=== PATIENT | female | born 1985 | race Caucasian/White ===

== ENCOUNTER 2020-07-04 13:42 | Emergency (ER) | payer BC ==
[2020-07-04 14:07] VITALS: BP 151/97; PULSE 96; RESP 18; TEMP 98.1
[2020-07-04] MEDS ORDERED: BACITRACIN OINT 1 EACH PACKET TOPICAL STA (14:41)
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
== END 2020-07-04 15:13 | disposition home or self-care (01) ==
LOC: EC 13:42
DX: T23.232A Burn of second degree of multiple left fingers (nail), not including thumb, initial encounter (principal); T31.0 Burns involving less than 10% of body surface; W01.0XXA Fall on same level from slipping, tripping and stumbling without subsequent striking against object, initial encounter; X03.0XXA Exposure to flames in controlled fire, not in building or structure, initial encounter; Y92.89 Other specified places as the place of occurrence of the external cause; Z87.891 Personal history of nicotine dependence
CPT/HCPCS: 99283

== ENCOUNTER → 2020-10-02 | Outpatient (CLI) | payer BC ==
[2020-10-02 09:58] LABS: Basophils % (A) 0 %; Eosinophils # (A) 0.2 k/uL (0-0.7); Eosinophils % (A) 3 %; HCT 40.8 % (34.0-46.0); HGB 13.7 gm/dL (11.4-16.0); Lymphocytes # (A) 2.2 k/uL (1.0-4.8); Lymphocytes % (A) 28 %; MCH 28.6 pg (25.0-35.0); MCHC 33.6 g/dL (31.0-37.0); Mean Platelet Volume 8.5; Monocytes # (A) 0.4 k/uL (0-1.0); Monocytes % (A) 6 %; Neutrophils # (A) 4.7 k/uL (1.3-7.7); Neutrophils % (A) 60 %; Platelet Count 290 k/uL (150-450); RDW 11.9 % (11.5-15.5); WBC 7.9 k/uL (3.8-10.6)
[2020-10-02 16:04] LABS: African American GFR (CKD) 110.7 (60.0-200.0); Albumin 4.7 g/dL (3.80-4.90); Albumin/Globulin Ratio 2.14 (1.60-3.17); Anion Gap 8.4 mmol/L (4.00-12.00); BUN/Creat Ratio 17.5 Ratio (12.00-20.00); Calcium 9.6 mg/dL (8.7-10.3); Carbon Dioxide 25.6 mmol/L (21.6-31.8); Chol/HDL Ratio 3.38; Globulin 2.2 g/dL (1.6-3.3); LDL Cholesterol,Calculated 61.6 mg/dL (0.0-131.0); Non-African American GFR(CKD) 95.5 (60.0-200.0); Potassium 4.5 mmol/L (3.5-5.5); Total Bilirubin 0.4 mg/dL (0.2-1.2); Total Protein 6.9 g/dL (6.2-8.2); VLDL Calculation 31.4 mg/dL (5.00-40.00)
[2020-10-02 16:14] LABS: Hemoglobin A1C 5.7 % (4.0-6.0)
== END | disposition home or self-care (01) ==
LOC: LABWHC1 09:18
PROVIDERS: ATTEND Internal Medicine
DX: I10 Essential (primary) hypertension (principal)
CPT/HCPCS: 36415; 80053; 80061; 83036; 84443; 85025

== ENCOUNTER 2021-03-18 09:32 | Outpatient (CLI) | payer BC ==
--- NOTE | 2021-03-18 11:29 | US ---
EXAMINATION TYPE: US OB >= 14 wk fetus DATE OF EXAM: 03/18/2021 COMPARISON: None CLINICAL HISTORY: placenta, EFW, MARICARMEN Advanced Maternal Age; vaginal bleeding last night; HTN TECHNIQUE: Transabdominal (TA) GESTATIONAL AGE / DATING Physician Established: (20 weeks/2 days) EDC: 08/03/2021 Dates by LMP: (20 weeks/2 days) EDC: 08/03/2021 Dates by First Scan: No previous here. Dates by Current Scan: (20 weeks/2 days) EDC: 08/03/2021 Beta HCG (if available): NA SURVEY IUP: Single PLACENTA: Anterior; anechoic oval areas seen superior and inferior placenta and may be venous lakes . Continued sonographic follow-up is recommended. PREVIA: No Previa MARICARMEN: 11.4 cm Normal CERVICAL LENGTH (transabdominal: norm > 3.0cm): 4.9 cm BIOMETRY PRESENTATION: Breech LIE: Longitudinal BPD: 4.8 cm 20 weeks / 3 days HC: 17.7 cm 20 weeks / 1 day AC: 16.0 cm 21 weeks / 1 day FL: 3.4 cm 20 weeks / 4 days ESTIMATED WEIGHT IN GRAMS: 377.0 grams ESTIMATED WEIGHT IN LBS/OZ: 0 lbs. 13.0 oz. WEIGHT PERCENTAGE BASED ON ESTABLISHED DATES: 73.4% HC/AC: 1.10 Normal FL/AC: 20.98 Normal HEART RATE: 160 bpm RHYTHM: Normal MATERNAL WALL MEASUREMENT: 5.0 cm from skin to anterior uterine wall (if exam limited due to body hab itus). Single, live IUP,20 weeks/2 days, EDC: 08/03/2021, [id number]. IMPRESSION: Single intrauterine with an average ultrasound gestational age of 20 weeks and 2 days. Feta l heart rate is 160 bpm. Probable venous lakes within the placenta. Continued sonographic follow-up is recommended.
[2021-03-18 11:40] VITALS: BP 152/83; PULSE 102; RESP 18; TEMP 98
[2021-03-18 11:50] LABS: Appearance,Urine Clear (Clear); Bilirubin,Urine Negative (Negative); Blood,Urine Trace (Negative); Color,Urine Colorless; Glucose,Urine (UA) Negative (Negative); Ketones,Urine Negative (Negative); Leukocyte Esterase,Urine Negative (Negative); Nitrite,Urine Negative (Negative); Protein,Urine Negative (Negative); Specific Gravity,Urine 1.003 (1.001-1.035); Squamous Epithelial Cell,Urine <1 /hpf (0-4); Urobilinogen,Urine <2.0 mg/dL (<2.0); WBC,Urine <1 /hpf (0-5)
--- NOTE | 2021-04-04 11:26 | P.MSEPDOC ---
Presenting Problems - Arrival Data Date of Arrival on Unit: 03/18/21 Time of Arrival on Unit: 09:32 Mode of Transport: Ambulatory - Complaint OB-Reason for Admission/Chief Complaint: Vaginal Bleeding Medical History - Information : 1 Para: 0 Term: 0 : 0 Abortions: Spontaneous or Elective: 0 Number of Living Children: 0 - Gestational Age Gestational Age by CHRISTY (wks/days): 20 Weeks and 2 Days - History Comment: pt has high blood pressure and on bp meds Review of Systems - Review of Systems Constitutional: No problems Breast: No problems ENT: No problems Cardiovascular: No problems Respiratory: No problems Gastrointestinal: No problems Genitourinary: No problems Musculoskeletal: No problems Neurological: No problems Skin: No problems Vital Signs - Temperature Temperature: 98.0 F Temperature Source: Oral - Pulse Right Brachial Pulse Rate: 102 Pulse Assessment Method: Automatic Cuff - Respirations Respiratory Rate: 18 Oxygen Delivery Method: Room Air - Blood Pressure Right Arm Blood Pressure: 152/83 Blood Pressure Mean: 106 Blood Pressure Source: Automatic Cuff Medical Screen Scoring - Assessment - Baby A Baseline FHR: 140 Physician Notification - Physician Notified Physician Notified Date: 03/18/21 Physician Notified Time: 11:22 Physician: Cony Gama S - Notification Comment Comment: ultrasound performed and urine sent, u/s no concerns, bp before discharge 131/80, pt discharged home on pelvic rest, she is to follow up on March [address] Murphy at scheduled appt Disposition - Disposition OB Disposition: Triage, Discharge to home, Written follow up instructions mon Discharge Date: 03/18/21 Discharge Time: 11:30 I agree with the RN Medical Screening Exam: Yes Physician's MSE Comment: I have neither seen nor examined the patient. Case reviewed; plan agreed upon as documented in EMR&OBIX.: Yes Diagnosis: RELATED CONDITIONS, UNSPECIFIED, SECOND TRIMESTER
== END 2021-03-18 11:30 | disposition home or self-care (01) ==
LOC: FBPOP 09:32
PROVIDERS: ATTEND Obstetrics & Gynecology
DX: O20.9 Hemorrhage in early pregnancy, unspecified (principal); O10.912 Unspecified pre-existing hypertension complicating pregnancy, second trimester; Z3A.20 20 weeks gestation of pregnancy; Z79.899 Other long term (current) drug therapy
CPT/HCPCS: 76805; 81001; 99215

== ENCOUNTER 2021-05-20 15:18 | Outpatient (CLI) | payer BC ==
[2021-05-20 16:29] VITALS: BP 133/90; PULSE 93; RESP 16; TEMP 97.4
--- NOTE | 2021-05-29 11:53 | P.MSEPDOC ---
Presenting Problems - Arrival Data Date of Arrival on Unit: 05/20/21 Time of Arrival on Unit: 15:18 Mode of Transport: Ambulatory - Complaint OB-Reason for Admission/Chief Complaint: Pain Comment: vaginal "soreness" and shooting pain Medical History - Information : 1 Para: 0 Term: 0 : 0 Abortions: Spontaneous or Elective: 0 Number of Living Children: 0 - Gestational Age Gestational Age by CHRISTY (wks/days): 29 Weeks and 2 Days Review of Systems - Review of Systems Constitutional: No problems Breast: No problems ENT: No problems Cardiovascular: No problems Respiratory: No problems Gastrointestinal: No problems Genitourinary: No problems Musculoskeletal: No problems Neurological: No problems Skin: No problems Vital Signs - Temperature Temperature: 97.4 F Temperature Source: Temporal Artery Scan - Pulse Right Sitting Pulse Rate: 93 Pulse Assessment Method: Automatic Cuff - Respirations Respiratory Rate: 16 Oxygen Delivery Method: Room Air - Blood Pressure Right Arm Blood Pressure: 133/90 Blood Pressure Mean: 104 Blood Pressure Source: Automatic Cuff Medical Screen Scoring - Assessment - Baby A Baseline FHR: 145 Heart Rate - NICHD Category: Category I (Normal) NST: Reactive Physician Notification - Physician Notified Physician Notified Date: 05/20/21 Physician Notified Time: 16:00 Physician: Gavin Murphy Order Received: Yes (d/c home) Maternal Triage Index - Non-Urgent/Priority 4 Non-Urgent Priority 4: Yes Criteria Met for Priority 4: reactive nst, no contractions on monitor, vitals wnl Disposition - Disposition OB Disposition: Discharge to home Discharge Date: 05/20/21 Discharge Time: 16:11 I agree with the RN Medical Screening Exam: Yes Physician's MSE Comment: I have neither seen nor examined the patient. Case reviewed; plan agreed upon as documented in EMR&OBIX.: Yes Diagnosis: RELATED CONDITIONS, UNSPECIFIED, SECOND TRIMESTER
== END 2021-05-20 16:11 | disposition home or self-care (01) ==
LOC: FBPOP 15:18
PROVIDERS: ATTEND Obstetrics & Gynecology
DX: O26.92 Pregnancy related conditions, unspecified, second trimester (principal); Z3A.29 29 weeks gestation of pregnancy
CPT/HCPCS: 59025; 99213

== ENCOUNTER 2021-07-20 10:00 | Inpatient (IN) | payer BC ==
[2021-07-20] MEDS ORDERED: LIDOCAINE 0.5% (PF) 5 MG/ML (50 ML SDV) SQ PRN (10:20)
[2021-07-20] MEDS ORDERED: TERBUTALINE 1 MG/ML VIAL SQ PRN (10:20)
[2021-07-20] MEDS ORDERED: OXYTOCIN 10 UNIT/ML 1 ML VIAL IM PRN (10:20)
[2021-07-20] MEDS ORDERED: CARBOPROST TROMETHAMINE 250 MCG/ML 1 ML AMP IM PRN (10:20)
[2021-07-20] MEDS ORDERED: METHYLERGONOVINE 0.2 MG/ML 1 ML AMP IM PRN (10:20)
[2021-07-20] MEDS: LACTATED RINGERS 1,000 ML IV SCH ×4 (10:57→21:42)
[2021-07-20] MEDS ORDERED: ceFAZolin 3 GM in SODIUM CHLORIDE 0.9% 100 ML IVPB ONE (11:02)
[2021-07-20] MEDS ORDERED: CITRIC ACID-SODIUM CITRATE 15 ML CUP PO ONE (11:02)
[2021-07-20 11:06] LABS: Glucose,Whole Blood 102 mg/dL (75-99)
[2021-07-20 11:48] LABS: Basophils % (A) 0 %; Eosinophils # (A) 0.1 k/uL (0-0.7); Eosinophils % (A) 1 %; HCT 37.2 % (34.0-46.0); HGB 12.6 gm/dL (11.4-16.0); Lymphocytes # (A) 1.5 k/uL (1.0-4.8); Lymphocytes % (A) 14 %; MCH 28.6 pg (25.0-35.0); MCHC 33.8 g/dL (31.0-37.0); MCV 84.7 fL (80.0-100.0); Monocytes # (A) 0.5 k/uL (0-1.0); Monocytes % (A) 4 %; Neutrophils # (A) 8.7 k/uL (1.3-7.7); Neutrophils % (A) 79 %; Platelet Count 229 k/uL (150-450); RDW 13.4 % (11.5-15.5)
[2021-07-20] MEDS ORDERED: ROCURONIUM 10 MG/ML (5 ML VIAL) IV ONE (12:18)
[2021-07-20] MEDS ORDERED: fentaNYL (PF) 50 MCG/ML 2 ML AMP ONE (12:18)
[2021-07-20] MEDS ORDERED: ONDANSETRON 4 MG/2 ML VIAL ONE (12:18)
[2021-07-20] MEDS ORDERED: HYDROmorphone (PF) 1 MG/ML ONE (12:18)
[2021-07-20] MEDS ORDERED: GLYCOPYRROLATE 0.2 MG/ML 2 ML VIAL ONE (12:18)
[2021-07-20] MEDS ORDERED: SUCCINYLCHOLINE CHLORIDE 100 MG/5 ML SYR IV ONE (12:18)
[2021-07-20] MEDS ORDERED: OXYTOCIN 30 UNITS/500 ML NS BAG IV ONE (12:18)
[2021-07-20] MEDS ORDERED: NEOSTIGMINE 1 MG/ML 10 ML VIAL ONE (12:18)
[2021-07-20] MEDS ORDERED: PROPOFOL 10 MG/ML 20 ML VIAL IV ONE (12:18)
[2021-07-20] MEDS ORDERED: KETOROLAC 15 MG/ML 1 ML VIAL ONE (12:18)
[2021-07-20] MEDS ORDERED: LIDOCAINE 1% INJ 10MG/ML (20 ML MDV) ONE (12:18)
[2021-07-20] MEDS ORDERED: diphenhydrAMINE 25 MG CAP PO PRN (13:15)
[2021-07-20] MEDS ORDERED: diphenhydrAMINE 50 MG/ML 1 ML VIAL IVP PRN ×2 (13:15)
[2021-07-20] MEDS ORDERED: OXYTOCIN 30 UNITS/500 ML NS 30 UNIT in SALINE 1 500ML.BAG IV SCH (13:15)
[2021-07-20] MEDS ORDERED: HYDROmorphone PCA 10 MG/50 ML BAG IV PRN (13:15)
[2021-07-20] MEDS ORDERED: LANOLIN CREAM 5 GM TUBE TOPICAL PRN (13:15)
[2021-07-20] MEDS ORDERED: diphenhydrAMINE 50 MG CAP PO PRN (13:15)
[2021-07-20] MEDS ORDERED: ZOLPIDEM 5 MG TAB PO PRN (13:15)
[2021-07-20] MEDS ORDERED: ONDANSETRON 4 MG/2 ML VIAL IVP PRN (13:15)
[2021-07-20] MEDS ORDERED: METOCLOPRAMIDE 5 MG/ML 2 ML VIAL IVP PRN (13:15)
[2021-07-20] MEDS ORDERED: NALOXONE 0.4 MG/ML 1 ML VIAL IV PRN (13:15)
[2021-07-20] MEDS ORDERED: SIMETHICONE 80 MG CHEWABLE PO PRN (13:15)
[2021-07-20] MEDS ORDERED: HYDROmorphone 2 MG TAB PO PRN ×2 (13:15)
--- NOTE | 2021-07-20 13:24 | P.HPOB ---
History of Present Illness H&P Date: 07/20/21 Chief Complaint: 38-0/7 weeks, primary low-transverse section The patient is a 36-year-old 1 para 0 admitted at 38-0/7 weeks for a elective primary low-transverse section. She is admitted with all signs reassuring and category 1 heart rate tracing. She falls into the category of advanced maternal age and declined trisomy testing. She carries a history of atrial fibrillation status post cardiac ablation since which time she has been stable. She did undergo maternal medicine of consultation who recommended she be delivered at 38 weeks. She additionally was a gestational diabetic and had reassuring weekly testing and her sugars were reasonably well controlled with diet alone. She also had a history of hypertension was stable on labetalol throughout the . She last was Rh- and received RhoGAM at 28 weeks. Ultrasound additionally had showed a velamentous cord insertion of though the placenta was not low-lying. The decision to proceed with primary low-transverse section was made secondary to the maternal medicine recommendation for delivery at 38 weeks with a very unfavorable cervix and a macrosomic fetus growing well over the 90th percentile growth. She additionally has a twin sister who has been unable to have normal vaginal deliveries. Group B strep status is negative. Obstetrical history: 1 para 0 with current statistics listed in history present illness. EDC of 08/03/2021 was established by last menstrual period and confirmed by first trimester ultrasound. Laboratory workup demonstrates a blood type of O- with a negative antibody screen. Rubella status is immune. The remainder of the laboratory workup was within normal limits. Early 1 hour Glucola was within normal limits. Second trimester Glucola was elevated and followed by an abnormal three-hour glucose tolerance test making the diagnosis of gestational diabetes. Group B strep status is negative. Gynecologic history: Unremarkable with no history of any infections to include STDs. Review of Systems Review of systems is confined to history of present illness. Past Medical History Past Medical History: Atrial Fibrillation, Asthma, Diabetes Mellitus, GERD/Reflux, Hypertension, Sleep Apnea/CPAP/BIPAP, Thyroid Disorder Additional Past Medical History / Comment(s): Non Insulin Dependent Gestational Diabetes. CPAP use. History of Any Multi-Drug Resistant Organisms: None Reported Past Surgical History: Cardiac Ablation Past Anesthesia/Blood Transfusion Reactions: No Reported Reaction, Motion Sickness Past Psychological History: ADD/ADHD Smoking Status: Former smoker, Light tobacco smoker Past Alcohol Use History: None Reported Past Drug Use History: None Reported - Past Family History Father Family Medical History: CVA/TIA Mother Family Medical History: Cancer Additional Family Medical History / Comment(s): Breast cancer. Medications and Allergies Home Medications Medication Instructions Recorded Confirmed Type Albuterol Inhaler [Ventolin Hfa 1 puff INHALATION DIRECTED 03/18/21 07/20/21 History Inhaler] Aspirin 81 mg PO DAILY 03/18/21 07/20/21 History Beclomethasone Dipropionate [Qvar 1 puff INHALATION DAILY 03/18/21 07/20/21 History 40 mcg Redihaler] Levothyroxine Sodium [Synthroid] 75 mcg PO DAILY 03/18/21 07/20/21 History Pnv No.95/Ferrous Fum/Folic AC 1 tab PO DAILY 03/18/21 07/20/21 History [ Multivitamin Tablet] Ascorbic Acid [Vitamin C] 500 mg PO DAILY 07/13/21 07/20/21 History Biotin 5 mg PO DAILY 07/13/21 07/20/21 History Calcium/Magnesium/Zinc 1 each PO DAILY 07/13/21 07/20/21 History [Ngpvtxg-Sexazpgxz-Mfin Tablet] Docusate [Colace] 100 mg PO DAILY 07/13/21 07/20/21 History Ferrous Sulfate [Feosol] 325 mg PO DAILY 07/13/21 07/20/21 History Folic Acid (Unknown Dose) 1 tab PO DAILY 07/13/21 07/20/21 History Lisdexamfetamine Dimesylate 50 mg PO DAILY PRN 07/13/21 07/20/21 History [Vyvanse] Loratadine [Claritin] 10 mg PO DAILY 07/13/21 07/20/21 History Metoprolol Tartrate 25 mg PO DAILY 07/13/21 07/20/21 History Vitamin B Complex 1 each PO DAILY 07/13/21 07/20/21 History metFORMIN HCL [Glucophage] 1,000 mg PO BID 07/13/21 07/20/21 History Allergies Allergy/AdvReac Type Severity Reaction Status Date / Time No Known Allergies Allergy Verified 07/20/21 10:16 Exam Vital Signs Temp Pulse Resp BP 07/20/21 10:16 97.2 F L 97 16 129/86 Intake and Output 07/19/21 07/20/21 07/20/21 22:59 06:59 14:59 Other: Weight 138.346 kg In general, this is a well-developed, moderately obese white female in no acute distress. Her heart has a regular rhythm and rate without murmur. Her lungs clear to auscultation bilaterally in all ramirez. Her abdomen is gravid, nondistended, has normal active bowel sounds, soft, nontender, and without any palpable masses aside from uterine fundus. Her extremities are without any cyanosis, clubbing, or significant edema and are nontender to palpation bilaterally. Digital cervical examination is deferred but her cervix has in the past been closed, thick, and high. Results Result Diagrams: 07/20/21 10:45 Abnormal Lab Results - Last 24 Hours (Table) 07/20/21 07/20/21 Range/Units 10:45 11:05 WBC 11.0 H (3.8-10.6) k/uL POC Glucose (mg/dL) 102 H (75-99) mg/dL Assessment and Plan (1) Term Current Visit: Yes Status: Acute Code(s): Z34.90 - ENCNTR FOR SUPRVSN OF NORMAL , UNSP, UNSP TRIMESTER SNOMED Code(s): 85302570 (2) Chronic hypertension affecting Current Visit: Yes Status: Acute Code(s): O10.919 - UNSP PRE-EXISTING HTN COMP , UNSP TRIMESTER SNOMED Code(s): 97120939 (3) Gestational diabetes Current Visit: Yes Status: Acute Code(s): O24.419 - GESTATIONAL DIABETES MELLITUS IN , UNSP CONTROL SNOMED Code(s): 71566992 (4) Unfavorable cervix in term Current Visit: Yes Status: Acute Code(s): O34.40 - MATERNAL CARE FOR OTH ABNLT OF CERVIX, UNSP TRIMESTER SNOMED Code(s): 915759488 (5) Large for gestational age fetus Current Visit: Yes Status: Acute Code(s): HTA7804 - SNOMED Code(s): 495549418 Plan: The patient is admitted for elective primary low-transverse section for the reasons as outlined in history present illness. There is an complications of the procedure been thoroughly discussed and she is understood and agreed to proceed.
--- NOTE | 2021-07-20 13:31 | P.OP ---
Date of Procedure: 07/20/21 Preoperative Diagnosis: #1. 38-0/7 weeks, chronic hypertension, gestational diabetes, unfavorable cervix, suspected macrosomia Postoperative Diagnosis: Same Procedure(s) Performed: #1. Elective primary low-transverse section Anesthesia: SAEID Surgeon: Gavin Murphy Solar Electric/Photovoltaic Installer #1: Cony Gama Estimated Blood Loss (ml): 634 IV fluids (ml): 1,000 Urine output (ml): 100 Pathology: none sent Condition: stable Disposition: floor Operative Findings: Preoperatively, the decision to proceed with primary section was made given all the criteria and findings as noted in both diagnoses and in history present illness. She was taken the operating room where, at the time of evaluation for spinal, the anesthesiologist noted the patient had a significant rash and/or acne covering the entire area of the back where the spinal would be placed. There was concern for potential for infection and the anesthesiologist opted to proceed with general anesthesia instead. She was delivered of a viable 9 lbs. 4 oz. baby boy delivered in left occiput transverse position with Apgars of 9 at 1 minute and 9 at 5 minutes respectively. The placenta was delivered manually, intact, and grossly normal with a grossly normal three-vessel cord. The uterus, tubes, and ovaries were entirely normal to inspection. Description of Procedure: The patient was prepped and draped in usual fashion and then general anesthesia was administered by the anesthesiologist. A Pfannenstiel incision was made and extended into the abdominal cavity without difficulty. The bladder peritoneum was significantly distal to the intended site of incision and was left intact. A 2 cm incision was made in the transverse plane of the lower uterine segment to enter the uterus at which time clear fluid was noted. The incision was extended in both directions using the bandage scissors. The head was delivered up to the incision but was difficult to deliver through secondary to the angles of the maternal abdomen and the lack of labor. A vega-shaped mighty Vac vacuum was attached the occiput and, using fundal pressure along with the vacuum to elevate the head, the head was delivered through the incision where the nose and mouth were thoroughly suctioned. The remainder the was delivered onto the field where the cord was doubly clamped, cut, and the passed resusci tative measures with weight and Apgars as noted above. The was immediately vigorous. A segment of cord was then doubly clamped, cut, and set aside should cord gases become necessary. cord blood was collected for evaluation for RhoGAM. The placenta was delivered manually and intact as noted above. The uterus was exteriorized and the interior cavity of the uterus swept of any remaining placental or membranous fragments. The margins of the uterine incision were grasped with Loaiza clamps and the incision was closed in 2 layers. The first layer was a running locking stitch of 0 chromic catgut followed by a running imbricating stitch of 0 chromic catgut, each from margin to margin. Hemostasis appeared to be excellent. The posterior cul-de-sac was suctioned using a guard and the uterus was replaced within the abdominal cavity. The gutters were swept of any remaining blood, fluid, or clot and the incision reexamined. Any small points of bleeding along the peritoneal edges were made hemostatic with the Bovie. Once hemostasis was noted, the parietal peritoneum was loosely reapproximated and layer of muscles examined and made hemostatic with the Bovie. The fascia was closed with 2 running stitches of 0 Vicryl proceeding from the lateral margins to the midpoint. The subcutaneous tissues were made hemostatic with the Bovie and reapproximated with a running stitch of 30 plain catgut. The skin was reapproximated with a running subcuticular stitch of 4-0 Vicryl followed by half-inch Steri-Strips placed with Mastisol. Estimated blood loss for the case was approximately 634 mL. There were no complications. All sponge, instrument, and needle counts were correct. The patient tolerated the procedure well and proceeded to the recovery room in stable condition. Both mother and are resting comfortably in recovery.
[2021-07-20] MEDS ORDERED: Rhogam IMMUNE GLOBULIN 1,500 UNIT/1 ML IM ONE (15:06)
[2021-07-20] MEDS: ACETAMINOPHEN TAB 500 MG TAB PO SCH (17:54)
[2021-07-20] MEDS: SENNOSIDES-DOCUSATE SODIUM 1 EACH TAB PO SCH (20:52)
[2021-07-20] MEDS: KETOROLAC 15 MG/ML 1 ML VIAL IVP PRN (20:52)
[2021-07-20] MEDS: IBUPROFEN 600 MG TAB PO SCH (21:41)
[2021-07-21] MEDS: ACETAMINOPHEN TAB 500 MG TAB PO SCH ×4 (01:11→18:06)
[2021-07-21] MEDS: IBUPROFEN 600 MG TAB PO SCH ×5 (02:14→23:02)
[2021-07-21] MEDS: KETOROLAC 15 MG/ML 1 ML VIAL IVP PRN ×2 (03:10→08:51)
[2021-07-21] MEDS: LACTATED RINGERS 1,000 ML IV SCH (06:11)
[2021-07-21 06:23] LABS: Basophils % (A) 0 %; Eosinophils # (A) 0.1 k/uL (0-0.7); Eosinophils % (A) 1 %; HGB 11.3 gm/dL (11.4-16.0); Lymphocytes % (A) 13 %; MCH 29.2 pg (25.0-35.0); MCHC 34.1 g/dL (31.0-37.0); MCV 85.6 fL (80.0-100.0); Mean Platelet Volume 10.1; Monocytes # (A) 0.8 k/uL (0-1.0); Monocytes % (A) 5 %; Neutrophils # (A) 11.8 k/uL (1.3-7.7); Neutrophils % (A) 78 %; Platelet Count 202 k/uL (150-450); RBC 3.85 m/uL (3.80-5.40); RDW 13.5 % (11.5-15.5); WBC 15.1 k/uL (3.8-10.6)
--- NOTE | 2021-07-21 08:48 | P.PNOBGPC ---
Subjective - Subjective Principal diagnosis: Postop day 1, primary Interval history: Patient did well overnight. She is ambulating and voiding without difficulty. Her lochia is minimal. She is tolerating a regular diet without nausea or vomiting. She is breast-feeding without difficulty. Patient reports: Reports appetite normal, Reports voiding normally, Reports pain well controlled, Reports ambulating normally : doing well, nursing well Objective - Vital Signs Latest vital signs: Vital Signs Temp Pulse Resp BP Pulse Ox 07/21/21 03:47 97.9 F 93 16 140/87 96 07/21/21 00:00 98.5 F 99 16 124/77 07/20/21 20:00 97.7 F 111 H 16 147/81 95 07/20/21 16:00 98.3 F 92 16 139/92 97 07/20/21 15:15 97.0 F L 86 16 134/79 96 07/20/21 14:45 97.1 F L 91 17 150/81 94 L 07/20/21 14:15 97.2 F L 85 17 151/81 97 07/20/21 14:00 97.2 F L 100 17 143/67 97 07/20/21 13:45 97.3 F L 83 16 152/72 97 07/20/21 13:30 97.2 F L 78 16 153/80 98 07/20/21 13:15 97.2 F L 76 16 173/81 98 07/20/21 10:16 97.2 F L 97 16 129/86 Intake and Output 07/20/21 07/21/21 07/21/21 22:59 06:59 14:59 Output Total 1305 1800 Balance -1305 -1800 Output: Urine 1050 1800 Uretheral (Orozco) 950 Estimated Blood Loss 255 Other: Voiding Method Indwelling Catheter # Voids 1 - Exam Extremities: Present: normal, edema Abdomen: Present: normal appearance Incision: Present: intact Uterus: Present: normal, firm - Labs Labs: Abnormal Lab Results - Last 24 Hours (Table) 07/20/21 07/20/21 07/21/21 Range/Units 10:45 11:05 06:03 WBC 11.0 H 15.1 H (3.8-10.6) k/uL Hgb 11.3 L (11.4-16.0) gm/dL Hct 33.0 L (34.0-46.0) % Neutrophils # 8.7 H 11.8 H (1.3-7.7) k/uL POC Glucose (mg/dL) 102 H (75-99) mg/dL Assessment and Plan (1) Chronic hypertension affecting Current Visit: Yes Status: Acute Code(s): O10.919 - UNSP PRE-EXISTING HTN COMP , UNSP TRIMESTER SNOMED Code(s): 35044585 (2) Gestational diabetes Current Visit: Yes Status: Acute Code(s): O24.419 - GESTATIONAL DIABETES MELLITUS IN , UNSP CONTROL SNOMED Code(s): 72983228 (3) Large for gestational age fetus Current Visit: Yes Status: Acute Code(s): GCY1064 - SNOMED Code(s): 946192242 (4) Term Current Visit: Yes Status: Acute Code(s): Z34.90 - ENCNTR FOR SUPRVSN OF NORMAL , UNSP, UNSP TRIMESTER SNOMED Code(s): 57367839 (5) Unfavorable cervix in term Current Visit: Yes Status: Acute Code(s): O34.40 - MATERNAL CARE FOR OTH ABNLT OF CERVIX, UNSP TRIMESTER SNOMED Code(s): 014883653 Plan: Patient is doing well postoperatively. We'll plan to continue routine postoperative care. We will hold metoprolol interval 24 hours status post general anesthesia. If her pulse remains elevated above 100 will restart today. Discontinue SENIOR WEB ARCHITECT, start oral pain medication. Patient is doing well, anticipate discharge home tomorrow.
[2021-07-21] MEDS: SENNOSIDES-DOCUSATE SODIUM 1 EACH TAB PO SCH ×2 (08:51→20:58)
[2021-07-21] MEDS: METOPROLOL TARTRATE 25 MG TAB PO SCH (20:59)
[2021-07-22] MEDS: ACETAMINOPHEN TAB 500 MG TAB PO SCH ×3 (01:44→12:18)
[2021-07-22] MEDS: IBUPROFEN 600 MG TAB PO SCH (06:41)
[2021-07-22] MEDS: SENNOSIDES-DOCUSATE SODIUM 1 EACH TAB PO SCH (08:43)
[2021-07-22] MEDS: METOPROLOL TARTRATE 25 MG TAB PO SCH (08:43)
[2021-07-22 08:59] VITALS: BP 132/92; PULSE 94; RESP 20; TEMP 97.9
--- NOTE | 2021-07-22 13:13 | P.DS ---
Providers Date of admission: 07/20/21 10:00 Expected date of discharge: 07/22/21 Attending physician: Gavin Murphy Primary care physician: Stated None - Discharge Diagnosis(es) (1) Chronic hypertension affecting Current Visit: Yes Status: Acute (2) Gestational diabetes Current Visit: Yes Status: Acute (3) Large for gestational age fetus Current Visit: Yes Status: Acute (4) Term Current Visit: Yes Status: Acute (5) Unfavorable cervix in term Current Visit: Yes Status: Acute (6) S/P section Current Visit: Yes Status: Acute Hospital Course: This is a 36-year-old admitted at 38-0/7 weeks for elective primary low transverse section. Patient has a history of atrial fibrillation status post cardiac ablation which has been stable since the time of the ab lation. Patient did undergo maternal- medicine consultation which recommended delivery at 38 weeks. She is also a gestational diabetic and has had reassuring testing. Patient has a history of hypertension stable on labetalol throughout the . Patient is known Rh-. In addition this patient had an ultrasound revealing a velamentous cord insertion although not low-lying placenta. Estimated weight of this was well over the 90th percentile in addition. Patient has a history of a twin sister that was unable to deliver vaginally and she elected a elective . Patient underwent primary low transverse section under general anesthesia for questionable infectious rash on her lower back. Patient did well. For full details on the please see the operative report. Patient delivered a liveborn male, weight of 9 lbs. 4 oz. in a vertex presentation. Apgars were 9 and 9 at one and 5 minutes respect daily. Patient's postoperative course has been uneventful. On this postoperative day #2 she is ambulating and voiding without difficulty. She is breast and bottle feeding. She states her lochia is minimal. Her pain is well-controlled. She does wish discharge home. Patient Condition at Discharge: Good Plan - Discharge Summary Discharge Rx Participant: Yes New Discharge Prescriptions: No Action Levothyroxine Sodium [Synthroid] 75 mcg PO DAILY Aspirin 81 mg PO DAILY metFORMIN HCL [Glucophage] 1,000 mg PO BID Ferrous Sulfate [Feosol] 325 mg PO DAILY Loratadine [Claritin] 10 mg PO DAILY Folic Acid (Unknown Dose) 1 tab PO DAILY Calcium/Magnesium/Zinc [Grvbzpd-Hpjtfxpcm-Ewgm Tablet] 1 each PO DAILY Pnv No.95/Ferrous Fum/Folic AC [ Multivitamin Tablet] 1 tab PO DAILY Albuterol Inhaler [Ventolin Hfa Inhaler] 1 puff INHALATION DIRECTED Beclomethasone Dipropionate [Qvar 40 mcg Redihaler] 1 puff INHALATION DAILY Docusate [Colace] 100 mg PO DAILY Ascorbic Acid [Vitamin C] 500 mg PO DAILY Metoprolol Tartrate 25 mg PO DAILY Lisdexamfetamine Dimesylate [Vyvanse] 50 mg PO DAILY PRN PRN Reason: ADHD Vitamin B Complex 1 each PO DAILY Biotin 5 mg PO DAILY Discharge Medication List Albuterol Inhaler [Ventolin Hfa Inhaler] 1 puff INHALATION DIRECTED 03/18/21 [History] Aspirin 81 mg PO DAILY 03/18/21 [History] Beclomethasone Dipropionate [Qvar 40 mcg Redihaler] 1 puff INHALATION DAILY 03/18/21 [History] Levothyroxine Sodium [Synthroid] 75 mcg PO DAILY 03/18/21 [History] Pnv No.95/Ferrous Fum/Folic AC [ Multivitamin Tablet] 1 tab PO DAILY 03/18/21 [History] Ascorbic Acid [Vitamin C] 500 mg PO DAILY 07/13/21 [History] Biotin 5 mg PO DAILY 07/13/21 [History] Calcium/Magnesium/Zinc [Dhmabnq-Apvldcagm-Ycnu Tablet] 1 each PO DAILY 07/13/21 [History] Docusate [Colace] 100 mg PO DAILY 07/13/21 [History] Ferrous Sulfate [Feosol] 325 mg PO DAILY 07/13/21 [History] Folic Acid (Unknown Dose) 1 tab PO DAILY 07/13/21 [History] Lisdexamfetamine Dimesylate [Vyvanse] 50 mg PO DAILY PRN 07/13/21 [History] Loratadine [Claritin] 10 mg PO DAILY 07/13/21 [History] Metoprolol Tartrate 25 mg PO DAILY 07/13/21 [History] Vitamin B Complex 1 each PO DAILY 07/13/21 [History] metFORMIN HCL [Glucophage] 1,000 mg PO BID 07/13/21 [History] Follow up Appointment(s)/Referral(s): Gavin Murphy MD [STAFF PHYSICIAN] - 2 Weeks Patient Instructions/Handouts: (DC), (GEN) Discharge Disposition: HOME SELF-CARE
== END 2021-07-22 14:30 | disposition home or self-care (01) | DRG 786 ==
LOC: 4FBP 10:00
PROVIDERS: ADMIT Obstetrics & Gynecology; ATTEND Obstetrics & Gynecology
PROC: 3E0234Z Introduction of Serum, Toxoid and Vaccine into Muscle, Percutaneous Approach (ICD-10-PCS; 2021-07-20)
PROC: 10D00Z1 Extraction of Products of Conception, Low, Open Approach (ICD-10-PCS; principal; 2021-07-20 12:00)
DX: O10.92 Unspecified pre-existing hypertension complicating childbirth (principal); O99.42 Diseases of the circulatory system complicating childbirth; O36.63X0 Maternal care for excessive fetal growth, third trimester, not applicable or unspecified; O24.425 Gestational diabetes mellitus in childbirth, controlled by oral hypoglycemic drugs; O34.43 Maternal care for other abnormalities of cervix, third trimester; O43.123 Velamentous insertion of umbilical cord, third trimester; O99.52 Diseases of the respiratory system complicating childbirth; O99.62 Diseases of the digestive system complicating childbirth; K21.9 Gastro-esophageal reflux disease without esophagitis; G47.33 Obstructive sleep apnea (adult) (pediatric); O26.893 Other specified pregnancy related conditions, third trimester; Z67.41 Type O blood, Rh negative; O99.344 Other mental disorders complicating childbirth; F90.9 Attention-deficit hyperactivity disorder, unspecified type; I48.91 Unspecified atrial fibrillation; J45.909 Unspecified asthma, uncomplicated; Z37.0 Single live birth; Z3A.38 38 weeks gestation of pregnancy; Z79.82 Long term (current) use of aspirin; Z79.890 Hormone replacement therapy; Z79.899 Other long term (current) drug therapy; Z87.891 Personal history of nicotine dependence
CPT/HCPCS: 85025; 85461; 86850; 86900; 86901

== ENCOUNTER → 2021-09-21 | Outpatient (CLI) | payer BC ==
--- NOTE | 2021-09-22 10:23 | USB ---
History: Family history of breast cancer in mother at age 43 and breast cancer in maternal grandmother. Indicated problem(s): palpable abnormality in the right breast. Physical Findings: Nurse Summary: 7 x 8cm firm, red nodule (nurse dw). US Breast Limited RT Technologist: Alysia Lundberg Right limited breast ultrasound including focal area of concern, retroareolar and axilla demonstrates a 2.9 x 1.8 x 2.1cm irregular, cystic lesion at 1 o'clock and duct ectasia at the nipple. Suspect developing abscess, differential includes galactocele or less likely hematoma. These results were verbally communicated with the patient and result sheet given to the patient on 09/21/21. ASSESSMENT: Probably benign, BI-RAD 3 RECOMMENDATION: Ultrasound of the right breast in 1 month. (2-4 weeks if not improving) Manage patient on a clinical basis.
== END | disposition home or self-care (01) ==
LOC: RADUSWWP 14:23
PROVIDERS: ATTEND Obstetrics & Gynecology
DX: N64.4 Mastodynia (principal); N63.0 Unspecified lump in unspecified breast

== ENCOUNTER 2021-09-29 17:00 | Observation (INO) | payer BC ==
[2021-09-29] MEDS ORDERED: SODIUM CHLORIDE 0.9% 500 ML 500 ML IV STA (18:30)
--- NOTE | 2021-09-29 18:43 | ED ---
General Adult HPI - General Chief complaint: Abdominal Pain Stated complaint: Abd pain Time Seen by Provider: 09/29/21 18:10 Source: patient, RN notes reviewed, old records reviewed Mode of arrival: ambulatory Limitations: no limitations - History of Present Illness Initial comments: This a 36 old female presents emergency department stating after she had a candy bar this afternoon. He started having severe right upper quadrant abdominal pain. Patient states it was very severe. Patient states the pain lasted for about 2 hours and then went down to a 4 out of 10 almost instantaneously. Patient denies any nausea vomiting. Patient states became diaphoretic. Patient states she's had this happen twice before the middle the night but never came in to be evaluated. Patient denies any chest pain difficult breathing shortness of breath per patie nt has any fever chills or cough. Patient denies any leg swelling or calf tenderness. Patient denies any diarrhea. - Related Data Home Medications Medication Instructions Recorded Confirmed Albuterol Inhaler [Ventolin Hfa 2 puff INHALATION RT-QID PRN 03/18/21 09/29/21 Inhaler] Aspirin 81 mg PO DAILY 03/18/21 09/29/21 Beclomethasone Dipropionate [Qvar 2 puff INHALATION RT-BID 03/18/21 09/29/21 40 mcg Redihaler] Levothyroxine Sodium [Synthroid] 75 mcg PO DAILY 03/18/21 09/29/21 Pnv No.95/Ferrous Fum/Folic AC 1 tab PO DAILY 03/18/21 09/29/21 [ Multivitamin Tablet] Calcium/Magnesium/Zinc 1 tab PO DAILY 07/13/21 09/29/21 [Pbhmhel-Omigkrkzk-Juxh Tablet] Lisdexamfetamine Dimesylate 50 mg PO DAILY PRN 07/13/21 09/29/21 [Vyvanse] Loratadine [Claritin] 10 mg PO DAILY 07/13/21 09/29/21 Metoprolol Tartrate 25 mg PO DAILY 07/13/21 09/29/21 metFORMIN HCL [Glucophage] 1,000 mg PO BID 07/13/21 09/29/21 Amoxic-Pot Clav 875-125Mg 1 tab PO BID 09/29/21 09/29/21 [Augmentin 875-125] Cholecalciferol [Vitamin D3 (25 25 mcg PO DAILY 09/29/21 09/29/21 Mcg = 1000 Iu)] Folic Acid 0.8 mg PO DAILY 09/29/21 09/29/21 Allergies Allergy/AdvReac Type Severity Reaction Status Date / Time No Known Allergies Allergy Verified 09/29/21 19:08 Review of Systems ROS Statement: Those systems with pertinent positive or pertinent negative responses have been documented in the HPI. ROS Other: All systems not noted in ROS Statement are negative. Past Medical History Past Medical History: Atrial Fibrillation, Asthma, Diabetes Mellitus, GERD/Reflux, Hypertension, Sleep Apnea/CPAP/BIPAP, Thyroid Disorder Additional Past Medical History / Comment(s): Non Insulin Dependent Gestational Diabetes. CPAP use. History of Any Multi-Drug Resistant Organisms: None Reported Past Surgical History: Cardiac Ablation, Section Past Anesthesia/Blood Transfusion Reactions: No Reported Reaction, Motion Sickness Past Psychological History: ADD/ADHD, Anxiety Smoking Status: Former smoker, Light tobacco smoker Past Alcohol Use History: Rare Past Drug Use History: None Reported - Past Family History Father Family Medical History: CVA/TIA Mother Family Medical History: Cancer Additional Family Medical History / Comment(s): Breast cancer. General Exam - General Exam Comments Initial Comments: GENERAL: Patient is well-developed and well-nourished. Patient is nontoxic and well- hydrated and is in mild distress. ENT: Neck is soft and supple. No significant lymphadenopathy is noted. Oropharynx is clear. Moist mucous membranes. Neck has full range of motion without eliciting any pain. EYES: The sclera were anicteric and conjunctiva were pink and moist. Extraocular movements were intact and pupils were equal round and reactive to light. Eyelids were unremarkable. PULMONARY: Unlabored respirations. Good breath sounds bilaterally. No audible rales rhonchi or wheezing was noted. CARDIOVASCULAR: There is a regular rate and rhythm without any murmurs gallops or rubs. ABDOMEN: Right upper quadrant abdominal pain SKIN: Skin is clear with no lesions or rashes and otherwise unremarkable. NEUROLOGIC: Patient is alert and oriented x3. Cranial nerves II through XII are grossly intact. Motor and sensory are also intact. Normal speech, volume and content. Symmetrical smile. MUSCULOSKELETAL: Normal extremities with adequate strength and full range of motion. LYMPHATICS: No significant lymphadenopathy is noted PSYCHIATRIC: Normal psychiatric evaluation. Limitations: no limitations Course Vital Signs 09/29/21 18:07 Temperature 98.8 F Pulse Rate 74 Respiratory 20 Rate Blood Pressure 109/78 O2 Sat by Pulse 98 Oximetry Medical Decision Making - Medical Decision Making Ultrasound showed a thickened gallbladder wall as well as some pericholecystic fluid and the patient also had gallstones. Patient I believe has cholecystitis. I spoke with Dr. Hagan she agreed to admit the patient admitted the patient I wrote admitting orders. - Lab Data Result diagrams: 09/29/21 18:38 09/29/21 18:38 Lab Results 09/29/21 09/29/21 09/29/21 Range/Units 18:38 18:38 18:38 WBC 13.6 H (3.8-10.6) k/uL RBC 4.85 (3.80-5.40) m/uL Hgb 13.6 (11.4-16.0) gm/dL Hct 41.1 (34.0-46.0) % MCV 84.7 (80.0-100.0) fL MCH 28.0 (25.0-35.0) pg MCHC 33.1 (31.0-37.0) g/dL RDW 12.5 (11.5-15.5) % Plt Count 339 (150-450) k/uL MPV 8.8 Neutrophils % 74 % Lymphocytes % 14 % Monocytes % 5 % Eosinophils % 4 % Basophils % 1 % Neutrophils # 10.1 H (1.3-7.7) k/uL Lymphocytes # 1.9 (1.0-4.8) k/uL Monocytes # 0.7 (0-1.0) k/uL Eosinophils # 0.6 (0-0.7) k/uL Basophils # 0.1 (0-0.2) k/uL Sodium 141 (137-145) mmol/L Potassium 4.4 (3.5-5.1) mmol/L Chloride 104 (98-107) mmol/L Carbon Dioxide 21 L (22-30) mmol/L Anion Gap 16 mmol/L BUN 22 H (7-17) mg/dL Creatinine 0.83 (0.52-1.04) mg/dL Est GFR (CKD-EPI)AfAm >90 (>60 ml/min/1.73 sqM) Est GFR (CKD-EPI)NonAf >90 (>60 ml/min/1.73 sqM) Glucose 111 H (74-99) mg/dL Calcium 10.9 H (8.4-10.2) mg/dL Total Bilirubin 0.2 (0.2-1.3) mg/dL AST 32 (14-36) U/L ALT 43 H (4-34) U/L Alkaline Phosphatase 75 (38-126) U/L Total Protein 8.1 (6.3-8.2) g/dL Albumin 5.1 H (3.5-5.0) g/dL Amylase 68 (30-110) U/L Lipase 266 (23-300) U/L Urine Color Yellow Urine Appearance Cloudy H (Clear) Urine pH 6.5 (5.0-8.0) Ur Specific [place] 1.021 (1.001-1.035) Urine Protein Negative (Negative) Urine Glucose (UA) Negative (Negative) Urine Ketones Negative (Negative) Urine Blood Negative (Negative) Urine Nitrite Negative (Negative) Urine Bilirubin Negative (Negative) Urine Urobilinogen <2.0 (<2.0) mg/dL Ur Leukocyte Esterase Trace H (Negative) Urine RBC 2 (0-5) /hpf Urine WBC 5 (0-5) /hpf Ur Squamous Epith Cells 1 (0-4) /hpf Urine Bacteria Occasional H (None) /hpf Hyaline Casts 5 H (0-2) /lpf Urine Mucus Occasional H (None) /hpf Urine Yeast (Budding) Occasional H (None) /hpf Disposition Clinical Impression: Cholelithiasis and acute cholecystitis without obstruction Disposition: ADMITTED IP TO THIS [facility] Referrals: Nicole Reddy MD [Primary Care Provider] - 1-2 days Time of Disposition: 20:28
[2021-09-29 18:46] LABS: Basophils # (A) 0.1 k/uL (0-0.2); Basophils % (A) 1 %; Eosinophils # (A) 0.6 k/uL (0-0.7); Eosinophils % (A) 4 %; HCT 41.1 % (34.0-46.0); HGB 13.6 gm/dL (11.4-16.0); Lymphocytes # (A) 1.9 k/uL (1.0-4.8); Lymphocytes % (A) 14 %; MCHC 33.1 g/dL (31.0-37.0); MCV 84.7 fL (80.0-100.0); Mean Platelet Volume 8.8; Monocytes # (A) 0.7 k/uL (0-1.0); Monocytes % (A) 5 %; Neutrophils # (A) 10.1 k/uL (1.3-7.7); Neutrophils % (A) 74 %; Platelet Count 339 k/uL (150-450); RBC 4.85 m/uL (3.80-5.40); RDW 12.5 % (11.5-15.5); WBC 13.6 k/uL (3.8-10.6)
[2021-09-29 18:51] LABS: Appearance,Urine Cloudy (Clear); Bacteria,Urine Occasional /hpf; Bilirubin,Urine Negative (Negative); Blood,Urine Negative (Negative); Budding Yeast,Urine Occasional /hpf; Color,Urine Yellow; Glucose,Urine (UA) Negative (Negative); Hyaline Casts,Urine 5 /lpf (0-2); Ketones,Urine Negative (Negative); Leukocyte Esterase,Urine Trace (Negative); Mucus,Urine Occasional /hpf; Nitrite,Urine Negative (Negative); PH, Urine 6.5 (5.0-8.0); Protein,Urine Negative (Negative); RBC,Urine 2 /hpf (0-5); Specific Gravity,Urine 1.021 (1.001-1.035); Squamous Epithelial Cell,Urine 1 /hpf (0-4); Urobilinogen,Urine <2.0 mg/dL (<2.0); WBC,Urine 5 /hpf (0-5)
[2021-09-29 18:58] LABS: ALT 43 U/L (4-34); AST 32 U/L (14-36); African American GFR (CKD) >90 (>60 ml/min/1.73 sqM); Albumin 5.1 g/dL (3.5-5.0); Alkaline Phosphatase 75 U/L (38-126); Amylase 68 U/L (30-110); Anion Gap 16 mmol/L; Blood Urea Nitrogen 22 mg/dL (7-17); Calcium 10.9 mg/dL (8.4-10.2); Carbon Dioxide 21 mmol/L (22-30); Chloride 104 mmol/L (98-107); Glucose 111 mg/dL (74-99); Lipase 266 U/L (23-300); Non-African American GFR(CKD) >90 (>60 ml/min/1.73 sqM); Potassium 4.4 mmol/L (3.5-5.1); Sodium 141 mmol/L (137-145); Total Bilirubin 0.2 mg/dL (0.2-1.3); Total Protein 8.1 g/dL (6.3-8.2)
--- NOTE | 2021-09-29 19:54 | US ---
EXAMINATION TYPE: US gallbladder DATE OF EXAM: 09/29/2021 COMPARISON: NONE CLINICAL HISTORY: Right upper quadrant abdominal pain. RUQ pain. EXAM MEASUREMENTS: Liver Length: 19.9 cm Gallbladder Wall: 0.43 cm CBD: 0.46 cm Right Kidney: 12.1 x 6.8 x 5.2 cm Limited due to gas and patient body habitus. Pancreas: Limited visibility of tail. Liver: Appears enlarged with slightly coarse echotexture. Gallbladder: Multiple hyperechoic foci with posterior shadowing, consistent with gallstones seen. Me asures 10.2 cm in length. Fold seen. Small hypoechoic area seen adjacent to the gallbladder measuring 0.7 x 0.8 x 1.4, probable pericholecystic fluid Evidence for sonographic Jordan's sign: No CBD: Appears wnl Right Kidney: Measures upper limits of normal. IMPRESSION: Cholelithiasis with gallbladder wall thickening and small pericholecystic fluid. Findings are concern ing for acute cholecystitis in the appropriate clinical setting. Hepatic steatosis.
[2021-09-29] MEDS ORDERED: SODIUM CHLORIDE 0.9% 1,000 ML IV ONE (20:40)
[2021-09-29] MEDS ORDERED: PIPERACILLIN-TAZOBACTAM 3.375 GM in SODIUM CHLORIDE 0.9% 100 ML IVPB STA (20:43)
[2021-09-29] MEDS: KETOROLAC 30 MG/ML 1 ML VIAL IVP SCH (23:13)
[2021-09-30] MEDS: PIPERACILLIN-TAZOBACTAM 3.375 GM in SODIUM CHLORIDE 0.9% 100 ML IVPB SCH ×2 (05:37→13:00)
[2021-09-30] MEDS: KETOROLAC 30 MG/ML 1 ML VIAL IVP SCH ×3 (05:38→20:29)
[2021-09-30] MEDS ORDERED: SODIUM CHLORIDE 0.9% 2,000 ML IV ONE (06:04)
[2021-09-30] MEDS ORDERED: NON FORMULARY DRUG (Lisdexamfetamine Dimesylate [Vyvanse] 50 MG Capsule) PO PRN (06:06)
[2021-09-30] MEDS ORDERED: ALBUTEROL NEBULIZED 2.5 MG/3 ML INHALATION PRN (06:06)
[2021-09-30 07:44] LABS: Basophils % (A) 1 %; Eosinophils # (A) 0.6 k/uL (0-0.7); Eosinophils % (A) 7 %; HCT 38.7 % (34.0-46.0); HGB 12.9 gm/dL (11.4-16.0); Lymphocytes # (A) 2.2 k/uL (1.0-4.8); Lymphocytes % (A) 25 %; MCH 28.3 pg (25.0-35.0); MCHC 33.2 g/dL (31.0-37.0); MCV 85.3 fL (80.0-100.0); Mean Platelet Volume 8.7; Monocytes # (A) 0.5 k/uL (0-1.0); Monocytes % (A) 5 %; Neutrophils # (A) 5.1 k/uL (1.3-7.7); Neutrophils % (A) 59 %; Platelet Count 296 k/uL (150-450); RBC 4.54 m/uL (3.80-5.40); RDW 12.5 % (11.5-15.5); WBC 8.6 k/uL (3.8-10.6)
[2021-09-30 07:58] LABS: ALT 40 U/L (4-34); AST 26 U/L (14-36); African American GFR (CKD) 90 (>60 ml/min/1.73 sqM); Albumin 4.3 g/dL (3.5-5.0); Albumin/Globulin Ratio 1.5; Alkaline Phosphatase 63 U/L (38-126); Anion Gap 11 mmol/L; Blood Urea Nitrogen 20 mg/dL (7-17); Calcium 9.6 mg/dL (8.4-10.2); Carbon Dioxide 23 mmol/L (22-30); Chloride 107 mmol/L (98-107); Globulin 2.8 g/dL; Glucose 107 mg/dL (74-99); Non-African American GFR(CKD) 78 (>60 ml/min/1.73 sqM); Potassium 3.9 mmol/L (3.5-5.1); Sodium 141 mmol/L (137-145); Total Bilirubin 0.4 mg/dL (0.2-1.3); Total Protein 7.1 g/dL (6.3-8.2)
[2021-09-30] MEDS ORDERED: LEVOTHYROXINE 75 MCG TAB PO SCH (08:15)
[2021-09-30] MEDS: metFORMIN 500 MG TAB PO SCH ×2 (08:41→08:47)
[2021-09-30] MEDS ORDERED: PRENATAL VIT-IRON-FOLIC ACID 1 EACH CAP PO SCH (09:00)
[2021-09-30] MEDS ORDERED: METOPROLOL TARTRATE 25 MG TAB PO SCH (09:00)
[2021-09-30] MEDS ORDERED: LORATADINE 10 MG TAB PO SCH (09:00)
--- NOTE | 2021-09-30 10:02 | P.GSHP ---
<Cee Ro - Last Filed: 09/30/21 09:55> History of Present Illness H&P Date: 09/30/21 CHIEF COMPLAINT: Right upper quadrant abdominal pain HISTORY OF PRESENT ILLNESS: This is a 36-year-old female who presented to the hospital with complaints of right upper quadrant abdominal pain. She reports that pain started yesterday around 4:00 in the evening. She reports the pain was very severe and rated the pain at a 10 out of 10. Patient reports that she was having sweats. Patient reports that she's had similar symptoms about a month ago. And at that time the pain was radiating to her back. She also reports another episode where after eating with cheese she had pain and an episode of vomiting. She denies any fever chills or sweats. She had evidence of leukocytosis and mildly elevated ALT on admission. Gallbladder ultrasound completed showing gallstones with thickened gallbladder and pericholecystic fl uid concerning for acute cholecystitis. Patient did have a 10 weeks ago. Otherwise no other abdominal surgeries. Patient currently has a right breast abscess is being followed outpatient by Dr. Ramos and has been on antibiotics. PAST MEDICAL HISTORY: See list. PAST SURGICAL HISTORY: See list. MEDICATIONS: See list. ALLERGIES: See list. SOCIAL HISTORY: No illicit drug use. REVIEW OF SYSTEMS: CONSTITUTIONAL: Denies fever or chills. HEENT: Denies blurred vision, vision changes, or eye pain. Denies hemoptysis CARDIOVASCULAR: Denies chest pain or pressure. RESPIRATORY: No shortness of breath. GASTROINTESTINAL: See HPI for pertinent findings HEMATOLOGIC: Denies bleeding disorders. GENITOURINARY: Denies any blood in urine or increased urinary frequency. SKIN: Denies pruitis. Denies rash. PHYSICAL EXAM: VITAL SIGNS: Reviewed GENERAL: Well-developed in no acute distress. HEENT: No sclera icterus. Extraocular movements grossly intact. Moist buccal mucosa. Head is atraumatic, normocephalic. No nasal drainage. ABDOMEN: Soft. Nondistended. Right upper quadrant tenderness with palpation NEUROLOGIC: Alert and oriented. Cranial nerves II through XII grossly intact. LABORATORY DATA: WBC 13.6 down to 8.6 Hgb 12.9 platelets 296 Sodium 141 potassium 3.9 BUN 20 creatinine 0.95 Total bili 0.4 AST 26 ALT 43 down to 40 alk phos 63 COVID-19 negative IMAGING: Gallbladder ultrasound cholelithiasis with gallbladder wall thickening and small pericholecystic fluid. Findings are concerning for acute cholecystitis. Hepatic steatosis. ASSESSMENT: 1. Acute cholecystitis PLAN: -Patient scheduled for laparoscopic cholecystectomy today with Dr. Ramos -Keep patient nothing by mouth -Continue IV antibiotics -Continue IV fluids -Continue pain medication as needed Physician Head Silverman note has been reviewed by physician. Signing provider agrees with the documented findings, assessment, and plan of care. Past Medical History Past Medical History: Atrial Fibrillation, Asthma, Diabetes Mellitus, GERD/Reflux, Hypertension, Sleep Apnea/CPAP/BIPAP, Thyroid Disorder Additional Past Medical History / Comment(s): Non Insulin Dependent Gestational Diabetes. CPAP use. History of Any Multi-Drug Resistant Organisms: None Reported Past Surgical History: Cardiac Ablation, Section Past Anesthesia/Blood Transfusion Reactions: No Reported Reaction, Motion Sickness Past Psychological History: ADD/ADHD, Anxiety Smoking Status: Former smoker, Light tobacco smoker Past Alcohol Use History: Rare Past Drug Use History: None Reported - Past Family History Father Family Medical History: CVA/TIA Mother Family Medical History: Cancer Additional Family Medical History / Comment(s): Breast cancer. Medications and Allergies Home Medications Medication Instructions Recorded Confirmed Type Albuterol Inhaler [Ventolin Hfa 2 puff INHALATION RT-QID PRN 03/18/21 09/29/21 History Inhaler] Aspirin 81 mg PO DAILY 03/18/21 09/29/21 History Beclomethasone Dipropionate [Qvar 2 puff INHALATION RT-BID 03/18/21 09/29/21 History 40 mcg Redihaler] Levothyroxine Sodium [Synthroid] 75 mcg PO DAILY 03/18/21 09/29/21 History Pnv No.95/Ferrous Fum/Folic AC 1 tab PO DAILY 03/18/21 09/29/21 History [ Multivitamin Tablet] Calcium/Magnesium/Zinc 1 tab PO DAILY 07/13/21 09/29/21 History [Fdbigxe-Raaexgqdt-Fnmk Tablet] Lisdexamfetamine Dimesylate 50 mg PO DAILY PRN 07/13/21 09/29/21 History [Vyvanse] Loratadine [Claritin] 10 mg PO DAILY 07/13/21 09/29/21 History Metoprolol Tartrate 25 mg PO DAILY 07/13/21 09/29/21 History metFORMIN HCL [Glucophage] 1,000 mg PO BID 07/13/21 09/29/21 History Amoxic-Pot Clav 875-125Mg 1 tab PO BID 09/29/21 09/29/21 History [Augmentin 875-125] Cholecalciferol [Vitamin D3 (25 25 mcg PO DAILY 09/29/21 09/29/21 History Mcg = 1000 Iu)] Folic Acid 0.8 mg PO DAILY 09/29/21 09/29/21 History Allergies Allergy/AdvReac Type Severity Reaction Status Date / Time No Known Allergies Allergy Verified 09/29/21 19:08 Surgical - Exam Vital Signs Temp Pulse Resp BP Pulse Ox 98.8 F 74 20 109/78 98 09/29/21 18:07 09/29/21 18:07 09/29/21 18:07 09/29/21 18:07 09/29/21 18:07 Results - Labs 09/30/21 07:00 09/30/21 07:30 Abnormal Lab Results - Last 24 Hours (Table) 09/29/21 09/29/21 09/29/21 Range/Units 18:38 18:38 18:38 WBC 13.6 H (3.8-10.6) k/uL Neutrophils # 10.1 H (1.3-7.7) k/uL Carbon Dioxide 21 L (22-30) mmol/L BUN 22 H (7-17) mg/dL Glucose 111 H (74-99) mg/dL Calcium 10.9 H (8.4-10.2) mg/dL ALT 43 H (4-34) U/L Albumin 5.1 H (3.5-5.0) g/dL Urine Appearance Cloudy H (Clear) Ur Leukocyte Esterase Trace H (Negative) Urine Bacteria Occasional H (None) /hpf Hyaline Casts 5 H (0-2) /lpf Urine Mucus Occasional H (None) /hpf Urine Yeast (Budding) Occasional H (None) /hpf 09/30/21 Range/Units 07:30 WBC (3.8-10.6) k/uL Neutrophils # (1.3-7.7) k/uL Carbon Dioxide (22-30) mmol/L BUN 20 H (7-17) mg/dL Glucose 107 H (74-99) mg/dL Calcium (8.4-10.2) mg/dL ALT 40 H (4-34) U/L Albumin (3.5-5.0) g/dL Urine Appearance (Clear) Ur Leukocyte Esterase (Negative) Urine Bacteria (None) /hpf Hyaline Casts (0-2) /lpf Urine Mucus (None) /hpf Urine Yeast (Budding) (None) /hpf Diabetes panel 09/29/21 09/30/21 Range/Units 18:38 07:30 Sodium 141 141 (137-145) mmol/L Potassium 4.4 3.9 (3.5-5.1) mmol/L Chloride 104 107 (98-107) mmol/L Carbon Dioxide 21 L 23 (22-30) mmol/L BUN 22 H 20 H (7-17) mg/dL Creatinine 0.83 0.95 (0.52-1.04) mg/dL Glucose 111 H 107 H (74-99) mg/dL Calcium 10.9 H 9.6 (8.4-10.2) mg/dL AST 32 26 (14-36) U/L ALT 43 H 40 H (4-34) U/L Alkaline Phosphatase 75 63 (38-126) U/L Total Protein 8.1 7.1 (6.3-8.2) g/dL Albumin 5.1 H 4.3 (3.5-5.0) g/dL Calcium panel 09/29/21 09/30/21 Range/Units 18:38 07:30 Calcium 10.9 H 9.6 (8.4-10.2) mg/dL Albumin 5.1 H 4.3 (3.5-5.0) g/dL Pituitary panel 09/29/21 09/30/21 Range/Units 18:38 07:30 Sodium 141 141 (137-145) mmol/L Potassium 4.4 3.9 (3.5-5.1) mmol/L Chloride 104 107 (98-107) mmol/L Carbon Dioxide 21 L 23 (22-30) mmol/L BUN 22 H 20 H (7-17) mg/dL Creatinine 0.83 0.95 (0.52-1.04) mg/dL Glucose 111 H 107 H (74-99) mg/dL Calcium 10.9 H 9.6 (8.4-10.2) mg/dL Adrenal panel 09/29/21 09/30/21 Range/Units 18:38 07:30 Sodium 141 141 (137-145) mmol/L Potassium 4.4 3.9 (3.5-5.1) mmol/L Chloride 104 107 (98-107) mmol/L Carbon Dioxide 21 L 23 (22-30) mmol/L BUN 22 H 20 H (7-17) mg/dL Creatinine 0.83 0.95 (0.52-1.04) mg/dL Glucose 111 H 107 H (74-99) mg/dL Calcium 10.9 H 9.6 (8.4-10.2) mg/dL Total Bilirubin 0.2 0.4 (0.2-1.3) mg/dL AST 32 26 (14-36) U/L ALT 43 H 40 H (4-34) U/L Alkaline Phosphatase 75 63 (38-126) U/L Total Protein 8.1 7.1 (6.3-8.2) g/dL Albumin 5.1 H 4.3 (3.5-5.0) g/dL <Vitaliy Ramos - Last Filed: 09/30/21 13:12> History of Present Illness As above. Patient known to our service from a recent diagnosis and treatment of right breast abscess. Presents with complaints of right upper quadrant pain with radiation to the back. Diagnostic studies suggest acute calculus cholecystitis. Options discussed with the patient. We'll proceed with laparoscopic, possible open cholecystectomy at this time. Risks of bleeding, infection, bile leak, bile duct injury, retained common bile duct stone, trocar injury, conversion to an open procedure, hernia, anesthesia related complications were reviewed. The patient understands and wishes to proceed. Surgical - Exam Vital Signs Temp Pulse Resp BP Pulse Ox 98.8 F 74 20 109/78 98 09/29/21 18:07 09/29/21 18:07 09/29/21 18:07 09/29/21 18:07 09/29/21 18:07 Results - Labs 09/30/21 07:00 09/30/21 07:30 Abnormal Lab Results - Last 24 Hours (Table) 09/29/21 09/29/21 09/29/21 Range/Units 18:38 18:38 18:38 WBC 13.6 H (3.8-10.6) k/uL Neutrophils # 10.1 H (1.3-7.7) k/uL Carbon Dioxide 21 L (22-30) mmol/L BUN 22 H (7-17) mg/dL Glucose 111 H (74-99) mg/dL Calcium 10.9 H (8.4-10.2) mg/dL ALT 43 H (4-34) U/L Albumin 5.1 H (3.5-5.0) g/dL Urine Appearance Cloudy H (Clear) Ur Leukocyte Esterase Trace H (Negative) Urine Bacteria Occasional H (None) /hpf Hyaline Casts 5 H (0-2) /lpf Urine Mucus Occasional H (None) /hpf Urine Yeast (Budding) Occasional H (None) /hpf 09/30/21 Range/Units 07:30 WBC (3.8-10.6) k/uL Neutrophils # (1.3-7.7) k/uL Carbon Dioxide (22-30) mmol/L BUN 20 H (7-17) mg/dL Glucose 107 H (74-99) mg/dL Calcium (8.4-10.2) mg/dL ALT 40 H (4-34) U/L Albumin (3.5-5.0) g/dL Urine Appearance (Clear) Ur Leukocyte Esterase (Negative) Urine Bacteria (None) /hpf Hyaline Casts (0-2) /lpf Urine Mucus (None) /hpf Urine Yeast (Budding) (None) /hpf Diabetes panel 09/29/21 09/30/21 Range/Units 18:38 07:30 Sodium 141 141 (137-145) mmol/L Potassium 4.4 3.9 (3.5-5.1) mmol/L Chloride 104 107 (98-107) mmol/L Carbon Dioxide 21 L 23 (22-30) mmol/L BUN 22 H 20 H (7-17) mg/dL Creatinine 0.83 0.95 (0.52-1.04) mg/dL Glucose 111 H 107 H (74-99) mg/dL Calcium 10.9 H 9.6 (8.4-10.2) mg/dL AST 32 26 (14-36) U/L ALT 43 H 40 H (4-34) U/L Alkaline Phosphatase 75 63 (38-126) U/L Total Protein 8.1 7.1 (6.3-8.2) g/dL Albumin 5.1 H 4.3 (3.5-5.0) g/dL Calcium panel 09/29/21 09/30/21 Range/Units 18:38 07:30 Calcium 10.9 H 9.6 (8.4-10.2) mg/dL Albumin 5.1 H 4.3 (3.5-5.0) g/dL Pituitary panel 09/29/21 09/30/21 Range/Units 18:38 07:30 Sodium 141 141 (137-145) mmol/L Potassium 4.4 3.9 (3.5-5.1) mmol/L Chloride 104 107 (98-107) mmol/L Carbon Dioxide 21 L 23 (22-30) mmol/L BUN 22 H 20 H (7-17) mg/dL Creatinine 0.83 0.95 (0.52-1.04) mg/dL Glucose 111 H 107 H (74-99) mg/dL Calcium 10.9 H 9.6 (8.4-10.2) mg/dL Adrenal panel 09/29/21 09/30/21 Range/Units 18:38 07:30 Sodium 141 141 (137-145) mmol/L Potassium 4.4 3.9 (3.5-5.1) mmol/L Chloride 104 107 (98-107) mmol/L Carbon Dioxide 21 L 23 (22-30) mmol/L BUN 22 H 20 H (7-17) mg/dL Creatinine 0.83 0.95 (0.52-1.04) mg/dL Glucose 111 H 107 H (74-99) mg/dL Calcium 10.9 H 9.6 (8.4-10.2) mg/dL Total Bilirubin 0.2 0.4 (0.2-1.3) mg/dL AST 32 26 (14-36) U/L ALT 43 H 40 H (4-34) U/L Alkaline Phosphatase 75 63 (38-126) U/L Total Protein 8.1 7.1 (6.3-8.2) g/dL Albumin 5.1 H 4.3 (3.5-5.0) g/dL
[2021-09-30] MEDS: SODIUM CHLORIDE 0.9% 1,000 ML IV SCH ×2 (11:23→14:29)
[2021-09-30] MEDS ORDERED: IV FLUID CONTINUATION 1,000 ML IV ONE (15:10)
[2021-09-30] MEDS: IV FLUID CONTINUATION 1,000 ML IV ONE (15:10)
[2021-09-30] MEDS ORDERED: ONDANSETRON 4 MG/2 ML VIAL ONE (16:02)
[2021-09-30] MEDS ORDERED: DEXAMETHASONE SOD PHOSPHATE 4 MG/ML 1 ML VIAL IVP ONE (16:12)
[2021-09-30] MEDS ORDERED: GLYCOPYRROLATE 0.2 MG/ML 2 ML VIAL ONE (16:15)
[2021-09-30] MEDS ORDERED: SUCCINYLCHOLINE CHLORIDE 100 MG/5 ML SYR IV ONE (16:15)
[2021-09-30] MEDS ORDERED: NEOSTIGMINE 1 MG/ML 10 ML VIAL ONE (16:15)
[2021-09-30] MEDS ORDERED: fentaNYL (PF) 50 MCG/ML 2 ML AMP ONE (16:15)
[2021-09-30] MEDS ORDERED: ROCURONIUM 10 MG/ML (5 ML VIAL) IV ONE (16:15)
[2021-09-30] MEDS ORDERED: MIDAZOLAM 2 MG/2 ML VIAL ONE (16:15)
[2021-09-30] MEDS ORDERED: LIDOCAINE 1% INJ 10MG/ML (20 ML MDV) ONE (16:15)
[2021-09-30] MEDS ORDERED: PROPOFOL 10 MG/ML 20 ML VIAL IV ONE (16:15)
[2021-09-30] MEDS ORDERED: BUPIVACAIN-EPI 0.25%-1:200,000 30 ML VIAL SQ ONE (16:18)
[2021-09-30] MEDS ORDERED: LACTATED RINGERS 1,000 ML IV ONE (17:17)
[2021-09-30 17:34] VITALS: TEMP 97.7
[2021-09-30] MEDS ORDERED: HYDROcodone/APAP 5-325MG 1 EACH TAB PO PRN (17:35)
[2021-09-30] MEDS ORDERED: HYDROmorphone 1 MG/ML 1 ML SYRINGE IVP PRN (17:35)
--- NOTE | 2021-09-30 17:38 | P.OP ---
Date of Procedure: 09/30/21 Procedure(s) Performed: PREOPERATIVE DIAGNOSIS: Acute calculus cholecystitis POSTOPERATIVE DIAGNOSIS: Same PROCEDURE: Laparoscopic cholecystectomy SURGEON: Rachel EBL: Minimal see anesthesia record ANESTHESIA: Gen. COMPLICATIONS: None OPERATIVE PROCEDURE: The patient was brought and placed on the operating room table in the supine position. The patient was placed under general anesthesia at that time. The abdomen was prepped and draped in the usual sterile fashion. A small vertical infraumbilical incision was made. The fascia was grasped with the Lizbeth forceps. The fascia was retracted anteriorly. The Veress needle was advanced into the peritoneal cavity. The saline drop test was normal. Ins ufflation took place up to 15 mmHg. A 5 mm optical trocar was advanced and the peritoneal cavity. 2 additional 5 mm trochars were placed in the right upper quadrant under direct visualization. A 12 mm trocar was advanced into the epigastric incision site. The gallbladder was acutely inflamed with edema of the wall of the gallbladder. No evidence of gangrenous changes noted. The gallbladder was retracted superiorly and laterally. The peritoneum overlying the infundibulum was bluntly dissected. The patient's cystic duct was visualized. The junction between the cystic duct common and hepatic duct was identified. The critical view of safety was achieved after blunt dissection. The cystic duct was then divided after placement of 3 12 mm clips on the patient's side and one on the specimen side. The cystic artery was identified and clipped as well. A small vessel was seen along the gallbladder fossa and clipped as well. The gallbladder was then removed from the liver bed using e lectrocautery. The gallbladder was then removed from the epigastric trocar site with an Endo Catch bag. The gallbladder fossa was irrigated with saline. There was no evidence of any bleeding or biliary drainage seen. The fascia at the 12 millimeter site was closed using a Cristian-Kathi 0 Vicryl stitch. The trochars were then removed. The skin at all 4 sites was closed using a 4-0 Monocryl stitch. Skin glue was utilized on the incision sites. At the end of this procedure the sponge and needle counts were correct. DISPOSITION: Stable to the recovery room
[2021-09-30] MEDS ORDERED: HYDROmorphone 1 MG/ML 1 ML SYRINGE IVP ONE ×6 (17:50→18:17)
[2021-09-30 17:53] VITALS: RESP 14
[2021-09-30 18:26] VITALS: BP 125/65; PULSE 59
--- NOTE | 2021-10-01 07:42 | P.DS ---
Providers Date of admission: 09/29/21 20:32 Expected date of discharge: 09/30/21 Attending physician: Vitaliy Ramos Primary care physician: Nicole Reddy MD Hospital Course: Patient was admitted to the hospital with right upper quadrant pain. Ultrasound showed a inflamed gallbladder with gallstones and fluid. She was taken the operating room yesterday evening for laparoscopic cholecystectomy. Postoperatively the patient did well and was discharged home yesterday evening. Discharged home on a low-fat diet. Follow-up one week. Plan - Discharge Summary New Discharge Prescriptions: New HYDROcodone/APAP 5-325MG [[facility] 5-325] 1 tab PO Q6HR PRN 3 Days #6 tab PRN Reason: Analgesia No Action Levothyroxine Sodium [Synthroid] 75 mcg PO DAILY Aspirin 81 mg PO DAILY metFORMIN HCL [Glucophage] 1,000 mg PO BID Loratadine [Claritin] 10 mg PO DAILY Calcium/Magnesium/Zinc [Ktukuan-Cocaeqduc-Vinm Tablet] 1 tab PO DAILY Amoxic-Pot Clav 875-125Mg [Augmentin 875-125] 1 tab PO BID Cholecalciferol [Vitamin D3 (25 Mcg = 1000 Iu)] 25 mcg PO DAILY Folic Acid 0.8 mg PO DAILY Pnv No.95/Ferrous Fum/Folic AC [ Multivitamin Tablet] 1 tab PO DAILY Albuterol Inhaler [Ventolin Hfa Inhaler] 2 puff INHALATION RT-QID PRN PRN Reason: Shortness Of Breath Beclomethasone Dipropionate [Qvar 40 mcg Redihaler] 2 puff INHALATION RT-BID Metoprolol Tartrate 25 mg PO DAILY Lisdexamfetamine Dimesylate [Vyvanse] 50 mg PO DAILY PRN PRN Reason: ADHD Discharge Medication List Albuterol Inhaler [Ventolin Hfa Inhaler] 2 puff INHALATION RT-QID PRN 03/18/21 [History] Aspirin 81 mg PO DAILY 03/18/21 [History] Beclomethasone Dipropionate [Qvar 40 mcg Redihaler] 2 puff INHALATION RT-BID 03/18/21 [History] Levothyroxine Sodium [Synthroid] 75 mcg PO DAILY 03/18/21 [History] Pnv No.95/Ferrous Fum/Folic AC [ Multivitamin Tablet] 1 tab PO DAILY 03/18/21 [History] Calcium/Magnesium/Zinc [Nekmemx-Zbcwutdoa-Eflk Tablet] 1 tab PO DAILY 07/13/21 [History] Lisdexamfetamine Dimesylate [Vyvanse] 50 mg PO DAILY PRN 07/13/21 [History] Loratadine [Claritin] 10 mg PO DAILY 07/13/21 [History] Metoprolol Tartrate 25 mg PO DAILY 07/13/21 [History] metFORMIN HCL [Glucophage] 1,000 mg PO BID 07/13/21 [History] Amoxic-Pot Clav 875-125Mg [Augmentin 875-125] 1 tab PO BID 09/29/21 [History] Cholecalciferol [Vitamin D3 (25 Mcg = 1000 Iu)] 25 mcg PO DAILY 09/29/21 [History] Folic Acid 0.8 mg PO DAILY 09/29/21 [History] HYDROcodone/APAP 5-325MG [[facility] 5-325] 1 tab PO Q6HR PRN 3 Days #6 tab 09/30/21 [Rx] Follow up Appointment(s)/Referral(s): Vitaliy Ramos MD [Medical Doctor] - 1 Week (Please call to make appointment) Nicole Reddy MD [Primary Care Provider] - 1-2 days (Please call to make appointment) Patient Instructions/Handouts: *Surgery [facility] - Laparoscopic Cholecystectomy Discharge Instructions, Low Fat Diet (DC), Laparoscopic Cholecystectomy (DC) Activity/Diet/Wound Care/Special Instructions: Pump and discard breast milk if taking narcotic analgesic
== END 2021-09-30 20:36 ==
LOC: EC 17:00 → 6NMEDSUR 20:32
PROVIDERS: ADMIT Surgery; ATTEND Surgery
DX: K80.13 Calculus of gallbladder with acute and chronic cholecystitis with obstruction (principal); N61.1 Abscess of the breast and nipple; E11.9 Type 2 diabetes mellitus without complications; I10 Essential (primary) hypertension; G47.33 Obstructive sleep apnea (adult) (pediatric); J45.909 Unspecified asthma, uncomplicated; I48.91 Unspecified atrial fibrillation; E07.9 Disorder of thyroid, unspecified; K21.9 Gastro-esophageal reflux disease without esophagitis; F41.9 Anxiety disorder, unspecified; F90.9 Attention-deficit hyperactivity disorder, unspecified type; K76.0 Fatty (change of) liver, not elsewhere classified; Z20.822 Contact with and (suspected) exposure to COVID-19; Z79.82 Long term (current) use of aspirin; Z79.84 Long term (current) use of oral hypoglycemic drugs; Z79.890 Hormone replacement therapy; Z79.51 Long term (current) use of inhaled steroids; Z79.899 Other long term (current) drug therapy; Z87.891 Personal history of nicotine dependence; Z86.32 Personal history of gestational diabetes; Z98.891 History of uterine scar from previous surgery; Z98.890 Other specified postprocedural states; Z82.3 Family history of stroke; Z80.3 Family history of malignant neoplasm of breast
CPT/HCPCS: 96376; 96374; 99285; 36415; 81025 ×2; 88304; 80053 ×2; 82150; 83690; 85025 ×2; 81001; 87040; 87635; 76705; 47562; G0378 ×2; J2543 ×2; J2250; J1100; J2710; J2405; J2001; J3010; J1885 ×2; J1170; S0197; J0330; J2704

== ENCOUNTER 2022-05-03 15:08 | Emergency (ER) | payer BC ==
[2022-05-03 15:32] VITALS: RESP 18
[2022-05-03 17:32] LABS: Basophils % (A) 0 %; Eosinophils # (A) 0.1 k/uL (0-0.7); Eosinophils % (A) 1 %; HGB 12.4 gm/dL (11.4-16.0); Lymphocytes # (A) 1.4 k/uL (1.0-4.8); Lymphocytes % (A) 11 %; MCH 30.2 pg (25.0-35.0); MCHC 35.5 g/dL (31.0-37.0); MCV 85.3 fL (80.0-100.0); Mean Platelet Volume 9.4; Monocytes # (A) 0.5 k/uL (0-1.0); Monocytes % (A) 4 %; Neutrophils # (A) 10.4 k/uL (1.3-7.7); Neutrophils % (A) 81 %; Platelet Count 236 k/uL (150-450); RBC 4.11 m/uL (3.80-5.40); RDW 13.4 % (11.5-15.5); WBC 12.8 k/uL (3.8-10.6)
[2022-05-03 17:40] LABS: INR 0.9 (<1.2); Partial Thromboplastin Time 24.7 sec (22.0-30.0); Prothrombin Time 9.9 sec (9.0-12.0)
[2022-05-03 17:41] LABS: ALT 13 U/L (4-34); AST 16 U/L (14-36); African American GFR (CKD) >90 (>60 ml/min/1.73 sqM); Albumin 3.8 g/dL (3.5-5.0); Alkaline Phosphatase 66 U/L (38-126); Anion Gap 7 mmol/L; Blood Urea Nitrogen 9 mg/dL (7-17); Calcium 9.4 mg/dL (8.4-10.2); Carbon Dioxide 23 mmol/L (22-30); Chloride 104 mmol/L (98-107); Glucose 123 mg/dL (74-99); Lipase 79 U/L (23-300); Magnesium 1.3 mg/dL (1.6-2.3); Non-African American GFR(CKD) >90 (>60 ml/min/1.73 sqM); Potassium 3.8 mmol/L (3.5-5.1); Sodium 134 mmol/L (137-145); Total Bilirubin 0.3 mg/dL (0.2-1.3); Total Protein 6.5 g/dL (6.3-8.2)
--- NOTE | 2022-05-03 17:41 | XR ---
EXAMINATION TYPE: XR chest 2V DATE OF EXAM: 05/03/2022 COMPARISON: NONE HISTORY: Chest pain TECHNIQUE: 2 views FINDINGS: There is no heart failure nor confluent pneumonic infiltrate. Costophrenic angles are clear . There are no hilar masses. Heart size is normal. Bony thorax is intact. IMPRESSION: No active cardiopulmonary disease. Normal chest
[2022-05-03 18:21] VITALS: TEMP 98
[2022-05-03] MEDS ORDERED: MAGNESIUM SULFATE-D5W PMX 1 GM in DEXTROSE/WATER 1 100ML.BAG IVPB ONE (18:23)
--- NOTE | 2022-05-03 18:25 | ED ---
General Adult HPI - General Chief complaint: Chest Pain Stated complaint: Chest Pain, 18wks Time Seen by Provider: 05/03/22 15:30 Source: patient, family Mode of arrival: wheelchair Limitations: no limitations - History of Present Illness Initial comments: 37-year-old female presents emergency Department with chest pain. She describes a pressure sensation starting in her anterior chest that radiates up to her neck. Symptoms started today and are worse with movement. She is 18 weeks . She took Tylenol around 9 AM with some improvement. She denies fevers, chills or cough. She does have a history of A. fib with ablation. Follows with Dr. Chandler. Denies shortness of breath, fevers or cough. No back pain. No numbness or tingling in her extremities. Denies any abnormal vaginal bleeding, cramping or abdominal pain. Follows with Dr. Murphy. No other alleviating, precipitating or modifying factors - Related Data Home Medications Medication Instructions Recorded Confirmed Aspirin 81 mg PO DAILY 03/18/21 05/08/22 Beclomethasone Dipropionate [Qvar 2 puff INHALATION RT-BID 03/18/21 05/08/22 40 mcg Redihaler] Pnv No.95/Ferrous Fum/Folic AC 1 tab PO DAILY 03/18/21 05/08/22 [ Multivitamin Tablet] Loratadine [Claritin] 10 mg PO DAILY 07/13/21 05/08/22 metFORMIN HCL [Glucophage] 1,000 mg PO BID 07/13/21 05/08/22 Folic Acid 0.8 mg PO DAILY 09/29/21 05/08/22 Albuterol Sulfate [Proair 2 puff INHALATION RT-Q4H PRN 05/03/22 05/08/22 Respiclick] Levothyroxine Sodium [Synthroid] 50 mcg PO AC-BRKFST 05/03/22 05/08/22 Lisdexamfetamine Dimesylate 20 mg PO DAILY PRN 05/03/22 05/08/22 [Vyvanse] Metoprolol Succinate [Toprol XL] 50 mg PO DAILY 05/03/22 05/08/22 Calcium Carb/Mag Ox/Zinc Sulf 1 tab PO HS 05/08/22 05/08/22 [Krc-Pei-Ygvw 334-134-5 mg Tab] Vitamin B Complex 1 cap PO DAILY 05/08/22 05/08/22 Previous Rx's Medication Instructions Recorded Magnesium Oxide [Magox 400] 400 mg PO DAILY #14 tablet 05/03/22 Allergies Allergy/AdvReac Type Severity Reaction Status Date / Time No Known Allergies Allergy Verified 05/08/22 22:05 Review of Systems ROS Statement: Those systems with pertinent positive or pertinent negative responses have been documented in the HPI. ROS Other: All systems not noted in ROS Statement are negative. Past Medical History Past Medical History: Atrial Fibrillation, Asthma, Diabetes Mellitus, GERD/Reflux, Hypertension, Sleep Apnea/CPAP/BIPAP, Thyroid Disorder Additional Past Medical History / Comment(s): Non Insulin Dependent Gestational Diabetes. CPAP use. History of Any Multi-Drug Resistant Organisms: None Reported Past Surgical History: Cardiac Ablation, Section Past Anesthesia/Blood Transfusion Reactions: No Reported Reaction, Motion Sickness Past Psychological History: ADD/ADHD, Anxiety Smoking Status: Former smoker, Light tobacco smoker Past Alcohol Use History: Rare Past Drug Use History: None Reported - Past Family History Father Family Medical History: CVA/TIA Mother Family Medical History: Cancer Additional Family Medical History / Comment(s): Breast cancer. General Exam Limitations: no limitations General appearance: alert, in no apparent distress Head exam: Present: atraumatic, normocephalic, normal inspection Eye exam: Present: normal appearance, PERRL, EOMI. Absent: scleral icterus, conjunctival injection, periorbital swelling ENT exam: Present: normal exam, mucous membranes moist Neck exam: Present: normal inspection. Absent: tenderness, meningismus, lymphadenopathy Respiratory exam: Present: normal lung sounds bilaterally. Absent: respiratory distress, wheezes, rales, rhonchi, stridor Cardiovascular Exam: Present: regular rate, normal rhythm, normal heart sounds. Absent: systolic murmur, diastolic murmur, rubs, gallop, clicks GI/Abdominal exam: Present: soft, normal bowel sounds. Absent: distended, tenderness, guarding, rebound, rigid Extremities exam: Present: normal inspection, full ROM, normal capillary refill. Absent: tenderness, pedal edema, joint swelling, calf tenderness Back exam: Present: normal inspection Neurological exam: Present: alert, oriented X3, CN II-XII intact Psychiatric exam: Present: normal affect, normal mood Skin exam: Present: warm, dry, intact, normal color. Absent: rash Course Vital Signs 05/03/22 05/03/22 05/03/22 15:28 18:19 20:12 Temperature 98.4 F 98 F Pulse Rate 89 84 71 Respiratory 18 18 Rate Blood Pressure 127/83 128/78 116/81 O2 Sat by Pulse 97 98 99 Oximetry EKG Findings - EKG Comments: EKG Findings:: EKG demonstrates sinus rhythm with a rate of 89. CT interval 155. QRS 86. QTC 397. Q wave in lead 3 with an inverted T-wave. No acute ST segment elevations Medical Decision Making - Medical Decision Making Upon arrival the patient is placed in room 5. Thorough history and physical exam was performed. Patient placed on continuous pulse ox and cardiac monitoring. 12-lead EKG was obtained. Patient normal sinus rhythm. Laboratory studies are conducted. Magnesium low at 1.3. Chest x-ray demonstrates no acute process. I did give the patient's a gram of magnesium. Recommended admission and for cardiac monitoring and cardiology evaluation. Patient refused, aware of the risks of going home. I did perform a bedside limited cardiac ultrasound as well as abdominal ultrasound. Patient does have positive movement with a heart rate of 156. Patient aware of limitations of not getting a formal study. She will be discharged home. Instructed to call Dr. Chandler in the morning for an appointment. Return should she agreed to be hospitalized. Patient agreed to the treatment plan and was discharged home in stable condition - Lab Data Result diagrams: 05/03/22 17:08 05/03/22 17:08 Lab Results 05/03/22 05/03/22 05/03/22 Range/Units 17:08 17:08 17:08 WBC 12.8 H (3.8-10.6) k/uL RBC 4.11 (3.80-5.40) m/uL Hgb 12.4 (11.4-16.0) gm/dL Hct 35.0 (34.0-46.0) % MCV 85.3 (80.0-100.0) fL MCH 30.2 (25.0-35.0) pg MCHC 35.5 (31.0-37.0) g/dL RDW 13.4 (11.5-15.5) % Plt Count 236 (150-450) k/uL MPV 9.4 Neutrophils % 81 % Lymphocytes % 11 % Monocytes % 4 % Eosinophils % 1 % Basophils % 0 % Neutrophils # 10.4 H (1.3-7.7) k/uL Lymphocytes # 1.4 (1.0-4.8) k/uL Monocytes # 0.5 (0-1.0) k/uL Eosinophils # 0.1 (0-0.7) k/uL Basophils # 0.0 (0-0.2) k/uL PT 9.9 (9.0-12.0) sec INR 0.9 (<1.2) APTT 24.7 (22.0-30.0) sec Sodium 134 L (137-145) mmol/L Potassium 3.8 (3.5-5.1) mmol/L Chloride 104 (98-107) mmol/L Carbon Dioxide 23 (22-30) mmol/L Anion Gap 7 mmol/L BUN 9 (7-17) mg/dL Creatinine 0.63 (0.52-1.04) mg/dL Est GFR (CKD-EPI)AfAm >90 (>60 ml/min/1.73 sqM) Est GFR (CKD-EPI)NonAf >90 (>60 ml/min/1.73 sqM) Glucose 123 H (74-99) mg/dL Calcium 9.4 (8.4-10.2) mg/dL Magnesium 1.3 L (1.6-2.3) mg/dL Total Bilirubin 0.3 (0.2-1.3) mg/dL AST 16 (14-36) U/L ALT 13 (4-34) U/L Alkaline Phosphatase 66 (38-126) U/L Troponin I (0.000-0.034) ng/mL Total Protein 6.5 (6.3-8.2) g/dL Albumin 3.8 (3.5-5.0) g/dL Lipase 79 (23-300) U/L 05/03/22 Range/Units 17:08 WBC (3.8-10.6) k/uL RBC (3.80-5.40) m/uL Hgb (11.4-16.0) gm/dL Hct (34.0-46.0) % MCV (80.0-100.0) fL MCH (25.0-35.0) pg MCHC (31.0-37.0) g/dL RDW (11.5-15.5) % Plt Count (150-450) k/uL MPV Neutrophils % % Lymphocytes % % Monocytes % % Eosinophils % % Basophils % % Neutrophils # (1.3-7.7) k/uL Lymphocytes # (1.0-4.8) k/uL Monocytes # (0-1.0) k/uL Eosinophils # (0-0.7) k/uL Basophils # (0-0.2) k/uL PT (9.0-12.0) sec INR (<1.2) APTT (22.0-30.0) sec Sodium (137-145) mmol/L Potassium (3.5-5.1) mmol/L Chloride (98-107) mmol/L Carbon Dioxide (22-30) mmol/L Anion Gap mmol/L BUN (7-17) mg/dL Creatinine (0.52-1.04) mg/dL Est GFR (CKD-EPI)AfAm (>60 ml/min/1.73 sqM) Est GFR (CKD-EPI)NonAf (>60 ml/min/1.73 sqM) Glucose (74-99) mg/dL Calcium (8.4-10.2) mg/dL Magnesium (1.6-2.3) mg/dL Total Bilirubin (0.2-1.3) mg/dL AST (14-36) U/L ALT (4-34) U/L Alkaline Phosphatase (38-126) U/L Troponin I <0.012 (0.000-0.034) ng/mL Total Protein (6.3-8.2) g/dL Albumin (3.5-5.0) g/dL Lipase (23-300) U/L Disposition Clinical Impression: Chest pain, Hypomagnesemia Disposition: HOME SELF-CARE Condition: Stable Instructions (If sedation given, give patient instructions): Chest Pain (ED) Additional Instructions: You need to take a magnesium supplement daily and have your level rechecked within 1 week. The results will be sent to Dr. Murphy who is aware that you were in the ER. Please also call the cardiology associates in the morning and get the first available appointment. Should U agree to be admitted, return to the emergency department Prescriptions: Magnesium Oxide [Magox 400] 400 mg PO DAILY #14 tablet Is patient prescribed a controlled substance at d/c from ED?: No Referrals: Magnus Chandler MD [STAFF PHYSICIAN] - 1-2 days Gavin Murphy MD [STAFF PHYSICIAN] - 1-2 days Time of Disposition: 19:50
[2022-05-03] MEDS ORDERED: ACETAMINOPHEN TAB 500 MG TAB PO STA (19:07)
[2022-05-03 20:13] VITALS: BP 116/81; PULSE 71
== END 2022-05-03 20:13 | disposition home or self-care (01) ==
LOC: EC 15:08
DX: O99.891 Other specified diseases and conditions complicating pregnancy (principal); O99.282 Endocrine, nutritional and metabolic diseases complicating pregnancy, second trimester; E83.42 Hypomagnesemia; R07.89 Other chest pain; O99.512 Diseases of the respiratory system complicating pregnancy, second trimester; O99.612 Diseases of the digestive system complicating pregnancy, second trimester; O99.412 Diseases of the circulatory system complicating pregnancy, second trimester; O10.912 Unspecified pre-existing hypertension complicating pregnancy, second trimester; O24.112 Pre-existing type 2 diabetes mellitus, in pregnancy, second trimester; K21.9 Gastro-esophageal reflux disease without esophagitis; J45.909 Unspecified asthma, uncomplicated; E11.9 Type 2 diabetes mellitus without complications; E07.9 Disorder of thyroid, unspecified; I48.91 Unspecified atrial fibrillation; Z3A.18 18 weeks gestation of pregnancy; Z87.891 Personal history of nicotine dependence; Z79.899 Other long term (current) drug therapy; Z79.84 Long term (current) use of oral hypoglycemic drugs; Z79.890 Hormone replacement therapy; Z79.51 Long term (current) use of inhaled steroids; Z79.82 Long term (current) use of aspirin
CPT/HCPCS: 36415; 93005; 80053; 83690; 83735; 84484; 85025; 85610; 85730; 71046; 99284; 96365; 96366; J3475; 99285

== ENCOUNTER 2022-05-08 18:06 | Inpatient (IN) | payer BC ==
[2022-05-08] MEDS ORDERED: SODIUM CHLORIDE 0.9% 1,000 ML IV STA ×3 (18:33→21:30)
[2022-05-08] MEDS ORDERED: METOPROLOL TARTRATE 5 MG/5 ML VIAL IVP STA ×3 (18:51→19:39)
[2022-05-08 18:56] LABS: Basophils % (A) 0 %; Eosinophils # (A) 0.2 k/uL (0-0.7); Eosinophils % (A) 2 %; HCT 38.5 % (34.0-46.0); HGB 12.8 gm/dL (11.4-16.0); Lymphocytes # (A) 2.3 k/uL (1.0-4.8); Lymphocytes % (A) 18 %; MCHC 33.3 g/dL (31.0-37.0); MCV 84.1 fL (80.0-100.0); Mean Platelet Volume 9.2; Monocytes # (A) 0.7 k/uL (0-1.0); Monocytes % (A) 5 %; Neutrophils # (A) 9.4 k/uL (1.3-7.7); Neutrophils % (A) 74 %; Platelet Count 289 k/uL (150-450); RBC 4.58 m/uL (3.80-5.40); WBC 12.8 k/uL (3.8-10.6)
[2022-05-08 19:05] LABS: INR 0.9 (<1.2); Partial Thromboplastin Time 24.6 sec (22.0-30.0); Prothrombin Time 9.7 sec (9.0-12.0)
--- NOTE | 2022-05-08 19:07 | ED ---
General Adult HPI - General Source: patient, RN notes reviewed Mode of arrival: ambulatory Limitations: no limitations <Subha Abbasi - Last Filed: 05/10/22 00:02> <Alin Abdalla - Last Filed: 05/11/22 00:36> - General Chief complaint: Arrhythmia/Palpitations Stated complaint: chest pain, 19 wks preg Time Seen by Provider: 05/08/22 18:23 - History of Present Illness Initial comments: This is a pleasant 37-year-old female who presents to the emergency department for evaluation of persistent palpitations and increased heart rate, onset 4 PM today. Reports history of A. fib with ablation and cardioversion in 2017. Has been taking her metoprolol daily as prescribed. Did have a transient episode of left-sided chest pain last week for which she was seen in the emergency department and had a normal EKG at that time. Denies any fever, chills, headache, dizziness, chest pain, difficulty breathing, abdominal pain, nausea, vomiting, diarrhea, or vaginal bleeding/discharge/leaking of fluids. Patient states she is 19 weeks , LMP [address]. . (Subha Abbasi) - Related Data Home Medications Medication Instructions Recorded Confirmed Aspirin 81 mg PO DAILY 03/18/21 05/08/22 Beclomethasone Dipropionate [Qvar 2 puff INHALATION RT-BID 03/18/21 05/08/22 40 mcg Redihaler] Pnv No.95/Ferrous Fum/Folic AC 1 tab PO DAILY 03/18/21 05/08/22 [ Multivitamin Tablet] Loratadine [Claritin] 10 mg PO DAILY 07/13/21 05/08/22 metFORMIN HCL [Glucophage] 1,000 mg PO BID 07/13/21 05/08/22 Folic Acid 0.8 mg PO DAILY 09/29/21 05/08/22 Albuterol Sulfate [Proair 2 puff INHALATION RT-Q4H PRN 05/03/22 05/08/22 Respiclick] Levothyroxine Sodium [Synthroid] 50 mcg PO AC-BRKFST 05/03/22 05/08/22 Lisdexamfetamine Dimesylate 20 mg PO DAILY PRN 05/03/22 05/08/22 [Vyvanse] Metoprolol Succinate [Toprol XL] 50 mg PO DAILY 05/03/22 05/08/22 Calcium Carb/Mag Ox/Zinc Sulf 1 tab PO HS 05/08/22 05/08/22 [Cbw-Axn-Fiux 334-134-5 mg Tab] Vitamin B Complex 1 cap PO DAILY 05/08/22 05/08/22 Previous Rx's Medication Instructions Recorded Magnesium Oxide [Magox 400] 400 mg PO DAILY #14 tablet 05/03/22 Enoxaparin [Lovenox] 100 mg SQ BID 30 Days #60 each 05/10/22 Allergies Allergy/AdvReac Type Severity Reaction Status Date / Time No Known Allergies Allergy Verified 05/08/22 22:05 Review of Systems ROS Other: All systems not noted in ROS Statement are negative. <Subha Abbasi - Last Filed: 05/10/22 00:02> ROS Other: All systems not noted in ROS Statement are negative. <Alin Abdalla - Last Filed: 05/11/22 00:36> ROS Statement: Those systems with pertinent positive or pertinent negative responses have been documented in the HPI. Past Medical History Past Medical History: Atrial Fibrillation, Asthma, Diabetes Mellitus, GERD/Reflux, Hypertension, Sleep Apnea/CPAP/BIPAP, Thyroid Disorder Additional Past Medical History / Comment(s): Non Insulin Dependent Gestational Diabetes. CPAP use. History of Any Multi-Drug Resistant Organisms: None Reported Past Surgical History: Cardiac Ablation, Section Past Anesthesia/Blood Transfusion Reactions: No Reported Reaction, Motion Sickness Past Psychological History: ADD/ADHD, Anxiety Smoking Status: Former smoker, Light tobacco smoker Past Alcohol Use History: Rare Past Drug Use History: None Reported - Past Family History Father Family Medical History: CVA/TIA Mother Family Medical History: Cancer Additional Family Medical History / Comment(s): Breast cancer. <Subha Abbasi - Last Filed: 05/10/22 00:02> General Exam Limitations: no limitations General appearance: alert, in no apparent distress, anxious Eye exam: Present: normal appearance. Absent: scleral icterus, conjunctival injection, periorbital swelling ENT exam: Present: normal exam, normal oropharynx, mucous membranes moist Neck exam: Present: normal inspection, full ROM. Absent: tenderness, meningismus, lymphadenopathy Respiratory exam: Present: normal lung sounds bilaterally. Absent: respiratory distress, wheezes, rales, rhonchi, stridor, chest wall tenderness Cardiovascular Exam: Present: tachycardia, irregular rhythm GI/Abdominal exam: Present: soft, normal bowel sounds, other (gravid abdomen). Absent: distended, tenderness, guarding, rebound, rigid Extremities exam: Present: normal inspection, full ROM, normal capillary refill. Absent: tenderness, pedal edema, joint swelling, calf tenderness Neurological exam: Present: alert, oriented X3 Psychiatric exam: Present: anxious Skin exam: Present: warm, dry, intact, normal color. Absent: rash, diaphoretic <Subha Abbasi - Last Filed: 05/10/22 00:02> Course <Subha Abbasi - Last Filed: 05/10/22 00:02> Vital Signs 05/08/22 05/08/22 05/08/22 18:15 18:40 18:50 Temperature 98.3 F Pulse Rate 88 154 H 181 H Pulse Rate [ Pulse Oximetery ] Respiratory 16 36 H 19 Rate Blood Pressure 117/61 145/96 115/79 Blood Pressure [Right Arm] O2 Sat by Pulse 100 Oximetry 05/08/22 05/08/22 05/08/22 19:00 19:10 19:20 Temperature Pulse Rate 163 H 174 H 149 H Pulse Rate [ Pulse Oximetery ] Respiratory 15 21 16 Rate Blood Pressure 115/79 114/91 114/91 Blood Pressure [Right Arm] O2 Sat by Pulse Oximetry 05/08/22 05/08/22 05/08/22 19:30 19:40 19:50 Temperature Pulse Rate 149 H 154 H 144 H Pulse Rate [ Pulse Oximetery ] Respiratory 19 21 28 H Rate Blood Pressure 114/91 103/81 103/81 Blood Pressure [Right Arm] O2 Sat by Pulse Oximetry 05/08/22 05/08/22 05/08/22 20:00 20:10 20:20 Temperature Pulse Rate 146 H 161 H 151 H Pulse Rate [ Pulse Oximetery ] Respiratory 14 30 H 20 Rate Blood Pressure 103/81 102/87 102/87 Blood Pressure [Right Arm] O2 Sat by Pulse Oximetry 05/08/22 05/08/22 05/08/22 20:30 20:40 20:50 Temperature Pulse Rate 130 H 144 H Pulse Rate [ Pulse Oximetery ] Respiratory 26 H 21 Rate Blood Pressure 102/87 104/78 104/78 Blood Pressure [Right Arm] O2 Sat by Pulse Oximetry 05/08/22 05/08/22 05/08/22 21:00 21:10 21:20 Temperature Pulse Rate 151 H 151 H 156 H Pulse Rate [ Pulse Oximetery ] Respiratory 22 23 17 Rate Blood Pressure 104/78 98/75 110/72 Blood Pressure [Right Arm] O2 Sat by Pulse Oximetry 05/08/22 05/08/22 05/08/22 21:30 21:40 21:50 Temperature Pulse Rate 161 H 131 H 122 H Pulse Rate [ Pulse Oximetery ] Respiratory 20 14 40 H Rate Blood Pressure 110/72 108/68 123/108 Blood Pressure [Right Arm] O2 Sat by Pulse Oximetry 05/08/22 05/08/22 05/08/22 22:00 22:10 22:20 Temperature Pulse Rate 154 H 142 H Pulse Rate [ Pulse Oximetery ] Respiratory 25 H 10 L 35 H Rate Blood Pressure 102/87 99/62 105/90 Blood Pressure [Right Arm] O2 Sat by Pulse Oximetry 05/08/22 05/08/22 05/08/22 22:30 22:40 22:50 Temperature Pulse Rate 129 H 154 H 146 H Pulse Rate [ Pulse Oximetery ] Respiratory 34 H 24 20 Rate Blood Pressure 95/63 109/84 113/94 Blood Pressure [Right Arm] O2 Sat by Pulse Oximetry 05/08/22 05/08/22 05/08/22 23:00 23:10 23:20 Temperature Pulse Rate 149 H 142 H 142 H Pulse Rate [ Pulse Oximetery ] Respiratory 6 L 5 L 18 Rate Blood Pressure 117/85 107/76 114/82 Blood Pressure [Right Arm] O2 Sat by Pulse Oximetry 05/08/22 05/08/22 05/08/22 23:30 23:40 23:50 Temperature Pulse Rate 125 H 141 H 138 H Pulse Rate [ Pulse Oximetery ] Respiratory 23 26 H 32 H Rate Blood Pressure 109/97 81/53 106/59 Blood Pressure [Right Arm] O2 Sat by Pulse Oximetry 05/09/22 05/09/22 05/09/22 00:00 00:10 00:27 Temperature 97.5 F L Pulse Rate 149 H 131 H Pulse Rate [ 135 H Pulse Oximetery ] Respiratory 26 H 11 L 20 Rate Blood Pressure 83/64 93/54 Blood Pressure 126/77 [Right Arm] O2 Sat by Pulse 97 Oximetry - Reevaluation(s) Reevaluation #1: 05/08/22 18:50 Spoke with my attending who recommends initial dose of metoprolol IVP, then will contact OB and cardiology. 05/08/22 19:[address] Gama regarding this patient's plan of care; will defer to cardiology for recommendation on anticoagulation. First dose of Metoprolol IVP given at this time. 05/08/22 19:15 Repeat VS: VR=237, BS=496/91. Repeat dose metoprolol ordered. FHT 138-152 05/08/22 20:59 Lengthy discussion with patient, spouse, and sister about rate controlling medications and safety in . Discussed category rankings of medications metoprolol, cardizem, and amiodorone. Given that patient has been taking metoprolol daily, they are comfortable with the category C ranking. They are agreeable with plan to initiate Cardizem. Patient wishes to forgo chest xray at this time as she had one a week ago. Heart tjhw=[id number] CN=896/81 (Subha Abbasi) Medical Decision Making - Lab Data Result diagrams: 05/09/22 02:46 05/09/22 02:46 - EKG Data Rate: tachycardia <Subha Abbasi - Last Filed: 05/10/22 00:02> - Lab Data Result diagrams: 05/09/22 02:46 05/10/22 12:17 <Alin Abdalla - Last Filed: 05/11/22 00:36> - Medical Decision Making This is a 37-year-old female, , LMP 310-22, with a history of atrial fibrillation,who presents to the emergency department with complaints of palpitations and elevated heart rate. Upon exam, patient is anxious, but well- appearing and in no acute distress. She is pain-free with no shortness of breath. EKG shows atrial fibrillation with a rate in the 160s. This case was discussed with my attending, Dr. Abdalla. Patient was given metoprolol IV push with minimal improvement. Cardiology recommends initiating Cardizem. Lengthy discussion with patient was had regarding medication safety in and she is agreeable with this plan of care. She declined chest x-ray as she had had one within the last week. Is open to discussion of anticoagulation and has been taking a baby aspirin daily. IV fluids were administered and patient was given a gram of magnesium IV piggyback. heart tones were obtained and patient was reassured by variable rate 138-152. She will be admitted for inpatient hospitalization with Cardizem infusing. Patient and family are agreeable with this plan of care. (Subha Abbasi) I spoke with Dr. Duggan cardiology regarding this patient. He was in agreement with the plan that we have executed thus far, using IV boluses of metoprolol with minimal improvement in heart rate at this time. He recommended continued IV hydration. He also recommended Cardizem as it is a category C medication over amiodarone which is a category D medication. Subha, the mid-level provider did discuss category C medications and their meaning with the patient and she was in agreement with receiving this medication. She expressed understanding. Patient was therefore administered a bolus of Cardizem and started on a drip with goal Heart rate less than 110. She'll be subsequently treated with more IV hydration, troponin trending, and admitted to telemetry. The patient was in agreement with this plan. I spoke Dr. Duggan regarding anticoagulation, and at this time, he would like to hold anticoagulation. Will discuss it with the patient tomorrow. I did convey this to the mid-level provider who conveyed to the patient. They were in agreement with this plan. (Alin Abdalla) - Lab Data Lab Results 05/08/22 05/08/22 05/08/22 Range/Units 18:41 18:41 18:41 WBC 12.8 H (3.8-10.6) k/uL RBC 4.58 (3.80-5.40) m/uL Hgb 12.8 (11.4-16.0) gm/dL Hct 38.5 (34.0-46.0) % MCV 84.1 (80.0-100.0) fL MCH 28.0 (25.0-35.0) pg MCHC 33.3 (31.0-37.0) g/dL RDW 13.0 (11.5-15.5) % Plt Count 289 (150-450) k/uL MPV 9.2 Neutrophils % 74 % Lymphocytes % 18 % Monocytes % 5 % Eosinophils % 2 % Basophils % 0 % Neutrophils # 9.4 H (1.3-7.7) k/uL Lymphocytes # 2.3 (1.0-4.8) k/uL Monocytes # 0.7 (0-1.0) k/uL Eosinophils # 0.2 (0-0.7) k/uL Basophils # 0.0 (0-0.2) k/uL PT 9.7 (9.0-12.0) sec INR 0.9 (<1.2) APTT 24.6 (22.0-30.0) sec Sodium 135 L (137-145) mmol/L Potassium 4.0 (3.5-5.1) mmol/L Chloride 105 (98-107) mmol/L Carbon Dioxide 18 L (22-30) mmol/L Anion Gap 12 mmol/L BUN 9 (7-17) mg/dL Creatinine 0.53 (0.52-1.04) mg/dL Est GFR (CKD-EPI)AfAm >90 (>60 ml/min/1.73 sqM) Est GFR (CKD-EPI)NonAf >90 (>60 ml/min/1.73 sqM) Glucose 109 H (74-99) mg/dL Calcium 9.9 (8.4-10.2) mg/dL Magnesium 1.5 L (1.6-2.3) mg/dL Total Bilirubin 0.2 (0.2-1.3) mg/dL AST 21 (14-36) U/L ALT 18 (4-34) U/L Alkaline Phosphatase 72 (38-126) U/L Troponin I (0.000-0.034) ng/mL Total Protein 6.9 (6.3-8.2) g/dL Albumin 4.0 (3.5-5.0) g/dL 05/08/22 Range/Units 18:41 WBC (3.8-10.6) k/uL RBC (3.80-5.40) m/uL Hgb (11.4-16.0) gm/dL Hct (34.0-46.0) % MCV (80.0-100.0) fL MCH (25.0-35.0) pg MCHC (31.0-37.0) g/dL RDW (11.5-15.5) % Plt Count (150-450) k/uL MPV Neutrophils % % Lymphocytes % % Monocytes % % Eosinophils % % Basophils % % Neutrophils # (1.3-7.7) k/uL Lymphocytes # (1.0-4.8) k/uL Monocytes # (0-1.0) k/uL Eosinophils # (0-0.7) k/uL Basophils # (0-0.2) k/uL PT (9.0-12.0) sec INR (<1.2) APTT (22.0-30.0) sec Sodium (137-145) mmol/L Potassium (3.5-5.1) mmol/L Chloride (98-107) mmol/L Carbon Dioxide (22-30) mmol/L Anion Gap mmol/L BUN (7-17) mg/dL Creatinine (0.52-1.04) mg/dL Est GFR (CKD-EPI)AfAm (>60 ml/min/1.73 sqM) Est GFR (CKD-EPI)NonAf (>60 ml/min/1.73 sqM) Glucose (74-99) mg/dL Calcium (8.4-10.2) mg/dL Magnesium (1.6-2.3) mg/dL Total Bilirubin (0.2-1.3) mg/dL AST (14-36) U/L ALT (4-34) U/L Alkaline Phosphatase (38-126) U/L Troponin I <0.012 (0.000-0.034) ng/mL Total Protein (6.3-8.2) g/dL Albumin (3.5-5.0) g/dL - EKG Data EKG Comments: EKG was obtained at 1823 and shows atrial fibrillation with rapid ventricular response and minimal ST depression. Ventricular rate 163, MT interval indeterminate, QRS duration 75, QT/QTC 255/345. (Subha Abbasi) Critical Care Time Critical Care Time: Yes Total Critical Care Time: 35 <Alin Abdalla - Last Filed: 05/11/22 00:36> Critical Care Time: Upon my evaluation, this patient had a high probability of imminent or life- threatening deterioration due to atrial fibrillation with RVR, 19 weeks , which required my direct attention, intervention, and personal management. I have personally provided 35 minutes of critical care time exclusive of time spent on separately billable procedures. Time includes review of laboratory data, radiology results, discussion with consultants, and monitoring for potential decompensation. Interventions were performed as documented in my note. (Alin Abdalla) Disposition Decision Date: 05/08/22 Decision Time: 22:45 <Subha Abbasi - Last Filed: 05/10/22 00:02> <Alin Abdalla - Last Filed: 05/11/22 00:36> Clinical Impression: Atrial fibrillation with rapid ventricular response, Second trimester , Hypomagnesemia Disposition: ADMITTED IP TO THIS HOSP Condition: Serious
[2022-05-08 19:27] LABS: ALT 18 U/L (4-34); AST 21 U/L (14-36); African American GFR (CKD) >90 (>60 ml/min/1.73 sqM); Alkaline Phosphatase 72 U/L (38-126); Anion Gap 12 mmol/L; Blood Urea Nitrogen 9 mg/dL (7-17); Calcium 9.9 mg/dL (8.4-10.2); Carbon Dioxide 18 mmol/L (22-30); Chloride 105 mmol/L (98-107); Glucose 109 mg/dL (74-99); Magnesium 1.5 mg/dL (1.6-2.3); Non-African American GFR(CKD) >90 (>60 ml/min/1.73 sqM); Sodium 135 mmol/L (137-145); Total Bilirubin 0.2 mg/dL (0.2-1.3); Total Protein 6.9 g/dL (6.3-8.2)
[2022-05-08] MEDS ORDERED: MAGNESIUM SULFATE-D5W PMX 1 GM in DEXTROSE/WATER 1 100ML.BAG IVPB ONE (20:20)
[2022-05-08] MEDS ORDERED: DILTIAZEM 5 MG/ML 5 ML VIAL IVP STA (20:58)
[2022-05-08] MEDS ORDERED: DILTIAZEM 125 MG in SODIUM CHLORIDE 0.9% 100 ML IV SCH ×2 (21:00→21:15)
[2022-05-08] MEDS ORDERED: DILTIAZEM DRIP BOLUS FROM BAG 1 MG SOLN IV ONE (21:25)
[2022-05-08] MEDS: DILTIAZEM 125 MG in SODIUM CHLORIDE 0.9% 100 ML IV SCH (21:29)
[2022-05-08] MEDS ORDERED: CALCIUM CARBONATE 500 MG CHEWABLE PO STA (21:39)
[2022-05-08] MEDS ORDERED: ASPIRIN 81 MG PO STA (21:40)
[2022-05-08] MEDS ORDERED: NALOXONE 0.4 MG/ML 1 ML VIAL IV PRN (22:45)
[2022-05-08] MEDS ORDERED: ONDANSETRON 4 MG/2 ML VIAL IVP PRN (22:45)
[2022-05-08] MEDS ORDERED: CALCIUM CARBONATE 500 MG CHEWABLE PO PRN (22:45)
[2022-05-08] MEDS ORDERED: ACETAMINOPHEN TAB 325 MG TAB PO PRN (22:45)
[2022-05-09 00:15] LABS: Appearance,Urine Cloudy (Clear); Bacteria,Urine Rare /hpf; Bilirubin,Urine Negative (Negative); Blood,Urine Negative (Negative); Color,Urine Yellow; Glucose,Urine (UA) Negative (Negative); Hyaline Casts,Urine 3 /lpf (0-2); Ketones,Urine Negative (Negative); Leukocyte Esterase,Urine Negative (Negative); Mucus,Urine Occasional /hpf; Nitrite,Urine Negative (Negative); PH, Urine 6.5 (5.0-8.0); Protein,Urine Negative (Negative); RBC,Urine 3 /hpf (0-5); Specific Gravity,Urine 1.016 (1.001-1.035); Squamous Epithelial Cell,Urine 1 /hpf (0-4); Urobilinogen,Urine <2.0 mg/dL (<2.0); WBC,Urine 4 /hpf (0-5)
[2022-05-09 00:31] LABS: Glucose,Whole Blood 131 mg/dL (70-110)
[2022-05-09] MEDS ORDERED: METOPROLOL TARTRATE 25 MG TAB PO STA (01:26)
[2022-05-09 03:03] LABS: Basophils % (A) 0 %; Eosinophils # (A) 0.2 k/uL (0-0.7); Eosinophils % (A) 2 %; HCT 35.6 % (34.0-46.0); HGB 11.9 gm/dL (11.4-16.0); Lymphocytes # (A) 2.6 k/uL (1.0-4.8); Lymphocytes % (A) 22 %; MCH 28.1 pg (25.0-35.0); MCHC 33.3 g/dL (31.0-37.0); MCV 84.5 fL (80.0-100.0); Mean Platelet Volume 9.2; Monocytes # (A) 0.6 k/uL (0-1.0); Monocytes % (A) 5 %; Neutrophils # (A) 8.2 k/uL (1.3-7.7); Neutrophils % (A) 69 %; Platelet Count 249 k/uL (150-450); RBC 4.22 m/uL (3.80-5.40); RDW 13.1 % (11.5-15.5); WBC 11.8 k/uL (3.8-10.6)
[2022-05-09 03:29] LABS: African American GFR (CKD) >90 (>60 ml/min/1.73 sqM); Anion Gap 6 mmol/L; Blood Urea Nitrogen 9 mg/dL (7-17); Calcium 8.7 mg/dL (8.4-10.2); Carbon Dioxide 20 mmol/L (22-30); Chloride 107 mmol/L (98-107); Glucose 99 mg/dL (74-99); Magnesium 1.5 mg/dL (1.6-2.3); Non-African American GFR(CKD) >90 (>60 ml/min/1.73 sqM); Potassium 3.8 mmol/L (3.5-5.1); Sodium 133 mmol/L (137-145)
[2022-05-09] MEDS: DILTIAZEM 125 MG in SODIUM CHLORIDE 0.9% 100 ML IV SCH ×2 (04:24→17:24)
[2022-05-09] MEDS: LEVOTHYROXINE 50 MCG TAB PO SCH (06:29)
[2022-05-09] MEDS ORDERED: FLECAINIDE 50 MG TAB PO STA (07:45)
[2022-05-09] MEDS: metFORMIN 500 MG TAB PO SCH ×2 (08:53→20:12)
--- NOTE | 2022-05-09 11:25 | P.OBCN ---
History of Present Illness Consult date: 05/09/22 Reason for consult: other (19 weeks of ) Chief complaint: A. fib with RVR History of present illness: This is a 37-year-old at approximately 19 weeks gestation that presented last evening to the emergency department with complaints of irregular heartbeat. Patient has a known history of cardiac concerns and has been on metoprolol. Patient states septations increased Monday. Patient was seen earlier in the week with complaints of chest pain in addition, negative workup at that time and patient was discharged home. Patient does see cardiology for palpitations, A. fib, prior cardioversion in 2016. Patient while in the ER was noted to be in atrial fibrillation with RVR. Patient is currently at 19 weeks, has been seeing Dr. Murphy for routine care. No movement has been appreciated yet in the . She denies any concerns. Review of Systems Constitutional: Reports fatigue, Denies chills, Denies fever Ears, nose, mouth and throat: Denies headache Cardiovascular: Reports rapid heart beat Respiratory: Denies dyspnea Gastrointestinal: Denies nausea, Denies vomiting Genitourinary: Reports Past Medical History Past Medical History: Atrial Fibrillation, Asthma, GERD/Reflux, Hypertension, Sleep Apnea/CPAP/BIPAP, Thyroid Disorder Additional Past Medical History / Comment(s): Non Insulin Dependent Gestational Diabetes with first . CPAP use. History of Any Multi-Drug Resistant Organisms: None Reported Past Surgical History: Cardiac Ablation, Section, Cholecystectomy Additional Past Surgical History / Comment(s): Ablation in 07/2017, gallbladder 10/05 Past Anesthesia/Blood Transfusion Reactions: No Reported Reaction Past Psychological History: ADD/ADHD, Anxiety Smoking Status: Former smoker, Light tobacco smoker Past Alcohol Use History: Rare Past Drug Use History: None Reported - Past Family History Father Family Medical History: AFIB, Congestive Heart Failure (CHF), CVA/TIA Additional Family Medical History / Comment(s): renal disease, heart failure, strokes ("alot") Mother Family Medical History: AFIB, Cancer Additional Family Medical History / Comment(s): Breast cancer, fibromyalgia, bipolar Medications and Allergies Home Medications Medication Instructions Recorded Confirmed Type Aspirin 81 mg PO DAILY 03/18/21 05/08/22 History Beclomethasone Dipropionate [Qvar 2 puff INHALATION RT-BID 03/18/21 05/08/22 History 40 mcg Redihaler] Pnv No.95/Ferrous Fum/Folic AC 1 tab PO DAILY 03/18/21 05/08/22 History [ Multivitamin Tablet] Loratadine [Claritin] 10 mg PO DAILY 07/13/21 05/08/22 History metFORMIN HCL [Glucophage] 1,000 mg PO BID 07/13/21 05/08/22 History Folic Acid 0.8 mg PO DAILY 09/29/21 05/08/22 History Albuterol Sulfate [Proair 2 puff INHALATION RT-Q4H PRN 05/03/22 05/08/22 History Respiclick] Levothyroxine Sodium [Synthroid] 50 mcg PO AC-BRKFST 05/03/22 05/08/22 History Lisdexamfetamine Dimesylate 20 mg PO DAILY PRN 05/03/22 05/08/22 History [Vyvanse] Magnesium Oxide [Magox 400] 400 mg PO DAILY #14 tablet 05/03/22 05/08/22 Rx Metoprolol Succinate [Toprol XL] 50 mg PO DAILY 05/03/22 05/08/22 History Calcium Carb/Mag Ox/Zinc Sulf 1 tab PO HS 05/08/22 05/08/22 History [Hmc-Mrv-Xzhx 334-134-5 mg Tab] Vitamin B Complex 1 cap PO DAILY 05/08/22 05/08/22 History Allergies Allergy/AdvReac Type Severity Reaction Status Date / Time No Known Allergies Allergy Verified 05/08/22 22:05 Exam Osteopathic Statement: *. No significant issues noted on an osteopathic structural exam other than those noted in the History and Physical/Consult. Vital Signs Temp Pulse Pulse Pulse Resp BP BP 05/09/22 08:00 97.7 F 126 H 76 18 119/76 05/09/22 06:32 118 H 20 118/69 05/09/22 03:32 98.1 F 115 H 18 106/70 05/09/22 02:00 122 H 22 05/09/22 01:28 133 H 05/09/22 01:10 97.5 F L 135 H 20 05/09/22 00:27 97.5 F L 135 H 20 05/09/22 00:10 131 H 11 L 93/54 05/09/22 00:00 149 H 26 H 83/64 05/08/22 23:50 138 H 32 H 106/59 05/08/22 23:40 141 H 26 H 81/53 05/08/22 23:30 125 H 23 109/97 05/08/22 23:20 142 H 18 114/82 05/08/22 23:10 142 H 5 L 107/76 05/08/22 23:00 149 H 6 L 117/85 05/08/22 22:50 146 H 20 113/94 05/08/22 22:40 154 H 24 109/84 05/08/22 22:30 129 H 34 H 95/63 05/08/22 22:20 35 H 105/90 05/08/22 22:10 142 H 10 L 99/62 05/08/22 22:00 154 H 25 H 102/87 05/08/22 21:50 122 H 40 H 123/108 05/08/22 21:40 131 H 14 108/68 05/08/22 21:30 161 H 20 110/72 05/08/22 21:20 156 H 17 110/72 05/08/22 21:10 151 H 23 98/75 05/08/22 21:00 151 H 22 104/78 05/08/22 20:50 144 H 21 104/78 05/08/22 20:40 130 H 26 H 104/78 05/08/22 20:30 102/87 05/08/22 20:20 151 H 20 102/87 05/08/22 20:10 161 H 30 H 102/87 05/08/22 20:00 146 H 14 103/81 05/08/22 19:50 144 H 28 H 103/81 05/08/22 19:40 154 H 21 103/81 05/08/22 19:30 149 H 19 114/91 05/08/22 19:20 149 H 16 114/91 05/08/22 19:10 174 H 21 114/91 05/08/22 19:00 163 H 15 115/79 05/08/22 18:50 181 H 19 115/79 05/08/22 18:40 154 H 36 H 145/96 05/08/22 18:15 98.3 F 88 16 117/61 BP Pulse Ox 05/09/22 08:00 99 05/09/22 06:32 05/09/22 03:32 84/50 96 05/09/22 02:00 05/09/22 01:28 102/70 05/09/22 01:10 126/77 97 05/09/22 00:27 126/77 97 05/09/22 00:10 05/09/22 00:00 05/08/22 23:50 05/08/22 23:40 05/08/22 23:30 05/08/22 23:20 05/08/22 23:10 05/08/22 23:00 05/08/22 22:50 05/08/22 22:40 05/08/22 22:30 05/08/22 22:20 05/08/22 22:10 05/08/22 22:00 05/08/22 21:50 05/08/22 21:40 05/08/22 21:30 05/08/22 21:20 05/08/22 21:10 05/08/22 21:00 05/08/22 20:50 05/08/22 20:40 05/08/22 20:30 05/08/22 20:20 05/08/22 20:10 05/08/22 20:00 05/08/22 19:50 05/08/22 19:40 05/08/22 19:30 05/08/22 19:20 05/08/22 19:10 05/08/22 19:00 05/08/22 18:50 05/08/22 18:40 05/08/22 18:15 100 Intake and Output 05/08/22 05/09/22 05/09/22 22:59 06:59 14:59 Intake Total 4.417 86.583 120 Balance 4.417 86.583 120 Intake: Intake, IV Titration 4.417 86.583 Amount Diltiazem 125 mg In 4.417 86.583 Sodium Chloride 0.9% 100 ml @ 5 MG/HR 5 mls/hr IV .Q24H [facility] Rx#:[id number] Oral 120 Other: Voiding Method Toilet # Voids 1 Weight 129.274 kg 129.274 kg Targeted physical exam is performed on this date and manager diesel a well-nourished well-developed female in no acute distress, patient is resting comfortably in hospital bed. Breathing is noted to be nonlabored, heart on monitoring is noted to be irregular, abdomen is soft cervical exam is not performed. Results Result Diagrams: 05/09/22 02:46 05/09/22 02:46 Abnormal Lab Results - Last 24 Hours (Table) 05/08/22 05/08/22 05/08/22 Range/Units 18:41 18:41 23:19 WBC 12.8 H (3.8-10.6) k/uL Neutrophils # 9.4 H (1.3-7.7) k/uL Sodium 135 L (137-145) mmol/L Carbon Dioxide 18 L (22-30) mmol/L Glucose 109 H (74-99) mg/dL POC Glucose (mg/dL) (70-110) mg/dL Magnesium 1.5 L (1.6-2.3) mg/dL Urine Appearance Cloudy H (Clear) Urine Bacteria Rare H (None) /hpf Hyaline Casts 3 H (0-2) /lpf Urine Mucus Occasional H (None) /hpf 05/09/22 05/09/22 05/09/22 Range/Units 00:30 02:46 02:46 WBC 11.8 H (3.8-10.6) k/uL Neutrophils # 8.2 H (1.3-7.7) k/uL Sodium 133 L (137-145) mmol/L Carbon Dioxide 20 L (22-30) mmol/L Glucose (74-99) mg/dL POC Glucose (mg/dL) 131 H (70-110) mg/dL Magnesium 1.5 L (1.6-2.3) mg/dL Urine Appearance (Clear) Urine Bacteria (None) /hpf Hyaline Casts (0-2) /lpf Urine Mucus (None) /hpf Assessment and Plan (1) 19 weeks gestation of Current Visit: Yes Status: Acute Code(s): Z3A.19 - 19 WEEKS GESTATION OF SNOMED Code(s): 11040360 (2) Atrial fibrillation with rapid ventricular response Current Visit: Yes Status: Acute Code(s): I48.91 - UNSPECIFIED ATRIAL FIBRILLATION SNOMED Code(s): 778693969528919 Plan: 37-year-old at 19 weeks of gestation. Patient is currently admitted to cardiology, on a metoprolol drip. Should patient require anticoagulation heparin and Lovenox are safe in . Patient is counseled on care from an obstetrical point. She does have an ultrasound scheduled for anatomy next week at [facility]. Given her early gestational age no further workup is needed while in the hospital. We'll order daily heart tones for reassurance with patient.
--- NOTE | 2022-05-09 12:01 | P.HPIM ---
History of Present Illness Patient is a pleasant 70-year-old female came in with the complaints of palpitations increased heart rate started yesterday evening. Patient is found to be near atrial fibrillation patient had history of ablation and cardioversion in 2017. Patient doesn't take any anticoagulation patient is 19 weeks at this time patient is wasn't and Cardizem echo was ordered patient clinically doesn't appear to be in the heart failure at this time. Patient denied nausea vomiting abdominal pain and fever chills although patient probably is a bit dehydrated because of her hyponatremia. REVIEW OF SYSTEMS: CONSTITUTIONAL: No fever, no malaise, no fatigue. HEENT: No recent visual problems or hearing problems. Denied any sore throat. CARDIOVASCULAR: No chest pain, orthopnea, PND, no syncope. PULMONARY: No shortness of breath, no cough, no hemoptysis. GASTROINTESTINAL: No diarrhea, no nausea, no vomiting, no abdominal pain. NEUROLOGICAL: No headaches, no weakness, no numbness. HEMATOLOGICAL: Denies any bleeding or petechiae. GENITOURINARY: Denies any burning micturition, frequency, or urgency. MUSCULOSKELETAL/RHEUMATOLOGICAL: Denies any joint pain, swelling, or any muscle pain. ENDOCRINE: Denies any polyuria or polydipsia. The rest of the 14-point review of systems is negative. PHYSICAL EXAMINATION: GENERAL: The patient is alert and oriented x3, not in any acute distress. Well developed, well nourished. HEENT: Pupils are round and equally reacting to light. EOMI. No scleral icterus. No conjunctival pallor. Normocephalic, atraumatic. No pharyngeal erythema. No thyromegaly. CARDIOVASCULAR: S1 and S2 present. No murmurs, rubs, or gallops. Tachycardic irregularly irregular heartbeat PULMONARY: Chest is clear to auscultation, no wheezing or crackles. ABDOMEN: Soft, nontender, nondistended, normoactive bowel sounds. No palpable organomegaly. MUSCULOSKELETAL: No joint swelling or deformity. EXTREMITIES: No cyanosis, clubbing, or pedal edema. NEUROLOGICAL: Gross neurological examination did not reveal any focal deficits. SKIN: No rashes. Assessment and plan -Atrial fibrillation with rapid ventricular rate: Patient is still in A. fib at this time presently and Cardizem which is being weaned off and patient started on flecainide and patient does take metoprolol at home which was not resumed. Patient need to be Lovenox due to . -Hyponatremic probably hypovolemic patient will be started on IV fluids - status: 19 weeks Weeks patient is to be on Lovenox because of p regnancy for atrial fibrillation -If and sleep apnea and uses CPAP machine next and-hypothyroidism Have gastroesophageal reflux disease -Hypertension DVT prophylaxis: Patient is on anticoagulation presently which will be transitioned to Lovenox Past Medical History Past Medical History: Atrial Fibrillation, Asthma, GERD/Reflux, Hypertension, Sleep Apnea/CPAP/BIPAP, Thyroid Disorder Additional Past Medical History / Comment(s): Non Insulin Dependent Gestational Diabetes with first . CPAP use. History of Any Multi-Drug Resistant Organisms: None Reported Past Surgical History: Cardiac Ablation, Section, Cholecystectomy Additional Past Surgical History / Comment(s): Ablation in 07/2017, gallbladder 10/05 Past Anesthesia/Blood Transfusion Reactions: No Reported Reaction Past Psychological History: ADD/ADHD, Anxiety Smoking Status: Former smoker, Light tobacco smoker Past Alcohol Use History: Rare Past Drug Use History: None Reported - Past Family History Father Family Medical History: AFIB, Congestive Heart Failure (CHF), CVA/TIA Additional Family Medical History / Comment(s): renal disease, heart failure, strokes ("alot") Mother Family Medical History: AFIB, Cancer Additional Family Medical History / Comment(s): Breast cancer, fibromyalgia, bipolar Medications and Allergies Home Medications Medication Instructions Recorded Confirmed Type Aspirin 81 mg PO DAILY 03/18/21 05/08/22 History Beclomethasone Dipropionate [Qvar 2 puff INHALATION RT-BID 03/18/21 05/08/22 History 40 mcg Redihaler] Pnv No.95/Ferrous Fum/Folic AC 1 tab PO DAILY 03/18/21 05/08/22 History [ Multivitamin Tablet] Loratadine [Claritin] 10 mg PO DAILY 07/13/21 05/08/22 History metFORMIN HCL [Glucophage] 1,000 mg PO BID 07/13/21 05/08/22 History Folic Acid 0.8 mg PO DAILY 09/29/21 05/08/22 History Albuterol Sulfate [Proair 2 puff INHALATION RT-Q4H PRN 05/03/22 05/08/22 History Respiclick] Levothyroxine Sodium [Synthroid] 50 mcg PO AC-BRKFST 05/03/22 05/08/22 History Lisdexamfetamine Dimesylate 20 mg PO DAILY PRN 05/03/22 05/08/22 History [Vyvanse] Magnesium Oxide [Magox 400] 400 mg PO DAILY #14 tablet 05/03/22 05/08/22 Rx Metoprolol Succinate [Toprol XL] 50 mg PO DAILY 05/03/22 05/08/22 History Calcium Carb/Mag Ox/Zinc Sulf 1 tab PO HS 05/08/22 05/08/22 History [Ozu-Vfa-Exkw 334-134-5 mg Tab] Vitamin B Complex 1 cap PO DAILY 05/08/22 05/08/22 History Allergies Allergy/AdvReac Type Severity Reaction Status Date / Time No Known Allergies Allergy Verified 05/08/22 22:05 Physical Exam Vitals: Vital Signs Temp Pulse Pulse Pulse Resp BP BP 05/09/22 08:00 97.7 F 126 H 76 18 119/76 05/09/22 06:32 118 H 20 118/69 05/09/22 03:32 98.1 F 115 H 18 106/70 05/09/22 02:00 122 H 22 05/09/22 01:28 133 H 05/09/22 01:10 97.5 F L 135 H 20 05/09/22 00:27 97.5 F L 135 H 20 05/09/22 00:10 131 H 11 L 93/54 05/09/22 00:00 149 H 26 H 83/64 05/08/22 23:50 138 H 32 H 106/59 05/08/22 23:40 141 H 26 H 81/53 05/08/22 23:30 125 H 23 109/97 05/08/22 23:20 142 H 18 114/82 05/08/22 23:10 142 H 5 L 107/76 05/08/22 23:00 149 H 6 L 117/85 05/08/22 22:50 146 H 20 113/94 05/08/22 22:40 154 H 24 109/84 05/08/22 22:30 129 H 34 H 95/63 05/08/22 22:20 35 H 105/90 05/08/22 22:10 142 H 10 L 99/62 05/08/22 22:00 154 H 25 H 102/87 05/08/22 21:50 122 H 40 H 123/108 05/08/22 21:40 131 H 14 108/68 05/08/22 21:30 161 H 20 110/72 05/08/22 21:20 156 H 17 110/72 05/08/22 21:10 151 H 23 98/75 05/08/22 21:00 151 H 22 104/78 05/08/22 20:50 144 H 21 104/78 05/08/22 20:40 130 H 26 H 104/78 05/08/22 20:30 102/87 05/08/22 20:20 151 H 20 102/87 05/08/22 20:10 161 H 30 H 102/87 05/08/22 20:00 146 H 14 103/81 05/08/22 19:50 144 H 28 H 103/81 05/08/22 19:40 154 H 21 103/81 05/08/22 19:30 149 H 19 114/91 05/08/22 19:20 149 H 16 114/91 05/08/22 19:10 174 H 21 114/91 05/08/22 19:00 163 H 15 115/79 05/08/22 18:50 181 H 19 115/79 05/08/22 18:40 154 H 36 H 145/96 05/08/22 18:15 98.3 F 88 16 117/61 BP Pulse Ox 05/09/22 08:00 99 05/09/22 06:32 05/09/22 03:32 84/50 96 05/09/22 02:00 05/09/22 01:28 102/70 05/09/22 01:10 126/77 97 05/09/22 00:27 126/77 97 05/09/22 00:10 05/09/22 00:00 05/08/22 23:50 05/08/22 23:40 05/08/22 23:30 05/08/22 23:20 05/08/22 23:10 05/08/22 23:00 05/08/22 22:50 05/08/22 22:40 05/08/22 22:30 05/08/22 22:20 05/08/22 22:10 05/08/22 22:00 05/08/22 21:50 05/08/22 21:40 05/08/22 21:30 05/08/22 21:20 05/08/22 21:10 05/08/22 21:00 05/08/22 20:50 05/08/22 20:40 05/08/22 20:30 05/08/22 20:20 05/08/22 20:10 05/08/22 20:00 05/08/22 19:50 05/08/22 19:40 05/08/22 19:30 05/08/22 19:20 05/08/22 19:10 05/08/22 19:00 05/08/22 18:50 05/08/22 18:40 05/08/22 18:15 100 Intake and Output 05/08/22 05/09/22 05/09/22 22:59 06:59 14:59 Intake Total 4.417 86.583 120 Balance 4.417 86.583 120 Intake: Intake, IV Titration 4.417 86.583 Amount Diltiazem 125 mg In 4.417 86.583 Sodium Chloride 0.9% 100 ml @ 5 MG/HR 5 mls/hr IV .Q24H [facility] Rx#:[id number] Oral 120 Other: Voiding Method Toilet # Voids 1 Weight 129.274 kg 129.274 kg Results CBC & Chem 7: 05/09/22 02:46 05/09/22 02:46 Labs: Abnormal Lab Results - Last 24 Hours (Table) 05/08/22 05/08/22 05/08/22 Range/Units 18:41 18:41 23:19 WBC 12.8 H (3.8-10.6) k/uL Neutrophils # 9.4 H (1.3-7.7) k/uL Sodium 135 L (137-145) mmol/L Carbon Dioxide 18 L (22-30) mmol/L Glucose 109 H (74-99) mg/dL POC Glucose (mg/dL) (70-110) mg/dL Magnesium 1.5 L (1.6-2.3) mg/dL Urine Appearance Cloudy H (Clear) Urine Bacteria Rare H (None) /hpf Hyaline Casts 3 H (0-2) /lpf Urine Mucus Occasional H (None) /hpf 0705/09/22 05/09/22 Range/Units 00:30 02:46 02:46 WBC 11.8 H (3.8-10.6) k/uL Neutrophils # 8.2 H (1.3-7.7) k/uL Sodium 133 L (137-145) mmol/L Carbon Dioxide 20 L (22-30) mmol/L Glucose (74-99) mg/dL POC Glucose (mg/dL) 131 H (70-110) mg/dL Magnesium 1.5 L (1.6-2.3) mg/dL Urine Appearance (Clear) Urine Bacteria (None) /hpf Hyaline Casts (0-2) /lpf Urine Mucus (None) /hpf Thrombosis Risk Factor Assmnt - Choose All That Apply Any of the Below Risk Factors Present?: Yes Each Factor Represents 1 point: Obesity (BMI >25), or Other Risk Factors: No Other congenital or acquired thrombophilia - If yes, enter type in comment: No Thrombosis Risk Factor Assessment Total Risk Factor Score: 2 Thrombosis Risk Factor Assessment Level: Low Risk
[2022-05-09] MEDS: PRENATAL VIT-IRON-FOLIC ACID 1 EACH TABLET PO SCH (12:43)
[2022-05-09] MEDS: ENOXAPARIN 100 MG/ML SYRINGE SQ SCH ×2 (12:45→20:12)
[2022-05-09] MEDS: MAGNESIUM SULFATE-D5W PMX 1 GM in DEXTROSE/WATER 1 100ML.BAG IVPB SCH ×2 (12:48→17:25)
--- NOTE | 2022-05-09 13:59 | CONS ---
CONSULTATION CHIEF COMPLAINT: Sustained palpitations. Cyndy is a 37-year-old lady who is 19 weeks with history of hypertension and ifv-[id number] diabetes who presented to hospital with sustained palpitations yesterday. She was found to be in atrial fibrillation with rapid ventricular rate and was started on intravenous Cardizem with some improvement in her heart rate. She was tried on IV Lopressor without much response and was also given 1 dose of oral metoprolol. The patient had ablation done in [place] sometime in 2017. She has done fairly well since that time and has not had any episodes of sustained palpitations. She sees my associate Dr. Chandler on a regular basis. This morning, she continues to be in atrial fibrillation with a better controlled ventricular rate. She is on intravenous Cardizem and had been started on flecainide by Dr. Chandler. The patient is otherwise asymptomatic. Does not have chest pain, difficulty in breathing or leg edema. She states that she does not have diabetes. She takes metformin that was started as part of improving her fertility and she also tells me that she does not have any hypertension. We will find out from patient's plate washer to see if she can safely receive anticoagulant at this time. The patient understands the risks involved in the various medications that we are giving her and she is in agreement with that. PAST MEDICAL HISTORY: Significant for paroxysmal atrial fibrillation status post ablation and hypothyroidism. CURRENT MEDICATIONS: Current medications include Synthroid, albuterol, metformin, Toprol-XL 50 mg daily, magnesium, , folic acid, and aspirin. ALLERGIES: There are no known drug allergies. FAMILY HISTORY: Significant for atrial fibrillation both in her father and a sister. SOCIAL HISTORY: Negative for smoking, ETOH abuse or drug abuse. REVIEW OF SYSTEMS: 14 out of 14 review of systems has been performed. Pertinents are as documented in history of presenting illness. PHYSICAL EXAMINATION: On exam, she is comfortable at rest. Heart rate is 118 beats per minute, blood pressure is 118/69, respirations 18, O2 saturation is 96% on room air. There is no jugular venous distention. Carotid upstroke is normal. There is no bruit. Chest exam reveals good air entry bilaterally. Heart exam reveals first and second heart sounds, irregular rhythm. No murmur. Abdomen: Soft. Exam of extremities did not reveal any edema. Peripheral pulses are felt. LABS: Labs show that 3 sets of troponins are negative. Potassium is 3.8, creatinine is 0.6, hemoglobin is 11.9. ASSESSMENT: 1. Paroxysmal atrial fibrillation with poorly controlled ventricular rate. 2. . PLAN: We will see if the patient will flip back into sinus rhythm on flecainide. We will ask the plate washer if we can anticoagulate the patient at this time. We will obtain a 2D echo to assess LV function. ANNIA / DAVIS: [id number] /
[2022-05-09] MEDS ORDERED: FLECAINIDE 50 MG TAB PO SCH (21:00)
[2022-05-09] MEDS: MELATONIN 5 MG TABLET PO SCH (23:23)
[2022-05-10] MEDS: LEVOTHYROXINE 50 MCG TAB PO SCH (05:55)
[2022-05-10] MEDS ORDERED: FLECAINIDE 50 MG TAB PO STA (07:47)
--- NOTE | 2022-05-10 08:00 | CA ---
Transthoracic Echo Report Name: Cyndy Landers Age: 37 Gender: F : 1985 Exam Date: 05/09/2022 09:02 Exam Location: [place] [facility] Ht (in): 68 Wt (lb): 285 Ordering Physician: Subha Abbasi Attending/Referring Phys: Packing Room Inspector Aubrie Camacho RDCS Procedure CPT: Indications: A.Fib w/RVR in Cardiac Hx: Technical Quality: Fair Contrast 1: Total Dose (mL): Contrast 2: Total Dose (mL): MEASUREMENTS (Male / Female) Normal Values 2D ECHO LV Diastolic Diameter PLAX 3.4 cm 4.2 - 5.9 / 3.9 - 5.3 cm LV Systolic Diameter PLAX 2.4 cm IVS Diastolic Thickness 1.7 cm 0.6 - 1.0 / 0.6 - 0.9 cm LVPW Diastolic Thickness 1.5 cm 0.6 - 1.0 / 0.6 - 0.9 cm LV Relative Wall Thickness 0.9 RV Internal Dim ED PLAX 3.6 cm LA Volume 106.9 cm??? 18 - 58 / 22 - 52 cm??? M-MODE Aortic Root Diameter MM 3.8 cm LA Systolic Diameter MM 4.6 cm LA Ao Ratio MM 1.2 AV Cusp Separation MM 2.6 cm DOPPLER AV Peak Velocity 133.6 cm/s AV Peak Gradient 7.1 mmHg LVOT Peak Velocity 101.1 cm/s LVOT Peak Gradient 4.1 mmHg TR Peak Velocity 228.5 cm/s TR Peak Gradient 20.9 mmHg Right Ventricular Systolic Press 24.7 mmHg FINDINGS Left Ventricle Moderately increased left ventricular wall thickness. Normal left ventricular systolic function with no obvious regional wall motion abnormalities. Left ventricular ejection fraction is estimated at 55-60 %. Right Ventricle Mild right ventricular dilatation. Right ventricular systolic pressure within normal limits. Right Atrium Normal right atrial size. Left Atrium Moderate left atrial dilatation. Mitral Valve Structurally normal mitral valve. Mild mitral regurgitation. Aortic Valve No aortic valve stenosis or regurgitation. Tricuspid Valve Mild tricuspid regurgitation. Pulmonic Valve Trace pulmonic regurgitation. Pericardium No pericardial effusion. Aorta Normal size aortic root and proximal ascending aorta. CONCLUSIONS Normal LV size and systolic function. Enlarged left atrium. No pericardial effusion. No significant of management in the Doppler exam Previewed by: Dr. Stevo Ramirez MD (Electronically Signed) Final Date: 10 May 2022 07:59
[2022-05-10] MEDS: METOPROLOL TARTRATE 25 MG TAB PO SCH ×2 (08:39→20:04)
[2022-05-10] MEDS: ENOXAPARIN 100 MG/ML SYRINGE SQ SCH ×2 (08:39→20:05)
[2022-05-10] MEDS: metFORMIN 500 MG TAB PO SCH ×2 (08:39→20:04)
[2022-05-10] MEDS: PRENATAL VIT-IRON-FOLIC ACID 1 EACH TABLET PO SCH (08:39)
[2022-05-10] MEDS ORDERED: Magnesium Replacement Protocol 1 EACH MISC MISCELLANE PRN (11:54)
--- NOTE | 2022-05-10 12:15 | P.PN ---
Subjective This is a 37-year-old female past smoking history of hypertension, gestational diabetes, paroxysmal atrial fibrillation status post ablation in 2018. She follows in the office with Dr. Chandler. We have been asked to see the patient in consultation for atrial fibrillation with rapid ventricular response. Patient presented to the ER with complaints of palpitations. Patient is 19 weeks . She was found to be in atrial fibrillation with rapid ventricular response. She was started on IV Cardizem drip, and Flecainide. and on Lovenox SQ Echocardiogram revealed an EF 5560%, mild mitral regurgitation, no pericardial effusion 05/10/2022 Patient seen and examined at bedside, she his tearful secondary to still being tachycardia. He is atrial fibrillation with RVR HR 120s-140s. She states that she just doesn't feel well. Denies any chest pain or shortness of breath. Blood pressures are stable. Meds: Flecainide 100 mg twice a day, Lovenox Blood pressure 139/82, heart rate 122, afebrile, oxygen saturation 97% room air GENERAL: Well-appearing, well-nourished and in no acute distress. NECK: Supple without JVD or thyromegaly. LUNGS: Breath sounds clear to auscultation bilaterally. Respiration equal and unlabored. No wheezes, rales or rhonchi. HEART: Irregular tachycardic rate and rhythm without murmurs, rubs or gallops. S1 and S2 heard. EXTREMITIES: Normal range of motion, no edema. No clubbing or cyanosis. Peripheral pulses intact. ASSESSMENT Paroxysmal atrial fibrillation 19 weeks gestation of History of previous ablation in 2018 History of hypertension History of Gestational diabetes PLAN Discussed patient with Dr. Chandler Increase flecainide to 150mg BID for a total of 2 doses to be given Metoprolol tartrate 25mg BID Anticoagulation with Lovenox Continue cardiac telemetry Further recommendations based on course Nurse Practitioner note has been reviewed, I agree with a documented findings and plan of care. Patient was seen and examined. Objective - Vital Signs Vital signs: Vital Signs Temp 98 F 05/09/22 12:00 Pulse 120 H 05/09/22 12:00 Resp 18 05/09/22 12:00 BP 136/90 05/09/22 12:00 Pulse Ox 98 05/09/22 12:00 FiO2 Intake & Output 05/08/22 05/09/2205/09/22 18:59 06:59 18:59 Intake Total 91.000 120 Balance 91.000 120 Weight 129.274 kg 129.274 kg Intake: Intake, IV Titration 91.000 Amount Diltiazem 125 mg In 91.000 Sodium Chloride 0.9% 100 ml @ 5 MG/HR 5 mls/hr IV .Q24H [facility] Rx#:[id number] Oral 120 Other: Voiding Method Toilet # Voids 1 - Labs CBC & Chem 7: 05/09/22 02:46 05/09/22 02:46 Labs: Abnormal Lab Results - Last 24 Hours (Table) 05/08/22 05/08/22 05/08/22 Range/Units 18:41 18:41 23:19 WBC 12.8 H (3.8-10.6) k/uL Neutrophils # 9.4 H (1.3-7.7) k/uL Sodium 135 L (137-145) mmol/L Carbon Dioxide 18 L (22-30) mmol/L Glucose 109 H (74-99) mg/dL POC Glucose (mg/dL) (70-110) mg/dL Magnesium 1.5 L (1.6-2.3) mg/dL Urine Appearance Cloudy H (Clear) Urine Bacteria Rare H (None) /hpf Hyaline Casts 3 H (0-2) /lpf Urine Mucus Occasional H (None) /hpf 05/09/22 05/09/22 05/09/22 Range/Units 00:30 02:46 02:46 WBC 11.8 H (3.8-10.6) k/uL Neutrophils # 8.2 H (1.3-7.7) k/uL Sodium 133 L (137-145) mmol/L Carbon Dioxide 20 L (22-30) mmol/L Glucose (74-99) mg/dL POC Glucose (mg/dL) 131 H (70-110) mg/dL Magnesium 1.5 L (1.6-2.3) mg/dL Urine Appearance (Clear) Urine Bacteria (None) /hpf Hyaline Casts (0-2) /lpf Urine Mucus (None) /hpf
[2022-05-10 12:56] LABS: African American GFR (CKD) >90 (>60 ml/min/1.73 sqM); Anion Gap 4 mmol/L; Blood Urea Nitrogen 8 mg/dL (7-17); Calcium 8.7 mg/dL (8.4-10.2); Carbon Dioxide 22 mmol/L (22-30); Chloride 108 mmol/L (98-107); Glucose 88 mg/dL (74-99); Magnesium 1.6 mg/dL (1.6-2.3); Non-African American GFR(CKD) >90 (>60 ml/min/1.73 sqM); Sodium 134 mmol/L (137-145)
[2022-05-10] MEDS: MAGNESIUM SULFATE-D5W PMX 1 GM in DEXTROSE/WATER 1 100ML.BAG IVPB SCH ×3 (15:38→20:05)
--- NOTE | 2022-05-10 15:48 | P.PN ---
Subjective Progress Note Date: 05/10/22 Patient is a pleasant 37-year-old female came in with the complaints of palpitations increased heart rate started yesterday evening. Patient is found to be near atrial fibrillation patient had history of ablation and cardioversion in 2017. Patient doesn't take any anticoagulation patient is 19 weeks at this time patient is wasn't and Cardizem echo was ordered patient clinically doesn't appear to be in the heart failure at this time. Patient denied nausea vomiting abdominal pain and fever chills although patient probably is a bit dehydrated because of her hyponatremia. 05/10/2022 Patient is seen and evaluated and follow-up was maintained on Cardizem drip and subcutaneous Lovenox with cardiology following closely. Patient echo showing an EF of 55-60% with mild mitral regurgitation with no pericardial effusion noted. Patient is also noted to be 19 weeks an ANNOUNCER has been consulted. Patient is continued on flecainide and will need Lovenox verified for insurance for the outpatient setting. Per nursing patient converted early this morning on current medication regimen and Cardizem has been discontinued. Recommend to continue with telemetry monitoring with discussion of possible discharge in 24 hours. Repeat labs this morning reveal a magnesium of 1.6 and will replace per protocol and recommend repeat labs. Patient is afebrile denies shortness of breath. Review of systems: Constitutional: No reports of fatigue, fever, or chills Cardiovascular: No reports of chest pain, reports palpitations Respiratory: No reports of shortness of breath or cough GI: No reports of nausea, vomiting, or diarrhea : No reports of dysuria or retention Neurovascular: No reports of weakness or numbness All medications have been reviewed Active Medications Acetaminophen (Acetaminophen Tab 325 Mg Tab) 650 mg PO Q6HR PRN PRN Reason: Mild Pain or Fever > 100.5 Calcium Carbonate/Glycine (Calcium Carbonate 500 Mg Chewable) 1,000 mg PO Q4HR PRN PRN Reason: Dyspepsia Enoxaparin Sodium (Enoxaparin 100 Mg/Ml Syringe) 100 mg SQ Q12HR [facility] Last Admin: 05/10/22 08:39 Dose: 100 mg Flecainide Acetate (Flecainide 50 Mg Tab) 150 mg PO Q12HR [facility] Levothyroxine Sodium (Levothyroxine 50 Mcg Tab) 50 mcg PO AC-BRKFST [facility] Last Admin: 05/10/22 05:55 Dose: 50 mcg Melatonin (Melatonin 5 Mg Tablet) 5 mg PO HS [facility] Last Admin: 05/09/22 23:23 Dose: 5 mg Metformin HCl (Metformin 500 Mg Tab) 1,000 mg PO BID [facility] Last Admin: 05/10/22 08:39 Dose: 1,000 mg Metoprolol Tartrate (Metoprolol Tartrate 25 Mg Tab) 25 mg PO BID [facility] Last Admin: 05/10/22 08:39 Dose: 25 mg Miscellaneous Information (Magnesium Replacement Protocol 1 Each Misc) 1 each MISCELLANE DAILY PRN; Protocol PRN Reason: Per Protocol Naloxone HCl (Naloxone 0.4 Mg/Ml 1 Ml Vial) 0.2 mg IV Q2M PRN PRN Reason: Opioid Reversal Vit/Calcium/Iron/Folic Ac ( Lfq-Vymk-Wldkr Acid 1 Each Tablet) 1 each PO DAILY [facility] Last Admin: 05/10/22 08:39 Dose: 1 each PHYSICAL EXAMINATION: GENERAL: The patient is alert and oriented x3, not in any acute distress. Well developed, well nourished. HEENT: Pupils are round and equally reacting to light. EOMI. No scleral icterus. No conjunctival pallor. Normocephalic, atraumatic. No pharyngeal erythema. No thyromegaly. CARDIOVASCULAR: S1 and S2 present. No murmurs, rubs, or gallops. Tachycardic irregularly irregular heartbeat PULMONARY: Chest is clear to auscultation, no wheezing or crackles. ABDOMEN: Soft, nontender, nondistended, normoactive bowel sounds. No palpable organomegaly. MUSCULOSKELETAL: No joint swelling or deformity. EXTREMITIES: No cyanosis, clubbing, or pedal edema. NEUROLOGICAL: Gross neurological examination did not reveal any focal deficits. SKIN: No rashes. Assessment: -Atrial fibrillation with rapid ventricular rate: Patient was maintained on flecainide, metoprolol, IV Cardizem, and Lovenox -Hyponatremic probably hypovolemic patient is continued on IV fluids - status: 19 weeks patient is to be on Lovenox because of for atrial fibrillation, ANNOUNCER consulted and following -Obstructive sleep apnea and uses CPAP machine -hypothyroidism -gastroesophageal reflux disease -Hypertension -DVT prophylaxis: Patient is on anticoagulation presently which will be t ransitioned to Lovenox -Full code Plan: Recommend continue with current medication regimen with cardiology following closely. Patient Cardizem drip has been discontinued patient is maintained on Lovenox along with flecainide and metoprolol. Lovenox prescription sent down to the pharmacy to verify for coverage. ANNOUNCER also following patient is 19 weeks . Recommend continued telemetry monitoring and resuming home medications. Also recommend Accu-Cheks before meals and at bedtime if blood sugars elevate. Magnesium found to be 1.6 again and will replace per protocol and will also increase at home dosing to 400 mg twice daily and recommend outpatient labs. Recommend close observation overnight on telemetry monitoring with possible discharge in 24 hours. The impression and plan of care has been dictated by Alysia Rolon, Nurse Practitioner as directed. Dr. Logan MD I have performed a history and examination and MDM of this patient, discussed the same with the dictator, and agree with the dictator's assessment and plan as written ,documented as a scribe. Based on total visit time, I have performed more than 50% of the visit. Objective - Vital Signs Vital signs: Vital Signs Temp 97.9 F 05/09/22 20:00 Pulse 133 H 05/10/22 04:00 Resp 18 05/10/22 04:00 BP 122/68 05/10/22 04:00 Pulse Ox 96 05/10/22 04:00 FiO2 Intake & Output 05/09/22 05/10/22 05/10/22 18:59 06:59 18:59 Intake Total 485 970 Balance 485 970 Intake: Intake, IV Titration 125 Amount Diltiazem 125 mg In 125 Sodium Chloride 0.9% 100 ml @ 5 MG/HR 5 mls/hr IV .Q24H [facility] Rx#:[id number] Oral 360 970 Other: Voiding Method Toilet # Voids 0 2 # Bowel Movements 0 - Labs CBC & Chem 7: 05/09/22 02:46 05/10/22 12:17
[2022-05-10] MEDS: FLECAINIDE 50 MG TAB PO SCH (20:05)
[2022-05-10] MEDS: MELATONIN 5 MG TABLET PO SCH (21:45)
[2022-05-11 03:21] VITALS: RESP 16
[2022-05-11] MEDS: LEVOTHYROXINE 50 MCG TAB PO SCH (06:24)
[2022-05-11 08:09] VITALS: BP 121/77; PULSE 83; TEMP 98.1
[2022-05-11] MEDS ORDERED: Magnesium Replacement Protocol 1 EACH MISC MISCELLANE PRN (09:17)
[2022-05-11] MEDS: ENOXAPARIN 100 MG/ML SYRINGE SQ SCH (09:24)
[2022-05-11] MEDS: METOPROLOL TARTRATE 25 MG TAB PO SCH (09:24)
[2022-05-11] MEDS: PRENATAL VIT-IRON-FOLIC ACID 1 EACH TABLET PO SCH (09:25)
[2022-05-11] MEDS: FLECAINIDE 50 MG TAB PO SCH (09:25)
[2022-05-11] MEDS: metFORMIN 500 MG TAB PO SCH (09:25)
[2022-05-11] MEDS ORDERED: MAGNESIUM SULFATE-D5W PMX 1 GM in DEXTROSE/WATER 1 100ML.BAG IVPB SCH (09:30)
--- NOTE | 2022-05-11 11:59 | P.PN ---
Subjective This is a 37-year-old female past smoking history of hypertension, gestational diabetes, paroxysmal atrial fibrillation status post ablation in 2018. She follows in the office with Dr. Chandler. We have been asked to see the patient in consultation for atrial fibrillation with rapid ventricular response. Patient presented to the ER with complaints of palpitations. Patient is 19 weeks . She was found to be in atrial fibrillation with rapid ventricular response. She was started on IV Cardizem drip, and Flecainide. and on Lovenox SQ Echocardiogram revealed an EF 5560%, mild mitral regurgitation, no pericardial effusion 05/11/2022 Patient seen and examined at bedside,she is feeling well, no acute distress. She has no chest pain or shortness of breath or palpitations. She converted to sinus mechanism yesterday. She is maintaining sinus mechanism with heart rate 70s80s. Blood pressures are stable. Meds: Flecainide 150 mg twice a day, metoprolol tartrate 25 mg twice a day Lovenox Blood pressure 121/77, heart rate 83, afebrile, oxygen saturation 96% on room air GENERAL: Well-appearing, well-nourished and in no acute distress. NECK: Supple without JVD or thyromegaly. LUNGS: Breath sounds clear to auscultation bilaterally. Respiration equal and unlabored. No wheezes, rales or rhonchi. HEART: Regular rate and rhythm without murmurs, rubs or gallops. S1 and S2 heard. EXTREMITIES: Normal range of motion, no edema. No clubbing or cyanosis. Peripheral pulses intact. ASSESSMENT Paroxysmal atrial fibrillation, on Lovenox, converted to sinus mechanism 19 weeks gestation of History of previous ablation in 2018 History of hypertension History of Gestational diabetes PLAN Continue flecainide to 150mg BID Metoprolol tartrate 25mg BID Anticoagulation with Lovenox Magnesium oxide 400mg BID From cardiology perspective, patient stable to be discharged home. Follow up with Dr. Chandler. Patient has appointment 05/16/2022 Nurse Practitioner note has been reviewed, I agree with a documented findings and plan of care. Patient was seen and examined. Objective - Vital Signs Vital signs: Vital Signs Temp 98.1 F 05/11/22 08:00 Pulse 83 05/11/22 08:00 Resp 16 05/11/22 08:00 BP 121/77 05/11/22 08:00 Pulse Ox 96 05/11/22 08:00 FiO2 Intake & Output 05/10/22 05/11/22 05/11/22 18:59 06:59 18:59 Intake Total 596 685 Balance 596 315 Intake: Intake, IV Titration 200 Amount Magnesium Sulfate-D5w Pmx 100 1 gm In Dextrose/Water 1 100ml.bag @ 100 mls/hr IVPB Q1H NICKI Rx#: [id number] Magnesium Sulfate-D5w Pmx 100 1 gm In Dextrose/Water 1 100ml.bag @ 100 mls/hr IVPB Q1H NICKI Rx#: [id number] Oral 596 485 Other: Voiding Method Toilet # Voids 2 2 - Labs CBC & Chem 7: 05/09/22 02:46 05/10/22 12:17 Labs: Abnormal Lab Results - Last 24 Hours (Table) 05/10/22 Range/Units 12:17 Sodium 134 L (137-145) mmol/L Chloride 108 H (98-107) mmol/L
--- NOTE | 2022-05-12 14:58 | P.DS ---
Providers Date of admission: 05/08/22 23:18 Expected date of discharge: 05/11/22 Attending physician: Faviola Snowden Consults: 05/08/22 22:45 Consult Physician Urgent Consulting Provider: Cony Gama Consult Reason/Comments: 19 weeks , A. Fib w/RVR Do you want consulting provider notified?: Already Contacted Consult Physician Urgent Consulting Provider: Corbin Duggan Consult Reason/Comments: A.Fib w/RVR Do you want consulting provider notified?: Already Contacted Primary care physician: Yosvany Briggs [facility] Course: Final diagnosis -Atrial fibrillation with rapid ventricular rate: Patient was maintained on flecainide, metoprolol, IV Cardizem, and Lovenox -Hyponatremic probably hypovolemic patient is continued on IV fluids - status: 19 weeks -Obstructive sleep apnea and uses CPAP machine -hypothyroidism -gastroesophageal reflux disease -Hypertension -DVT prophylaxis: Subcutaneous Lovenox -Full code Discharge disposition Patient is being discharged in a stable condition with guarded prognosis to home. Patient will follow-up with Dr. Briggs in the outpatient setting upon discharge. Patient is to follow-up next week with REPORT DEVELOPER and also cardiology Dr. Chandler as scheduled. Patient will continue on subcutaneous Lovenox, flecainide, metoprolol on discharge. Total time taken is greater than 35 minutes. Hospital course This is a 37-year-old female who was recently admitted atrial fibrillation with RVR and known to be 19 weeks . Patient was started on Cardizem drip and also flecainide and was evaluated by cardiology recommended close outpatient follow-up. Patient was also maintained on IV Cardizem and converted and will continue with metoprolol, flecainide, subcutaneous Lovenox with close outpatient follow-up with Dr. Chandler And her REPORT DEVELOPER at her scheduled appointment next week. Patient reports to feeling much better and is in sinus rhythm and is extremely anxious to go home. Patient does have another child who is 9 months old at home. Encouraged limited activity until follow-up. Currently no reports of chest pain, shortness of breath, or palpitations. Patient is afebrile. No reports of nausea or vomiting and patient is tolerating diet. Patient will be discharged home today. Physical exam: Gen: This is a 37-year-old female awake, alert and oriented 3, well-developed, well-nourished, morbidly obese HEENT: Head is atraumatic, normocephalic. Pupils equal, round. Sclerae is anicteric. NECK: Supple. No JVD. No lymphadenopathy. No thyromegaly. LUNGS: Clear to auscultation. No wheezes or rhonchi. No intercostal retractions. HEART: Regular rate and rhythm. No murmur. ABDOMEN: Soft. Bowel sounds are present. No masses. No tenderness. EXTREMITIES: No pedal edema. No calf tenderness. NEUROLOGICAL: Patient is awake, alert and oriented x3. Cranial nerves 2 through 12 are grossly intact. Please refer to medication reconciliation sheet for a list of medications. The impression and plan of care has been dictated by Alysia Rolon, Nurse Practitioner as directed. Dr. Logan MD I have performed a history and examination and MDM of this patient, discussed the same with the dictator, and agree with the dictator's assessment and plan as written ,documented as a scribe. Based on total visit time, I have performed more than 50% of the visit. Patient Condition at Discharge: Stable Plan - Discharge Summary Discharge Rx Participant: No New Discharge Prescriptions: New Metoprolol Tartrate [Lopressor] 25 mg PO BID #120 tab Calcium Carbonate [Tums] 1,000 mg PO Q4HR PRN tab PRN Reason: Dyspepsia Enoxaparin [Lovenox] 100 mg SQ BID 30 Days #60 each Flecainide [Tambocor] 150 mg PO Q12HR #180 tab Acetaminophen Tab [Tylenol] 650 mg PO Q6HR PRN tab PRN Reason: Mild Pain Or Fever > 100.5 Continue Aspirin 81 mg PO DAILY metFORMIN HCL [Glucophage] 1,000 mg PO BID Loratadine [Claritin] 10 mg PO DAILY Folic Acid 0.8 mg PO DAILY Lisdexamfetamine Dimesylate [Vyvanse] 20 mg PO DAILY PRN PRN Reason: adhd Levothyroxine Sodium [Synthroid] 50 mcg PO AC-BRKFST Vitamin B Complex 1 cap PO DAILY Pnv No.95/Ferrous Fum/Folic AC [ Multivitamin Tablet] 1 tab PO DAILY Beclomethasone Dipropionate [Qvar 40 mcg Redihaler] 2 puff INHALATION RT-BID Albuterol Sulfate [Proair Respiclick] 2 puff INHALATION RT-Q4H PRN PRN Reason: Shortness Of Breath Calcium Carb/Mag Ox/Zinc Sulf [Puk-Sja-Shyd 334-134-5 mg Tab] 1 tab PO HS Changed Magnesium Oxide [Magox 400] 400 mg PO BID 30 Days #60 tablet Discontinued Metoprolol Succinate [Toprol XL] 50 mg PO DAILY Discharge Medication List Aspirin 81 mg PO DAILY 03/18/21 [History] Beclomethasone Dipropionate [Qvar 40 mcg Redihaler] 2 puff INHALATION RT-BID [History] Pnv No.95/Ferrous Fum/Folic AC [ Multivitamin Tablet] 1 tab PO DAILY 03/18/21 [History] Loratadine [Claritin] 10 mg PO DAILY 07/13/21 [History] metFORMIN HCL [Glucophage] 1,000 mg PO BID 07/13/21 [History] Folic Acid 0.8 mg PO DAILY 09/29/21 [History] Albuterol Sulfate [Proair Respiclick] 2 puff INHALATION RT-Q4H PRN 05/03/22 [History] Levothyroxine Sodium [Synthroid] 50 mcg PO AC-BRKFST 05/03/22 [History] Lisdexamfetamine Dimesylate [Vyvanse] 20 mg PO DAILY PRN 05/03/22 [History] Calcium Carb/Mag Ox/Zinc Sulf [Apk-Fkc-Ojhs 334-134-5 mg Tab] 1 tab PO HS 05/08/22 [History] Vitamin B Complex 1 cap PO DAILY 05/08/22 [History] Enoxaparin [Lovenox] 100 mg SQ BID 30 Days #60 each 05/10/22 [Rx] Acetaminophen Tab [Tylenol] 650 mg PO Q6HR PRN tab 05/11/22 [Rx] Calcium Carbonate [Tums] 1,000 mg PO Q4HR PRN tab 05/11/22 [Rx] Flecainide [Tambocor] 150 mg PO Q12HR #180 tab 05/11/22 [Rx] Magnesium Oxide [Magox 400] 400 mg PO BID 30 Days #60 tablet 05/11/22 [Rx] Metoprolol Tartrate [Lopressor] 25 mg PO BID #120 tab 05/11/22 [Rx] Follow up Appointment(s)/Referral(s): Magnus Chandler MD [STAFF PHYSICIAN] - 05/16/22 None,Stated [REFERRING] - 1-2 days Ambulatory/Diagnostic Orders: Complete Blood Count w/diff [LAB.AMB] Time Frame: 3 Days, Location: None Selected Patient Instructions/Handouts: A-fib (Atrial Fibrillation) (DC), Hypomagnesemia (DC) Activity/Diet/Wound Care/Special Instructions: Cardiology Instructions: Please take flecainide 150mg Twice a day- this will be further adjusted in the office by Dr. Chandler Please take Metoprolol tartrate 25mg Twice a day, stop the Metoprolol succinate for now. Follow up with Dr. Chandler in 1 week. Follow-up with REPORT DEVELOPER at scheduled appointment Follow-up with primary care provider and cardiology as discussed and scheduled Continue taking medications as prescribed Discharge/Stand Alone Forms: Work/Release Restrictions Form Discharge Disposition: HOME SELF-CARE
== END 2022-05-11 12:00 | disposition home or self-care (01) | DRG 832 ==
LOC: EC 18:06 → 3SCARD 23:18
PROVIDERS: ADMIT Family Medicine; ATTEND Family Medicine
DX: O99.412 Diseases of the circulatory system complicating pregnancy, second trimester (principal); E87.1 Hypo-osmolality and hyponatremia; O16.2 Unspecified maternal hypertension, second trimester; Z68.41 Body mass index [BMI] 40.0-44.9, adult; I48.0 Paroxysmal atrial fibrillation; O99.512 Diseases of the respiratory system complicating pregnancy, second trimester; O99.342 Other mental disorders complicating pregnancy, second trimester; F99 Mental disorder, not otherwise specified; O09.522 Supervision of elderly multigravida, second trimester; Z3A.19 19 weeks gestation of pregnancy; O99.212 Obesity complicating pregnancy, second trimester; F90.9 Attention-deficit hyperactivity disorder, unspecified type; G47.33 Obstructive sleep apnea (adult) (pediatric); J45.909 Unspecified asthma, uncomplicated; K21.9 Gastro-esophageal reflux disease without esophagitis; O99.282 Endocrine, nutritional and metabolic diseases complicating pregnancy, second trimester; O99.612 Diseases of the digestive system complicating pregnancy, second trimester; E03.9 Hypothyroidism, unspecified; E83.42 Hypomagnesemia; E86.0 Dehydration; E86.1 Hypovolemia; F41.9 Anxiety disorder, unspecified; Z79.82 Long term (current) use of aspirin; Z79.84 Long term (current) use of oral hypoglycemic drugs; Z79.890 Hormone replacement therapy; Z79.899 Other long term (current) drug therapy; Z80.3 Family history of malignant neoplasm of breast; Z82.3 Family history of stroke; Z82.49 Family history of ischemic heart disease and other diseases of the circulatory system; Z86.32 Personal history of gestational diabetes; Z87.891 Personal history of nicotine dependence; Z81.8 Family history of other mental and behavioral disorders
CPT/HCPCS: 36415; 80048; 80053; 81001; 83735; 84484; 85025; 85610; 85730; 93005; 93306; 96365; 96366; 96368; 96375; 96376; 99291

== ENCOUNTER → 2022-05-16 | Outpatient (CLI) | payer BC ==
[2022-05-16 22:39] LABS: Basophils # (A) 0.03 X 10*3/uL (0.00-0.10); Basophils % (A) 0.2 %; Eosinophils # (A) 0.16 X 10*3/uL (0.04-0.35); Eosinophils % (A) 1.3 %; HCT 37.4 % (37.2-46.3); Immature Grans, Automated 0.9 %; Lymphocytes % (A) 15.6 %; MCH 27.5 pg (27.0-32.0); MCHC 32.1 g/dL (32.0-37.0); MCV 85.8 fL (80.0-97.0); Monocytes # (A) 0.59 X 10*3/uL (0.20-1.00); Monocytes % (A) 4.8 %; NRBC Per 100 WBC 0 /100 WBCS (0.0-0.0); Neutrophils # (A) 9.39 X 10*3/uL (1.80-7.70); Neutrophils % (A) 77.2 %; Platelet Count 246 X 10*3/uL (140-440); RBC 4.36 X 10*6/uL (4.10-5.20); RDW 13.4 % (11.5-14.5); WBC 12.18 X 10*3/uL (4.50-10.00)
[2022-05-16 23:17] LABS: ALT 16 U/L (8-44); AST 13 U/L (13-35); African American GFR (CKD) 126.8 (60.0-200.0); Albumin 3.9 g/dL (3.8-4.9); Albumin/Globulin Ratio 1.39 (1.60-3.17); Alkaline Phosphatase 65 U/L (41-126); BUN/Creat Ratio 19.24 Ratio (12.00-20.00); Blood Urea Nitrogen 13.6 mg/dL (9.0-27.0); Calcium 10.3 mg/dL (8.7-10.3); Carbon Dioxide 21.5 mmol/L (20.0-27.5); Chloride 101 mmol/L (96-109); Globulin 2.8 g/dL (1.6-3.3); Glucose 121 mg/dL (70-110); Magnesium 1.5 mg/dL (1.5-2.4); Non-African American GFR(CKD) 109.4 (60.0-200.0); Potassium 3.9 mmol/L (3.5-5.5); Sodium 138 mmol/L (135-145); Total Bilirubin <0.15 mg/dL (0.30-1.20); Total Protein 6.7 g/dL (6.2-8.2)
== END | disposition home or self-care (01) ==
LOC: LABWHC1 14:42
PROVIDERS: ATTEND Registered Nurse
DX: D72.829 Elevated white blood cell count, unspecified (principal); E83.42 Hypomagnesemia
CPT/HCPCS: 36415; 80053; 83735; 85025

== ENCOUNTER 2022-08-18 16:49 | Outpatient (CLI) | payer BC ==
[2022-08-18] MEDS ORDERED: ALBUTEROL HFA INHALER INHALATION STA (17:47)
[2022-08-18 17:50] LABS: Appearance,Urine Clear (Clear); Bilirubin,Urine Negative (Negative); Blood,Urine Negative (Negative); Color,Urine Light Yellow; Glucose,Urine (UA) Negative (Negative); Ketones,Urine Negative (Negative); Leukocyte Esterase,Urine Negative (Negative); Nitrite,Urine Negative (Negative); Protein,Urine Negative (Negative); Specific Gravity,Urine 1.009 (1.001-1.035); Urobilinogen,Urine <2.0 mg/dL (<2.0)
[2022-08-18 18:03] LABS: Basophils % (A) 0 %; Eosinophils # (A) 0.1 k/uL (0-0.7); Eosinophils % (A) 1 %; HCT 35.1 % (34.0-46.0); HGB 12.2 gm/dL (11.4-16.0); Lymphocytes # (A) 1.8 k/uL (1.0-4.8); Lymphocytes % (A) 18 %; MCH 29.7 pg (25.0-35.0); MCHC 34.8 g/dL (31.0-37.0); MCV 85.2 fL (80.0-100.0); Mean Platelet Volume 9.6; Monocytes # (A) 0.4 k/uL (0-1.0); Monocytes % (A) 5 %; Neutrophils # (A) 6.9 k/uL (1.3-7.7); Neutrophils % (A) 72 %; Platelet Count 193 k/uL (150-450); RBC 4.12 m/uL (3.80-5.40); RDW 13.8 % (11.5-15.5); WBC 9.6 k/uL (3.8-10.6)
[2022-08-18 18:17] LABS: ALT 19 U/L (4-34); AST 17 U/L (14-36); African American GFR (CKD) >90 (>60 ml/min/1.73 sqM); Blood Urea Nitrogen 6 mg/dL (7-17); LDH 292 U/L (313-618); Non-African American GFR(CKD) >90 (>60 ml/min/1.73 sqM); Uric Acid 3.5 mg/dL (3.7-7.4)
[2022-08-18 19:27] VITALS: BP 127/90; PULSE 78; RESP 16; TEMP 97
--- NOTE | 2022-09-03 10:43 | P.MSEPDOC ---
Presenting Problems - Arrival Data Date of Arrival on Unit: 08/18/22 Time of Arrival on Unit: 16:49 Mode of Transport: Ambulatory - Complaint OB-Reason for Admission/Chief Complaint: Elevated Blood Pressure Comment: pt presents to triage from office for work for blood pressure due to high bp at office today, random dizziness. states had annoying type headache yesterday and Monday Medical History - Information : 2 Para: 1 Term: 1 : 0 Abortions: Spontaneous or Elective: 0 Number of Living Children: 1 - Gestational Age Gestational Age by CHRISTY (wks/days): 34 Weeks and 0 Days - History Complications: GDM Review of Systems - Review of Systems Constitutional: No problems Breast: No problems ENT: No problems Cardiovascular: No problems Respiratory: No problems Gastrointestinal: No problems Genitourinary: No problems Musculoskeletal: No problems Neurological: No problems Skin: No problems Vital Signs - Temperature Temperature: 97.0 F Temperature Source: Oral - Pulse Right Pulse Rate: 78 Pulse Assessment Method: Automatic Cuff - Respirations Respiratory Rate: 16 Oxygen Delivery Method: Room Air O2 Sat by Pulse Oximetry: 98 - Blood Pressure Right Arm Blood Pressure: 127/90 Blood Pressure Mean: 102 Blood Pressure Source: Automatic Cuff Medical Screen Scoring - Uterine Contractions Frequency From (mins): 0 Frequency To (mins): 0 - Assessment - Baby A Baseline FHR: 125 Heart Rate - NICHD Category: Category I (Normal) Physician Notification - Physician Notified Physician Notified Date: 08/18/22 Physician Notified Time: 18:45 Physician: Gavin Murphy Order Received: Yes (Discharge) Maternal Triage Index - Maternal Triage Index Presenting for scheduled procedure w/no complaint: No - Stat/Priority 1 Stat Priority 1: No - Urgent/Priority 2 Urgent Priority 2: No - Prompt/Priority 3 Prompt Priority 3: Yes Criteria Met for Priority 3: here from office with elevated bp - Non-Urgent/Priority 4 Non-Urgent Priority 4: No Disposition - Disposition OB Disposition: Discharge to home Discharge Date: 08/18/22 Discharge Time: 19:05 I agree with the RN Medical Screening Exam: Yes Case reviewed; plan agreed upon as documented in EMR&OBIX.: Yes Diagnosis: RELATED CONDITIONS, UNSPECIFIED, THIRD TRIMESTER
== END 2022-08-18 19:05 | disposition home or self-care (01) ==
LOC: FBPOP 16:49
PROVIDERS: ATTEND Obstetrics & Gynecology
DX: O26.893 Other specified pregnancy related conditions, third trimester (principal); Z3A.34 34 weeks gestation of pregnancy; R03.0 Elevated blood-pressure reading, without diagnosis of hypertension
CPT/HCPCS: 81003; 82565; 83615; 84450; 84460; 84520; 84550; 85025; 99215

== ENCOUNTER 2022-09-14 09:51 | Inpatient (IN) | payer BC ==
[2022-09-14] MEDS ORDERED: CITRIC ACID-SODIUM CITRATE 15 ML CUP PO ONE (10:50)
[2022-09-14] MEDS ORDERED: LACTATED RINGERS 1,000 ML IV ONE (10:50)
[2022-09-14] MEDS ORDERED: ceFAZolin 3 GM in SODIUM CHLORIDE 0.9% 100 ML IVPB ONE (10:50)
[2022-09-14 11:55] LABS: INR 0.9 (<1.2); Prothrombin Time 9.5 sec (9.0-12.0)
[2022-09-14 11:59] LABS: Basophils % (A) 0 %; Eosinophils # (A) 0.2 k/uL (0-0.7); Eosinophils % (A) 1 %; HCT 36.8 % (34.0-46.0); HGB 12.8 gm/dL (11.4-16.0); Lymphocytes # (A) 1.4 k/uL (1.0-4.8); Lymphocytes % (A) 12 %; MCH 29.4 pg (25.0-35.0); MCHC 34.9 g/dL (31.0-37.0); MCV 84.2 fL (80.0-100.0); Mean Platelet Volume 9.9; Monocytes # (A) 0.5 k/uL (0-1.0); Monocytes % (A) 5 %; Neutrophils # (A) 8.7 k/uL (1.3-7.7); Neutrophils % (A) 79 %; Platelet Count 222 k/uL (150-450); RBC 4.37 m/uL (3.80-5.40); RDW 13.6 % (11.5-15.5)
--- NOTE | 2022-09-14 12:06 | P.HPOB ---
History of Present Illness H&P Date: 09/14/22 Chief Complaint: 37-6/7 weeks, previous section, repeat the patient is a 37-year-old 2 para 1001 admitted at 37-6/7 weeks as established by last menstrual period and confirmed by 9 week ultrasound. She is admitted for repeat low transverse section having had a previous. Her has been complicated by pre-existing hypertension and history of atrial fibrillation for she's been on Lovenox throughout the . testing has been reassuring throughout. She also is Rh- and received RhoGAM at 28 weeks. She additionally was found to be group B strep positive. On labor and delivery, all signs reassuring with a category 1 heart tracing. Obstetrical history: 2 para 1001 with 1 term section without complications. Current statistics are listed in history present illness. EDC of 09/29/2022 was established by last menstrual period and confirmed by 9 week ultrasound. Laboratory workup demonstrates a blood type of O- with a negative antibody screen. Rubella status is immune. Remainder of her laboratory workup was within normal limits. Early Glucola and second trimester Glucola were normal. Group B strep status is positive. Gynecologic history: Unremarkable with no history of any infections to include STDs. Review of Systems review of systems is confined to history of present illness. Past Medical History Past Medical History: Atrial Fibrillation, Asthma, Diabetes Mellitus, GERD/Reflux, Hypertension, Sleep Apnea/CPAP/BIPAP, Thyroid Disorder Additional Past Medical History / Comment(s): CPAP use. History of Any Multi-Drug Resistant Organisms: None Reported Past Surgical History: Cardiac Ablation, Section Additional Past Surgical History / Comment(s): Ablation in 07/2017, gallbladder 10/05 Past Anesthesia/Blood Transfusion Reactions: No Reported Reaction, [facility] Past Psychological History: ADD/ADHD, Anxiety Smoking Status: Former smoker Past Alcohol Use History: Rare Past Drug Use History: None Reported - Past Family History Father Family Medical History: CVA/TIA Additional Family Medical History / Comment(s): renal disease, heart failure, strokes ("alot") Mother Family Medical History: Cancer Additional Family Medical History / Comment(s): Breast cancer. Medications and Allergies Home Medications Medication Instructions Recorded Confirmed Type Aspirin 81 mg PO DAILY 03/18/21 09/14/22 History Beclomethasone Dipropionate [Qvar 2 puff INHALATION RT-BID 03/18/21 09/14/22 History 40 mcg Redihaler] Pnv No.95/Ferrous Fum/Folic AC 1 tab PO DAILY 03/18/21 09/14/22 History [ Multivitamin Tablet] Loratadine [Claritin] 10 mg PO DAILY 07/13/21 09/14/22 History metFORMIN HCL [Glucophage] 1,000 mg PO BID 07/13/21 09/14/22 History Folic Acid 0.8 mg PO DAILY 09/29/21 09/14/22 History Albuterol Sulfate [Proair 2 puff INHALATION RT-Q4H PRN 05/03/22 09/14/22 History Respiclick] Levothyroxine Sodium [Synthroid] 50 mcg PO AC-BRKFST 05/03/22 09/14/22 History Lisdexamfetamine Dimesylate 20 mg PO DAILY PRN 05/03/22 09/14/22 History [Vyvanse] Vitamin B Complex 1 cap PO DAILY 05/08/22 09/14/22 History Magnesium Oxide [Magox 400] 400 mg PO BID 30 Days #60 tablet 05/11/22 09/14/22 Rx Metoprolol Tartrate [Lopressor] 25 mg PO BID #120 tab 05/11/22 09/14/22 Rx Enoxaparin [Lovenox] 80 mg SQ BID 09/14/22 09/14/22 History Flecainide [Tambocor] 50 mg PO Q12HR 09/14/22 09/14/22 History Allergies Allergy/AdvReac Type Severity Reaction Status Date / Time No Known Allergies Allergy Verified 08/18/22 17:19 Exam Vital Signs Temp Pulse Resp BP Pulse Ox 09/14/22 09:56 97.3 F L 87 18 136/78 98 Intake and Output 09/13/22 09/14/22 09/14/22 22:59 06:59 14:59 Other: Weight 139.253 kg in general, this is a well-developed, moderately obese white female in no acute distress. Her heart has a regular rhythm and rate without murmur. Her lungs are clear to auscultation bilaterally in all ramirez. Her abdomen is gravid, nondistended, has normal active bowel sounds, is soft, nontender, and without any palpable masses aside from the uterine fundus. Her extremities are without any cyanosis, clubbing, or edema and are nontender to palpation bilaterally. Digital cervical examination is deferred. Results Result Diagrams: 09/14/22 11:15 Abnormal Lab Results - Last 24 Hours (Table) 09/14/22 Range/Units 11:15 WBC 11.0 H (3.8-10.6) k/uL Neutrophils # 8.7 H (1.3-7.7) k/uL Assessment and Plan (1) Previous section Current Visit: Yes Status: Acute Code(s): Z98.891 - HISTORY OF UTERINE SCAR FROM PREVIOUS SURGERY SNOMED Code(s): 063697865 (2) Term Current Visit: Yes Status: Acute Code(s): Z34.90 - ENCNTR FOR SUPRVSN OF NORMAL , UNSP, UNSP TRIMESTER SNOMED Code(s): 53173458 Plan: the patient is admitted for repeat low transverse section. The risks and, occasions of been thoroughly discussed and she has understood and agreed to proceed. We will proceed to the operating room shortly.
[2022-09-14] MEDS ORDERED: ePHEDrine 50 MG/ML 1 ML VIAL ONE (12:08)
[2022-09-14] MEDS ORDERED: OXYTOCIN 30 UNITS/500 ML NS BAG IV ONE (12:08)
[2022-09-14] MEDS ORDERED: fentaNYL (PF) 50 MCG/ML 2 ML AMP ONE (12:08)
[2022-09-14] MEDS ORDERED: ONDANSETRON 4 MG/2 ML VIAL ONE (12:08)
[2022-09-14] MEDS ORDERED: NALBUPHINE 10 MG/ML (1 ML AMP) ONE (12:08)
[2022-09-14] MEDS ORDERED: KETOROLAC 15 MG/ML 1 ML VIAL ONE (12:08)
[2022-09-14] MEDS ORDERED: NALBUPHINE 10 MG/ML (1 ML AMP) IV PRN (12:41)
[2022-09-14] MEDS ORDERED: ONDANSETRON 4 MG/2 ML VIAL IVP PRN (12:41)
[2022-09-14] MEDS ORDERED: KETOROLAC 15 MG/ML 1 ML VIAL IVP PRN (12:41)
[2022-09-14] MEDS ORDERED: NALOXONE 0.4 MG/ML 1 ML VIAL IV PRN (12:41)
[2022-09-14] MEDS ORDERED: diphenhydrAMINE 50 MG/ML 1 ML VIAL IVP PRN ×3 (12:41→13:05)
[2022-09-14] MEDS ORDERED: HYDROmorphone 0.5 MG/0.5 ML SYRINGE IVP PRN (12:41)
[2022-09-14] MEDS ORDERED: LANOLIN CREAM 5 GM TUBE TOPICAL PRN (13:05)
[2022-09-14] MEDS ORDERED: ZOLPIDEM 5 MG TAB PO PRN (13:05)
[2022-09-14] MEDS ORDERED: diphenhydrAMINE 25 MG CAP PO PRN (13:05)
[2022-09-14] MEDS ORDERED: SIMETHICONE 80 MG CHEWABLE PO PRN (13:05)
[2022-09-14] MEDS ORDERED: diphenhydrAMINE 50 MG CAP PO PRN (13:05)
[2022-09-14] MEDS ORDERED: METOCLOPRAMIDE 5 MG/ML 2 ML VIAL IVP PRN (13:05)
[2022-09-14] MEDS ORDERED: OXYTOCIN 30 UNITS/500 ML NS 30 UNIT in SALINE 1 500ML.BAG IV SCH (13:15)
--- NOTE | 2022-09-14 13:15 | P.OP ---
Date of Procedure: 09/14/22 Preoperative Diagnosis: #1. 37-6/7 weeks, previous section #2. Chronic hypertension #3. Atrial fibrillation, stable on medication Postoperative Diagnosis: same Procedure(s) Performed: #1. Repeat low transverse section Anesthesia: spinal Surgeon: Gavin Murphy Hydraulic Tester #1: Jes Felton Estimated Blood Loss (ml): 500 IV fluids (ml): 1,000 Urine output (ml): 100 Pathology: other (placenta) Condition: stable Disposition: floor Operative Findings: in the operating room, the patient was delivered of a viable 9 lbs. 3 oz. baby boy with Apgars of 9 at 1 minute and 9 at 5 minutes. There was minimal scarring of the uterus so there was a moderate amount of scarring at the level of the fascia and the muscle pinon. The placenta was delivered manually, intact, and grossly normal with a grossly normal three-vessel cord. The uterus, tubes, and ovaries were entirely normal to inspection. Description of Procedure: the patient was prepped and draped in usual fashion after spinal anesthesia was admission by the anesthesiologist. A Pfannenstiel incision was made through pre-existing scar and extended into the abdominal cavity was a small amount difficulty encountered at the level of the fascia and the rectus muscles. An Alexisself-retaining retractor was placed in standard fashion. The bladder peritoneum was noted to be significantly distal to the intended site of incision and was left intact. A 2 cm incision was made in the transverse plane of the lower uterine segment to enter the uterus at which time clear fluid was noted. The incision was extended in both directions using the bandage scissors. The head was delivered up and through the incision with some mild difficulty secondary to the angles and the patient's abdominal habitus. The nose and mouth were thoroughly suctioned. The remainder of the was delivered onto the field where the cord was doubly clamped, cut, and the passed for resuscitative measures with weight and Apgars as noted above. cord blood was collected for evaluation for the necessity of RhoGAM prior to discharge. The placenta was delivered manually and intact as noted above. the in vitro cavity swept of any remaining placental or membranous fragments. The uterus was exteriorized and the margins of the incision grasped with Loaiza clamps. The incision was closed in 2 layers, the first layer being a running locking stitch of 0 chromic catgut from margin to margin followed by a running imbricating stitch of 0 chromic catgut from margin to margin. A small point of bleeding at the left angle was made hemostatic with a single [id number]-io-vvhoi stitch of 0 chromic catgut. The posterior cul-de-sac was suctioned with a guard and the uterus replaced within the abdominal cavity. The gutters were swept of any remaining blood, fluid, or clot. reinspection of the incision noted excellent hemostasis. The parietal peritoneum was loosely reapproximated and layer of muscles examined and found to be hemostatic. The fascia was closed with 2 running stitches of 0 Vicryl proceeding from the lateral margins to the midpoint. Subcutaneous tissues were irrigated, made hemostatic with the Bovie, and reapproximated with a running stitch of 30 plain catgut. The skin was reapproximated with a running subcuticular stitch of 4-0 Vicryl from margin to margin followed by half-inch Steri-Strips placed with Mastisol. Estimated blood loss for the case was approximate 500 mL. There were no complications. All sponge, instrument, needle counts were correct. Patient tolerated the procedure well and proceeded to the recovery room in stable condition. Both mother and are resting comfortably in recovery.
[2022-09-14] MEDS: LACTATED RINGERS 1,000 ML IV SCH (13:48)
[2022-09-14] MEDS: ACETAMINOPHEN TAB 500 MG TAB PO SCH ×2 (15:38→23:11)
[2022-09-14] MEDS: IBUPROFEN 600 MG TAB PO SCH (20:00)
[2022-09-14] MEDS: SENNOSIDES-DOCUSATE SODIUM 1 EACH TAB PO SCH (20:00)
[2022-09-14] MEDS: METOPROLOL TARTRATE 25 MG TAB PO SCH (20:01)
[2022-09-14] MEDS: FLECAINIDE 50 MG TAB PO SCH (20:01)
[2022-09-14] MEDS: metFORMIN 500 MG TAB PO SCH (20:01)
[2022-09-15] MEDS: LACTATED RINGERS 1,000 ML IV SCH ×2 (01:12→06:17)
[2022-09-15] MEDS: IBUPROFEN 600 MG TAB PO SCH ×4 (02:01→18:43)
[2022-09-15] MEDS ORDERED: Rhogam IMMUNE GLOBULIN 1,500 UNIT/1 ML IM ONE (02:08)
[2022-09-15] MEDS: ACETAMINOPHEN TAB 500 MG TAB PO SCH ×4 (04:50→20:14)
--- NOTE | 2022-09-15 07:09 | P.PN ---
Progress Note - Text Progress Note Date: 09/15/22 (0614) Anesthesia Postop day 1 Subjective: Status Post section with Duramorph. Patient seen and examined. Doing well without complaint. VAS 5 out of 10. No nausea or vomiting. Mild pruritus tolerable.. Gross lower extremity strength intact. Without apparent anesthetic complications. Objective: Vital signs reviewed Heart: Regular Rate Lungs: Good chest excursion Abdomen: Appears nondistended Assessment: Status post with Duramorph postop day 1 Plan: Continue current care with your medical management. Anticipated and the Duramorph around noon tonight, you may see increased pain needs around this time. This note was dictated using [employer] software. Please be advised there is a potential for misspellings or errors in project control manager.
[2022-09-15] MEDS: FLECAINIDE 50 MG TAB PO SCH ×2 (07:44→20:14)
[2022-09-15] MEDS: SENNOSIDES-DOCUSATE SODIUM 1 EACH TAB PO SCH ×2 (07:44→20:14)
[2022-09-15] MEDS: METOPROLOL TARTRATE 25 MG TAB PO SCH ×2 (07:45→20:14)
[2022-09-15] MEDS: metFORMIN 500 MG TAB PO SCH ×2 (07:45→20:14)
--- NOTE | 2022-09-15 08:56 | P.PNOBGPC ---
Subjective - Subjective Patient reports: Reports appetite normal, Reports voiding normally, Reports pain well controlled, Reports ambulating normally : doing well Objective - Vital Signs Latest vital signs: Vital Signs Temp Pulse Resp BP Pulse Ox 09/15/22 07:52 97.3 F L 77 18 110/67 97 09/15/22 04:00 82 16 117/74 97 09/15/22 00:00 76 16 125/76 95 09/14/22 20:00 98.7 F 78 16 146/83 97 09/14/22 15:05 96.6 F L 73 18 101/54 95 09/14/22 14:35 73 18 122/71 96 09/14/22 14:05 76 18 117/71 96 09/14/22 13:50 70 18 108/58 95 09/14/22 13:41 19 95 09/14/22 13:35 72 18 108/59 95 09/14/22 13:20 77 18 100/50 95 09/14/22 13:05 96.5 F L 72 18 107/60 97 09/14/22 09:56 97.3 F L 87 18 136/78 98 Intake and Output 09/14/22 09/15/22 09/15/22 22:59 06:59 14:59 Output Total 374 650 Balance -374 -650 Output: Urine 150 650 Output, Quantitative 224 Blood Loss Other: # Voids 1 1 - Exam Extremities: Present: normal Abdomen: Present: normal appearance, soft. Absent: distention, tenderness Incision: Present: normal, dry, intact Uterus: Present: normal, firm (the uterine fundus is tonic and appropriately tender around the umbilicus.) - Labs Labs: Abnormal Lab Results - Last 24 Hours (Table) 09/14/22 Range/Units 11:15 WBC 11.0 H (3.8-10.6) k/uL Neutrophils # 8.7 H (1.3-7.7) k/uL Assessment and Plan (1) Previous section Current Visit: Yes Status: Acute Code(s): Z98.891 - HISTORY OF UTERINE SCAR FROM PREVIOUS SURGERY SNOMED Code(s): 597197591 (2) Term Current Visit: Yes Status: Acute Code(s): Z34.90 - ENCNTR FOR SUPRVSN OF NORMAL , UNSP, UNSP TRIMESTER SNOMED Code(s): 92167460 Plan: continue routine and postoperative care. I strongly encouraged the patient and with the hallways routinely today. I would anticipate discharge home tomorrow pending no complications.
[2022-09-15 09:57] LABS: Basophils % (A) 0 %; Eosinophils # (A) 0.1 k/uL (0-0.7); Eosinophils % (A) 1 %; HCT 33.3 % (34.0-46.0); HGB 11.6 gm/dL (11.4-16.0); Lymphocytes # (A) 1.2 k/uL (1.0-4.8); Lymphocytes % (A) 10 %; MCH 29.8 pg (25.0-35.0); Mean Platelet Volume 10.4; Monocytes # (A) 0.4 k/uL (0-1.0); Monocytes % (A) 4 %; Neutrophils # (A) 9.7 k/uL (1.3-7.7); Neutrophils % (A) 83 %; Platelet Count 192 k/uL (150-450); RBC 3.91 m/uL (3.80-5.40); RDW 13.7 % (11.5-15.5); WBC 11.8 k/uL (3.8-10.6)
[2022-09-15 16:24] VITALS: RESP 16
[2022-09-16] MEDS: ACETAMINOPHEN TAB 500 MG TAB PO SCH ×2 (03:08→10:20)
[2022-09-16] MEDS: IBUPROFEN 600 MG TAB PO SCH ×3 (05:18→13:13)
[2022-09-16 07:53] VITALS: BP 138/88; PULSE 82; TEMP 97.5
[2022-09-16] MEDS: SENNOSIDES-DOCUSATE SODIUM 1 EACH TAB PO SCH (10:08)
[2022-09-16] MEDS: metFORMIN 500 MG TAB PO SCH (10:09)
[2022-09-16] MEDS: METOPROLOL TARTRATE 25 MG TAB PO SCH (10:09)
[2022-09-16] MEDS: FLECAINIDE 50 MG TAB PO SCH (10:09)
--- NOTE | 2022-09-16 11:02 | P.DS ---
Providers Date of admission: 09/14/22 09:51 Expected date of discharge: 09/16/22 Attending physician: Gavin Murphy Primary care physician: Stated None - Discharge Diagnosis(es) (1) Previous section Current Visit: Yes Status: Acute (2) Term Current Visit: Yes Status: Acute (3) S/P section Current Visit: Yes Status: Acute Hospital Course: the patient is a 37-year-old 2 para 1001 admitted at 37-6/7 weeks by good dating parameters. She is admitted for repeat low transverse section having undergone a previous section for her first delivery. Her has been, located by pre-existing hypertension and a history of atrial fibrillation for which she has been anticoagulated prophylactically during the . Given her conditions, maternal medicine recommended delivery at between 37 and 38 weeks. testing throughout the was reassuring. She is additionally Rh- and received RhoGAM at 28 weeks. Group B strep status was positive. On labor and delivery, all signs reassuring category 1 heart rate tracing. She was taken to the operating room where she underwent repeat low transverse section and uncomplicated fashion and was delivered of a viable 9 lbs. 3 oz. baby boy with Apgars of 9 at 1 minute and 9 at 5 minutes. Her and postoperative courses were unremarkable with vital signs remained stable and her temperature was afebrile throughout. She was deemed stable for discharge on postoperative and day #2 and was then discharged to home to follow-up in the office in 2 weeks for an incision check and 6 weeks routinely. Discharge instructions included calling for any significantly increased bleeding or foul-smelling lochia, significantly increased fever or abdominal pain, perineal complaints, breast complaints, incisional complaints, or anything else that concerned her. She was additionally instructed to have nothing in the vagina for at least 6 weeks time to include intercourse. She understood her instructions and agrees to follow up as noted above. Discharge medications included all of her normal home medications as well as [id number] analgesic pain medications. She was provided with a prescription for [place] 5/325 mg, 1-2 by mouth every 6 hours when necessary pain, #20 dispensed with no refills. Maternal blood type is O- and cord blood was sent for evaluation for the necessity of RhoGAM prior to discharge. Rubella status is immune. Discharge hemoglobin and hematocrit were 11.6 and 33.3 respectively. Procedures: #1. Repeat low transverse section Patient Condition at Discharge: Stable Plan - Discharge Summary Discharge Rx Participant: Yes New Discharge Prescriptions: No Action Aspirin 81 mg PO DAILY metFORMIN HCL [Glucophage] 1,000 mg PO BID Loratadine [Claritin] 10 mg PO DAILY Folic Acid 0.8 mg PO DAILY Lisdexamfetamine Dimesylate [Vyvanse] 20 mg PO DAILY PRN PRN Reason: adhd Levothyroxine Sodium [Synthroid] 50 mcg PO AC-BRKFST Vitamin B Complex 1 cap PO DAILY Metoprolol Tartrate [Lopressor] 25 mg PO BID #120 tab Magnesium Oxide [Magox 400] 400 mg PO BID 30 Days #60 tablet Enoxaparin [Lovenox] 80 mg SQ BID Pnv No.95/Ferrous Fum/Folic AC [ Multivitamin Tablet] 1 tab PO DAILY Beclomethasone Dipropionate [Qvar 40 mcg Redihaler] 2 puff INHALATION RT-BID Albuterol Sulfate [Proair Respiclick] 2 puff INHALATION RT-Q4H PRN PRN Reason: Shortness Of Breath Flecainide [Tambocor] 50 mg PO Q12HR Discharge Medication List Aspirin 81 mg PO DAILY 03/18/21 [History] Beclomethasone Dipropionate [Qvar 40 mcg Redihaler] 2 puff INHALATION RT-BID 03/18/21 [History] Pnv No.95/Ferrous Fum/Folic AC [ Multivitamin Tablet] 1 tab PO DAILY 03/18/21 [History] Loratadine [Claritin] 10 mg PO DAILY 07/13/21 [History] metFORMIN HCL [Glucophage] 1,000 mg PO BID 07/13/21 [History] Folic Acid 0.8 mg PO DAILY 09/29/21 [History] Albuterol Sulfate [Proair Respiclick] 2 puff INHALATION RT-Q4H PRN 05/03/22 [History] Levothyroxine Sodium [Synthroid] 50 mcg PO AC-BRKFST 05/03/22 [History] Lisdexamfetamine Dimesylate [Vyvanse] 20 mg PO DAILY PRN 05/03/22 [History] Vitamin B Complex 1 cap PO DAILY 05/08/22 [History] Magnesium Oxide [Magox 400] 400 mg PO BID 30 Days #60 tablet 05/11/22 [Rx] Metoprolol Tartrate [Lopressor] 25 mg PO BID #120 tab 05/11/22 [Rx] Enoxaparin [Lovenox] 80 mg SQ BID 09/14/22 [History] Flecainide [Tambocor] 50 mg PO Q12HR 09/14/22 [History] Follow up Appointment(s)/Referral(s): Gavin Murphy MD [STAFF PHYSICIAN] - 2 Weeks Discharge Disposition: HOME SELF-CARE
== END 2022-09-16 15:45 | disposition home or self-care (01) | DRG 786 ==
LOC: 4FBP 09:51
PROVIDERS: ADMIT Obstetrics & Gynecology; ATTEND Obstetrics & Gynecology
PROC: 4A0HXCZ Measurement of Products of Conception, Cardiac Rate, External Approach (ICD-10-PCS; principal; 2022-09-14 12:24)
PROC: 10D00Z1 Extraction of Products of Conception, Low, Open Approach (ICD-10-PCS; principal; 2022-09-14 12:24)
DX: O34.211 Maternal care for low transverse scar from previous cesarean delivery (principal); O24.12 Pre-existing type 2 diabetes mellitus, in childbirth; O99.42 Diseases of the circulatory system complicating childbirth; O10.92 Unspecified pre-existing hypertension complicating childbirth; O99.824 Streptococcus B carrier state complicating childbirth; O99.344 Other mental disorders complicating childbirth; O99.52 Diseases of the respiratory system complicating childbirth; L29.9 Pruritus, unspecified; J45.909 Unspecified asthma, uncomplicated; I48.91 Unspecified atrial fibrillation; F90.9 Attention-deficit hyperactivity disorder, unspecified type; F41.9 Anxiety disorder, unspecified; O99.73 Diseases of the skin and subcutaneous tissue complicating the puerperium; K21.9 Gastro-esophageal reflux disease without esophagitis; Z37.0 Single live birth; O26.893 Other specified pregnancy related conditions, third trimester; Z67.41 Type O blood, Rh negative; Z3A.37 37 weeks gestation of pregnancy; Z79.82 Long term (current) use of aspirin; Z79.84 Long term (current) use of oral hypoglycemic drugs; Z79.890 Hormone replacement therapy; Z79.899 Other long term (current) drug therapy; Z87.891 Personal history of nicotine dependence; Z87.19 Personal history of other diseases of the digestive system
CPT/HCPCS: 85025; 85461; 85610; 85730; 86850; 86900; 86901

== ENCOUNTER 2022-10-17 07:54 | Observation (INO) | payer BC ==
--- NOTE | 2022-10-17 08:25 | ED ---
Arrhythmia/Palpitations HPI - General Chief Complaint: Arrhythmia/Palpitations Stated Complaint: A fib Time Seen by Provider: 10/17/22 08:05 Source: patient, RN notes reviewed Mode of arrival: ambulatory Limitations: no limitations - History of Present Illness Initial Comments: 37-year-old female presents emergency Department chief complaint of palpitati ons, A. fib. Patient states that she has a history A. fib on metoprolol and flecinade. Patient states that she sees Dr. Eugene. Patient states she is not currently on anticoagulation as she is breast-feeding. Patient states that she did not take her morning medications. Symptoms started around 3 AM. Patient states that she started feeling slightly lightheaded, heart racing. Patient's had prior cardiac ablation. Patient feels minimally short of breath no fevers or chills no leg pain Usual. - Related Data Home Medications Medication Instructions Recorded Confirmed Beclomethasone Dipropionate [Qvar 2 puff INHALATION RT-BID 03/18/21 10/17/22 40 mcg Redihaler] Pnv No.95/Ferrous Fum/Folic AC 1 tab PO DAILY 03/18/21 10/17/22 [ Multivitamin Tablet] Loratadine [Claritin] 10 mg PO DAILY 07/13/21 10/17/22 metFORMIN HCL [Glucophage] 1,000 mg PO BID 07/13/21 10/17/22 Folic Acid 0.8 mg PO DAILY 09/29/21 10/17/22 Albuterol Sulfate [Proair 2 puff INHALATION RT-Q4H PRN 05/03/22 10/17/22 Respiclick] Levothyroxine Sodium [Synthroid] 50 mcg PO AC-BRKFST 05/03/22 10/17/22 Vitamin B Complex 1 cap PO DAILY 05/08/22 10/17/22 Flecainide [Tambocor] 50 mg PO BID 09/14/22 10/17/22 Ascorbic Acid [Vitamin C] 1,000 mg PO DAILY 10/17/22 10/17/22 Aspirin EC [Ecotrin Low Dose] 81 mg PO DAILY 10/17/22 10/17/22 Biotin 5 mg PO DAILY 10/17/22 10/17/22 Magnesium Gluconate [Magonate] 500 mg PO DAILY 10/17/22 10/17/22 Previous Rx's Medication Instructions Recorded Magnesium Oxide [Magox 400] 400 mg PO BID 30 Days #60 tablet 05/11/22 Metoprolol Tartrate [Lopressor] 25 mg PO BID #120 tab 05/11/22 Allergies Allergy/AdvReac Type Severity Reaction Status Date / Time No Known Allergies Allergy Verified 10/17/22 10:20 Review of Systems ROS Statement: Those systems with pertinent positive or pertinent negative responses have been documented in the HPI. ROS Other: All systems not noted in ROS Statement are negative. Past Medical History Past Medical History: Atrial Fibrillation, Asthma, Diabetes Mellitus, GERD/Reflux, Hypertension, Sleep Apnea/CPAP/BIPAP, Thyroid Disorder Additional Past Medical History / Comment(s): CPAP use. History of Any Multi-Drug Resistant Organisms: None Reported Past Surgical History: Cardiac Ablation, Section Additional Past Surgical History / Comment(s): Ablation in 07/2017, gallbladder 10/05 Past Anesthesia/Blood Transfusion Reactions: No Reported Reaction, Motion Sickn ess Past Psychological History: ADD/ADHD, Anxiety Smoking Status: Former smoker Past Alcohol Use History: Rare Past Drug Use History: Marijuana - Past Family History Father Family Medical History: CVA/TIA Additional Family Medical History / Comment(s): renal disease, heart failure, strokes ("alot") Mother Family Medical History: Cancer Additional Family Medical History / Comment(s): Breast cancer. General Exam Limitations: no limitations General appearance: alert, in no apparent distress Head exam: Present: atraumatic, normocephalic, normal inspection Eye exam: Present: normal appearance, PERRL, EOMI. Absent: scleral icterus, conjunctival injection, periorbital swelling ENT exam: Present: normal exam, normal oropharynx, mucous membranes moist Neck exam: Present: normal inspection, full ROM. Absent: tenderness, meningismus, lymphadenopathy Respiratory exam: Present: normal lung sounds bilaterally. Absent: respiratory distress, wheezes, rales, rhonchi, stridor Cardiovascular Exam: Present: tachycardia, irregular rhythm, normal heart sounds. Absent: regular rate, normal rhythm, systolic murmur, diastolic murmur, rubs, gallop, clicks Neurological exam: Present: alert, oriented X3 Skin exam: Present: warm, dry, intact, normal color. Absent: rash Course Vital Signs 10/17/22 10/17/22 10/17/22 07:57 08:09 08:19 Temperature 98 F Pulse Rate 88 153 H 165 H Respiratory 20 19 Rate Blood Pressure 129/76 86/48 O2 Sat by Pulse 97 100 Oximetry 10/17/22 10/17/22 10/17/22 08:30 09:00 10:00 Temperature Pulse Rate 156 H 158 H 126 H Respiratory 12 18 18 Rate Blood Pressure 104/81 83/51 95/54 O2 Sat by Pulse 99 97 97 Oximetry 10/17/22 10/17/22 10:35 10:41 Temperature Pulse Rate 168 H 149 H Respiratory 18 18 Rate Blood Pressure 92/56 118/86 O2 Sat by Pulse 96 96 Oximetry Medical Decision Making - Medical Decision Making Was pt. sent in by a medical professional or institution? @ -no Did you speak to anyone other than the patient for history? @ -no Did you review nursing and triage notes? @ -agree and reviewed Were old charts reviewed? @ -no Differential Diagnosis? @ -Chest pain, atrial fibrillation, Differential Chest Pain: Stable Angina, Unstable Angina, STEMI, NSTEMI Aortic Dissection, Pneumothorax, Musculoskeletal, Esophageal Spasm GERD, Cholecystitis, Pancreatitis, Zoster, this is not meant to be an all-inclusive list. EKG interpreted by me (3pts min.)? @ -[none] X-rays interpreted by me (1pt min.)? @ -E.g. interpreted by me A. fib RVR rate of 153 QRS 85 QT/QTC 3-74/361 CT interpreted by me (1pt min.)? @ -no U/S interpreted by me (1pt. min.)? @ -no What testing was considered but not performed? (CT, X-rays, U/S, labs)? Why? @ no What meds were considered but not given? Why? @ -Cardizem was considered though patient is on current ethel 9, metoprolol. These medications will be continued as discussed with cardiology. Did you discuss the management of the patient with other professionals? @ -Cardiology regarding patient current medication and further treatment and management of her age fibrillation Did you reconcile home meds? @ -yes Was smoking cessation discussed for >3mins.? @ -no Was critical care preformed (if so, how long)? @ yes 35 mins Were there social determinants of health that impacted care today? How? (Homelessness, low income, unemployed, alcoholism, drug addiction, transportation, low edu. Level, literacy, decrease access to med. care, [facility], rehab)? @ -no Was there de-escalation of care discussed even if they declined? (Discuss DNR or withdrawal of care, Hospice)? @ -no What co-morbidities impacted this encounter? (DM, HTN, Smoking, COPD, CAD, Cancer, CVA, Hep., AIDS, mental health diagnosis, sleep apnea, morbid obesity)? @ -afib, hypothyroidism Was patient admitted / discharged? @ -[hospital course] Undiagnosed new problem with uncertain prognosis? @ -no Drug Therapy requiring intensive monitoring for toxicity (Heparin, Nitro, Insulin, Cardizem)? @ -heparin Were any procedures done? @ -no Diagnosis/symptom? @ -A. fib RVR Acute, or Chronic, or Acute on Chronic? @ -Acute Uncomplicated (without systemic symptoms) or Complicated (systemic symptoms)? @ -complicated Side effects of treatment? @ -no Exacerbation, Progression, or Severe Exacerbation] @ -Exacerbation Poses a threat to life or bodily function? @ -yes - Lab Data Result diagrams: 10/17/22 08:25 10/17/22 08:25 Lab Results 10/17/22 10/17/22 10/17/22 Range/Units 08:25 08:25 08:25 WBC 9.6 (3.8-10.6) k/uL RBC 5.00 (3.80-5.40) m/uL Hgb 14.7 D (11.4-16.0) gm/dL Hct 41.5 (34.0-46.0) % MCV 83.1 (80.0-100.0) fL MCH 29.4 (25.0-35.0) pg MCHC 35.4 (31.0-37.0) g/dL RDW 12.1 (11.5-15.5) % Plt Count 297 (150-450) k/uL MPV 9.7 Neutrophils % 61 % Lymphocytes % 26 % Monocytes % 5 % Eosinophils % 5 % Basophils % 0 % Neutrophils # 5.8 (1.3-7.7) k/uL Lymphocytes # 2.5 (1.0-4.8) k/uL Monocytes # 0.5 (0-1.0) k/uL Eosinophils # 0.5 (0-0.7) k/uL Basophils # 0.0 (0-0.2) k/uL PT 9.7 (9.0-12.0) sec INR 0.9 (<1.2) APTT 22.4 (22.0-30.0) sec Sodium 140 (137-145) mmol/L Potassium 4.8 (3.5-5.1) mmol/L Chloride 108 H (98-107) mmol/L Carbon Dioxide 20 L (22-30) mmol/L Anion Gap 12 mmol/L BUN 19 H (7-17) mg/dL Creatinine 0.92 (0.52-1.04) mg/dL Est GFR (CKD-EPI)AfAm >90 (>60 ml/min/1.73 sqM) Est GFR (CKD-EPI)NonAf 80 (>60 ml/min/1.73 sqM) Glucose 114 H (74-99) mg/dL Calcium 9.5 (8.4-10.2) mg/dL Magnesium 1.9 (1.6-2.3) mg/dL Total Bilirubin 0.8 (0.2-1.3) mg/dL AST 37 H (14-36) U/L ALT 31 (4-34) U/L Alkaline Phosphatase 74 (38-126) U/L Troponin I (0.000-0.034) ng/mL Total Protein 8.0 (6.3-8.2) g/dL Albumin 4.7 (3.5-5.0) g/dL 10/17/22 Range/Units 08:25 WBC (3.8-10.6) k/uL RBC (3.80-5.40) m/uL Hgb (11.4-16.0) gm/dL Hct (34.0-46.0) % MCV (80.0-100.0) fL MCH (25.0-35.0) pg MCHC (31.0-37.0) g/dL RDW (11.5-15.5) % Plt Count (150-450) k/uL MPV Neutrophils % % Lymphocytes % % Monocytes % % Eosinophils % % Basophils % % Neutrophils # (1.3-7.7) k/uL Lymphocytes # (1.0-4.8) k/uL Monocytes # (0-1.0) k/uL Eosinophils # (0-0.7) k/uL Basophils # (0-0.2) k/uL PT (9.0-12.0) sec INR (<1.2) APTT (22.0-30.0) sec Sodium (137-145) mmol/L Potassium (3.5-5.1) mmol/L Chloride (98-107) mmol/L Carbon Dioxide (22-30) mmol/L Anion Gap mmol/L BUN (7-17) mg/dL Creatinine (0.52-1.04) mg/dL Est GFR (CKD-EPI)AfAm (>60 ml/min/1.73 sqM) Est GFR (CKD-EPI)NonAf (>60 ml/min/1.73 sqM) Glucose (74-99) mg/dL Calcium (8.4-10.2) mg/dL Magnesium (1.6-2.3) mg/dL Total Bilirubin (0.2-1.3) mg/dL AST (14-36) U/L ALT (4-34) U/L Alkaline Phosphatase (38-126) U/L Troponin I <0.012 (0.000-0.034) ng/mL Total Protein (6.3-8.2) g/dL Albumin (3.5-5.0) g/dL Critical Care Time Critical Care Time: Yes Total Critical Care Time: 35 Disposition Clinical Impression: Atrial fibrillation with RVR Disposition: ADMITTED IP TO THIS [facility] Condition: Fair Time of Disposition: 10:13
[2022-10-17 08:33] LABS: Basophils % (A) 0 %; Eosinophils # (A) 0.5 k/uL (0-0.7); Eosinophils % (A) 5 %; HCT 41.5 % (34.0-46.0); Lymphocytes # (A) 2.5 k/uL (1.0-4.8); Lymphocytes % (A) 26 %; MCH 29.4 pg (25.0-35.0); MCHC 35.4 g/dL (31.0-37.0); MCV 83.1 fL (80.0-100.0); Mean Platelet Volume 9.7; Monocytes # (A) 0.5 k/uL (0-1.0); Monocytes % (A) 5 %; Neutrophils # (A) 5.8 k/uL (1.3-7.7); Neutrophils % (A) 61 %; Platelet Count 297 k/uL (150-450); RDW 12.1 % (11.5-15.5); WBC 9.6 k/uL (3.8-10.6)
[2022-10-17 08:44] LABS: HGB 14.7 gm/dL (11.4-16.0)
[2022-10-17 08:49] LABS: ALT 31 U/L (4-34); African American GFR (CKD) >90 (>60 ml/min/1.73 sqM); Albumin 4.7 g/dL (3.5-5.0); Anion Gap 12 mmol/L; Blood Urea Nitrogen 19 mg/dL (7-17); Calcium 9.5 mg/dL (8.4-10.2); Carbon Dioxide 20 mmol/L (22-30); Chloride 108 mmol/L (98-107); Glucose 114 mg/dL (74-99); Non-African American GFR(CKD) 80 (>60 ml/min/1.73 sqM); Sodium 140 mmol/L (137-145); Total Bilirubin 0.8 mg/dL (0.2-1.3)
--- NOTE | 2022-10-17 08:56 | XR ---
EXAMINATION TYPE: XR chest 2V DATE OF EXAM: 10/17/2022 COMPARISON: Chest x-ray May 03, 2022 HISTORY: Dysrhythmia. TECHNIQUE: Frontal and lateral views of the chest are obtained. FINDINGS: There is no suspicious new focal air space opacity, pleural effusion, or pneumothorax seen . The cardiac silhouette size is stable and within normal limits. Overlying EKG leads are now presen t. The osseous structures are intact. IMPRESSION: No acute cardiopulmonary process. No significant change from prior.
[2022-10-17 09:03] LABS: AST 37 U/L (14-36); Alkaline Phosphatase 74 U/L (38-126); Magnesium 1.9 mg/dL (1.6-2.3); Potassium 4.8 mmol/L (3.5-5.1)
[2022-10-17 09:07] LABS: INR 0.9 (<1.2); Partial Thromboplastin Time 22.4 sec (22.0-30.0); Prothrombin Time 9.7 sec (9.0-12.0)
[2022-10-17] MEDS ORDERED: FLECAINIDE 50 MG TAB PO STA (09:21)
[2022-10-17] MEDS ORDERED: METOPROLOL TARTRATE 5 MG/5 ML VIAL IVP STA ×3 (10:10→14:50)
[2022-10-17] MEDS ORDERED: SODIUM CHLORIDE 0.9% 1,000 ML IV ONE ×2 (10:35→14:50)
[2022-10-17] MEDS ORDERED: HEPARIN SODIUM 1,000 UN/ML (10ML VL) IV PRN (10:47)
[2022-10-17] MEDS ORDERED: HEPARIN SODIUM 1,000 UN/ML (10ML VL) IV ONE (10:47)
[2022-10-17] MEDS: HEPARIN SOD,PORK IN 0.45% NACL 25,000 UNIT in 0.45% NACL 1 250ML.BAG IV SCH (12:45)
--- NOTE | 2022-10-17 14:49 | P.HPIM ---
History of Present Illness H&P Date: 10/17/22 History of Presenting Illness: Patient is a very pleasant 37-year-old female with a past medical history of asthma, hypothyroidism, diabetes mellitus, and atrial fibrillation status post cardioversion and ablation currently on antiarrhythmic Flecainide and not on anticoagulation secondary to recent delivery and currently breast-feeding. Patient reports this morning upon awakening around 3 AM she began feeling lightheaded and felt as though her heart was racing and she reports initially she felt as though she sat up too quickly and tried to go back to sleep but states symptoms persisted and at 7 AM she knew she was back into atrial fibrillation with RVR so she came to the emergency department for evaluation. Patient reports she was previously on flecainide 200 mg daily but this dose was decreased secondary to her recent and delivery. Patient reports she f ollows up outpatient with tray casting machine operator, Dr. Chandler. She denies having any recent infections or exposure to known ill contacts, headache, fevers, diaphoresis, chills, chest pain, or experiencing any numbness/swelling/weakness/tingling in her extremities. She does report slight shortness of breath worsens with exertion. She underwent full evaluation in the emergency department. Upon arrival patient was found to be in A. fib RVR with heart rate 150s to 180s and hypotensive with blood pressure of 86/48. EKG was completed confirming atrial fibrillation with a rapid ventricular rate at 153 bpm. Chest x-ray negative for acute cardiopulmonary process at this time upon personal review. Labs completed and reviewed. CBC and coags were unremarkable. CMP revealing hyperchloremia with chloride of 108 and hypocarbia with Index of 20. BUN slightly elevated at 19 and AST of 37. Initial troponin negative at less than 0.012. Case was discussed with cardiology and ED physician. Patient was given dose of Flecanaine and admitted for admission under our services with consultation to cardiology. Upon physical examination, patient found to be with persistent RVR 160s to 180s and hypotension with blood pressure of 83/51. Order placed for 1 L bolus IV fluid followed by metoprolol 5 mg IVP. Patient's blood pressure improving to 118/86 and ventricular rate 120s to 140s, an additional dose of metoprolol ordered at this time. Review of systems: Pertinent positives and negatives as discussed in HPI, a complete review of systems was performed and all other systems are negative. Physical exam: Vital signs reviewed and stable. General: Nontoxic, no distress and appears stated age. Derm: Skin warm and dry, normal coloration for ethnicity. Head: Atraumatic, normocephalic and symmetric. Eyes: EOMs intact, no lid lag, and anicteric sclera Mouth: no lip lesions, mucus membranes moist Cardiovascular: regular rate and rhythm with normal S1S2, no murmur, positive posterior tibial pulses bilaterally, and cap refill < 2 seconds. Lungs: Respirations even, regular, and unlabored on room air. Lungs CTA bilaterally, no rhonchi, no rales, no wheezing, and no accessory muscle usage. Abdominal: soft, nontender to palpation, no guarding, no appreciable organomegaly Ext: ROM intact. No gross muscle atrophy, no edema, no contractures Neuro: Speech clear, face symmetrical and CN II-XII grossly intact with no noted focal neuro deficits Psych: Alert and oriented to person, place, time, and situation. Appropriate and pleasant affect. Assessment and Plan of Care: Atrial fibrillation with RVR, unstable -RVR 140s to 180s accompanied by hypotension. Patient started on flecainide in the ED and additional orders were placed for Lopressor 5 mg IVP 3 doses prior to patient converting to sinus mechanism. -Discussed with patient concerns over anticoagulation and highly recommended starting anticoagulation at this time. Patient reports that she is willing to start IV anticoagulation with heparin and understands that she will need to pump breast milk and dispose of at this time and for 6 hours status post discontinuation of heparin infusion. -IV anticoagulation with heparin -Heart healthy diet and NPO at midnight -Cardiology consulted, appreciate further recommendations. -TSH with free T4 to be obtained. -Patient to remain on continuous telemetry monitoring. Hypothyroidism -At this time we will continue level thyroxine 50 g each morning. We will obtain a TSH with free T4 secondary to current RVR. Diabetes mellitus with hyperglycemia -Hold metformin and place patient on glycemic protocol with NovoLog sliding scale to maintain tight glycemic control throughout hospitalization. The patient is admitted with an anticipated greater than 2 midnight stay for evaluation of atrial fibrillation with RVR CODE STATUS: Full code DVT prophylaxis heparin Discussed with: Patient and, tray casting machine operator, ED physician, patient's sister, and RN Anticipated discharge date: Clinical course to determine Anticipated discharge place: Home A total of 49 minutes was spent on the care of this complex patient more than 50% of the time was spent in counseling and care coordination. Past Medical History Past Medical History: Atrial Fibrillation, Asthma, Diabetes Mellitus, GERD/Reflux, Hypertension, Sleep Apnea/CPAP/BIPAP, Thyroid Disorder Additional Past Medical History / Comment(s): CPAP use. History of Any Multi-Drug Resistant Organisms: None Reported Past Surgical History: Cardiac Ablation, Section Additional Past Surgical History / Comment(s): Ablation in 07/2017, gallbladder 10/05 Past Anesthesia/Blood Transfusion Reactions: No Reported Reaction, Motion Sickness Past Psychological History: ADD/ADHD, Anxiety Smoking Status: Former smoker Past Alcohol Use History: Rare Past Drug Use History: Marijuana - Past Family History Father Family Medical History: CVA/TIA Additional Family Medical History / Comment(s): renal disease, heart failure, strokes ("alot") Mother Family Medical History: Cancer Additional Family Medical History / Comment(s): Breast cancer. Medications and Allergies Home Medications Medication Instructions Recorded Confirmed Type Beclomethasone Dipropionate [Qvar 2 puff INHALATION RT-BID 03/18/21 10/17/22 History 40 mcg Redihaler] Pnv No.95/Ferrous Fum/Folic AC 1 tab PO DAILY 03/18/21 10/17/22 History [ Multivitamin Tablet] Loratadine [Claritin] 10 mg PO DAILY 07/13/21 10/17/22 History metFORMIN HCL [Glucophage] 1,000 mg PO BID 07/13/21 10/17/22 History Folic Acid 0.8 mg PO DAILY 09/29/21 10/17/22 History Albuterol Sulfate [Proair 2 puff INHALATION RT-Q4H PRN 05/03/22 10/17/22 History Respiclick] Levothyroxine Sodium [Synthroid] 50 mcg PO AC-BRKFST 05/03/22 10/17/22 History Vitamin B Complex 1 cap PO DAILY 05/08/22 10/17/22 History Magnesium Oxide [Magox 400] 400 mg PO BID 30 Days #60 tablet 05/11/22 10/17/22 Rx Metoprolol Tartrate [Lopressor] 25 mg PO BID #120 tab 05/11/22 10/17/22 Rx Flecainide [Tambocor] 50 mg PO BID 09/14/22 10/17/22 History Ascorbic Acid [Vitamin C] 1,000 mg PO DAILY 10/17/22 10/17/22 History Aspirin EC [Ecotrin Low Dose] 81 mg PO DAILY 10/17/22 10/17/22 History Biotin 5 mg PO DAILY 10/17/22 10/17/22 History Magnesium Gluconate [Magonate] 500 mg PO DAILY 10/17/22 10/17/22 History Allergies Allergy/AdvReac Type Severity Reaction Status Date / Time No Known Allergies Allergy Verified 10/17/22 10:20 Physical Exam Vitals: Vital Signs Temp Pulse Resp BP Pulse Ox 10/17/22 09:00 149 H 21 102/87 99 10/17/22 08:30 156 H 12 104/81 99 10/17/22 08:19 165 H 19 86/48 100 10/17/22 08:09 153 H 10/17/22 07:57 98 F 88 20 129/76 97 Intake and Output 10/16/22 10/17/22 10/17/22 22:59 06:59 14:59 Other: Weight 127.006 kg Results CBC & Chem 7: 10/17/22 08:25 10/17/22 08:25 Labs: Abnormal Lab Results - Last 24 Hours (Table) 10/17/22 Range/Units 08:25 Chloride 108 H (98-107) mmol/L Carbon Dioxide 20 L (22-30) mmol/L BUN 19 H (7-17) mg/dL Glucose 114 H (74-99) mg/dL AST 37 H (14-36) U/L
[2022-10-17] MEDS ORDERED: ALBUTEROL NEBULIZED 2.5 MG/3 ML INHALATION PRN (17:51)
[2022-10-17] MEDS ORDERED: DEXTROSE 50% SYRINGE 50 ML IVP PRN ×2 (18:53)
[2022-10-17 20:10] LABS: Glucose,Whole Blood 124 mg/dL (70-110)
[2022-10-17] MEDS: METOPROLOL TARTRATE 25 MG TAB PO SCH (20:12)
[2022-10-17] MEDS: FLECAINIDE 50 MG TAB PO SCH (20:12)
[2022-10-17] MEDS: INSULIN ASPART (NovoLOG) 100 UNIT/ML VIAL SQ SCH (20:13)
[2022-10-17] MEDS: FLUTICASONE 44 MCG INHALER INHALATION SCH (22:09)
[2022-10-18 06:08] LABS: Glucose,Whole Blood 104 mg/dL (70-110)
[2022-10-18] MEDS: INSULIN ASPART (NovoLOG) 100 UNIT/ML VIAL SQ SCH ×2 (06:11→11:27)
[2022-10-18] MEDS ORDERED: LEVOTHYROXINE 50 MCG TAB PO SCH (07:30)
[2022-10-18 08:03] LABS: Basophils % (A) 1 %; Eosinophils # (A) 0.4 k/uL (0-0.7); Eosinophils % (A) 6 %; HCT 35.9 % (34.0-46.0); HGB 12.6 gm/dL (11.4-16.0); Lymphocytes # (A) 2.4 k/uL (1.0-4.8); Lymphocytes % (A) 37 %; MCH 29.4 pg (25.0-35.0); MCHC 35.1 g/dL (31.0-37.0); MCV 83.6 fL (80.0-100.0); Mean Platelet Volume 9.2; Monocytes # (A) 0.3 k/uL (0-1.0); Monocytes % (A) 4 %; Neutrophils # (A) 3.1 k/uL (1.3-7.7); Neutrophils % (A) 48 %; Platelet Count 214 k/uL (150-450); RDW 12.8 % (11.5-15.5); WBC 6.4 k/uL (3.8-10.6)
[2022-10-18 08:12] LABS: INR 0.9 (<1.2); Partial Thromboplastin Time 38.1 sec (22.0-30.0)
[2022-10-18] MEDS: HEPARIN SOD,PORK IN 0.45% NACL 25,000 UNIT in 0.45% NACL 1 250ML.BAG IV SCH (08:24)
[2022-10-18] MEDS: FLECAINIDE 50 MG TAB PO SCH (08:39)
[2022-10-18] MEDS: METOPROLOL TARTRATE 25 MG TAB PO SCH (08:39)
[2022-10-18] MEDS: FLUTICASONE 44 MCG INHALER INHALATION SCH (08:59)
[2022-10-18] MEDS ORDERED: MAGNESIUM OXIDE 400 MG TAB PO SCH (09:00)
[2022-10-18] MEDS ORDERED: ASPIRIN 81 MG PO SCH (09:00)
[2022-10-18] MEDS ORDERED: NON FORMULARY DRUG (Magnesium Gluconate 500 MG Tab) PO SCH (09:00)
[2022-10-18] MEDS ORDERED: ASCORBIC ACID 500 MG TAB PO SCH (09:00)
[2022-10-18 09:08] VITALS: PULSE 63; RESP 16; TEMP 97.5
[2022-10-18 11:28] VITALS: BP 114/72
[2022-10-18 16:00] LABS: Chol/HDL Ratio 3.83 Ratio; LDL Cholesterol,Calculated 59.9 mg/dL (0.0-131.0)
--- NOTE | 2022-10-18 16:04 | P.CRDCN ---
History of Present Illness Consult date: 10/18/22 Consult reason: atrial fibrillation History of present illness: HISTORY OF PRESENT ILLNESS This is a 37-year-old female past medical history of hypertension, gestational diabetes, paroxysmal atrial fibrillation status post ablation in 2018. She follows in the office with Dr. Chandler. We have been asked to see the patient in consultation for atrial fibrillation with rapid ventricular response. Patient presented to the ER with complaints of palpitations which started yesterday morning around 5:30. She complains of palpitations and mild dizziness. No chest pain, no shortness of breath. Patient had on 09/14. She denies any recent changes to her medications. She was last seen in the office in early September and is not currently on any anticoagulation. Patient converted to sinus rhythm while in the emergency center. Patient currently on heparin drip. She is status post IV metoprolol. Patient feels that she has been in atrial fibrillation for less than 12 hours. EKG atrial fibrillation at 153 bpm Potassium 4.8, magnesium 1.9, troponins negative 3 Chest x-ray within normal limits REVIEW OF SYSTEMS at the time of my evaluation: Constitutional: No fever, no chills. No weakness, fatigue or lethargy. EENT: No headache. No dizziness. Lungs: No shortness of breath, cough, no sputum production. No wheezing. Cardiovascular: No chest pain, no lower extremity edema. No palpitations. No paroxysmal nocturnal dyspnea. No orthopnea. No lightheadedness or dizziness. No syncopal episodes. Abdominal: No abdominal pain. No nausea, vomiting. No diarrhea. No constipation. No bloody or tarry stools. No loss of appetite. Genitourinary: No dysuria.. No urinary retention. Musculoskeletal: No myalgias. No muscle weakness, no gait dysfunction, no frequent falls. No back pain. No neck pain. Integumentary: No wounds, no lesions. No rash or pruritus. No unusual bruising. Neurologic: No aphasia. No facial droop. No change in mentation. No head injury. No headache. No paralysis. No paresthesia. Psychiatric: No depression. No anxiety. Endocrine: No abnormal blood sugars. PHYSICAL EXAMINATION Gen: This is a a 37-year-old female. She is resting bed appears to be comfortable VS: reviewed HEENT: Head is atraumatic, normocephalic. Pupils equal, round. Sclerae is anicteric. NECK: Supple. No JVD. No lymphadenopathy. No thyromegaly. LUNGS: Clear to auscultation. No wheezes or rhonchi. No intercostal retractions. HEART: Regular rate and rhythm. No murmur. ABDOMEN: Soft. Bowel sounds are present. No masses. No tenderness. EXTREMITIES: No pedal edema. No calf tenderness. NEUROLOGICAL: Patient is awake, alert and oriented x3. Cranial nerves 2 through 12 are grossly intact. ASSESSMENT Paroxysmal atrial fibrillation, presented with A. fib RVR Recent and currently breast-feeding History of previous ablation in 2018 History of hypertension History of Gestational diabetes PLAN Continue same home medications Patient instructed to take flecainide 100 mg when she feels she is in atrial fibrillation and weight 2-4 hours. Plan is for A. fib ablation 6 months from now. Follow-up with Dr. Ayala. Patient is cleared for discharge home today. Nurse practitioner note has been reviewed, I agree with documented findings and plan of care. Patient was seen and examined. Past Medical History Past Medical History: Atrial Fibrillation, Asthma, Diabetes Mellitus, GERD/Reflux, Hypertension, Sleep Apnea/CPAP/BIPAP, Thyroid Disorder Additional Past Medical History / Comment(s): CPAP use. History of Any Multi-Drug Resistant Organisms: None Reported Past Surgical History: Cardiac Ablation, Section Additional Past Surgical History / Comment(s): Ablation in 07/2017, gallbladder 10/05 Past Anesthesia/Blood Transfusion Reactions: No Reported Reaction, Motion Sickness Past Psychological History: ADD/ADHD, Anxiety Smoking Status: Former smoker Past Alcohol Use History: Rare Past Drug Use History: Marijuana - Past Family History Father Family Medical History: CVA/TIA Additional Family Medical History / Comment(s): renal disease, heart failure, strokes ("alot") Mother Family Medical History: Cancer Additional Family Medical History / Comment(s): Breast cancer. Medications and Allergies Home Medications Medication Instructions Recorded Confirmed Type Beclomethasone Dipropionate [Qvar 2 puff INHALATION RT-BID 03/18/21 10/17/22 History 40 mcg Redihaler] Pnv No.95/Ferrous Fum/Folic AC 1 tab PO DAILY 03/18/21 10/17/22 History [ Multivitamin Tablet] Loratadine [Claritin] 10 mg PO DAILY 07/13/21 10/17/22 History metFORMIN HCL [Glucophage] 1,000 mg PO BID 07/13/21 10/17/22 History Folic Acid 0.8 mg PO DAILY 09/29/21 10/17/22 History Albuterol Sulfate [Proair 2 puff INHALATION RT-Q4H PRN 05/03/22 10/17/22 History Respiclick] Levothyroxine Sodium [Synthroid] 50 mcg PO AC-BRKFST 05/03/22 10/17/22 History Vitamin B Complex 1 cap PO DAILY 05/08/22 10/17/22 History Magnesium Oxide [Magox 400] 400 mg PO BID 30 Days #60 tablet 05/11/22 10/17/22 Rx Metoprolol Tartrate [Lopressor] 25 mg PO BID #120 tab 05/11/22 10/17/22 Rx Flecainide [Tambocor] 50 mg PO BID 09/14/22 10/17/22 History Ascorbic Acid [Vitamin C] 1,000 mg PO DAILY 10/17/22 10/17/22 History Aspirin EC [Ecotrin Low Dose] 81 mg PO DAILY 10/17/22 10/17/22 History Biotin 5 mg PO DAILY 10/17/22 10/17/22 History Magnesium Gluconate [Magonate] 500 mg PO DAILY 10/17/22 10/17/22 History Allergies Allergy/AdvReac Type Severity Reaction Status Date / Time No Known Allergies Allergy Verified 10/17/22 10:20 Physical Exam Vitals: Vital Signs Temp Pulse Pulse Resp BP BP Pulse Ox 10/18/22 04:36 97.6 F 66 12 119/72 98 10/17/22 23:53 98.2 F 71 12 123/82 97 10/17/22 20:00 98.4 F 75 14 121/82 96 10/17/22 17:00 76 20 111/83 96 10/17/22 16:30 82 18 114/82 100 10/17/22 16:00 80 18 112/79 99 10/17/22 15:30 87 15 112/69 99 10/17/22 15:00 140 H 20 103/70 100 10/17/22 14:30 154 H 21 105/62 98 10/17/22 14:00 144 H 19 117/84 96 10/17/22 13:30 137 H 16 104/82 96 10/17/22 13:00 144 H 21 109/73 100 10/17/22 12:30 142 H 13 118/84 99 10/17/22 12:05 130 H 13 118/84 96 10/17/22 12:00 137 H 15 106/76 98 10/17/22 11:50 137 H 13 99/85 95 10/17/22 11:45 160 H 19 107/76 95 10/17/22 11:40 123 H 15 100/79 93 L 10/17/22 11:35 165 H 18 100/79 96 10/17/22 11:30 144 H 15 99/76 95 10/17/22 11:00 140 H 26 H 100/71 94 L 10/17/22 10:48 149 H 18 100/71 96 10/17/22 10:41 149 H 18 118/86 96 10/17/22 10:35 168 H 18 92/56 96 10/17/22 10:30 165 H 18 94/78 95 10/17/22 10:00 141 H 18 110/80 96 10/17/22 09:30 138 H 19 83/51 96 10/17/22 09:00 158 H 18 83/51 97 10/17/22 08:30 156 H 12 104/81 99 10/17/22 08:19 165 H 19 86/48 100 Intake and Output 10/17/22 10/18/22 10/18/22 22:59 06:59 14:59 Intake Total 75 76.587 Balance 75 76.587 Intake: Intake, IV Titration 75 76.587 Amount Heparin Sod,Pork in 0.45% 75 76.587 NaCl 25,000 unit In 0.45 % NaCl 1 250ml.bag @ 7. 874 UNITS/KG/HR 10 mls/hr IV .Q24H [facility] Rx#: [id number] Other: Voiding Method Toilet Toilet # Voids 1 3 Results 10/18/22 07:01 10/17/22 08:25 Cardiac Enzymes 10/17/22 10/17/22 10/17/22 Range/Units 08:25 08:25 11:02 AST 37 H (14-36) U/L Troponin I <0.012 <0.012 (0.000-0.034) ng/mL 10/17/22 Range/Units 14:55 AST (14-36) U/L Troponin I <0.012 (0.000-0.034) ng/mL Coagulation 10/17/22 10/17/22 10/18/22 Range/Units 08:25 18:28 00:53 PT 9.7 (9.0-12.0) sec APTT 22.4 25.7 28.2 (22.0-30.0) sec 10/18/22 Range/Units 07:01 PT 10.0 (9.0-12.0) sec APTT 38.1 H (22.0-30.0) sec CBC 10/17/22 10/18/22 Range/Units 08:25 07:01 WBC 9.6 6.4 (3.8-10.6) k/uL RBC 5.00 4.30 (3.80-5.40) m/uL Hgb 14.7 D 12.6 (11.4-16.0) gm/dL Hct 41.5 35.9 (34.0-46.0) % Plt Count 297 214 (150-450) k/uL Comprehensive Metabolic Panel 10/17/22 Range/Units 08:25 Sodium 140 (137-145) mmol/L Potassium 4.8 (3.5-5.1) mmol/L Chloride 108 H (98-107) mmol/L Carbon Dioxide 20 L (22-30) mmol/L BUN 19 H (7-17) mg/dL Creatinine 0.92 (0.52-1.04) mg/dL Glucose 114 H (74-99) mg/dL Calcium 9.5 (8.4-10.2) mg/dL AST 37 H (14-36) U/L ALT 31 (4-34) U/L Alkaline Phosphatase 74 (38-126) U/L Total Protein 8.0 (6.3-8.2) g/dL Albumin 4.7 (3.5-5.0) g/dL Current Medications Generic Name Dose Route Start Last Admin Trade Name Freq PRN Reason Stop Dose Admin Albuterol Sulfate 2.5 mg 10/17/22 17:51 Albuterol Nebulized 2.5 Mg/3 Ml INHALATION RT-Q4H PRN Shortness Of Breath Ascorbic Acid 1,000 mg 10/18/22 09:00 Ascorbic Acid 500 Mg Tab PO DAILY [facility] Aspirin 81 mg 10/18/22 09:00 Aspirin 81 Mg PO DAILY [facility] Dextrose/Water 25 ml 10/17/22 18:53 Dextrose 50% Syringe 50 Ml IVP PER PROTOCOL PRN Hypoglycemia Protocol Dextrose/Water 50 ml 10/17/22 18:53 Dextrose 50% Syringe 50 Ml IVP PER PROTOCOL PRN Hypoglycemia Protocol Flecainide Acetate 50 mg 10/17/22 21:00 10/17/22 20:12 Flecainide 50 Mg Tab PO 50 mg Q12HR [facility] Administration Fluticasone Propionate 1 puff 10/17/22 20:00 10/17/22 22:09 Fluticasone 44 Mcg Inhaler INHALATION Not Given RT-BID [facility] Heparin Sodium (Porcine) 0 unit 10/17/22 10:47 10/18/22 01:47 Heparin Sodium 1,000 Un/Ml (10ml Vl) IV 4,000 unit PER PROTOCOL PRN Administration Low PTT Protocol Heparin Sodium/Sodium Chloride 250 mls @ 10 mls/hr 10/17/22 11:00 10/18/22 01:50 25,000 unit/ Sodium Chloride IV 13.8 units/kg/hr .Q24H [facility] 17.527 mls/hr Titration Protocol 7.874 UNITS/KG/HR Insulin Aspart 0 unit 10/17/22 21:00 10/18/22 06:11 Insulin Aspart (Novolog) 100 Unit/Ml Vial SQ Not Given ACHS [facility] Protocol Levothyroxine Sodium 50 mcg 10/18/22 07:30 10/18/22 06:36 Levothyroxine 50 Mcg Tab PO 50 mcg AC-BRKFST [facility] Administration Metoprolol Tartrate 25 mg 10/17/22 21:00 10/17/22 20:12 Metoprolol Tartrate 25 Mg Tab PO 25 mg BID [facility] Administration Intake and Output 10/17/22 10/18/22 10/18/22 22:59 06:59 14:59 Intake Total 75 76.587 Balance 75 76.587 Intake: Intake, IV Titration 75 76.587 Amount Heparin Sod,Pork in 0.45% 75 76.587 NaCl 25,000 unit In 0.45 % NaCl 1 250ml.bag @ 7. 874 UNITS/KG/HR 10 mls/hr IV .Q24H [facility] Rx#: [id number] Other: Voiding Method Toilet Toilet # Voids 1 3 10/18/22 07:01 10/17/22 08:25
--- NOTE | 2022-10-18 16:52 | P.DS ---
Providers Date of admission: 10/17/22 10:20 Expected date of discharge: 10/18/22 Attending physician: Tania Cage DO Consults: 10/17/22 09:34 Consult Physician Urgent Consulting Provider: Lux Goetz Consult Reason/Comments: afib Do you want consulting provider notified?: Yes Primary care physician: Robert Jefferson MD Hospital Course: Discharge Diagnosis: Atrial fibrillation with RVR. Resolved patient converted back into normal sinus rhythm. She was evaluated by cardiology and they are recommending patient to follow-up outpatient in their office in 6 months for ablation. Patient discharged home on cardiac medication regimen with metoprolol and Flecainide. Patient has chosen to remain off of anticoagulation due to currently breast- feeding. Hypotension, secondary to A. fib with RVR. Resolved and patient converted back into normal sinus rhythm. Hyperlipidemia, triglycerides 251.0, VLDL 50.20, and HDL of 38.9. Patient encouraged to follow heart healthy and carb consistent diet. Hypothyroidism. TSH normal findings at 1.860. Recommend patient continue daily medication regimen with levothyroxine 50 g each morning. Diabetes mellitus with hyperglycemia. Hemoglobin A1c 6%. Patient to continue with metformin and strongly encourage heart healthy and carb consistent diet. Hospital Course: Patient is a very pleasant 37-year-old female with a past medical history of asthma, hypothyroidism, diabetes mellitus, and atrial fibrillation status post cardioversion and ablation currently on antiarrhythmic Flecainide and not on anticoagulation secondary to recent delivery and currently breast-feeding. Patient reports this morning upon awakening around 3 AM she began feeling lightheaded and felt as though her heart was racing and she reports initially she felt as though she sat up too quickly and tried to go back to sleep but states symptoms persisted and at 7 AM she knew she was back into atrial fibrillation with RVR so she came to the emergency department for evaluation. Patient reports she was previously on flecainide 200 mg daily but this dose was decreased secondary to her recent and delivery on 09/14/22. Patient reports she follows up outpatient with director vaccine, Dr. Chandler. She denies having any recent infections or exposure to known ill contacts, headache, fevers, diaphoresis, chills, chest pain, or experiencing any numbness/swelling/weakness/tingling in her extremities. She does report slight shortness of breath worsens with exertion. She underwent full evaluation in the emergency department. Upon arrival patient was found to be in A. fib RVR with heart rate 150s to 180s and hypotensive with blood pressure of 86/48. EKG was completed confirming atrial fibrillation with a rapid ventricular rate at 153 bpm. Chest x-ray negative for acute cardiopulmonary process at this time upon personal review. Labs completed and reviewed. CBC and coags were unremarkable. CMP revealing hyperchloremia with chloride of 108 and hypocarbia with Index of 20. BUN slightly elevated at 19 and AST of 37. Initial troponin negative at le ss than 0.012. Case was discussed with cardiology and ED physician. Patient was given dose of Flecanaine and admitted for admission under our services with consultation to cardiology. Upon initial examination, patient found to be with persistent RVR 160s to 180s and hypotension with blood pressure of 83/51. Order placed for 1 L bolus IV fluid followed by metoprolol 5 mg IVP. Patient's blood pressure improving to 118/86 and ventricular rate 120s to 140s, an additional dose of metoprolol ordered at this time however prior to administering patient spontaneously converted back into normal sinus rhythm. Patient was admitted under our services with consultation to cardiology and monitored overnight. Troponins trended all negative at less than 0.0123 draws. Lipid profile revealing elevated triglycerides of 251 and VLDL of 50.20. Patient remained in normal sinus rhythm with no further episodes of atrial fibrillation with RVR. She was evaluated by cardiology and they are recommending patient to follow-up outpatient in their office in 6 months for ablation. Patient discharged home on cardiac medication regimen with metoprolol and Flecainide. Patient has chosen to remain off of anticoagulation due to currently breast-feeding. Medically, patient is stable for discharge home. Physical exam: Vital signs reviewed and stable. General: Nontoxic, no distress and appears stated age. Derm: Skin warm and dry, normal coloration for ethnicity. Head: Atraumatic, normocephalic and symmetric. Eyes: EOMs intact, no lid lag, and anicteric sclera Mouth: no lip lesions, mucus membranes moist Cardiovascular: regular rate and rhythm with normal S1S2, no murmur, positive posterior tibial pulses bilaterally, and cap refill < 2 seconds. Lungs: Respirations even, regular, and unlabored on room air. Lungs CTA bilaterally, no rhonchi, no rales, no wheezing, and no accessory muscle usage. Abdominal: soft, nontender to palpation, no guarding, no appreciable organomegaly Ext: ROM intact. No gross muscle atrophy, no edema, no contractures Neuro: Speech clear, face symmetrical and CN II-XII grossly intact with no noted focal neuro deficits Psych: Alert and oriented to person, place, time, and situation. Appropriate and pleasant affect. A total of 32 minutes of time were spent preparing this complex discharge summary. Pt was discharged on 10/18/22 at 11:33 AM. Patient Condition at Discharge: Stable Plan - Discharge Summary New Discharge Prescriptions: Continue metFORMIN HCL [Glucophage] 1,000 mg PO BID Loratadine [Claritin] 10 mg PO DAILY Folic Acid 0.8 mg PO DAILY Levothyroxine Sodium [Synthroid] [facility] Vitamin B Complex 1 cap PO DAILY Metoprolol Tartrate [Lopressor] 25 mg PO BID #120 tab Magnesium Oxide [Magox 400] 400 mg PO BID 30 Days #60 tablet Magnesium Gluconate [Magonate] 500 mg PO DAILY Aspirin EC [Ecotrin Low Dose] 81 mg PO DAILY Pnv No.95/Ferrous Fum/Folic AC [ Multivitamin Tablet] 1 tab PO DAILY Beclomethasone Dipropionate [Qvar 40 mcg Redihaler] 2 puff INHALATION RT-BID Albuterol Sulfate [Proair Respiclick] 2 puff INHALATION RT-Q4H PRN PRN Reason: Shortness Of Breath Flecainide [Tambocor] 50 mg PO BID Ascorbic Acid [Vitamin C] 1,000 mg PO DAILY Biotin 5 mg PO DAILY Discharge Medication List Beclomethasone Dipropionate [Qvar 40 mcg Redihaler] 2 puff INHALATION RT-BID 03/18/21 [History] Pnv No.95/Ferrous Fum/Folic AC [ Multivitamin Tablet] 1 tab PO DAILY 03/18/21 [History] Loratadine [Claritin] 10 mg PO DAILY 07/13/21 [History] metFORMIN HCL [Glucophage] 1,000 mg PO BID 07/13/21 [History] Folic Acid 0.8 mg PO DAILY 09/29/21 [History] Albuterol Sulfate [Proair Respiclick] 2 puff INHALATION RT-Q4H PRN 05/03/22 [History] Levothyroxine Sodium [Synthroid] 50 mcg PO AC-BRKFST 05/03/22 [History] Vitamin B Complex 1 cap PO DAILY 05/08/22 [History] Magnesium Oxide [Magox 400] 400 mg PO BID 30 Days #60 tablet 05/11/22 [Rx] Metoprolol Tartrate [Lopressor] 25 mg PO BID #120 tab 05/11/22 [Rx] Flecainide [Tambocor] 50 mg PO BID 09/14/22 [History] Ascorbic Acid [Vitamin C] 1,000 mg PO DAILY 10/17/22 [History] Aspirin EC [Ecotrin Low Dose] 81 mg PO DAILY 10/17/22 [History] Biotin 5 mg PO DAILY 10/17/22 [History] Magnesium Gluconate [Magonate] 500 mg PO DAILY 10/17/22 [History] Follow up Appointment(s)/Referral(s): Magnus Chandler MD [STAFF PHYSICIAN] - 11/01/22 10:00 am Robert Jefferson MD [Primary Care Provider] - 10/25/22 4:30 pm Jamal Jefferson MD [STAFF PHYSICIAN] - 1-2 days (DISREGARD) Patient Instructions/Handouts: A-fib (Atrial Fibrillation) (DC) Activity/Diet/Wound Care/Special Instructions: Activity: As tolerated. Take breaks as needed. Diet: Heart healthy and carb consistent diet. Avoid salts, or foods with hidden salts such as canned or boxed foods and frozen dinners. Extra salt makes your heart work harder and traps the fluid in your body for longer. Special Instructions: Take all of your medications as directed and remember to keep all of your doctor's appointments and follow-up as needed. Wishing you a truly amazing, happy, and healthy 2022!!! Thank you for allowing us to participate in your care, it was truly a pleasure having you for our patient!!! Discharge Disposition: HOME SELF-CARE
== END 2022-10-18 12:06 | disposition home or self-care (01) ==
LOC: EC 07:54 → 6NMEDSUR 10:20 → 3SCARD 11:49
PROVIDERS: ADMIT Internal Medicine; ATTEND Internal Medicine
DX: I48.0 Paroxysmal atrial fibrillation (principal); I95.9 Hypotension, unspecified; E11.65 Type 2 diabetes mellitus with hyperglycemia; E03.9 Hypothyroidism, unspecified; J45.909 Unspecified asthma, uncomplicated; E87.8 Other disorders of electrolyte and fluid balance, not elsewhere classified; I10 Essential (primary) hypertension; E78.5 Hyperlipidemia, unspecified; G47.30 Sleep apnea, unspecified; K21.9 Gastro-esophageal reflux disease without esophagitis; F41.9 Anxiety disorder, unspecified; F90.9 Attention-deficit hyperactivity disorder, unspecified type; Z79.51 Long term (current) use of inhaled steroids; Z79.84 Long term (current) use of oral hypoglycemic drugs; Z79.890 Hormone replacement therapy; Z79.82 Long term (current) use of aspirin; Z79.899 Other long term (current) drug therapy; Z98.891 History of uterine scar from previous surgery; Z90.49 Acquired absence of other specified parts of digestive tract; Z98.890 Other specified postprocedural states; Z87.891 Personal history of nicotine dependence; Z86.32 Personal history of gestational diabetes; Z82.49 Family history of ischemic heart disease and other diseases of the circulatory system; Z82.3 Family history of stroke; Z84.1 Family history of disorders of kidney and ureter; Z80.3 Family history of malignant neoplasm of breast
CPT/HCPCS: 96376 ×2; 96366 ×3; 96361; 96365; 96375; 99291; 36415; 94640; 93005; 80061; 80053; 84443; 83735; 84484; 85025 ×2; 85610 ×2; 85730 ×2; 83036; 71046; G0378 ×3; J1644 ×4

== ENCOUNTER → 2023-02-27 | Outpatient (CLI) | payer BC ==
[2023-02-27 16:07] LABS: African American GFR (CKD) 108.4 (60.0-200.0); Anion Gap 11.3 mmol/L (10.00-18.00); Carbon Dioxide 25.7 mmol/L (20.0-27.5); Magnesium 1.8 mg/dL (1.5-2.4); Non-African American GFR(CKD) 93.5 (60.0-200.0); Potassium 4.8 mmol/L (3.5-5.5)
[2023-02-27 16:49] LABS: HGB 14.1 g/dL (12.0-15.0); MCH 28.1 pg (27.0-32.0); MCHC 32.8 g/dL (32.0-37.0); MCV 85.8 fL (80.0-97.0); Mean Platelet Volume 11.3 fL (9.5-12.2); NRBC Per 100 WBC 0 /100 WBCS (0.0-0.0); Platelet Count 241 X 10*3/uL (140-440); RBC 5.01 X 10*6/uL (4.10-5.20); RDW 12.5 % (11.5-14.5); WBC 6.45 X 10*3/uL (4.50-10.00)
[2023-02-28 13:49] LABS: Blood Urea Nitrogen 15.6 mg/dL (9.0-27.0)
== END | disposition home or self-care (01) ==
LOC: LABPAT 07:13
PROVIDERS: ATTEND Internal Medicine Clinical Cardiac Electrophysiology
DX: Z01.812 Encounter for preprocedural laboratory examination (principal); I48.0 Paroxysmal atrial fibrillation
CPT/HCPCS: 36415; 80051; 82565; 83735; 84520; 85027

== ENCOUNTER 2023-03-07 09:40 | Day surgery (SDC) | payer BC ==
[2023-03-02 12:06] VITALS: BMI 41.3
[2023-03-07] MEDS ORDERED: SODIUM CHLORIDE 0.9% 1,000 ML IV ONE (10:03)
[2023-03-07] MEDS ORDERED: MIDAZOLAM 1 MG/ML 5 ML VIAL IV STA (12:53)
[2023-03-07] MEDS ORDERED: ALBUTEROL NEBULIZED 2.5 MG/3 ML INHALATION STA (12:56)
[2023-03-07] MEDS ORDERED: SUCCINYLCHOLINE CHLORIDE 200 MG/10 ML VIAL IV ONE (13:20)
[2023-03-07] MEDS ORDERED: MIDAZOLAM 2 MG/2 ML VIAL ONE (13:20)
[2023-03-07] MEDS ORDERED: fentaNYL (PF) 50 MCG/ML 2 ML AMP ONE (13:20)
[2023-03-07] MEDS ORDERED: HEPARIN SODIUM,PORCINE 5,000 UNIT/ML 1 ML VIAL ONE (13:20)
[2023-03-07] MEDS ORDERED: HEPARIN SODIUM,PORCINE 10,000 UNIT/ML 1 ML VIAL ONE (13:20)
[2023-03-07] MEDS ORDERED: HYDROmorphone (PF) 1 MG/ML ONE (13:20)
[2023-03-07] MEDS ORDERED: PROPOFOL 10 MG/ML 20 ML VIAL IV ONE (13:20)
[2023-03-07] MEDS ORDERED: ISOPROTERENOL 250 MCG/1.25 ML SYR IV ONE (13:20)
[2023-03-07] MEDS ORDERED: LIDOCAINE 1% INJ 10MG/ML (20 ML MDV) ONE (13:53)
[2023-03-07] MEDS ORDERED: HEPARIN SOD,PORK IN 0.45% NACL 25,000 UNIT in 0.45% NACL 1 250ML.BAG IV ONE (14:16)
[2023-03-07] MEDS ORDERED: LIDOCAINE 1% INJ 10MG/ML (30 ML VIAL-PF) SQ ONE (14:17)
[2023-03-07] MEDS ORDERED: HEPARIN SODIUM (1,000 UNIT/ML) 1,000 UNIT in SODIUM CHLORIDE 0.9% 1,000 ML IRRIGATION ONE (15:18)
[2023-03-07] MEDS ORDERED: IOPAMIDOL-250 100ML BTL IV ONE (16:32)
[2023-03-07] MEDS ORDERED: LACTATED RINGERS 1,000 ML IV ONE ×2 (18:51)
--- NOTE | 2023-03-07 19:00 | P.HPCAR ---
History of Present Illness This is Dr. Chandler dictating an H/P on this patient The patient was interviewed and examined IMPRESSION / ASSESSMENT: Persistent atrial fibrillation with RVR unresponsive to therapy Prior ablation at [facility] for many years back Failed drug therapy and cardioversions, frequent breakthrough episodes Sick sinus syndrome with sinus pauses up to 5.2 seconds Symptomatic with dizziness and palpitations and chest pain Type 2 diabetes on metformin Hypertension, well controlled Morbid obesity, BMI greater than 41 PLAN: Proceed with ablation for atrial fibrillation Thereafter implantation of loop monitor. The patient has severe ALLERGY to EKG patches and Holter monitor patches. She has sick sinus syndrome and paroxysmal atrial fibrillation BRENDEN VASC score is 3, type 2 diabetes, hypertension, female gender HPI Patient has had frequent breakthrough episodes of atrial fibrillation with RVR very symptomatic despite antiarrhythmic drug therapy and beta blockers She also has sick sinus syndrome with sinus bradycardia and pauses She had a prior ablation at [facility] many years back and now has frequent breakthrough episodes been unresponsive to flecainide ROS: No fever chills or rigors, no cough, phlegm or expectoration, no nausea, vomiting or diarrhea, no hematuria, dysuria, no musculoskeletal complaints, no strokes or seizures, no skin lesions. EXAMINATION: 1 5601 100 mmHg pulse rate in the 70s sinus mechanism afebrile Breath sounds are clear no rhonchi no crackles Normal heart sounds normal without gallop or rub No JVD No lower extremity edema Abdomen soft REVIEW OF LABS, ECG & MEDICAL DATA Medications include metformin magnesium levothyroxine and ELIQUIS Physical Exam Vitals: Vital Signs Temp Pulse Pulse Resp BP Pulse Ox 03/07/23 13:10 75 03/07/23 13:05 72 03/07/23 10:27 97.7 F 77 16 156/102 98 Intake and Output 03/07/23 03/07/23 03/07/23 06:59 14:59 22:59 Intake Total 1130 321 Output Total 500 Balance 1130 -179 Intake: IV 1130 321 Output: Urine 500 Other: Weight 127.2 kg Past Medical History Past Medical History: Atrial Fibrillation, Asthma, GERD/Reflux, Sleep Apnea/CPAP/BIPAP, Thyroid Disorder Additional Past Medical History / Comment(s): CPAP use. PT ON METFORMIN BUT STATES IS NOT DIABETIC History of Any Multi-Drug Resistant Organisms: None Reported Past Surgical History: Cardiac Ablation, Section, Cholecystectomy Additional Past Surgical History / Comment(s): Ablation in 07/2017, gallbladder 10/05. C-SEC X 2 Past Anesthesia/Blood Transfusion Reactions: No Reported Reaction, Motion Sickness Smoking Status: Former smoker - Past Family History Father Family Medical History: CVA/TIA Additional Family Medical History / Comment(s): renal disease, heart failure, strokes ("alot") Mother Family Medical History: Cancer Additional Family Medical History / Comment(s): Breast cancer. Physical Examination Vital Signs Temp Pulse Pulse Resp BP Pulse Ox 03/07/23 13:10 75 03/07/23 13:05 72 03/07/23 10:27 97.7 F 77 16 156/102 98 Intake and Output 03/07/23 03/07/23 03/07/23 06:59 14:59 22:59 Intake Total 1130 321 Output Total 500 Balance 1130 -179 Intake: IV 1130 321 Output: Urine 500 Other: Weight 127.2 kg Results Current Medications Generic Name Dose Route Start Last Admin Trade Name Freq PRN Reason Stop Dose Admin Sodium Chloride 1,000 mls @ 50 mls/hr 03/07/23 05:43 Saline 0.9% IV 04/06/23 05:44 .Q20H [facility]I Intake and Output 03/07/23 03/07/23 03/07/23 06:59 14:59 22:59 Intake Total 1130 321 Output Total 500 Balance 1130 -179 Intake: IV 1130 321 Output: Urine 500 Other: Weight 127.2 kg Patient Weight 03/08/23 06:59 Weight 127.2 kg
--- NOTE | 2023-03-07 19:11 | P.EPPROC ---
- EP Procedure Note Electrophysiology Procedure Note: PROCEDURE A. fib ablation with PVI, linear ablation of the left atrial roof and focal atrial tachycardia ablation outside the right superior pulmonary vein antrum DIAGNOSIS Persistent Atrial fibrillation, symptomatic, refractory to therapy RESULT No left atrial appendage mass seen on intracardiac echo, evidence of pericarditis, normal LV function Successful A. fib ablation/pulmonary vein isolation of all veins using cryo- ablation Complete entrance block in all 4 veins confirmed No evidence for phrenic nerve injury Esophageal deflection YES Very large pulmonary veins Left atrial enlargement Following pulmonary vein isolation and left atrial roof ablation, easily inducible atrial tachycardia, focal Focus just outside the antrum of the right superior pulmonary vein on the anterior wall, successful ablation PROCEDURE DETAILS Written informed consent prior to procedure. Patient brought to the EP lab. General anesthesia given. Heparin administered. A city maintained above 300 seconds Both groins prepped and draped per protocol and venous sheaths placed. Esophagus intubated, circa catheter for temperature monitoring an endoscope for possible esophageal deflection. Phrenic nerve monitoring performed. Esophageal temperature monitoring performed. Esophageal deflection performed if circa catheter overlapping with the balloon or circa temperature less than 27.5C Intracardiac echocardiography performed. Pericardium evaluated. Left atrial appendage evaluated. Left atrium evaluated along with pulmonary veins Transseptal catheterization performed under fluoroscopic guidance and intracardiac echo guidance Cryoablation sheath exchanged, balloon catheter along with achieve catheter placed in the left atrium. Pulmonary veins isolated in the following sequence: Left superior pulmonary vein followed by left inferior pulmonary vein, followed by right inferior pulmonary vein and lastly right superior pulmonary vein. Phrenic nerve stimulation along with capture thresholds within the SVC and right superior pulmonary vein to identify the phrenic nerve proximity to the cryo- balloon. Pulmonary veins isolated and confirmed with entrance and exit block. Phrenic nerve integrity confirmed at the end of the procedure Ablation of the left atrial roof performed with sequential lesions from the left superior to the right superior pulmonary veins. Ablation of the electrograms confirmed Ablation of the left atrial septum performed with cannulation of the superior branch of the right inferior or the inferior branch of the right superior vein to achieve ablation of the posterior septum of the left atrium. Ablation of electrograms confirmed Large effie between the left superior and left inferior pulmonary veins Successful RF ablation along the bridge, in between the effie. Exit block demonstrated in the effie Exit block demonstrated an the right septum and effie between right superior and right inferior pulmonary veins Diagnostic catheters for the high right atrium, His bundle, coronary sinus placed. LA and RA pressures recorded RA pressure: 16 LA pressure: 06/07/12 Diagnostic EP study with coronary sinus pacing and recording. High dose Isuprel used Easily inducible focal atrial tachycardia cycle length of about 420-40 and 40 ms, concentric activation Pentaray catheter used to map the focal atrial tachycardia This was mapped to the anterior wall of the left atrium outside the completely isolated right superior pulmonary vein antrum Successful ablation of the site and the tachycardia was rendered noninducible Repeat high dose Isuprel and burst stimulation as well as extra stimulation of triple extrastimuli Noninducibility of any atrial fibrillation or atrial tachycardia at the end of the procedure Venous sheaths were removed and hemostasis assured with a closure device. Patient extubated and transferred to recovery Increase procedural time During ablation multiple attempts had to be made to move the esophagus a safe distance of the from the pulmonary vein draining cryoablation, to avoid excessive thermal cooling of the esophagus This took extra time and effort to keep the esophagus a safe distance away from the cryoablation balloon. During ablation of the right-sided veins, phrenic nerve stimulation was noted w ithin the right-sided veins. The cryo balloon in close proximity to this location, during standard technique for occlusion of the vein, posing a risk to the phrenic nerve. Therefore the balloon was repositioned around the antrum in a roving fashion to isolate the vein at an extra ostial level to minimize the risk of phrenic nerve injury. The right-sided veins were completely and successfully isolated with this extra effort. Patient had very large right superior pulmonary vein and the foot antral ablation applied to stay clear of the phrenic nerve Multiple attempts needed for successful cryoablation isolation of the pulmonary vein. This was true of all pulmonary veins since the were very large Extra ablation had to be performed using RF isolate the effie with the left superior and left inferior pulmonary veins, large Between the left superior and left inferior pulmonary veins Exit block was confirmed in the effie PROCEDURES PERFORMED Diagnostic EP study with arrhythmia induction CS pacing and recording Left and right transseptal catheterization 3-D mapping of the tachycardia Intracardiac echocardiography Pulmonary vein isolation with transseptal and comprehensive EPS, 48782 Extended procedure duration Drug infusion, +51171 Left atrial roof line, +49079 Focal ablation of atrial tachycardia anterior wall LA, +[id number]
--- NOTE | 2023-03-07 19:14 | P.PRLE ---
RE: Cyndy Landers Dear Dr. Ronny Naylor underwent A. fib ablation and atrial tachycardia ablation for recurrent persistent atrial fibrillation with RVR At the end of the procedure there was no inducible atrial fibrillation or atrial tachycardia She will continue ELIQUIS since her BRENDEN VASC score is 3 including female gender, diabetes and hypertension She also has sick sinus syndrome with sinus pauses up greater than 5 seconds and therefore loop monitor was also implanted She will continue all other medications as before If any questions please not hysterectomy a call Sincerely Magnus Chandler
[2023-03-07] MEDS: SODIUM CHLORIDE 0.9% 1,000 ML IV SCH ×2 (21:06→23:31)
[2023-03-07] MEDS: APIXABAN 5 MG TAB PO SCH (22:20)
[2023-03-07] MEDS: ACETAMINOPHEN TAB 325 MG TAB PO PRN (22:20)
[2023-03-08] MEDS ORDERED: LEVOTHYROXINE 50 MCG TAB PO SCH (07:30)
[2023-03-08] MEDS: APIXABAN 5 MG TAB PO SCH (08:14)
[2023-03-08] MEDS: ACETAMINOPHEN TAB 325 MG TAB PO PRN (08:16)
--- NOTE | 2023-03-08 09:07 | P.DS ---
Providers Attending physician: Magnus Chandler Primary care physician: Robert Jefferson MD Hospital Course: This is a 38-year-old female who underwent A. fib ablation and loop recorder implantation. Patient is doing well this morning with no postprocedural complications. She denies chest pain or pressure. She denies shortness of breath. She does report some discomfort at the loop recorder insertion site. Vital signs are stable. Telemetry reveals sinus mechanism. She was deemed stable for discharge home today. Discharge diagnosis Persistent atrial fibrillation, status post A. fib ablation with PVI, linear ablation of the left atrial roof and focal atrial tachycardia ablation outside t he right superior pulmonary vein antrum Sick sinus syndrome, status post loop recorder implantation Nurse practitioner note has been reviewed by physician. Signing provider agrees with the documented findings, assessment, and plan of care. Plan - Discharge Summary Discharge Rx Participant: Yes New Discharge Prescriptions: Continue metFORMIN HCL [Glucophage] 1,000 mg PO BID Loratadine [Claritin] 10 mg PO DAILY Levothyroxine Sodium [Synthroid] 50 mcg PO AC-BRKFST Vitamin B Complex 1 cap PO DAILY Magnesium Gluconate [Magonate] 500 mg PO DAILY Pnv No.95/Ferrous Fum/Folic AC [ Multivitamin Tablet] 1 tab PO DAILY Beclomethasone Dipropionate [Qvar 40 mcg Redihaler] 2 puff INHALATION RT-BID Albuterol Sulfate [Proair Respiclick] 2 puff INHALATION RT-Q4H PRN PRN Reason: Shortness Of Breath Ascorbic Acid [Vitamin C] 1,000 mg PO DAILY Biotin 5 mg PO DAILY Apixaban [Eliquis] 5 mg PO BID Discharge Medication List Beclomethasone Dipropionate [Qvar 40 mcg Redihaler] 2 puff INHALATION RT-BID 03/18/21 [History] Pnv No.95/Ferrous Fum/Folic AC [ Multivitamin Tablet] 1 tab PO DAILY 03/18/21 [History] Loratadine [Claritin] 10 mg PO DAILY 07/13/21 [History] metFORMIN HCL [Glucophage] 1,000 mg PO BID 07/13/21 [History] Albuterol Sulfate [Proair Respiclick] 2 puff INHALATION RT-Q4H PRN 05/03/22 [History] Levothyroxine Sodium [Synthroid] 50 mcg PO AC-BRKFST 05/03/22 [History] Vitamin B Complex 1 cap PO DAILY 05/08/22 [History] Ascorbic Acid [Vitamin C] 1,000 mg PO DAILY 10/17/22 [History] Biotin 5 mg PO DAILY 10/17/22 [History] Magnesium Gluconate [Magonate] 500 mg PO DAILY 10/17/22 [History] Apixaban [Eliquis] 5 mg PO BID 03/02/23 [History] Follow up Appointment(s)/Referral(s): Magnus Chandler MD [STAFF PHYSICIAN] - 1 Week Activity/Diet/Wound Care/Special Instructions: Post EP study - Ablation instructions 1. Keep access sites dry for 2 days. 2. No heavy lifting or straining for 2 days. 3. Avoid bending the hips repeatedly for 2 days. 4. You may go up and down stairs slowly Call if the following is noted 1. Bleeding, increasing swelling or pain at the access sites. 2. Increasing chest discomfort, especially upon taking a deep breath. 3. Increasing shortness of breath, at rest or with exertion. 4. Undue cough / phlegm 5. Difficulty or pain while swallowing. 6. Pain or change in color in the extremities. 7. Fever, chills, rigors. 8. Increasing headache or neurologic symptoms. 9. Dizziness, fainting, palpitations Continue ELIQUIS for [address] Chandler in 1 week Discharge Disposition: HOME SELF-CARE
[2023-03-08 13:59] VITALS: BP 142/88; PULSE 72; RESP 15; TEMP 98.3
--- NOTE | 2023-03-08 14:08 | DS ---
DISCHARGE SUMMARY This is a 38-year-old female with morbid obesity and history of recurrent persistent atrial fibrillation with RVR, very symptomatic, who has failed prior therapy including an atrial fibrillation ablation 7 years back at [facility] as well as flecainide and beta blockers. She was brought in for a redo atrial fibrillation ablation yesterday. She underwent successful antral level isolation of all pulmonary veins and left atrial roof line. Following that, the diagnostic EP study did not induce any atrial fibrillation. However, we were able to induce an atrial tachycardia consistently and repeatedly. This was the only inducible arrhythmia after her atrial fibrillation ablation. The atrial tachycardia had a concentric activation and was mapped to the anterior wall of the left atrium, just outside the antrum of the right superior pulmonary vein. She underwent successful ablation for this and the tachycardia was rendered noninducible. She had very large pulmonary veins and dilated left atrium. She also underwent carinal ablation, in between the left superior and left inferior pulmonary veins with radiofrequency applications successfully and exit block was proven in this segment. The left superior and left inferior pulmonary veins were completely isolated, she had a carinal segment that could not be addressed with a cryo balloon given the relative sizes of the pulmonary veins and the cryo-balloon. Of note, today she is doing well. She is resting comfortably in bed. She underwent implantation of a loop monitor since she has severe allergy to EKG patches such as Holter monitors and event monitors. Heart sounds are normal. Breath sounds are clear. Groins have healed well. No hematoma. IMPRESSION: Recurrent persistent atrial fibrillation that has failed prior treatment. Successful antral level isolation of the pulmonary veins, linear ablation of left atrial roof and linear ablation in the left-sided ridge and the effie in between the pulmonary veins on the left side. Residual, inducible atrial tachycardia on the anterior wall of the left atrium outside the right superior pulmonary vein antrum. Successful ablation performed. PLAN: Ambulate today. Discharge home by 3 p.m. if hemodynamically stable. Continue Eliquis for a minimum of 3 months. Discontinue metoprolol and flecainide. Risk factors include morbid obesity, dilated left atrium. However, she does not have a history of diabetes according to the patient. She takes metformin for PCOS that was prescribed by her sample worker. I will reassess for hypertension and diabetes within the next 1 to 3 months to re- classify her CHADS-Vasc score to make decision regarding long-term anticoagulation. MMODL / IJN: [id number] /
--- NOTE | 2023-03-09 19:53 | P.EPPROC ---
- EP Procedure Note Electrophysiology Procedure Note: Loop monitor implant Primary physicians: Asphalt Spreader Operator: Dr. Chandler Indication: Recurrent paroxysmal atrial fibrillation, sick sinus syndrome, severe skin reaction to ECG patches Patient was brought to the EP lab in a fasting state. Written informed consent was obtained prior to the procedure. The left pectoral area was prepped and draped per protocol. Intravenous antibiotic was administered preoperatively. A subcutaneous Loop monitor was implanted successfully and the wound was closed per protocol. The device was programmed to detect significant stephon- arrhythmic and tachy-arrhythmic events, per protocol. Device and programming details: Programmed to detect atrial fibrillation and significant bradycardia and pauses
== END 2023-03-08 15:00 | disposition home or self-care (01) ==
LOC: CATHEP 09:40 → 6NMEDSUR 18:27 → CATHEP 03-08 15:00
PROVIDERS: ATTEND Internal Medicine Clinical Cardiac Electrophysiology
DX: I48.19 Other persistent atrial fibrillation (principal); I49.5 Sick sinus syndrome; I47.1 Supraventricular tachycardia; E11.9 Type 2 diabetes mellitus without complications; I10 Essential (primary) hypertension; E66.01 Morbid (severe) obesity due to excess calories; Z68.41 Body mass index [BMI] 40.0-44.9, adult; Z79.84 Long term (current) use of oral hypoglycemic drugs; Z70.1 Counseling related to patient's sexual behavior and orientation; G47.33 Obstructive sleep apnea (adult) (pediatric); Z79.82 Long term (current) use of aspirin; Z79.899 Other long term (current) drug therapy
CPT/HCPCS: 94640; 93623; 93655; 93656; 93657; 86900; 86901; 86850; 84703; C1759; C1894 ×2; C1769 ×2; C1760; C1766 ×2; C1764; C1730 ×2; C1731; C1893; C1733; C1732; J2250 ×2; J0330; J1644 ×4; J0690; J2001; J3010; J1170; J2704; Q9966; 93662

== ENCOUNTER 2023-04-15 23:09 | Emergency (ER) | payer BC ==
[2023-04-15 23:28] VITALS: TEMP 97.2
--- NOTE | 2023-04-16 00:18 | XR ---
EXAMINATION TYPE: XR chest 2V DATE OF EXAM: 04/16/2023 COMPARISON: 10/17/2022 INDICATION: Chest pain TECHNIQUE: Frontal and lateral views of the chest are obtained. FINDINGS: The heart size is normal. The pulmonary vasculature is normal. The lungs are clear. The loop recorder is present. IMPRESSION: 1. No acute pulmonary process.
[2023-04-16 00:26] LABS: ALT 121 U/L (4-34); AST 86 U/L (14-36); African American GFR (CKD) >90 (>60 ml/min/1.73 sqM); Albumin 4.6 g/dL (3.5-5.0); Alkaline Phosphatase 72 U/L (38-126); Anion Gap 11 mmol/L; Blood Urea Nitrogen 14 mg/dL (7-17); Calcium 10.1 mg/dL (8.4-10.2); Carbon Dioxide 21 mmol/L (22-30); Chloride 106 mmol/L (98-107); Glucose 114 mg/dL (74-99); Non-African American GFR(CKD) >90 (>60 ml/min/1.73 sqM); Potassium 4.1 mmol/L (3.5-5.1); Sodium 138 mmol/L (137-145); Total Bilirubin 0.6 mg/dL (0.2-1.3); Total Protein 7.4 g/dL (6.3-8.2)
[2023-04-16 00:30] LABS: Basophils % (A) 0 %; Eosinophils # (A) 0.1 k/uL (0-0.7); Eosinophils % (A) 1 %; HCT 40.1 % (34.0-46.0); HGB 13.5 gm/dL (11.4-16.0); Lymphocytes # (A) 2.3 k/uL (1.0-4.8); Lymphocytes % (A) 21 %; MCH 28.4 pg (25.0-35.0); MCHC 33.7 g/dL (31.0-37.0); MCV 84.1 fL (80.0-100.0); Monocytes # (A) 0.6 k/uL (0-1.0); Monocytes % (A) 6 %; Neutrophils # (A) 7.6 k/uL (1.3-7.7); Neutrophils % (A) 69 %; Platelet Count 287 k/uL (150-450); RBC 4.77 m/uL (3.80-5.40); RDW 12.9 % (11.5-15.5)
[2023-04-16 00:33] LABS: INR 0.9 (<1.2); Partial Thromboplastin Time 26.2 sec (22.0-30.0); Prothrombin Time 9.7 sec (9.0-12.0)
--- NOTE | 2023-04-16 00:47 | ED ---
Chest Pain HPI - General Chief Complaint: Chest Pain Stated Complaint: Chest pain Time Seen by Provider: 04/16/23 00:38 Source: patient, RN notes reviewed, old records reviewed Mode of arrival: ambulatory Limitations: no limitations - History of Present Illness Initial Comments: This is a 38-year-old female to the emergency department for evaluation patient Dese for evaluation regards to chest pain left-sided chest pain. Patient began with chest pain while she was riding a [id number] earlier in the day. Patient awoke tonight with persistent chest pain. No travel show sick contacts no other complaints. No somatic injury no fevers no cough or congestion. Patient believes she is having arrhythmia or chest pain currently. History of A. fib oc casionally does get for chest pain. Patient is on blood thinners. MD Complaint: chest pain -: hour(s) Onset: during rest, during exertion, awoke with symptoms Pain Location: left chest Pain Radiation: none Severity: moderate Severity scale (1-10): 6 Quality: aching, sharp Consistency: constant Improves With: nothing Worsens With: nothing Anginal Symptoms: dyspnea Other Symptoms: palpitations Treatments Prior to Arrival: none - Related Data Home Medications Medication Instructions Recorded Confirmed Pnv No.95/Ferrous Fum/Folic AC 1 tab PO DAILY 03/18/21 04/18/23 [ Multivitamin Tablet] metFORMIN HCL [Glucophage] 1,000 mg PO BID 07/13/21 04/18/23 Levothyroxine Sodium [Synthroid] 50 mcg PO DAILY 05/03/22 04/18/23 Vitamin B Complex 1 cap PO DAILY 05/08/22 04/18/23 Ascorbic Acid [Vitamin C] 1,000 mg PO DAILY 10/17/22 04/18/23 Apixaban [Eliquis] 5 mg PO BID 03/02/23 04/18/23 Albuterol Sulfate [Albuterol 2 puff PO RT-Q6H PRN 04/18/23 04/18/23 Sulfate Hfa] Aspirin EC [Ecotrin Low Dose] 81 mg PO DAILY 04/18/23 04/18/23 Calcium Carbonate [Calcium] 600 mg PO DAILY 04/18/23 04/18/23 Cholecalciferol [Vitamin D3 (25 25 mcg PO DAILY 04/18/23 04/18/23 Mcg = 1000 Iu)] Previous Rx's Medication Instructions Recorded Dronedarone HCl [Multaq] 400 mg PO BID #180 tablet 04/19/23 Allergies Allergy/AdvReac Type Severity Reaction Status Date / Time No Known Allergies Allergy Verified 04/18/23 21:16 Review of Systems ROS Statement: Those systems with pertinent positive or pertinent negative responses have been documented in the HPI. ROS Other: All systems not noted in ROS Statement are negative. EKG Findings - EKG Comments: EKG Findings:: EKG is sinus 85 WV 158 QRS 74 QTc 402 Past Medical History Past Medical History: Atrial Fibrillation, Asthma, GERD/Reflux, Sleep Apnea/CPAP/BIPAP, Thyroid Disorder Additional Past Medical History / Comment(s): CPAP use. PT ON METFORMIN BUT STATES IS NOT DIABETIC History of Any Multi-Drug Resistant Organisms: None Reported Past Surgical History: Cardiac Ablation, Section, Cholecystectomy Additional Past Surgical History / Comment(s): Ablation in 07/2017, gallbladder 10/05. C-SEC X 2. Ablation in February 2023 Past Anesthesia/Blood Transfusion Reactions: No Reported Reaction, Motion Sickness Past Psychological History: ADD/ADHD, Anxiety Smoking Status: Former smoker Past Alcohol Use History: Occasional Past Drug Use History: None Reported - Past Family History Father Family Medical History: CVA/TIA Additional Family Medical History / Comment(s): renal disease, heart failure, strokes ("alot") Mother Family Medical History: Cancer Additional Family Medical History / Comment(s): Breast cancer. General Exam - General Exam Comments Initial Comments: Chest wall tenderness General appearance: alert, in no apparent distress, anxious Head exam: Present: atraumatic, normocephalic, normal inspection Eye exam: Present: normal appearance, PERRL, EOMI. Absent: scleral icterus, conjunctival injection, periorbital swelling ENT exam: Present: normal exam, mucous membranes moist Neck exam: Present: normal inspection. Absent: tenderness, meningismus, lymphadenopathy Respiratory exam: Present: normal lung sounds bilaterally. Absent: respiratory distress, wheezes, rales, rhonchi, stridor Cardiovascular Exam: Present: regular rate, normal rhythm, normal heart sounds. Absent: systolic murmur, diastolic murmur, rubs, gallop, clicks GI/Abdominal exam: Present: soft, normal bowel sounds. Absent: distended, tenderness, guarding, rebound, rigid Extremities exam: Present: normal inspection, full ROM, normal capillary refill. Absent: tenderness, pedal edema, joint swelling, calf tenderness Back exam: Present: normal inspection Neurological exam: Present: alert, oriented X3, CN II-XII intact Psychiatric exam: Present: normal affect, normal mood Skin exam: Present: warm, dry, intact, normal color. Absent: rash Course Vital Signs 04/15/23 04/16/23 04/16/23 23:20 00:50 02:05 Temperature 97.2 F L Pulse Rate 79 83 87 Respiratory 18 15 16 Rate Blood Pressure 129/82 129/86 O2 Sat by Pulse 100 99 98 Oximetry - Reevaluation(s) Reevaluation #1: 04/16/23 06:50 Medical records reviewed Reevaluation #2: 04/16/23 06:50 Patient symptoms are improving Reevaluation #3: 04/16/23 06:50 Patient informed of results and questions are answered Imaging Chest x-ray negative for acute disease interpreted by me Reevaluation #4: 04/16/23 06:50 Was pt. sent in by a medical professional or institution? @ -no Did you speak to anyone other than the patient for history? @ -no Did you review nursing and triage notes? @ -agree Were old charts reviewed? @ -yes Differential Diagnosis? @ -prior EKG interpreted by me (3pts min.)? @ -yes X-rays interpreted by me (1pt min.)? @ -yes CT interpreted by me (1pt min.)? @ -no U/S interpreted by me (1pt. min.)? @ -no What testing was considered but not performed? (CT, X-rays, U/S, labs)? Why? @ -no What meds were considered but not given? Why? @ -no Did you discuss the management of the patient with other professionals? @ -no Did you reconcile home meds? @ -no Was smoking cessation discussed for >3mins.? @ -no Was critical care preformed (if so, how long)? @ -no Were there social determinants of health that impacted care today? How? (Homelessness, low income, unemployed, alcoholism, drug addiction, transportation, low edu. Level, literacy, decrease access to med. care, nursing home, rehab)? @ -no Was there de-escalation of care discussed even if they declined? (Discuss DNR or withdrawal of care, Hospice)? @ -no What co-morbidities impacted this encounter? (DM, HTN, Smoking, COPD, CAD, Cancer, CVA, Hep., AIDS, mental health diagnosis, sleep apnea, morbid obesity)? @ -none Was patient admitted / discharged? @ -38 female to the emergency department today for evaluation of chest pain and left-sided chest pain mechanical in nature worse with palpation. History of A. fib not currently nature fibrillation. Patient's chest pain is still here in the ER although improving. Patient is on blood thinners no chance for likely PE and DVT. Patient can be discharged home Discharge Undiagnosed new problem with uncertain prognosis? @ -no Drug Therapy requiring intensive monitoring for toxicity (Heparin, Nitro, Insulin, Cardizem)? @ -no Were any procedures done? @ -no Diagnosis/symptom? @ -Chest pain Acute, or Chronic, or Acute on Chronic? @ -acute Uncomplicated (without systemic symptoms) or Complicated (systemic symptoms)? @ -complicated Side effects of treatment? @ -no Exacerbation, Progression, or Severe Exacerbation] @ -no Poses a threat to life or bodily function? @ -yes with chest pain and arrhythmia Reevaluation #5: 04/16/23 06:50 Differential Chest Pain: Stable Angina, Unstable Angina, STEMI, NSTEMI Aortic Dissection, Pneumothorax, Musculoskeletal, Esophageal Spasm GERD, Cholecystitis, Pancreatitis, Zoster, this is not meant to be an all-inclusive list. Chest Pain MDM - MDM 38 female to the emergency department today for evaluation of chest pain and left-sided chest pain mechanical in nature worse with palpation. History of A. fib not currently nature fibrillation. Patient's chest pain is still here in the ER although improving. Patient is on blood thinners no chance for likely PE and DVT. Patient can be discharged home Disposition Clinical Impression: Atypical chest pain, Chest pain Disposition: HOME SELF-CARE Condition: Good Instructions (If sedation given, give patient instructions): Costochondritis (ED) Is patient prescribed a controlled substance at d/c from ED?: No Referrals: Robert Jefferson MD [Primary Care Provider] - 1-2 days Time of Disposition: 01:40
[2023-04-16] MEDS ORDERED: ACETAMINOPHEN TAB 500 MG TAB PO STA (01:55)
[2023-04-16] MEDS ORDERED: KETOROLAC 15 MG/ML 1 ML VIAL IVP STA (01:55)
[2023-04-16 02:06] VITALS: BP 129/86; PULSE 87; RESP 16
== END 2023-04-16 02:05 | disposition home or self-care (01) ==
LOC: EC 23:09
DX: R07.89 Other chest pain (principal); J45.909 Unspecified asthma, uncomplicated; I48.91 Unspecified atrial fibrillation; E07.9 Disorder of thyroid, unspecified; Z87.891 Personal history of nicotine dependence; Z79.890 Hormone replacement therapy; Z79.82 Long term (current) use of aspirin; Z79.01 Long term (current) use of anticoagulants; Z79.899 Other long term (current) drug therapy
CPT/HCPCS: 36415; 93005; 80053; 84484; 85025; 85610; 85730; 71046; 99285; 96374; J1885; 99284

== ENCOUNTER 2023-04-18 18:14 | Observation (INO) | payer BC ==
[2023-04-18] MEDS ORDERED: SODIUM CHLORIDE 0.9% 1,000 ML IV STA (18:56)
--- NOTE | 2023-04-18 18:56 | ED ---
Arrhythmia/Palpitations HPI - General Chief Complaint: Arrhythmia/Palpitations Stated Complaint: Afib Time Seen by Provider: 04/18/23 18:55 Source: patient, RN notes reviewed, old records reviewed Mode of arrival: ambulatory Limitations: no limitations - History of Present Illness Initial Comments: This is a 30-year-old female DF for evaluation. Patient presents today for evaluation regards to elevated heart rate fast heart rate atrial fibrillation w ith RVR and chest pain. Patient did take eczema couple prior to arrival MD Complaint: rapid heart beat, "heart racing", irregular heart beat, atrial fibrillation -: hour(s), days(s) Context: occurred during rest Arrhythmia History: atrial fibrillation Associated Symptoms: chest pain Treatments Prior to Arrival: other (0) - Related Data Home Medications Medication Instructions Recorded Confirmed Beclomethasone Dipropionate [Qvar 2 puff INHALATION RT-BID 03/18/21 03/07/23 40 mcg Redihaler] Pnv No.95/Ferrous Fum/Folic AC 1 tab PO DAILY 03/18/21 03/07/23 [ Multivitamin Tablet] Loratadine [Claritin] 10 mg PO DAILY 07/13/21 03/07/23 metFORMIN HCL [Glucophage] 1,000 mg PO BID 07/13/21 03/07/23 Albuterol Sulfate [Proair 2 puff INHALATION RT-Q4H PRN 05/03/22 03/07/23 Respiclick] Levothyroxine Sodium [Synthroid] 50 mcg PO AC-BRKFST 05/03/22 03/07/23 Vitamin B Complex 1 cap PO DAILY 05/08/22 03/07/23 Ascorbic Acid [Vitamin C] 1,000 mg PO DAILY 10/17/22 03/07/23 Biotin 5 mg PO DAILY 10/17/22 03/07/23 Magnesium Gluconate [Magonate] 500 mg PO DAILY 10/17/22 03/07/23 Apixaban [Eliquis] 5 mg PO BID 03/02/23 03/07/23 Allergies Allergy/AdvReac Type Severity Reaction Status Date / Time No Known Allergies Allergy Verified 04/18/23 18:20 Review of Systems ROS Statement: Those systems with pertinent positive or pertinent negative responses have been documented in the HPI. ROS Other: All systems not noted in ROS Statement are negative. Past Medical History Past Medical History: Atrial Fibrillation, Asthma, GERD/Reflux, Sleep Apnea/CPAP/BIPAP, Thyroid Disorder Additional Past Medical History / Comment(s): CPAP use. PT ON METFORMIN BUT STATES IS NOT DIABETIC History of Any Multi-Drug Resistant Organisms: None Reported Past Surgical History: Cardiac Ablation, Section, Cholecystectomy Additional Past Surgical History / Comment(s): Ablation in 07/2017, gallbladder 10/05. C-SEC X 2. Ablation in February 2023 Past Anesthesia/Blood Transfusion Reactions: No Reported Reaction, Motion Sickness Past Psychological History: ADD/ADHD, Anxiety Smoking Status: Former smoker Past Alcohol Use History: Occasional Past Drug Use History: None Reported - Past Family History Father Family Medical History: CVA/TIA Additional Family Medical History / Comment(s): renal disease, heart failure, strokes ("alot") Mother Family Medical History: Cancer Additional Family Medical History / Comment(s): Breast cancer. General Exam Limitations: no limitations General appearance: alert, in no apparent distress, anxious Head exam: Present: atraumatic, normocephalic, normal inspection Eye exam: Present: normal appearance, PERRL, EOMI. Absent: scleral icterus, conjunctival injection, periorbital swelling ENT exam: Present: normal exam, mucous membranes moist Neck exam: Present: normal inspection. Absent: tenderness, meningismus, lymphadenopathy Respiratory exam: Present: normal lung sounds bilaterally. Absent: respiratory distress, wheezes, rales, rhonchi, stridor Cardiovascular Exam: Present: tachycardia, irregular rhythm, normal heart sounds. Absent: systolic murmur, diastolic murmur, rubs, gallop, clicks GI/Abdominal exam: Present: soft, normal bowel sounds. Absent: distended, tenderness, guarding, rebound, rigid Extremities exam: Present: normal inspection, full ROM, normal capillary refill. Absent: tenderness, pedal edema, joint swelling, calf tenderness Back exam: Present: normal inspection Neurological exam: Present: alert, oriented X3, CN II-XII intact Psychiatric exam: Present: normal affect, normal mood Skin exam: Present: warm, dry, intact, normal color. Absent: rash Course Vital Signs 04/18/23 04/18/23 04/18/23 18:17 19:21 19:39 Temperature 98.0 F Pulse Rate 64 150 H 125 H Respiratory 18 16 16 Rate Blood Pressure 98/58 91/71 72/60 O2 Sat by Pulse 97 98 97 Oximetry 04/18/23 20:00 Temperature Pulse Rate 145 H Respiratory 16 Rate Blood Pressure 105/69 O2 Sat by Pulse 97 Oximetry - Reevaluation(s) Reevaluation #4: 04/18/23 19:46 Was pt. sent in by a medical professional or institution? @ -no Did you speak to anyone other than the patient for history? @ -no Did you review nursing and triage notes? @ -agree Were old charts reviewed? @ -yes Differential Diagnosis? @ -prior EKG interpreted by me (3pts min.)? @ -yes X-rays interpreted by me (1pt min.)? @ -yes CT interpreted by me (1pt min.)? @ -no U/S interpreted by me (1pt. min.)? @ -no What testing was considered but not performed? (CT, X-rays, U/S, labs)? Why? @ -no What meds were considered but not given? Why? @ -no Did you discuss the management of the patient with other professionals? @ -no Did you reconcile home meds? @ -no Was smoking cessation discussed for >3mins.? @ -no Was critical care preformed (if so, how long)? @ -no Were there social determinants of health that impacted care today? How? (Homelessness, low income, unemployed, alcoholism, drug addiction, transportation, low edu. Level, literacy, decrease access to med. care, fci, r ehab)? @ -no Was there de-escalation of care discussed even if they declined? (Discuss DNR or withdrawal of care, Hospice)? @ -no What co-morbidities impacted this encounter? (DM, HTN, Smoking, COPD, CAD, Cancer, CVA, Hep., AIDS, mental health diagnosis, sleep apnea, morbid obesity)? @ -none Was patient admitted / discharged? @ - Undiagnosed new problem with uncertain prognosis? @ -no Drug Therapy requiring intensive monitoring for toxicity (Heparin, Nitro, Insulin, Cardizem)? @ -no Were any procedures done? @ -no Diagnosis/symptom? @ - Acute, or Chronic, or Acute on Chronic? @ -acute Uncomplicated (without systemic symptoms) or Complicated (systemic symptoms)? @ -complicated Side effects of treatment? @ -no Exacerbation, Progression, or Severe Exacerbation] @ -no Poses a threat to life or bodily function? @ -yes EKG Findings - EKG Comments: EKG Findings:: EKG is A. fib with RVR 147 QRS 77 QTC 344 Medical Decision Making - Medical Decision Making 30 female in atrial fibrillation found to be nature fibrillation with tachycardia and right RVR here in the ER. Patient will be admitted for cardiology to see and evaluate, blood pressures are soft - Lab Data Result diagrams: 04/18/23 18:56 04/18/23 18:56 Lab Results 04/18/23 04/18/23 04/18/23 Range/Units 18:56 18:56 18:56 WBC 8.9 (3.8-10.6) k/uL RBC 4.90 (3.80-5.40) m/uL Hgb 14.0 (11.4-16.0) gm/dL Hct 41.5 (34.0-46.0) % MCV 84.6 (80.0-100.0) fL MCH 28.6 (25.0-35.0) pg MCHC 33.8 (31.0-37.0) g/dL RDW 12.7 (11.5-15.5) % Plt Count 331 (150-450) k/uL MPV 9.0 Neutrophils % 54 % Lymphocytes % 37 % Monocytes % 5 % Eosinophils % 2 % Basophils % 0 % Neutrophils # 4.8 (1.3-7.7) k/uL Lymphocytes # 3.3 (1.0-4.8) k/uL Monocytes # 0.4 (0-1.0) k/uL Eosinophils # 0.2 (0-0.7) k/uL Basophils # 0.0 (0-0.2) k/uL PT 9.7 (9.0-12.0) sec INR 0.9 (<1.2) APTT 28.2 (22.0-30.0) sec Sodium 140 (137-145) mmol/L Potassium 4.2 (3.5-5.1) mmol/L Chloride 107 (98-107) mmol/L Carbon Dioxide 19 L (22-30) mmol/L Anion Gap 14 mmol/L BUN 14 (7-17) mg/dL Creatinine 0.80 (0.52-1.04) mg/dL Est GFR (CKD-EPI)AfAm >90 (>60 ml/min/1.73 sqM) Est GFR (CKD-EPI)NonAf >90 (>60 ml/min/1.73 sqM) Glucose 102 H (74-99) mg/dL Calcium 10.1 (8.4-10.2) mg/dL Phosphorus 5.1 H (2.5-4.5) mg/dL Magnesium 1.9 (1.6-2.3) mg/dL Total Bilirubin 0.4 (0.2-1.3) mg/dL AST 46 H (14-36) U/L ALT 91 H (4-34) U/L Alkaline Phosphatase 90 (38-126) U/L Troponin I (0.000-0.034) ng/mL Total Protein 7.5 (6.3-8.2) g/dL Albumin 4.6 (3.5-5.0) g/dL 04/18/23 Range/Units 18:56 WBC (3.8-10.6) k/uL RBC (3.80-5.40) m/uL Hgb (11.4-16.0) gm/dL Hct (34.0-46.0) % MCV (80.0-100.0) fL MCH (25.0-35.0) pg MCHC (31.0-37.0) g/dL RDW (11.5-15.5) % Plt Count (150-450) k/uL MPV Neutrophils % % Lymphocytes % % Monocytes % % Eosinophils % % Basophils % % Neutrophils # (1.3-7.7) k/uL Lymphocytes # (1.0-4.8) k/uL Monocytes # (0-1.0) k/uL Eosinophils # (0-0.7) k/uL Basophils # (0-0.2) k/uL PT (9.0-12.0) sec INR (<1.2) APTT (22.0-30.0) sec Sodium (137-145) mmol/L Potassium (3.5-5.1) mmol/L Chloride (98-107) mmol/L Carbon Dioxide (22-30) mmol/L Anion Gap mmol/L BUN (7-17) mg/dL Creatinine (0.52-1.04) mg/dL Est GFR (CKD-EPI)AfAm (>60 ml/min/1.73 sqM) Est GFR (CKD-EPI)NonAf (>60 ml/min/1.73 sqM) Glucose (74-99) mg/dL Calcium (8.4-10.2) mg/dL Phosphorus (2.5-4.5) mg/dL Magnesium (1.6-2.3) mg/dL Total Bilirubin (0.2-1.3) mg/dL AST (14-36) U/L ALT (4-34) U/L Alkaline Phosphatase (38-126) U/L Troponin I <0.012 (0.000-0.034) ng/mL Total Protein (6.3-8.2) g/dL Albumin (3.5-5.0) g/dL Disposition Clinical Impression: Atrial fibrillation, Tachycardia, Palpitations, Atrial fibrillation with rapid ventricular response Disposition: ADMITTED IP TO THIS HOSP Condition: Good Instructions (If sedation given, give patient instructions): Heart Palpitations (ED) Is patient prescribed a controlled substance at d/c from ED?: No Referrals: Robert Jefferson MD [Primary Care Provider] - 1-2 days Time of Disposition: 20:40
[2023-04-18] MEDS ORDERED: METOPROLOL TARTRATE 5 MG/5 ML VIAL IVP STA ×2 (19:05→20:28)
[2023-04-18] MEDS ORDERED: DILTIAZEM 5 MG/ML 5 ML VIAL IVP STA (19:05)
[2023-04-18 19:21] LABS: Basophils % (A) 0 %; Eosinophils # (A) 0.2 k/uL (0-0.7); Eosinophils % (A) 2 %; HCT 41.5 % (34.0-46.0); Lymphocytes # (A) 3.3 k/uL (1.0-4.8); Lymphocytes % (A) 37 %; MCH 28.6 pg (25.0-35.0); MCHC 33.8 g/dL (31.0-37.0); MCV 84.6 fL (80.0-100.0); Monocytes # (A) 0.4 k/uL (0-1.0); Monocytes % (A) 5 %; Neutrophils # (A) 4.8 k/uL (1.3-7.7); Neutrophils % (A) 54 %; Platelet Count 331 k/uL (150-450); RDW 12.7 % (11.5-15.5); WBC 8.9 k/uL (3.8-10.6)
[2023-04-18 19:29] LABS: INR 0.9 (<1.2); Partial Thromboplastin Time 28.2 sec (22.0-30.0); Prothrombin Time 9.7 sec (9.0-12.0)
[2023-04-18 19:46] LABS: ALT 91 U/L (4-34); AST 46 U/L (14-36); African American GFR (CKD) >90 (>60 ml/min/1.73 sqM); Albumin 4.6 g/dL (3.5-5.0); Alkaline Phosphatase 90 U/L (38-126); Anion Gap 14 mmol/L; Blood Urea Nitrogen 14 mg/dL (7-17); Calcium 10.1 mg/dL (8.4-10.2); Carbon Dioxide 19 mmol/L (22-30); Chloride 107 mmol/L (98-107); Glucose 102 mg/dL (74-99); Magnesium 1.9 mg/dL (1.6-2.3); Non-African American GFR(CKD) >90 (>60 ml/min/1.73 sqM); Phosphorus 5.1 mg/dL (2.5-4.5); Potassium 4.2 mmol/L (3.5-5.1); Sodium 140 mmol/L (137-145); Total Bilirubin 0.4 mg/dL (0.2-1.3); Total Protein 7.5 g/dL (6.3-8.2)
[2023-04-18] MEDS ORDERED: SODIUM CHLORIDE 0.9% 1,000 ML IV ONE (20:07)
[2023-04-18] MEDS ORDERED: DILTIAZEM DRIP BOLUS FROM BAG 1 MG SOLN IV ONE (20:28)
[2023-04-18] MEDS ORDERED: MORPHINE SULFATE 4 MG/ML SYRINGE IV PRN (20:41)
[2023-04-18] MEDS ORDERED: ONDANSETRON 4 MG/2 ML VIAL IVP PRN (20:41)
[2023-04-18] MEDS ORDERED: NALOXONE 0.4 MG/ML 1 ML VIAL IV PRN (20:41)
[2023-04-18] MEDS: SODIUM CHLORIDE 0.9% 1,000 ML IV SCH (20:52)
[2023-04-18] MEDS ORDERED: DILTIAZEM 125 MG in SODIUM CHLORIDE 0.9% 100 ML IV SCH (21:15)
[2023-04-19] MEDS: SODIUM CHLORIDE 0.9% 1,000 ML IV SCH (04:59)
[2023-04-19 08:17] LABS: ALT 83 U/L (4-34); AST 44 U/L (14-36); African American GFR (CKD) >90 (>60 ml/min/1.73 sqM); Albumin 3.9 g/dL (3.5-5.0); Alkaline Phosphatase 83 U/L (38-126); Anion Gap 11 mmol/L; Blood Urea Nitrogen 11 mg/dL (7-17); Calcium 8.8 mg/dL (8.4-10.2); Carbon Dioxide 19 mmol/L (22-30); Chloride 110 mmol/L (98-107); Glucose 110 mg/dL (74-99); Magnesium 1.8 mg/dL (1.6-2.3); Non-African American GFR(CKD) >90 (>60 ml/min/1.73 sqM); Potassium 4.1 mmol/L (3.5-5.1); Sodium 140 mmol/L (137-145); Total Bilirubin 0.3 mg/dL (0.2-1.3); Total Protein 6.6 g/dL (6.3-8.2)
[2023-04-19 08:19] LABS: Basophils % (A) 0 %; Eosinophils # (A) 0.2 k/uL (0-0.7); Eosinophils % (A) 3 %; HCT 40.6 % (34.0-46.0); HGB 13.5 gm/dL (11.4-16.0); Lymphocytes # (A) 2.1 k/uL (1.0-4.8); Lymphocytes % (A) 30 %; MCH 27.9 pg (25.0-35.0); MCHC 33.2 g/dL (31.0-37.0); Mean Platelet Volume 8.9; Monocytes # (A) 0.3 k/uL (0-1.0); Monocytes % (A) 5 %; Neutrophils # (A) 4.3 k/uL (1.3-7.7); Neutrophils % (A) 59 %; Platelet Count 278 k/uL (150-450); RBC 4.83 m/uL (3.80-5.40); RDW 12.9 % (11.5-15.5); WBC 7.3 k/uL (3.8-10.6)
[2023-04-19] MEDS ORDERED: DRONEDARONE 400 MG TAB PO SCH ×2 (08:30→17:30)
[2023-04-19] MEDS ORDERED: SODIUM CHLORIDE 0.9% 1,000 ML IV SCH (08:30)
[2023-04-19] MEDS ORDERED: CALCIUM CARBONATE 500 MG CHEWABLE PO SCH (09:00)
[2023-04-19] MEDS ORDERED: DRONEDARONE 400 MG TAB PO ONE (09:00)
[2023-04-19] MEDS ORDERED: CHOLECALCIFEROL 25 MCG (1000 IU) TABLET PO SCH (09:00)
[2023-04-19] MEDS ORDERED: ASPIRIN 81 MG PO SCH (09:00)
[2023-04-19] MEDS ORDERED: APIXABAN 5 MG TAB PO SCH (09:00)
[2023-04-19] MEDS ORDERED: ASCORBIC ACID 500 MG TAB PO SCH (09:00)
[2023-04-19] MEDS ORDERED: NON FORMULARY DRUG (Vitamin B Complex [Vitamin B Complex] 1 EACH Capsule) PO SCH (09:00)
[2023-04-19] MEDS ORDERED: LEVOTHYROXINE 50 MCG TAB PO SCH (09:00)
[2023-04-19] MEDS ORDERED: PROPOFOL 10 MG/ML 20 ML VIAL IV ONE (09:03)
[2023-04-19] MEDS ORDERED: IV FLUID CONTINUATION 1,000 ML IV ONE (09:03)
--- NOTE | 2023-04-19 10:12 | P.EPPROC ---
- EP Procedure Note Electrophysiology Procedure Note: Diagnosis Persistent atrial fibrillation, symptomatic Breakthrough episode after successful A. fib ablation 2 months back with PVI, left atrial roof ablation and atrial tachycardia ablation with termination to sinus rhythm She has failed flecainide in the past Procedure Under conscious sedation, 200 J biphasic shock was used to cardiovert the patient in sinus rhythm successfully She is on anticoagulation She received Multaq 400 mg 1 dose prior to the procedure Plan continue Multaq 4 mg twice a day Continue and granulation for now Follow-up twelve-lead EKG showed sinus rhythm normal [place] narrow QRS normal ST segments inverted T waves in leads 3 and aVF
--- NOTE | 2023-04-19 10:13 | P.CRDCN ---
History of Present Illness Consult date: 04/19/23 Consult reason: atrial fibrillation (w rvr) History of present illness: HISTORY OF PRESENT ILLNESS This is a 38-year-old female past medical history of hypertension, gestational diabetes, paroxysmal atrial fibrillation status post ablation in 2018, successful ablation 03/07/2023, obstructive sleep apnea on CPAP, family history of atrial fibrillation. She follows in the office with Dr. Chandler. We have been asked to see the patient in consultation for atrial fibrillation with rapid ventricular response. Patient presented to the ER with complaints of palpitations which started on Monday and continued yesterday. Patient remains in atrial fibrillation running in the low 100s. She is currently on Cardizem drip and is status post IV Lopressor 2 doses. Patient states that she has been taking all of her medications as directed. Patient was last seen in the office on 03/16/2023 and underwent loop monitor interrogation that showed no arrhythmias. EKG atrial fibrillation at a ventricular rate 147. CBC unremarkable. Sodium 140, potassium 4.1, chloride 110, CO2 19, BUN 11 creatinine 0.67. AST 44, ALT 83. Troponin negative 3. INR 0.9. Home cardiac medications: Eliquis 5 mg twice daily, aspirin 81 mg daily, Toprol- XL 12.5 mg daily, levothyroxine 50 mg daily. REVIEW OF SYSTEMS At the time of my evaluation: Constitutional: No fever, no chills. No weakness, fatigue or lethargy. EENT: No headache. No dizziness. Lungs: No shortness of breath, cough, no sputum production. No wheezing. Cardiovascular: No chest pain, no lower extremity edema. No palpitations. No paroxysmal nocturnal dyspnea. No orthopnea. No lightheadedness or dizziness. No syncopal episodes. Abdominal: No abdominal pain. No nausea, vomiting. No diarrhea. No constipation. No bloody or tarry stools. No loss of appetite. Genitourinary: No dysuria.. No urinary retention. Musculoskeletal: No myalgias. No muscle weakness, no gait dysfunction, no frequent falls. No back pain. No neck pain. Integumentary: No wounds, no lesions. No rash or pruritus. No unusual bruising. Neurologic: No aphasia. No facial droop. No change in mentation. No head injury. No headache. No paralysis. No paresthesia. Psychiatric: No depression. No anxiety. Endocrine: No abnormal blood sugars. PHYSICAL EXAMINATION Gen: This is a a 38-year-old female. She is resting and appears to be comfortable VS: reviewed HEENT: Head is atraumatic, normocephalic. Pupils equal, round. Sclerae is anicteric. NECK: Supple. No JVD. No lymphadenopathy. No thyromegaly. LUNGS: Clear to auscultation. No wheezes or rhonchi. No intercostal retractions. HEART: Irregular rate and rhythm. No murmur. ABDOMEN: Soft. Bowel sounds are present. No masses. No tenderness. EXTREMITIES: No pedal edema. No calf tenderness. NEUROLOGICAL: Patient is awake, alert and oriented x3. Cranial nerves 2 through 12 are grossly intact. ASSESSMENT Paroxysmal atrial fibrillation, presented with Memo barnett RVR History of previous ablation History of hypertension History of Gestational diabetes PLAN Continue same home medications Hold metoprolol Start patient on multi egg 400 mg twice daily, one dose now Schedule patient for cardioversion today with Dr. Chandler. Further recommendations as patient progresses. Nurse practitioner note has been reviewed, I agree with the documented findings and plan of care. Patient was seen and examined. Past Medical History Past Medical History: Atrial Fibrillation, Asthma, GERD/Reflux, Sleep Apnea/CPAP/BIPAP, Thyroid Disorder Additional Past Medical History / Comment(s): CPAP use. PT ON METFORMIN BUT STATES IS NOT DIABETIC History of Any Multi-Drug Resistant Organisms: None Reported Past Surgical History: Cardiac Ablation, Section, Cholecystectomy Additional Past Surgical History / Comment(s): Ablation in 07/2017, gallbladder 10/05. C-SEC X 2. Ablation in February 2023 Past Anesthesia/Blood Transfusion Reactions: No Reported Reaction, Motion Sickness Past Psychological History: ADD/ADHD, Anxiety Smoking Status: Former smoker Past Alcohol Use History: Occasional Past Drug Use History: None Reported - Past Family History Father Family Medical History: CVA/TIA Additional Family Medical History / Comment(s): renal disease, heart failure, strokes ("alot") Mother Family Medical History: Cancer Additional Family Medical History / Comment(s): Breast cancer. Medications and Allergies Home Medications Medication Instructions Recorded Confirmed Type Pnv No.95/Ferrous Fum/Folic AC 1 tab PO DAILY 03/18/21 04/18/23 History [ Multivitamin Tablet] metFORMIN HCL [Glucophage] 1,000 mg PO BID 07/13/21 04/18/23 History Levothyroxine Sodium [Synthroid] 50 mcg PO DAILY 05/03/22 04/18/23 History Vitamin B Complex 1 cap PO DAILY 05/08/22 04/18/23 History Ascorbic Acid [Vitamin C] 1,000 mg PO DAILY 10/17/22 04/18/23 History Apixaban [Eliquis] 5 mg PO BID 03/02/23 04/18/23 History Albuterol Sulfate [Albuterol 2 puff PO RT-Q6H PRN 04/18/23 04/18/23 History Sulfate Hfa] Aspirin EC [Ecotrin Low Dose] 81 mg PO DAILY 04/18/23 04/18/23 History Calcium Carbonate [Calcium] 600 mg PO DAILY 04/18/23 04/18/23 History Cholecalciferol [Vitamin D3 (25 25 mcg PO DAILY 04/18/23 04/18/23 History Mcg = 1000 Iu)] Metoprolol Succinate (ER) [Toprol 12.5 mg PO DAILY 04/18/23 04/18/23 History Xl] Allergies Allergy/AdvReac Type Severity Reaction Status Date / Time No Known Allergies Allergy Verified 04/18/23 21:16 Physical Exam Vitals: Vital Signs Temp Pulse Resp BP Pulse Ox 04/19/23 07:00 99 18 111/84 96 04/19/23 05:02 106 H 18 95 04/19/23 03:42 110 H 20 04/19/23 01:49 116 H 18 104/76 04/19/23 00:42 130 H 18 104/76 98 04/18/23 23:21 130 H 16 107/75 98 04/18/23 22:07 119/79 04/18/23 22:00 121 H 16 107/68 98 04/18/23 20:54 135 H 16 103/72 98 04/18/23 20:00 145 H 16 105/69 97 04/18/23 19:39 125 H 16 72/60 97 04/18/23 19:21 150 H 16 91/71 98 04/18/23 18:17 98.0 F 64 18 98/58 97 Intake and Output 04/18/23 04/19/23 04/19/23 22:59 06:59 14:59 Intake Total 4.167 85.083 Balance 4.167 85.083 Intake: Intake, IV Titration 85.083 Amount Diltiazem 125 mg In 85.083 Sodium Chloride 0.9% 100 ml @ 5 MG/HR 5 mls/hr IV .Q24H [facility] Rx#:[id number] Other: Weight 125.191 kg Results 04/19/23 07:51 04/19/23 07:51 Cardiac Enzymes 04/18/23 04/18/23 04/18/23 Range/Units 18:56 18:56 22:37 AST 46 H (14-36) U/L Troponin I <0.012 <0.012 (0.000-0.034) ng/mL 04/19/23 Range/Units 01:13 AST (14-36) U/L Troponin I <0.012 (0.000-0.034) ng/mL Coagulation 04/18/23 Range/Units 18:56 PT 9.7 (9.0-12.0) sec APTT 28.2 (22.0-30.0) sec CBC 04/18/23 Range/Units 18:56 WBC 8.9 (3.8-10.6) k/uL RBC 4.90 (3.80-5.40) m/uL Hgb 14.0 (11.4-16.0) gm/dL Hct 41.5 (34.0-46.0) % Plt Count 331 (150-450) k/uL Comprehensive Metabolic Panel 04/18/23 Range/Units 18:56 Sodium 140 (137-145) mmol/L Potassium 4.2 (3.5-5.1) mmol/L Chloride 107 (98-107) mmol/L Carbon Dioxide 19 L (22-30) mmol/L BUN 14 (7-17) mg/dL Creatinine 0.80 (0.52-1.04) mg/dL Glucose 102 H (74-99) mg/dL Calcium 10.1 (8.4-10.2) mg/dL AST 46 H (14-36) U/L ALT 91 H (4-34) U/L Alkaline Phosphatase 90 (38-126) U/L Total Protein 7.5 (6.3-8.2) g/dL Albumin 4.6 (3.5-5.0) g/dL Current Medications Generic Name Dose Route Start Last Admin Trade Name Freq PRN Reason Stop Dose Admin Sodium Chloride 1,000 mls @ 130 mls/hr 04/18/23 20:45 04/19/23 04:59 Saline 0.9% IV 130 mls/hr .[id number] NICKI Administration Diltiazem HCl 125 mg/ Sodium 125 mls @ 5 mls/hr 04/18/23 21:15 04/19/23 04:59 Chloride IV 15 mg/hr .Q24H NICKI 15 mls/hr Infusion 5 MG/HR Morphine Sulfate 4 mg 04/18/23 20:41 Morphine Sulfate 4 Mg/Ml Syringe IV Q4HR PRN Severe Pain (Scale 7 to 10) Naloxone HCl 0.2 mg 04/18/23 20:41 Naloxone 0.4 Mg/Ml 1 Ml Vial IV Q2M PRN Opioid Reversal Ondansetron HCl 4 mg 04/18/23 20:41 Ondansetron 4 Mg/2 Ml Vial IVP Q8HR PRN Nausea And Vomiting Intake and Output 04/18/23 04/19/23 04/19/23 22:59 06:59 14:59 Intake Total 4.167 85.083 Balance 4.167 85.083 Intake: Intake, IV Titration 4.167 85.083 Amount Diltiazem 125 mg In 4.167 85.083 Sodium Chloride 0.9% 100 ml @ 5 MG/HR 5 mls/hr IV .Q24H [facility] Rx#:[id number] Other: Weight 125.191 kg 04/18/23 18:56 04/18/23 18:56
--- NOTE | 2023-04-19 10:16 | P.PN ---
Progress Note - Text Patient may be discharged home by 8 PM tonight She should receive Multaq at 6 PM once again Follow Dr. Chandler in 3 weeks
[2023-04-19 15:04] VITALS: BP 113/75; PULSE 86; RESP 20; TEMP 98.7
[2023-04-19] MEDS ORDERED: DEXTROSE 50% SYRINGE 50 ML IVP PRN ×2 (16:39)
--- NOTE | 2023-04-19 16:39 | P.HPIM ---
History of Present Illness H&P Date: 04/19/23 Patient is a 38-year-old female with history of paroxysmal atrial fibrillation status post ablation 2, hypertension, GENIA on CPAP presenting with palpitations. She claims that the palpitations originally started on Monday, she took metoprolol, it did resolve previously, but started again yesterday, and has been persistent. The size palpitations, she denies any chest pain, shortness of b reath, lightheadedness, abdominal pain and nausea, vomiting, urinary or bowel complaints. In the ED, temperature 98.0, pulse 150, blood pressure 91/71, respiratory rate 16, saturating at 98% on room air. WBC 8.9, hemoglobin 14, sodium 140, creatinine 0.8, troponin negative 3, TSH 2.56. EKG shows atrial fibrillation with RVR. Patient admitted for A. fib with RVR. Cardiology consulted. She was started on Cardizem drip, and was given IV pushes of metoprolol. Pertinent positives and negatives as discussed in HPI, a complete review of systems was performed and all other systems are negative. Patient seen and examined at bedside. Vital signs reviewed General: nontoxic, no distress, appears at stated age Derm: warm, dry Head: atraumatic, normocephalic, symmetric Eyes: EOMI, no lid lag, anicteric sclera, pupils equal round reactive to light ENT: Nose and ears atraumatic Neck: No thyromegaly, supple Mouth: no lip lesion, mucus membranes moist Cardiovascular: S1S2 reg, no murmur, no edema Lungs: clear to auscultation bilateral, no rhonchi, no rales, no wheeze, no accessory muscle use Abdominal: soft, nontender to palpation, no guarding, no appreciable organomegaly Ext: no gross muscle atrophy, muscle strength muscle strength 5 out of 5 in all 4 extremities, no contractures Neuro: CN II-XII grossly intact Psych: Alert, oriented, appropriate affect Assessment/Plan: Atrial fibrillation with RVR Hypothyroidism Diabetes -EKG independently interpreted, shows atrial fibrillation with RVR -Cardiology consulted, procedure note reviewed, she is status post ablation -continue multaq -Continue levothyroxine, TSH within normal limits -Sliding scale insulin, hold metformin The patient is admitted with an anticipated less than 2 midnight stay as observation status for evaluation of symptomatic atrial fibrillation. Surrogate decision-maker: Spouse CODE STATUS:full code DVT prophylaxis: eliquis Anticipated discharge date: Today Anticipated discharge place: home A total of 55 minutes was spent on the care of this complex patient more than 50% of the time was spent in counseling and care coordination. Past Medical History Past Medical History: Atrial Fibrillation, Asthma, GERD/Reflux, Sleep Apnea/CPAP/BIPAP, Thyroid Disorder Additional Past Medical History / Comment(s): CPAP use. PT ON METFORMIN BUT STATES IS NOT DIABETIC History of Any Multi-Drug Resistant Organisms: None Reported Past Surgical History: Cardiac Ablation, Section, Cholecystectomy Additional Past Surgical History / Comment(s): Ablation in 07/2017, gallbladder 10/05. C-SEC X 2. Ablation in February 2023 Past Anesthesia/Blood Transfusion Reactions: No Reported Reaction, Motion Sickness Past Psychological History: ADD/ADHD, Anxiety Additional Psychological History / Comment(s): UNDER CONTROL AT THIS TIME Smoking Status: Former smoker Past Alcohol Use History: Occasional Additional Past Alcohol Use History / Comment(s): QUIT SMOKING 2017 Past Drug Use History: None Reported - Past Family History Father Family Medical History: CVA/TIA Additional Family Medical History / Comment(s): renal disease, heart failure, strokes ("alot") Mother Family Medical History: Cancer Additional Family Medical History / Comment(s): Breast cancer. Medications and Allergies Home Medications Medication Instructions Recorded Confirmed Type Pnv No.95/Ferrous Fum/Folic AC 1 tab PO DAILY 03/18/21 04/18/23 History [ Multivitamin Tablet] metFORMIN HCL [Glucophage] 1,000 mg PO BID 07/13/21 04/18/23 History Levothyroxine Sodium [Synthroid] 50 mcg PO DAILY 05/03/22 04/18/23 History Vitamin B Complex 1 cap PO DAILY 05/08/22 04/18/23 History Ascorbic Acid [Vitamin C] 1,000 mg PO DAILY 10/17/22 04/18/23 History Apixaban [Eliquis] 5 mg PO BID 03/02/23 04/18/23 History Albuterol Sulfate [Albuterol 2 puff PO RT-Q6H PRN 04/18/23 04/18/23 History Sulfate Hfa] Aspirin EC [Ecotrin Low Dose] 81 mg PO DAILY 04/18/23 04/18/23 History Calcium Carbonate [Calcium] 600 mg PO DAILY 04/18/23 04/18/23 History Cholecalciferol [Vitamin D3 (25 25 mcg PO DAILY 04/18/23 04/18/23 History Mcg = 1000 Iu)] Dronedarone HCl [Multaq] 400 mg PO BID #180 tablet 04/19/23 Rx Allergies Allergy/AdvReac Type Severity Reaction Status Date / Time No Known Allergies Allergy Verified 04/18/23 21:16 Physical Exam Vitals: Vital Signs Temp Pulse Pulse Resp BP BP Pulse Ox 04/19/23 14:00 74 16 04/19/23 10:20 97.8 F 74 16 92/59 96 04/19/23 08:44 105 H 20 104/69 98 04/19/23 07:00 99 18 111/84 96 04/19/23 05:02 106 H 18 95 04/19/23 03:42 110 H 20 04/19/23 01:49 116 H 18 104/76 04/19/23 00:42 130 H 18 104/76 98 04/18/23 23:21 130 H 16 107/75 98 04/18/23 22:07 119/79 04/18/23 22:00 121 H 16 107/68 98 04/18/23 20:54 135 H 16 103/72 98 04/18/23 20:00 145 H 16 105/69 97 04/18/23 19:39 125 H 16 72/60 97 04/18/23 19:21 150 H 16 91/71 98 04/18/23 18:17 98.0 F 64 18 98/58 97 Intake and Output 04/18/23 04/19/23 04/19/23 22:59 06:59 14:59 Intake Total 4.167 85.083 Balance 4.167 85.083 Intake: Intake, IV Titration 4.167 85.083 Amount Diltiazem 125 mg In 4.167 85.083 Sodium Chloride 0.9% 100 ml @ 5 MG/HR 5 mls/hr IV .Q24H [facility] Rx#:[id number] Other: # Voids 2 Weight 125.191 kg 125.191 kg Results CBC & Chem 7: 04/19/23 07:51 04/19/23 07:51 Labs: Abnormal Lab Results - Last 24 Hours (Table) 07/04/23 07/05/23 Range/Units 18:56 07:51 Chloride 110 H (98-107) mmol/L Carbon Dioxide 19 L 19 L (22-30) mmol/L Glucose 102 H 110 H (74-99) mg/dL Phosphorus 5.1 H (2.5-4.5) mg/dL AST 46 H 44 H (14-36) U/L ALT 91 H 83 H (4-34) U/L Thrombosis Risk Factor Assmnt - Choose All That Apply Any of the Below Risk Factors Present?: No Other Risk Factors: No Other congenital or acquired thrombophilia - If yes, enter type in comment: No Thrombosis Risk Factor Assessment Level: Very Low Risk
--- NOTE | 2023-04-19 16:43 | P.DS ---
Providers Date of admission: 04/18/23 20:46 Expected date of discharge: 04/19/23 Attending physician: Veena Meyer MD Consults: 04/18/23 20:41 Consult Physician Routine Consulting Provider: Carla Ayala Consult Reason/Comments: afib Do you want consulting provider notified?: Yes Primary care physician: Robert Jefferson MD Hospital Course: Discharge Diagnosis: Atrial fibrillation with RVR status post ablation Hypothyroidism Diabetes Hospital Course: Patient is a 38-year-old female with history of paroxysmal atrial fibrillation status post ablation 2, hypertension, GENIA on CPAP presenting with palpitations. In the ED, temperature 98.0, pulse 150, blood pressure 91/71, respiratory rate 16, saturating at 98% on room air. WBC 8.9, hemoglobin 14, sodium 140, creatin ine 0.8, troponin negative 3, TSH 2.56. EKG shows atrial fibrillation with RVR. Patient admitted for A. fib with RVR. Cardiology consulted. She was started on Cardizem drip, and was given IV pushes of metoprolol. Cardiology consulted. She is now status post ablation, and normal sinus rhythm. Patient started on multaq. Follow-up with cardiology outpatient. Patient seen and examined at bedside. Vital signs reviewed and stable. General: nontoxic, no distress, appears at stated age Derm: warm, dry Head: atraumatic, normocephalic, symmetric Eyes: EOMI, no lid lag, anicteric sclera Mouth: no lip lesion, mucus membranes moist Cardiovascular: S1S2 reg, no murmur Lungs: CTA bilateral, no rhonchi, no rales , no accessory muscle use Abdominal: soft, nontender to palpation, no guarding, no appreciable organomegaly Ext: no gross muscle atrophy, no edema, no contractures Neuro: CN II-XI grossly intact, no focal neuro deficits Psych: Alert, oriented, appropriate affect A total of 33 minutes of time were spent preparing this complex discharge summary. Patient was discharged on 04/19/23 at 16:42. Patient Condition at Discharge: Stable Plan - Discharge Summary Discharge Rx Participant: Yes New Discharge Prescriptions: New Dronedarone HCl [Multaq] 400 mg PO BID #180 tablet Continue metFORMIN HCL [Glucophage] 1,000 mg PO BID Levothyroxine Sodium [Synthroid] 50 mcg PO DAILY Vitamin B Complex 1 cap PO DAILY Cholecalciferol [Vitamin D3 (25 Mcg = 1000 Iu)] 25 mcg PO DAILY Pnv No.95/Ferrous Fum/Folic AC [ Multivitamin Tablet] 1 tab PO DAILY Ascorbic Acid [Vitamin C] 1,000 mg PO DAILY Apixaban [Eliquis] 5 mg PO BID Aspirin EC [Ecotrin Low Dose] 81 mg PO DAILY Albuterol Sulfate [Albuterol Sulfate Hfa] 2 puff PO RT-Q6H PRN PRN Reason: Shortness Of Breath Calcium Carbonate [Calcium] 600 mg PO DAILY Discontinued Metoprolol Succinate (ER) [Toprol Xl] 12.5 mg PO DAILY Discharge Medication List Pnv No.95/Ferrous Fum/Folic AC [ Multivitamin Tablet] 1 tab PO DAILY 03/18/21 [History] metFORMIN HCL [Glucophage] 1,000 mg PO BID 07/13/21 [History] Levothyroxine Sodium [Synthroid] 50 mcg PO DAILY 05/03/22 [History] Vitamin B Complex 1 cap PO DAILY 05/08/22 [History] Ascorbic Acid [Vitamin C] 1,000 mg PO DAILY 10/17/22 [History] Apixaban [Eliquis] 5 mg PO BID 03/02/23 [History] Albuterol Sulfate [Albuterol Sulfate Hfa] 2 puff PO RT-Q6H PRN 04/18/23 [Histor y] Aspirin EC [Ecotrin Low Dose] 81 mg PO DAILY 04/18/23 [History] Calcium Carbonate [Calcium] 600 mg PO DAILY 04/18/23 [History] Cholecalciferol [Vitamin D3 (25 Mcg = 1000 Iu)] 25 mcg PO DAILY 04/18/23 [History] Dronedarone HCl [Multaq] 400 mg PO BID #180 tablet 04/19/23 [Rx] Follow up Appointment(s)/Referral(s): Magnus Chnadler MD [STAFF PHYSICIAN] - 3 Weeks (New medication Multaq 400 mg twice daily Stop metoprolol succinate) Robert Jefferson MD [Primary Care Provider] - 1-2 days Patient Instructions/Handouts: A-fib (Atrial Fibrillation) (DC), Heart Palpitations (ED) Activity/Diet/Wound Care/Special Instructions: Please see your PCP and cardiology. Discharge Disposition: HOME SELF-CARE
[2023-04-19] MEDS ORDERED: INSULIN ASPART (NovoLOG) 100 UNIT/ML VIAL SQ SCH (17:30)
== END 2023-04-19 20:15 | disposition home or self-care (01) ==
LOC: EC 18:14 → 3SCARD 20:46 → 6NMEDSUR 04-19 09:43
PROVIDERS: ADMIT Internal Medicine; ATTEND Internal Medicine
DX: I48.0 Paroxysmal atrial fibrillation (principal); E03.9 Hypothyroidism, unspecified; I10 Essential (primary) hypertension; E11.9 Type 2 diabetes mellitus without complications; J45.909 Unspecified asthma, uncomplicated; G47.33 Obstructive sleep apnea (adult) (pediatric); K21.9 Gastro-esophageal reflux disease without esophagitis; F41.9 Anxiety disorder, unspecified; F90.9 Attention-deficit hyperactivity disorder, unspecified type; Z79.01 Long term (current) use of anticoagulants; Z79.890 Hormone replacement therapy; Z79.82 Long term (current) use of aspirin; Z79.84 Long term (current) use of oral hypoglycemic drugs; Z79.51 Long term (current) use of inhaled steroids; Z79.899 Other long term (current) drug therapy; Z87.891 Personal history of nicotine dependence; Z86.32 Personal history of gestational diabetes; Z98.890 Other specified postprocedural states; Z80.3 Family history of malignant neoplasm of breast; Z82.49 Family history of ischemic heart disease and other diseases of the circulatory system; Z84.1 Family history of disorders of kidney and ureter; Z82.3 Family history of stroke
CPT/HCPCS: 96376; 96361; 96365; 96366 ×2; 96375; 99285; 36415; 93005; 92960; 80053 ×2; 84443; 83735 ×2; 84100 ×2; 84484 ×2; 85025 ×2; 85610; 85730; G0378 ×3; J2704

== ENCOUNTER 2023-05-08 09:31 | Observation (INO) | payer BC ==
[2023-05-08 10:21] LABS: Basophils % (A) 0 %; Eosinophils # (A) 0.2 k/uL (0-0.7); Eosinophils % (A) 3 %; HCT 44.6 % (34.0-46.0); HGB 15.1 gm/dL (11.4-16.0); Lymphocytes # (A) 2.5 k/uL (1.0-4.8); Lymphocytes % (A) 28 %; MCH 28.7 pg (25.0-35.0); MCHC 33.9 g/dL (31.0-37.0); MCV 84.8 fL (80.0-100.0); Mean Platelet Volume 9.1; Monocytes # (A) 0.4 k/uL (0-1.0); Monocytes % (A) 5 %; Neutrophils # (A) 5.8 k/uL (1.3-7.7); Neutrophils % (A) 63 %; Platelet Count 338 k/uL (150-450); RBC 5.26 m/uL (3.80-5.40); RDW 12.5 % (11.5-15.5); WBC 9.2 k/uL (3.8-10.6)
[2023-05-08 10:29] LABS: INR 0.9 (<1.2); Partial Thromboplastin Time 25.8 sec (22.0-30.0); Prothrombin Time 9.9 sec (9.0-12.0)
[2023-05-08 10:40] LABS: ALT 55 U/L (4-34); AST 36 U/L (14-36); African American GFR (CKD) 85 (>60 ml/min/1.73 sqM); Albumin 4.7 g/dL (3.5-5.0); Alkaline Phosphatase 74 U/L (38-126); Anion Gap 14 mmol/L; Blood Urea Nitrogen 19 mg/dL (7-17); Calcium 9.7 mg/dL (8.4-10.2); Carbon Dioxide 22 mmol/L (22-30); Chloride 105 mmol/L (98-107); Glucose 111 mg/dL (74-99); Magnesium 2.1 mg/dL (1.6-2.3); Non-African American GFR(CKD) 73 (>60 ml/min/1.73 sqM); Potassium 4.5 mmol/L (3.5-5.1); Sodium 141 mmol/L (137-145); Total Bilirubin 0.6 mg/dL (0.2-1.3)
[2023-05-08] MEDS ORDERED: DILTIAZEM DRIP BOLUS FROM BAG 1 MG SOLN IV ONE (10:54)
[2023-05-08] MEDS ORDERED: DRONEDARONE 400 MG TAB PO SCH (11:00)
[2023-05-08] MEDS ORDERED: SODIUM CHLORIDE 0.9% 1,000 ML IV ONE (11:10)
[2023-05-08] MEDS ORDERED: NALOXONE 0.4 MG/ML 1 ML VIAL IV PRN (11:11)
--- NOTE | 2023-05-08 11:11 | ED ---
Arrhythmia/Palpitations HPI - General Chief Complaint: Arrhythmia/Palpitations Stated Complaint: afib Time Seen by Provider: 05/08/23 09:57 Source: patient, RN notes reviewed, old records reviewed Mode of arrival: ambulatory Limitations: no limitations - History of Present Illness Initial Comments: 38-year-old female presents emergency Department with chief complaint of palpitations, shortness of breath. Patient states that she has a history of A. fib had cardioversion 19 days ago. Patient was placed on multaq after her lesion. Patient states she had a bout of A. fib in the of this month states it resolved. She started having symptoms yesterday she took 2 doses of metoprolol with no relief of symptoms. Patient presents today if symptoms worsened. - Related Data Home Medications Medication Instructions Recorded Confirmed Pnv No.95/Ferrous Fum/Folic AC 1 tab PO DAILY 03/18/21 05/08/23 [ Multivitamin Tablet] Levothyroxine Sodium [Synthroid] 50 mcg PO DAILY 05/03/22 05/08/23 Ascorbic Acid [Vitamin C] 1,000 mg PO DAILY 10/17/22 05/08/23 Apixaban [Eliquis] 5 mg PO BID 03/02/23 05/08/23 Albuterol Sulfate [Albuterol 2 puff INHALATION RT-Q6H PRN 04/18/23 05/08/23 Sulfate Hfa] Aspirin EC [Ecotrin Low Dose] 81 mg PO DAILY 04/18/23 05/08/23 Calcium Carbonate [Calcium] 600 mg PO DAILY 04/18/23 05/08/23 Cholecalciferol [Vitamin D3 (25 25 mcg PO DAILY 04/18/23 05/08/23 Mcg = 1000 Iu)] Metoprolol Tartrate [Lopressor] 25 mg PO DIRECTED PRN 05/08/23 05/08/23 Semaglutide [Ozempic] 0.25 mg SQ TH 05/08/23 05/08/23 Previous Rx's Medication Instructions Recorded Dronedarone HCl [Multaq] 400 mg PO BID #180 tablet 04/19/23 Allergies Allergy/AdvReac Type Severity Reaction Status Date / Time No Known Allergies Allergy Verified 05/08/23 10:10 Review of Systems ROS Statement: Those systems with pertinent positive or pertinent negative responses have been documented in the HPI. ROS Other: All systems not noted in ROS Statement are negative. Past Medical History Past Medical History: Atrial Fibrillation, Asthma, GERD/Reflux, Sleep Apnea/CPAP/BIPAP, Thyroid Disorder Additional Past Medical History / Comment(s): CPAP use History of Any Multi-Drug Resistant Organisms: None Reported Past Surgical History: Cardiac Ablation, Section, Cholecystectomy Additional Past Surgical History / Comment(s): Ablation in 07/2017, gallbladder 10/05. C-SEC X 2. Ablation in February 2023 Past Anesthesia/Blood Transfusion Reactions: No Reported Reaction, Motion Sick ness Past Psychological History: ADD/ADHD, Anxiety Smoking Status: Former smoker Past Alcohol Use History: Occasional Past Drug Use History: None Reported - Past Family History Father Family Medical History: CVA/TIA Additional Family Medical History / Comment(s): renal disease, heart failure, strokes ("alot") Mother Family Medical History: Cancer Additional Family Medical History / Comment(s): Breast cancer. General Exam Limitations: no limitations General appearance: alert, in no apparent distress Head exam: Present: atraumatic, normocephalic, normal inspection Eye exam: Present: normal appearance, PERRL, EOMI. Absent: scleral icterus, co njunctival injection, periorbital swelling ENT exam: Present: normal exam, mucous membranes moist Neck exam: Present: normal inspection, full ROM. Absent: tenderness, meningismus, lymphadenopathy Respiratory exam: Present: normal lung sounds bilaterally. Absent: respiratory distress, wheezes, rales, rhonchi, stridor Cardiovascular Exam: Present: tachycardia, irregular rhythm, normal heart sounds . Absent: regular rate, normal rhythm, systolic murmur, diastolic murmur, rubs, gallop, clicks Neurological exam: Present: alert, oriented X3 Skin exam: Present: warm, dry, intact, normal color. Absent: rash Course Vital Signs 05/08/23 09:42 Temperature 98.4 F Pulse Rate 61 Respiratory 18 Rate Blood Pressure 100/65 O2 Sat by Pulse 97 Oximetry EKG Findings - EKG Comments: EKG Findings:: EKG performed at 9:57 A. fib with RVR rate of 142 QRS 81 QT/QTC 307/389 - EKG Results: EKG: interpreted by COREEN Medical Decision Making - Medical Decision Making Was pt. sent in by a medical professional or institution (, PA, STATION DETECTIVE, urgent care, hospital, or assisted...) When possible be specific @ -Cardiology Did you speak to anyone other than the patient for history (EMS, parent, family, police, friend...)? What history was obtained from this source @ -No Did you review nursing and triage notes (agree or disagree)? Why? @ -I reviewed and agree with nursing and triage notes Were old charts reviewed (outside hosp., previous admission, EMS record, old EKG, old radiological studies, urgent care reports/EKG's, assisted records)? Report findings @ -Reviewed prior cardiac evaluation, lab for studies Differential Diagnosis (chest pain, altered mental status, abdominal pain women, abdominal pain men, vaginal bleeding, weakness, fever, dyspnea, syncope, heada laurie, dizziness, GI bleed, back pain, seizure, CVA, palpatations, mental health, musculoskeletal)? @ -Differential Palpitations Ventricular arrhythmias, atrial arrhythmias, myocardial infarction, anemia, thyrotoxicosis, electrolyte imbalance, hypokalemia, pulmonary embolism, pulm onary disease, drugs, alcohol, anxiety, stress.... This is not meant to be an all-inclusive list.able EKG interpreted by me (3pts min.). @ -As above X-rays interpreted by me (1pt min.). @ -None done CT interpreted by me (1pt min.). @ -None done U/S interpreted by me (1pt. min.). @ -None done What testing was considered but not performed or refused? (CT, X-rays, U/S, labs)? Why? @ -None What meds were considered but not given or refused? Why? @ -None Did you discuss the management of the patient with other professionals (professionals i.e. , PA, STATION DETECTIVE, lab, RT, psych nurse, social services specialist, tobacco drier operator, teacher, probation officer, rifle case repairer)? Give summary @ -Vineet Hong for admission secondary to A. fib RVR cardiology was contacted a nd did come and evaluate the patient patient is scheduled for cardioversion did recommend Cardizem. Was smoking cessation discussed for >3mins.? @ -No Was critical care preformed (if so, how long)? @ -35 Were there social determinants of health that impacted care today? How? (Homelessness, low income, unemployed, alcoholism, drug addiction, transportation, low edu. Level, literacy, decrease access to med. care, retirement, rehab)? @ -No Was there de-escalation of care discussed even if they declined (Discuss DNR or withdrawal of care, Hospice)? DNR status @ -No What co-morbidities impacted this encounter? (DM, HTN, Smoking, COPD, CAD, Cancer, CVA, ARF, Chemo, Hep., AIDS, mental health diagnosis, sleep apnea, morbid obesity)? @ -A. fib Was patient admitted / discharged? Hospital course, mention meds given and route, prescriptions, significant lab abnormalities, going to OR and other per tinent info. @ -Admitted patient's admitted for A. fib RVR will have cardioversion patient is nothing by mouth. Patient really by cardiology. Undiagnosed new problem with uncertain prognosis? @ -No Drug Therapy requiring intensive monitoring for toxicity (Heparin, Nitro, Insulin, Cardizem)? @ -Cardizem Were any procedures done? @ -No Diagnosis/symptom? @ -A. fib RVR Acute, or Chronic, or Acute on Chronic? @ -Acute Uncomplicated (without systemic symptoms) or Complicated (systemic symptoms)? @ -Complicated] Side effects of treatment? @ -No Exacerbation, Progression, or Severe Exacerbation? @ -No Poses a threat to life or bodily function? How? (Chest pain, [place], [place], pneumonia, PE, COPD, DKA, ARF, appy, cholecystitis, CVA, Diverticulitis, Homicidal, Suicidal, threat to staff... and all critical care pts) @ -No - Lab Data Result diagrams: 05/08/23 10:13 05/08/23 10:13 Lab Results 05/08/23 05/08/23 05/08/23 Range/Units 10:13 10:13 10:13 WBC 9.2 (3.8-10.6) k/uL RBC 5.26 (3.80-5.40) m/uL Hgb 15.1 (11.4-16.0) gm/dL Hct 44.6 (34.0-46.0) % MCV 84.8 (80.0-100.0) fL MCH 28.7 (25.0-35.0) pg MCHC 33.9 (31.0-37.0) g/dL RDW 12.5 (11.5-15.5) % Plt Count 338 (150-450) k/uL MPV 9.1 Neutrophils % 63 % Lymphocytes % 28 % Monocytes % 5 % Eosinophils % 3 % Basophils % 0 % Neutrophils # 5.8 (1.3-7.7) k/uL Lymphocytes # 2.5 (1.0-4.8) k/uL Monocytes # 0.4 (0-1.0) k/uL Eosinophils # 0.2 (0-0.7) k/uL Basophils # 0.0 (0-0.2) k/uL PT 9.9 (9.0-12.0) sec INR 0.9 (<1.2) APTT 25.8 (22.0-30.0) sec Sodium 141 (137-145) mmol/L Potassium 4.5 (3.5-5.1) mmol/L Chloride 105 (98-107) mmol/L Carbon Dioxide 22 (22-30) mmol/L Anion Gap 14 mmol/L BUN 19 H (7-17) mg/dL Creatinine 0.98 (0.52-1.04) mg/dL Est GFR (CKD-EPI)AfAm 85 (>60 ml/min/1.73 sqM) Est GFR (CKD-EPI)NonAf 73 (>60 ml/min/1.73 sqM) Glucose 111 H (74-99) mg/dL Calcium 9.7 (8.4-10.2) mg/dL Magnesium 2.1 (1.6-2.3) mg/dL Total Bilirubin 0.6 (0.2-1.3) mg/dL AST 36 (14-36) U/L ALT 55 H (4-34) U/L Alkaline Phosphatase 74 (38-126) U/L Troponin I (0.000-0.034) ng/mL Total Protein 8.0 (6.3-8.2) g/dL Albumin 4.7 (3.5-5.0) g/dL 05/08/23 Range/Units 10:13 WBC (3.8-10.6) k/uL RBC (3.80-5.40) m/uL Hgb (11.4-16.0) gm/dL Hct (34.0-46.0) % MCV (80.0-100.0) fL MCH (25.0-35.0) pg MCHC (31.0-37.0) g/dL RDW (11.5-15.5) % Plt Count (150-450) k/uL MPV Neutrophils % % Lymphocytes % % Monocytes % % Eosinophils % % Basophils % % Neutrophils # (1.3-7.7) k/uL Lymphocytes # (1.0-4.8) k/uL Monocytes # (0-1.0) k/uL Eosinophils # (0-0.7) k/uL Basophils # (0-0.2) k/uL PT (9.0-12.0) sec INR (<1.2) APTT (22.0-30.0) sec Sodium (137-145) mmol/L Potassium (3.5-5.1) mmol/L Chloride (98-107) mmol/L Carbon Dioxide (22-30) mmol/L Anion Gap mmol/L BUN (7-17) mg/dL Creatinine (0.52-1.04) mg/dL Est GFR (CKD-EPI)AfAm (>60 ml/min/1.73 sqM) Est GFR (CKD-EPI)NonAf (>60 ml/min/1.73 sqM) Glucose (74-99) mg/dL Calcium (8.4-10.2) mg/dL Magnesium (1.6-2.3) mg/dL Total Bilirubin (0.2-1.3) mg/dL AST (14-36) U/L ALT (4-34) U/L Alkaline Phosphatase (38-126) U/L Troponin I <0.012 (0.000-0.034) ng/mL Total Protein (6.3-8.2) g/dL Albumin (3.5-5.0) g/dL Critical Care Time Critical Care Time: Yes Total Critical Care Time: 35 Disposition Clinical Impression: Atrial fibrillation with rapid ventricular response Disposition: ADMITTED IP TO THIS [facility] Condition: Fair Referrals: Robert Jefferson MD [Primary Care Provider] - 1-2 days Time of Disposition: 11:11
[2023-05-08] MEDS ORDERED: SODIUM CHLORIDE 0.9% 1,000 ML IV SCH (11:15)
[2023-05-08] MEDS ORDERED: DILTIAZEM 125 MG in SODIUM CHLORIDE 0.9% 100 ML IV SCH (11:30)
[2023-05-08] MEDS ORDERED: APIXABAN 5 MG TAB PO SCH (12:00)
[2023-05-08 12:21] VITALS: BP 91/64; RESP 16; TEMP 98
--- NOTE | 2023-05-08 12:41 | P.CRDCN ---
History of Present Illness History of present illness: HISTORY OF PRESENT ILLNESS: This is a 38-year-old female with a past medical history significant for hypertension, gestational diabetes, paroxysmal atrial fibrillation with ablation in 2017 and February 2023, obstructive sleep apnea on CPAP, and recent cardioversion on 04/19/2023. Patient follows in the office with Dr. Chandler. We have been asked to see the patient in consultation for A. fib with RVR. Patient examined at the bedside in the emergency room. The patient presented to the hospital with a chief complaint of palpitations. Patient was found to be an A. fib with RVR. A Cardizem drip has been ordered by the ER physician however this has not been started yet at the time of examination. She currently denies chest pain or pressure. She denies shortness of breath. * EKG reveals A. fib with RVR * Laboratory data: W BC 9.2. Hemoglobin 15.1. Platelet count 338. Sodium 141. Potassium 4.5. BUN 19. Creatinine 0.98. Troponin negative 1. * Current home cardiac medications include Eliquis 5mg BID, aspirin 81mg daily, Multaq 400mg BID * Most recent echocardiogram obtained in April 2022 reveals ejection fraction 55- 60%, mild MR, mild TR REVIEW OF SYSTEMS: At the time of my exam: CONSTITUTIONAL: Denies fever or chills. HEENT: Denies blurred vision, vision changes, or eye pain. Denies hemoptysis CARDIOVASCULAR: Denies chest pain. Denies orthopnea. Denies PND. Denies palpitations RESPIRATORY: Denies shortness of breath. GASTROINTESTINAL: Denies abdominal pain. Denies nausea or vomiting. HEMATOLOGIC: Denies bleeding disorders. GENITOURINARY: Denies any blood in urine. SKIN: Denies pruitis. Denies rash. PHYSICAL EXAM: VITAL SIGNS: Reviewed. GENERAL: Well-developed in no acute distress. HEENT: Head is normocephalic. Pupils are equal, round. Sclerae anicteric. Mucous membranes of the mouth are moist. Neck supple. No JVD or thyromegaly LUNGS: Respirations even and unlabored. Lungs essentially clear to auscultation bilaterally. HEART: Tachycardic. Regular rate and rhythm. S1 and S2 heard. ABDOMEN: Soft. Nondistended. Nontender. EXTREMITIES: Normal range of motion. No clubbing or cyanosis. Peripheral pulses intact. No lower extremity edema NEUROLOGIC: Awake and alert. Oriented x 3. ASSESSMENT: Palpitations Paroxysmal atrial fibrillation Recent cardioversion, 04/19/2023 History of A. fib ablation Obstructive sleep apnea on CPAP Hypertension History of gestational diabetes History of loop recorder insertion PLAN: Resume home cardiac medications Continue IV Cardizem Patient to undergo cardioversion today with Dr. Chandler Further recommendations pending patient course Nurse practitioner note has been reviewed by physician. Signing provider agrees with the documented findings, assessment, and plan of care. Past Medical History Past Medical History: Atrial Fibrillation, Asthma, GERD/Reflux, Sleep Apnea/CPAP/BIPAP, Thyroid Disorder Additional Past Medical History / Comment(s): CPAP use History of Any Multi-Drug Resistant Organisms: None Reported Past Surgical History: Cardiac Ablation, Section, Cholecystectomy Additional Past Surgical History / Comment(s): Ablation in 07/2017, gallbladder 10/05. C-SEC X 2. Ablation in February 2023 Past Anesthesia/Blood Transfusion Reactions: No Reported Reaction, Motion Sickness Past Psychological History: ADD/ADHD, Anxiety Smoking Status: Former smoker Past Alcohol Use History: Occasional Past Drug Use History: None Reported - Past Family History Father Family Medical History: CVA/TIA Additional Family Medical History / Comment(s): renal disease, heart failure, strokes ("alot") Mother Family Medical History: Cancer Additional Family Medical History / Comment(s): Breast cancer. Medications and Allergies Home Medications Medication Instructions Recorded Confirmed Type Pnv No.95/Ferrous Fum/Folic AC 1 tab PO DAILY 03/18/21 05/08/23 History [ Multivitamin Tablet] Levothyroxine Sodium [Synthroid] 50 mcg PO DAILY 05/03/22 05/08/23 History Ascorbic Acid [Vitamin C] 1,000 mg PO DAILY 10/17/22 05/08/23 History Apixaban [Eliquis] 5 mg PO BID 03/02/23 05/08/23 History Albuterol Sulfate [Albuterol 2 puff INHALATION RT-Q6H PRN 04/18/23 05/08/23 History Sulfate Hfa] Aspirin EC [Ecotrin Low Dose] 81 mg PO DAILY 04/18/23 05/08/23 History Calcium Carbonate [Calcium] 600 mg PO DAILY 04/18/23 05/08/23 History Cholecalciferol [Vitamin D3 (25 25 mcg PO DAILY 04/18/23 05/08/23 History Mcg = 1000 Iu)] Dronedarone HCl [Multaq] 400 mg PO BID #180 tablet 04/19/23 05/08/23 Rx Metoprolol Tartrate [Lopressor] 25 mg PO DIRECTED PRN 05/08/23 05/08/23 His tory Semaglutide [Ozempic] 0.25 mg SQ TH 05/08/23 05/08/23 History Allergies Allergy/AdvReac Type Severity Reaction Status Date / Time No Known Allergies Allergy Verified 05/08/23 10:10 Physical Exam Vitals: Vital Signs Temp Pulse Resp BP Pulse Ox 05/08/23 12:17 98 F 141 H 16 91/64 99 05/08/23 11:30 129 H 17 115/90 97 05/08/23 09:42 98.4 F 61 18 100/65 97 Intake and Output 05/07/23 05/08/23 05/08/23 22:59 06:59 14:59 Other: Weight 123.831 kg Results 05/08/23 10:13 05/08/23 10:13 Cardiac Enzymes 05/08/23 05/08/23 Range/Units 10:13 10:13 AST 36 (14-36) U/L Troponin I <0.012 (0.000-0.034) ng/mL Coagulation 05/08/23 Range/Units 10:13 PT 9.9 (9.0-12.0) sec APTT 25.8 (22.0-30.0) sec CBC 05/08/23 Range/Units 10:13 WBC 9.2 (3.8-10.6) k/uL RBC 5.26 (3.80-5.40) m/uL Hgb 15.1 (11.4-16.0) gm/dL Hct 44.6 (34.0-46.0) % Plt Count 338 (150-450) k/uL Comprehensive Metabolic Panel 05/08/23 Range/Units 10:13 Sodium 141 (137-145) mmol/L Potassium 4.5 (3.5-5.1) mmol/L Chloride 105 (98-107) mmol/L Carbon Dioxide 22 (22-30) mmol/L BUN 19 H (7-17) mg/dL Creatinine 0.98 (0.52-1.04) mg/dL Glucose 111 H (74-99) mg/dL Calcium 9.7 (8.4-10.2) mg/dL AST 36 (14-36) U/L ALT 55 H (4-34) U/L Alkaline Phosphatase 74 (38-126) U/L Total Protein 8.0 (6.3-8.2) g/dL Albumin 4.7 (3.5-5.0) g/dL Current Medications Generic Name Dose Route Start Last Admin Trade Name Freq PRN Reason Stop Dose Admin Apixaban 5 mg 05/08/23 12:00 05/08/23 12:13 Apixaban 5 Mg Tab PO 06/07/23 12:01 5 mg BID NICKI Administration Protocol Dronedarone 400 mg 05/08/23 11:00 05/08/23 11:19 Dronedarone 400 Mg Tab PO 400 mg BID NICKI Administration Diltiazem HCl 125 mg/ Sodium 125 mls @ 10 mls/hr 05/08/23 11:30 05/08/23 11:29 Chloride IV 10 mg/hr .[id number] NICKI 10 mls/hr Administration 10 MG/HR Sodium Chloride 1,000 mls @ 75 mls/hr 05/08/23 11:15 Saline 0.9% IV 06/07/23 11:16 .[id number] NICKI Naloxone HCl 0.2 mg 05/08/23 11:11 Naloxone 0.4 Mg/Ml 1 Ml Vial IV 06/07/23 11:12 Q2M PRN Opioid Reversal Intake and Output 05/07/23 05/08/23 05/08/23 22:59 06:59 14:59 Other: Weight 123.831 kg Patient Weight 05/09/23 06:59 Weight 123.831 kg 05/08/23 10:13 05/08/23 10:13
[2023-05-08] MEDS ORDERED: ALBUTEROL NEBULIZED 2.5 MG/3 ML INHALATION PRN (12:53)
--- NOTE | 2023-05-08 13:01 | P.HPIM ---
History of Present Illness H&P Date: 05/08/23 Patient is a 38-year-old female with known atrial fibrillation status post ablation 03/07 and cardioversion earlier this month, GENIA with CPAP use, asthma, and hypothyroidism who presented to the ER with complaints of palpitations. On arrival to the ER her vital signs within normal limits however on telemetry she was noted to have tachycardia to the 130s. Subsequent EKG confirmed atrial fibrillation with rapid ventricular response. Initial laboratory analysis is essentially unremarkable. Cardiology was consulted and felt the patient in the emergency department. They plan on continuing IV Cardizem and having the patient undergo a cardioversion this afternoon. Patient seen and examined at bedside. She reports that she started noticing palpitations yesterday morning at approximately 6 AM. She continued to take her Maxalt and took 2 doses of metoprolol. She continued to have palpitations throughout the day and this morning and therefore decided to come to the emerg ency department. She has had some intermittent dizziness mostly with climbing stairs and taking care of her kids. She denies any chest pain, diaphoresis, or shortness of breath. She states she has been taking all medications as prescribed. She is feeling frustrated she has been dealing with this tachycardia for several months and she keeps going and A. fib. She also reports that she went into A. fib at home on 04/28/23 but that it abated in approximately one hour. She reports that for the last several days she has had nasal congestion, postnasal drip, some swelling in her cervical lymph nodes, and feels as though her ALLERGIES are acting up. Vital signs reviewed General: nontoxic, no distress, appears at stated age Derm: warm, dry Eyes: EOMI, no lid lag, anicteric sclera, pupils equal round reactive to light ENT: Nose and ears atraumatic, no thrush, no pharyngeal erythema, + cervical lymphadenopathy Cardiovascular: S1S2 regular reg, no murmur, positive posterior tibial pulse bi lateral, no edema, capillary refill less than 2 seconds Lungs: clear to auscultation bilateral, no rhonchi, no rales, no wheeze, no accessory muscle use Ext: no gross muscle atrophy, moving all 4 cavities independently, no contractures Neuro: CN II-XII grossly intact, no focal neuro deficits Psych: Alert, oriented, appropriate affect Assessment: Atrial fibrillation with rapid ventricular response recent cardioversion on 04/19/23 and ablation 03/07 Hypertension line-continue with Cardizem drip -Cardiology consult reviewed: Plan is for cardioversion today -Continue with ELiquis 5 mg twice daily, Multaq 400 mg BID -Normal saline at 75 mL/h - Magnesium normal Obstructive sleep apnea -continue with CPAP Obesity with BMI 41.5 - continue with ozempic as outpatient Chronic: Hypothyroidism Asthma GERD Imaging: As per HPI Data Review: As per HPI The patient is admitted with an anticipated less than 2 midnight stay up for A. fib with rapid ventricular response Anticipated discharge date: 24-[address]: Home This dictation was prepared using [employer] voice recognition software. Though every attempt is made to correct errors during dictation some may still exist. Past Medical History Past Medical History: Atrial Fibrillation, Asthma, GERD/Reflux, Sleep Apnea/CPAP/BIPAP, Thyroid Disorder Additional Past Medical History / Comment(s): CPAP use History of Any Multi-Drug Resistant Organisms: None Reported Past Surgical History: Cardiac Ablation, Section, Cholecystectomy Additional Past Surgical History / Comment(s): Ablation in 07/2017, gallbladder 10/05. C-SEC X 2. Ablation in February 2023. Cardioversion 05/07 Past Anesthesia/Blood Transfusion Reactions: No Reported Reaction, Motion Sickness Past Psychological History: ADD/ADHD, Anxiety Smoking Status: Former smoker Past Alcohol Use History: Occasional Past Drug Use History: None Reported - Past Family History Father Family Medical History: CVA/TIA Additional Family Medical History / Comment(s): renal disease, heart failure, strokes ("alot") Mother Family Medical History: Cancer Additional Family Medical History / Comment(s): Breast cancer. Medications and Allergies Home Medications Medication Instructions Recorded Confirmed Type Pnv No.95/Ferrous Fum/Folic AC 1 tab PO DAILY 03/18/21 05/08/23 History [ Multivitamin Tablet] Levothyroxine Sodium [Synthroid] 50 mcg PO DAILY 05/03/22 05/08/23 History Ascorbic Acid [Vitamin C] 1,000 mg PO DAILY 10/17/22 05/08/23 History Apixaban [Eliquis] 5 mg PO BID 03/02/23 05/08/23 History Albuterol Sulfate [Albuterol 2 puff INHALATION RT-Q6H PRN 04/18/23 05/08/23 History Sulfate Hfa] Aspirin EC [Ecotrin Low Dose] 81 mg PO DAILY 04/18/23 05/08/23 History Calcium Carbonate [Calcium] 600 mg PO DAILY 04/18/23 05/08/23 History Cholecalciferol [Vitamin D3 (25 25 mcg PO DAILY 04/18/23 05/08/23 History Mcg = 1000 Iu)] Dronedarone HCl [Multaq] 400 mg PO BID #180 tablet 04/19/23 05/08/23 Rx Metoprolol Tartrate [Lopressor] 25 mg PO DIRECTED PRN 05/08/23 05/08/23 History Semaglutide [Ozempic] 0.25 mg SQ TH 05/08/23 05/08/23 History Allergies Allergy/AdvReac Type Severity Reaction Status Date / Time No Known Allergies Allergy Verified 05/08/23 10:10 Physical Exam Osteopathic Statement: *. No significant issues noted on an osteopathic structural exam other than those noted in the History and Physical/Consult. Vitals: Vital Signs Temp Pulse Resp BP Pulse Ox 05/08/23 12:17 98 F 141 H 16 91/64 99 05/08/23 11:30 129 H 17 115/90 97 05/08/23 09:42 98.4 F 61 18 100/65 97 Intake and Output 05/07/23 05/08/23 05/08/23 22:59 06:59 14:59 Other: Weight 123.831 kg Results CBC & Chem 7: 05/08/23 10:13 05/08/23 10:13 Labs: Abnormal Lab Results - Last 24 Hours (Table) 05/08/23 Range/Units 10:13 BUN 19 H (7-17) mg/dL Glucose 111 H (74-99) mg/dL ALT 55 H (4-34) U/L
[2023-05-08] MEDS ORDERED: IV FLUID CONTINUATION 500 ML IV ONE (13:34)
[2023-05-08 13:40] VITALS: PULSE 128
[2023-05-08] MEDS ORDERED: PROPOFOL 10 MG/ML 20 ML VIAL IV ONE (13:45)
--- NOTE | 2023-05-08 14:04 | P.EPPROC ---
- EP Procedure Note Electrophysiology Procedure Note: Diagnosis Recurrent persistent atrial fibrillation that started yesterday Status post A. fib ablation with pulmonary and isolation, left atrial roof ablation and ablation of the carinas followed by induction of an atrial tachycardia with a focus in the anterior wall, outside the right superior pulmonary vein antrum. Successful RF ablation. No other arrhythmias inducible thereafter Yesterday she had recurrence of atrial fibrillation on Multaq She is already failed flecainide this was a second ablation, the first one was performed in [place] many years back She is a family history of atrial fibrillation, father and her sister have A. fib Obesity Diabetes Hypothyroidism, on replacement therapy Procedure Successful electrical cardioversion to sinus rhythm with a single 20 J biphasic shock. Sinus mechanism the 70s Plan Discontinue Multaq Take metoprolol only as needed Continue anticoagulation Check TSH today
--- NOTE | 2023-05-08 15:57 | P.DS ---
Providers Date of admission: 05/08/23 11:58 Expected date of discharge: 05/08/23 Attending physician: Tania Cage DO Consults: 05/08/23 10:53 Consult Physician Urgent Consulting Provider: Stevo Ramirez Consult Reason/Comments: afib Do you want consulting provider notified?: Already Contacted Primary care physician: Robert Jefferson MD Hospital Course: Discharge Diagnosis: Paroxysmal A fib wtih RVR HTN GENIA Obesity with BMI 41.5 Hypothyroidism Asthma GERD Hospital Course: Patient is a 38-year-old female with known atrial fibrillation status post ablation 03/07 and cardioversion earlier this month, GENIA with CPAP use, asthma, and hypothyroidism who presented to the ER with complaints of palpitations. On arrival to the ER her vital signs within normal limits however on telemetry she was noted to have tachycardia to the 130s. Subsequent EKG confirmed atrial fibrillation with rapid ventricular response. Initial laboratory analysis is essentially unremarkable. Cardiology was consulted and evaluated the patient in the emergency department. She was started on IV Cardizem and underwent cardi oversion in the afternoon. She cardioverted with 20 joules. She was monitored for several hours and maintained normal sinus rhythm.She was determined stable for discharge. Follow-up: Dr. Chandler next week, off Multaq, metoprolol as needed. Patient seen and examined at bedside after cardioversion. She is feeling well, just slightly tired. No other complaints. A total of 15 minutes of time were spent preparing this complex discharge summary. Patient was discharged on 05/08/23. This dictation was prepared using [facility] voice recognition software. Though every attempt is made to correct errors during dictation some may still exist. Patient Condition at Discharge: Fair Plan - Discharge Summary New Discharge Prescriptions: Continue Levothyroxine Sodium [Synthroid] 50 mcg PO DAILY Cholecalciferol [Vitamin D3 (25 Mcg = 1000 Iu)] 25 mcg PO DAILY Metoprolol Tartrate [Lopressor] 25 mg PO DIRECTED PRN PRN Reason: high bp Pnv No.95/Ferrous Fum/Folic AC [ Multivitamin Tablet] 1 tab PO DAILY Ascorbic Acid [Vitamin C] 1,000 mg PO DAILY Apixaban [Eliquis] 5 mg PO BID Aspirin EC [Ecotrin Low Dose] 81 mg PO DAILY Albuterol Sulfate [Albuterol Sulfate Hfa] 2 puff INHALATION RT-Q6H PRN PRN Reason: Shortness Of Breath Calcium Carbonate [Calcium] 600 mg PO DAILY Semaglutide [Ozempic] 0.25 mg SQ TH Discontinued Dronedarone HCl [Multaq] 400 mg PO BID #180 tablet Discharge Medication List Pnv No.95/Ferrous Fum/Folic AC [ Multivitamin Tablet] 1 tab PO DAILY 03/18/21 [History] Levothyroxine Sodium [Synthroid] 50 mcg PO DAILY 05/03/22 [History] Ascorbic Acid [Vitamin C] 1,000 mg PO DAILY 10/17/22 [History] Apixaban [Eliquis] 5 mg PO BID 03/02/23 [History] Albuterol Sulfate [Albuterol Sulfate Hfa] 2 puff INHALATION RT-Q6H PRN 04/18/23 [History] Aspirin EC [Ecotrin Low Dose] 81 mg PO DAILY 04/18/23 [History] Calcium Carbonate [Calcium] 600 mg PO DAILY 04/18/23 [History] Cholecalciferol [Vitamin D3 (25 Mcg = 1000 Iu)] 25 mcg PO DAILY 04/18/23 [History] Metoprolol Tartrate [Lopressor] 25 mg PO DIRECTED PRN 05/08/23 [History] Semaglutide [Ozempic] 0.25 mg SQ TH 05/08/23 [History] Follow up Appointment(s)/Referral(s): Magnus Chandler MD [STAFF PHYSICIAN] - 05/15/23 11:45 am (Appointment is with KRYSTIAN Vasquez) Robert Jefferson MD [Primary Care Provider] - 06/01/23 8:00 am Patient Instructions/Handouts: Moderate Sedation (DC), Cardioversion (DC) Activity/Diet/Wound Care/Special Instructions: Stop Multaq Continue ELIQUIS NO DRIVING TODAY DUE TO SEDATION GIVEN. Discharge Disposition: HOME SELF-CARE
[2023-05-09] MEDS ORDERED: LEVOTHYROXINE 50 MCG TAB PO SCH (06:30)
[2023-05-09] MEDS ORDERED: ASCORBIC ACID 500 MG TAB PO SCH (09:00)
[2023-05-09] MEDS ORDERED: ASPIRIN 81 MG PO SCH (09:00)
[2023-05-09] MEDS ORDERED: CHOLECALCIFEROL 25 MCG (1000 IU) TABLET PO SCH (09:00)
[2023-05-09] MEDS ORDERED: CALCIUM CARBONATE 500 MG CHEWABLE PO SCH (09:00)
[2023-05-09] MEDS ORDERED: PRENATAL VIT-IRON-FOLIC ACID 1 EACH TABLET PO SCH (09:00)
== END 2023-05-08 17:17 | disposition home or self-care (01) ==
LOC: CATHEP 09:31 → 3SCARD 11:58
PROVIDERS: ADMIT Internal Medicine; ATTEND Internal Medicine
DX: I48.0 Paroxysmal atrial fibrillation (principal); I10 Essential (primary) hypertension; G47.33 Obstructive sleep apnea (adult) (pediatric); E66.9 Obesity, unspecified; Z68.41 Body mass index [BMI] 40.0-44.9, adult; E03.9 Hypothyroidism, unspecified; J45.909 Unspecified asthma, uncomplicated; K21.9 Gastro-esophageal reflux disease without esophagitis; R00.0 Tachycardia, unspecified; E07.9 Disorder of thyroid, unspecified; F41.9 Anxiety disorder, unspecified; F90.9 Attention-deficit hyperactivity disorder, unspecified type; Z90.49 Acquired absence of other specified parts of digestive tract; Z79.890 Hormone replacement therapy; Z79.82 Long term (current) use of aspirin; Z79.01 Long term (current) use of anticoagulants; Z86.32 Personal history of gestational diabetes; Z82.49 Family history of ischemic heart disease and other diseases of the circulatory system; Z80.3 Family history of malignant neoplasm of breast
CPT/HCPCS: 96374; 99291; 36415; 93005; 92960; 80053; 83735; 84484; 85025; 85610; 85730; G0378; J2704

== ENCOUNTER 2023-08-18 08:22 | Emergency (ER) | payer BC ==
[2023-08-18 08:42] VITALS: RESP 18
[2023-08-18] MEDS ORDERED: DEXAMETHASONE SOD PHOSPHATE 10 MG/ML 1 ML VIAL IVP ONE (08:56)
[2023-08-18] MEDS ORDERED: KETOROLAC 15 MG/ML 1 ML VIAL IVP STA (08:58)
--- NOTE | 2023-08-18 09:07 | ED ---
Eye Problem HPI - General Chief complaint: Recheck/Abnormal Lab/Rx Stated complaint: Left eye problem Time Seen by Provider: 08/18/23 08:27 Source: patient, RN notes reviewed Mode of arrival: ambulatory Limitations: no limitations - History of Present Illness Initial comments: This is a 38-year-old female who presents to the emergency department for left eye pain and swelling. States that it started 4 days ago. She went to urgent care 2 days ago and was started on Bactrim and Augmentin. She has taken 2 doses of each of these medications. However, states that this continues to be getting worse. She has pain to the eye and with eye movement. This is having an impact on her vision to some extent as well. She has had a stye before, but states that this feels worse. Tylenol is no longer effective for her pain. Denies any fevers or chills. MD chief complaint: eye pain Onset/Timin -: days(s) - Related Data Home Medications Medication Instructions Recorded Confirmed Pnv No.[id number]/Ferrous Fum/Folic AC 1 tab PO DAILY 03/18/21 05/08/23 [ Multivitamin Tablet] Levothyroxine Sodium [Synthroid] 50 mcg PO DAILY 05/03/22 05/08/23 Ascorbic Acid [Vitamin C] 1,000 mg PO DAILY 10/17/22 05/08/23 Apixaban [Eliquis] 5 mg PO BID 03/02/23 05/08/23 Albuterol Sulfate [Albuterol 2 puff INHALATION RT-Q6H PRN 04/18/23 05/08/23 Sulfate Hfa] Aspirin EC [Ecotrin Low Dose] 81 mg PO DAILY 04/18/23 05/08/23 Calcium Carbonate [Calcium] 600 mg PO DAILY 04/18/23 05/08/23 Cholecalciferol [Vitamin D3 (25 25 mcg PO DAILY 04/18/23 05/08/23 Mcg = 1000 Iu)] Metoprolol Tartrate [Lopressor] 25 mg PO DIRECTED PRN 05/08/23 05/08/23 Semaglutide [Ozempic] 0.25 mg SQ TH 05/08/23 05/08/23 Allergies Allergy/AdvReac Type Severity Reaction Status Date / Time No Known Allergies Allergy Verified 08/18/23 08:29 Review of Systems ROS Statement: Those systems with pertinent positive or pertinent negative responses have been documented in the HPI. ROS Other: All systems not noted in ROS Statement are negative. Past Medical History Past Medical History: Atrial Fibrillation, Asthma, GERD/Reflux, Sleep Apnea/CPAP/BIPAP, Thyroid Disorder Additional Past Medical History / Comment(s): CPAP use History of Any Multi-Drug Resistant Organisms: None Reported Past Surgical History: Cardiac Ablation, Section, Cholecystectomy Additional Past Surgical History / Comment(s): Ablation in 07/2017, gallbladder 10/05. C-SEC X 2. Ablation in February 2023. Cardioversion 05/07 Past Anesthesia/Blood Transfusion Reactions: No Reported Reaction, Motion Sickness Past Psychological History: ADD/ADHD, Anxiety Smoking Status: Former smoker Past Alcohol Use History: Occasional Past Drug Use History: None Reported - Past Family History Father Family Medical History: CVA/TIA Additional Family Medical History / Comment(s): renal disease, heart failure, strokes ("alot") Mother Family Medical History: Cancer Additional Family Medical History / Comment(s): Breast cancer. General Exam Limitations: no limitations General appearance: alert, in no apparent distress Head exam: Present: atraumatic, normocephalic, normal inspection Eye exam: Present: other (Swelling and tenderness to the left lower eyelid and surrounding tissues with possible hordeolum to the medial aspect of the left lower lid.) Respiratory exam: Present: normal lung sounds bilaterally. Absent: respiratory distress, wheezes, rales, rhonchi, stridor Cardiovascular Exam: Present: regular rate, normal rhythm, normal heart sounds. Absent: systolic murmur, diastolic murmur, rubs, gallop, clicks Neurological exam: Present: alert, oriented X3, CN II-XII intact Psychiatric exam: Present: normal affect, normal mood Course Vital Signs 08/18/23 08/18/23 08:27 10:00 Temperature 98.4 F 98 F Pulse Rate 85 78 Respiratory 18 18 Rate Blood Pressure 118/84 109/72 O2 Sat by Pulse 99 99 Oximetry Medical Decision Making - Medical Decision Making This is a 38-year-old female who presents to the emergency department for left eye pain and swelling. Was pt. sent in by a medical professional or institution? @ -No Did you speak to anyone other than the patient for history? @ -No Did you review nursing and triage notes? @ -Yes, and I agree, it is accurate with regards to the patient's symptoms. Were old charts reviewed? @ -No Differential Diagnosis? @ -Differential Eye Pain: Conjuncitivitis (viral, bacterial, allergic), corneal abrasion, foreign body, iritis, uveitis, keratitis, acute angle closure glaucoma, this is not meant to be an all-inclusive list. EKG interpreted by me (3pts min.)? @ -Not obtained X-rays interpreted by me (1pt min.)? @ -Not obtained CT interpreted by me (1pt min.)? @ -Computed tomography scan of the orbits obtained. My interpretation identifies soft tissue swelling to the left preseptal region. U/S interpreted by me (1pt. min.)? @ -Not obtained What testing was considered but not performed? (CT, X-rays, U/S, labs)? Why? @ -None What meds were considered but not given? Why? @ -None Did you discuss the management of the patient with other professionals? @ -No Did you reconcile home meds? @ -No Was smoking cessation discussed for >3mins.? @ -No Was critical care preformed (if so, how long)? @ -No Were there social determinants of health that impacted care today? How? (Homelessness, low income, unemployed, alcoholism, drug addiction, transportation, low edu. Level, literacy, decrease access to med. care, alf, rehab)? @ -No Was there de-escalation of care discussed even if they declined? (Discuss DNR or withdrawal of care, Hospice)? @ -No What co-morbidities impacted this encounter? (DM, HTN, Smoking, COPD, CAD, Cancer, CVA, Hep., AIDS, mental health diagnosis, sleep apnea, morbid obesity)? @ -None Was patient admitted / discharged? @ -Discharged. Physical examination does reveal an obvious stye, however there is swelling extending into the periorbital region and the patient is exhibiting pain with eye movement. We discussed the risks for orbital cellulitis, which would necessitate admission with IV antibiotics. Patient was given the option of proceeding with blood work and a computed tomography scan versus discharge home with close monitoring and continuation of antibiotics. Patient is agreeable to imaging and blood work. Lab work obtained and found to be nonactionable. Computed tomography scan of the orbits obtained revealing fin dings suggestive of a left preseptal cellulitis. Findings reviewed with the patient. Advised that in light of these findings, she can continue on her current course of outpatient antibiotics, especially given that she's not been taking them for a long period of time. She is advised to use warm compresses and also alternate with ibuprofen and Tylenol as needed for pain relief. Undiagnosed new problem with uncertain prognosis? @ -None Drug Therapy requiring intensive monitoring for toxicity (Heparin, Nitro, Insulin, Cardizem)? @ -None Were any procedures done? @ -None Diagnosis/symptom? @ -Hordeolum, left preseptal cellulitis Acute, or Chronic, or Acute on Chronic? @ -Acute Uncomplicated (without systemic symptoms) or Complicated (systemic symptoms)? @ -Uncomplicated Side effects of treatment? @ -None Exacerbation, Progression, or Severe Exacerbation] @ -Not applicable Poses a threat to life or bodily function? @ -Unlikely Return precautions reviewed in depth, the patient is instructed to return to the emergency department with any new, worsening, or concerning symptoms. Patient verbalized understanding. This case was discussed in detail with the attending ED physician, Dr. Abdalla. Presentation, findings, and treatment plan discussed in detail as well. - Lab Data Result diagrams: 08/18/23 09:05 08/18/23 09:05 Lab Results 08/18/23 08/18/23 Range/Units 09:05 09:05 WBC 8.5 (3.8-10.6) k/uL RBC 5.10 (3.80-5.40) m/uL Hgb 14.4 (11.4-16.0) gm/dL Hct 42.1 (34.0-46.0) % MCV 82.5 (80.0-100.0) fL MCH 28.2 (25.0-35.0) pg MCHC 34.2 (31.0-37.0) g/dL RDW 12.7 (11.5-15.5) % Plt Count 239 (150-450) k/uL MPV 9.6 Neutrophils % 69 % Lymphocytes % 17 % Monocytes % 5 % Eosinophils % 5 % Basophils % 0 % Neutrophils # 5.9 (1.3-7.7) k/uL Lymphocytes # 1.5 (1.0-4.8) k/uL Monocytes # 0.5 (0-1.0) k/uL Eosinophils # 0.5 (0-0.7) k/uL Basophils # 0.0 (0-0.2) k/uL Sodium 140 (137-145) mmol/L Potassium 4.7 (3.5-5.1) mmol/L Chloride 108 H (98-107) mmol/L Carbon Dioxide 22 (22-30) mmol/L Anion Gap 10 mmol/L BUN 12 (7-17) mg/dL Creatinine 0.82 (0.52-1.04) mg/dL Est GFR (CKD-EPI)AfAm >90 (>60 ml/min/1.73 sqM) Est GFR (CKD-EPI)NonAf >90 (>60 ml/min/1.73 sqM) Glucose 99 (74-99) mg/dL Calcium 9.6 (8.4-10.2) mg/dL Total Bilirubin 0.5 (0.2-1.3) mg/dL AST 27 (14-36) U/L ALT 41 H (4-34) U/L Alkaline Phosphatase 60 (38-126) U/L C-Reactive Protein 0.7 (<1.0) mg/dL Total Protein 7.3 (6.3-8.2) g/dL Albumin 4.6 (3.5-5.0) g/dL - Radiology Data Radiology results: report reviewed, image reviewed Disposition Clinical Impression: Hordeolum externum left lower eyelid, Preseptal cellulitis of left lower eyelid Disposition: HOME SELF-CARE Instructions (If sedation given, give patient instructions): Stye (ED), Periorbital Cellulitis in Adults (ED) Additional Instructions: Return to the emergency department with any new, worsening, or concerning symptoms. Continue taking both antibiotics as prescribed. Continue applying warm compresses several times a day. Alternate with ibuprofen and Tylenol as needed for pain relief. Follow up with your primary care provider in 1-2 days. Is patient prescribed a controlled substance at d/c from ED?: No Referrals: Robert Jefferson MD [Primary Care Provider] - 1-2 days
[2023-08-18 09:17] LABS: Basophils % (A) 0 %; Eosinophils # (A) 0.5 k/uL (0-0.7); Eosinophils % (A) 5 %; HCT 42.1 % (34.0-46.0); HGB 14.4 gm/dL (11.4-16.0); Lymphocytes # (A) 1.5 k/uL (1.0-4.8); Lymphocytes % (A) 17 %; MCH 28.2 pg (25.0-35.0); MCHC 34.2 g/dL (31.0-37.0); MCV 82.5 fL (80.0-100.0); Mean Platelet Volume 9.6; Monocytes # (A) 0.5 k/uL (0-1.0); Monocytes % (A) 5 %; Neutrophils # (A) 5.9 k/uL (1.3-7.7); Neutrophils % (A) 69 %; Platelet Count 239 k/uL (150-450); RDW 12.7 % (11.5-15.5); WBC 8.5 k/uL (3.8-10.6)
[2023-08-18 09:29] LABS: ALT 41 U/L (4-34); AST 27 U/L (14-36); African American GFR (CKD) >90 (>60 ml/min/1.73 sqM); Albumin 4.6 g/dL (3.5-5.0); Alkaline Phosphatase 60 U/L (38-126); Blood Urea Nitrogen 12 mg/dL (7-17); C Reactive Protein 0.7 mg/dL (<1.0); Calcium 9.6 mg/dL (8.4-10.2); Carbon Dioxide 22 mmol/L (22-30); Chloride 108 mmol/L (98-107); Glucose 99 mg/dL (74-99); Non-African American GFR(CKD) >90 (>60 ml/min/1.73 sqM); Total Bilirubin 0.5 mg/dL (0.2-1.3); Total Protein 7.3 g/dL (6.3-8.2)
[2023-08-18 09:33] LABS: Anion Gap 10 mmol/L; Potassium 4.7 mmol/L (3.5-5.1); Sodium 140 mmol/L (137-145)
--- NOTE | 2023-08-18 09:54 | CT ---
EXAMINATION TYPE: CT orbits w con DATE OF EXAM: 08/18/2023 COMPARISON: None HISTORY: 38-year-old female Lt eye pain and swelling TECHNIQUE: Contiguous axial scanning of the orbits performed with IV Contrast, patient injected with 100 mL of Isovue 300. Coronal/sagittal reconstructions performed. CT DLP: 352.3 mGycm Automated exposure control for dose reduction was used. FINDINGS: Partially visualized soft tissue nodule in the left parotid space measuring 1.6 cm, just anterior to the left ear. Axial series 4 image 1. Slight leftward nasal septal deviation. Trace scattered mucosal thickening throughout the maxillary a nd ethmoid sinuses. No air-fluid levels. Globes appear intact. No acute fracture is seen. There is preseptal soft tissue swelling on the left. No intraorbital or retrobulbar soft tissue abnor mality is identified. Mild soft tissue swelling tracks down the upper left premaxillary soft tissues. No abnormal engorgement of the superior ophthalmic veins. Symmetric enhancement within the cavernous sinuses. IMPRESSION: 1. CT FINDINGS SUGGESTIVE OF LEFT-SIDED PRESEPTAL CELLULITIS. NO POSTSEPTAL INVOLVEMENT IS IDENTIFIED . 2. A 1.6 cm soft tissue nodule in the left parotid space anterior to the left ear. Probably a reactiv e, enlarged lymph node. Correlate with physical exam findings. Recommend 6-8 weeks follow-up ultrasou nd to ensure resolution and exclude the possibility of a nerve sheath or salivary gland tumor.
[2023-08-18] MEDS ORDERED: ERYTHROMYCIN 5 MG/GM OPHTH OINT 3.5 GM TUBE LEFT EYE ONE (09:59)
[2023-08-18] MEDS ORDERED: ACET/COD 300 MG/30 MG STARTER PACK 6 TAB BTL PO STA (10:01)
[2023-08-18] MEDS ORDERED: IBUPROFEN 600 MG STARTER PACK 4 TAB BTL PO STA (10:01)
[2023-08-18 10:16] VITALS: BP 109/72; PULSE 78; TEMP 98
[2023-08-18 16:05] LABS: Erythrocyte Sedimentation Rate 14 mm/Hr (0-20)
== END 2023-08-18 10:20 | disposition home or self-care (01) ==
LOC: EC 08:22
DX: H00.015 Hordeolum externum left lower eyelid (principal); H00.035 Abscess of left lower eyelid; E07.9 Disorder of thyroid, unspecified; G47.30 Sleep apnea, unspecified; J45.909 Unspecified asthma, uncomplicated; I48.91 Unspecified atrial fibrillation; Z79.890 Hormone replacement therapy; Z79.899 Other long term (current) drug therapy; Z79.01 Long term (current) use of anticoagulants; Z79.82 Long term (current) use of aspirin
CPT/HCPCS: 36415; 80053; 85652; 85025; 86140; 70481; 99284; 96374; 96375; J1100; J1885; Q9967

== ENCOUNTER 2023-11-27 09:33 | Inpatient (IN) | payer BC ==
--- NOTE | 2023-11-27 09:52 | ED ---
Arrhythmia/Palpitations HPI - General Chief Complaint: Arrhythmia/Palpitations Stated Complaint: Afib Time Seen by Provider: 11/27/23 09:51 Source: patient, RN notes reviewed, old records reviewed Mode of arrival: ambulatory Limitations: no limitations - History of Present Illness Initial Comments: This is a 38-year-old female to the ER for evaluation today. Patient comes in for lightheadedness dizziness racing heart with increased heart rate here in the emergency department. Patient has elevated heart rate here in the ER with known atrial fibrillation history of atrial fibrillation. Patient has no current chest pain does mention some shortness of breath but significant palpitations with elevated heart rate. She has not missed any medications or doses. No recent illnesses fever cough congestion nausea vomiting or diarrhea MD Complaint: rapid heart beat, "heart racing", "skipped beats", palpitations, irregular heart beat, atrial fibrillation -: hour(s) Context: awoke with symptoms Arrhythmia History: atrial fibrillation Associated Symptoms: shortness of breath, anxiety Treatments Prior to Arrival: other (0) - Related Data Home Medications Medication Instructions Recorded Confirmed Levothyroxine Sodium [Synthroid] 50 mcg PO DAILY 05/03/22 11/27/23 Ascorbic Acid [Vitamin C] 1,000 mg PO DAILY 10/17/22 11/27/23 Aspirin EC [Ecotrin Low Dose] 81 mg PO DAILY 04/18/23 11/27/23 Cholecalciferol [Vitamin D3 (25 25 mcg PO DAILY 04/18/23 11/27/23 Mcg = 1000 Iu)] Metoprolol Tartrate [Lopressor] 25 mg PO DAILY 05/08/23 11/27/23 Atomoxetine HCl [Strattera] 25 mg PO DAILY PRN 11/27/23 11/27/23 L.acidoph,Paracasei, B.lactis 1 cap PO DAILY 11/27/23 11/27/23 [Probiotic] Magnesium Gluconate 200mg 1 tab PO DAILY 11/27/23 11/27/23 Metoprolol Tartrate [Lopressor] 12.5 mg PO HS 11/27/23 11/27/23 Multivitamins, Thera [Multivitamin 1 tab PO DAILY 11/27/23 11/27/23 (formulary)] Previous Rx's Medication Instructions Recorded Apixaban [Eliquis] 5 mg PO BID #60 tab 02/13/24 Disopyramide [Norpace] 100 mg PO Q8HR #90 cap 11/28/23 Allergies Allergy/AdvReac Type Severity Reaction Status Date / Time No Known Allergies Allergy Verified 11/27/23 11:21 Review of Systems ROS Statement: Those systems with pertinent positive or pertinent negative responses have been documented in the HPI. ROS Other: All systems not noted in ROS Statement are negative. Past Medical History Past Medical History: Atrial Fibrillation, Asthma, GERD/Reflux, Sleep Apnea/CP AP/BIPAP, Thyroid Disorder Additional Past Medical History / Comment(s): CPAP use History of Any Multi-Drug Resistant Organisms: None Reported Past Surgical History: Cardiac Ablation, Section, Cholecystectomy Additional Past Surgical History / Comment(s): Ablation in 07/2017, gallbladder 10/05. C-SEC X 2. Ablation in February 2023. Cardioversion 05/07 Past Anesthesia/Blood Transfusion Reactions: No Reported Reaction, Motion Sickness Past Psychological History: ADD/ADHD, Anxiety Smoking Status: Former smoker Past Alcohol Use History: Occasional Past Drug Use History: None Reported - Past Family History Father Family Medical History: CVA/TIA Additional Family Medical History / Comment(s): renal disease, heart failure, strokes ("alot") Mother Family Medical History: Cancer Additional Family Medical History / Comment(s): Breast cancer. General Exam Limitations: no limitations General appearance: anxious Head exam: Present: atraumatic, normocephalic, normal inspection Eye exam: Present: normal appearance, PERRL, EOMI. Absent: scleral icterus, conjunctival injection, periorbital swelling ENT exam: Present: normal exam, mucous membranes moist Neck exam: Present: normal inspection. Absent: tenderness, meningismus, lymphadenopathy Respiratory exam: Present: normal lung sounds bilaterally. Absent: respiratory distress, wheezes, rales, rhonchi, stridor Cardiovascular Exam: Present: tachycardia, irregular rhythm, normal heart sounds. Absent: systolic murmur, diastolic murmur, rubs, gallop, clicks GI/Abdominal exam: Present: soft, normal bowel sounds. Absent: distended, ten derness, guarding, rebound, rigid Extremities exam: Present: normal inspection, full ROM, normal capillary refill. Absent: tenderness, pedal edema, joint swelling, calf tenderness Back exam: Present: normal inspection Neurological exam: Present: alert, oriented X3, CN II-XII intact Psychiatric exam: Present: normal affect, normal mood Skin exam: Present: warm, dry, intact, normal color. Absent: rash Course Vital Signs 11/27/23 11/27/23 11/27/23 09:38 10:07 10:13 Temperature 97.2 F L Pulse Rate 56 L 161 H Pulse Rate [ 160 H [place] Lead ] Respiratory 18 16 Rate Blood Pressure 111/84 96/84 O2 Sat by Pulse 99 Oximetry 11/27/23 11/27/23 11/27/23 11:00 11:13 11:35 Temperature Pulse Rate 128 H 136 H 129 H Pulse Rate [ [place] Lead ] Respiratory 18 16 Rate Blood Pressure 94/77 115/73 97/50 O2 Sat by Pulse Oximetry 11/27/23 11/27/23 11/27/23 12:34 12:45 13:38 Temperature Pulse Rate 128 H 106 H 137 H Pulse Rate [ [place] Lead ] Respiratory 18 18 Rate Blood Pressure 87/70 98/65 116/87 O2 Sat by Pulse 97 Oximetry 11/27/23 11/27/23 11/27/23 16:00 18:57 22:25 Temperature Pulse Rate 116 H 141 H 129 H Pulse Rate [ [place] Lead ] Respiratory 18 18 18 Rate Blood Pressure 97/53 104/82 118/74 O2 Sat by Pulse 97 95 100 Oximetry - Reevaluation(s) Reevaluation #1: 11/27/23 13:36 Medical record is reviewed Reevaluation #2: 11/27/23 13:36 Patient's symptoms are unchanged, no improvement in heart rate Reevaluation #3: 11/27/23 13:36 Patient informed of results and questions answered Reevaluation #4: Was pt. sent in by a medical professional or institution (, PA, ADMINISTRATIVE OFFICE ASSISTANT, urgent care, hospital, or fci...) When possible be specific @ -no Did you speak to anyone other than the patient for history (EMS, parent, family, police, friend...)? What history was obtained from this source @ -no Did you review nursing and triage notes (agree or disagree)? Why? @ -agree Are old charts reviewed (outside hosp., previous admission, EMS record, old EKG, old radiological studies, urgent care reports/EKG's, fci records)? Report findings @ -yes Differential Diagnosis (chest pain, altered mental status, abdominal pain women, abdominal pain men, vaginal bleeding, weakness, fever, dyspnea, syncope, h eadache, dizziness, GI bleed, back pain, seizure, CVA, palpatations, mental health, musculoskeletal)? @ -prior EKG interpreted by me (3pts min.). @ -yes X-rays interpreted by me (1pt min.). @ -no CT interpreted by me (1pt min.). @ -no U/S interpreted by me (1pt. min.). @ -no What testing was considered but not performed or refused? (CT, X-rays, U/S, labs)? Why? @ -none What meds were considered but not given or refused? Why? @ -none Did you discuss the management of the patient with other professionals (professionals i.e. , PA, ADMINISTRATIVE OFFICE ASSISTANT, lab, RT, psych nurse, social service liaison, director summer sessions, teacher, payroll officer, casey saw operator)? Give summary @ -no Was smoking cessation discussed for >3mins.? @ -no Was critical care preformed (if so, how long)? @ -yes31 Were there social determinants of health that impacted care today? How? (Homelessness, low income, unemployed, alcoholism, drug addiction, transportation, low edu. Level, literacy, decrease access to med. care, alf, rehab)? @ -none Was there de-escalation of care discussed even if they declined (Discuss DNR or withdrawal of care, Hospice)? DNR status @ -no What co-morbidities impacted this encounter? (DM, HTN, Smoking, COPD, CAD, Cancer, CVA, ARF, Chemo, Hep., AIDS, mental health diagnosis, sleep apnea, morbid obesity)? @ -none Was patient admitted / discharged? Hospital course, mention meds given and route, prescriptions, significant lab abnormalities, going to OR and other pertinent info. @ - 38 female with atrial fibrillation RVR patient will be admitted for cardiology evaluation and treatment Admitted Undiagnosed new problem with uncertain prognosis? @ -no Drug Therapy requiring intensive monitoring for toxicity (Heparin, Nitro, Insulin, Cardizem)? @ -no Were any procedures done? @ -no Diagnosis/symptom? @ -Atrial fibrillation with RVR Acute, or Chronic, or Acute on Chronic? @ -Acute Uncomplicated (without systemic symptoms) or Complicated (systemic symptoms)? @ -Complicated Side effects of treatment? @ -no Exacerbation, Progression, or Severe Exacerbation? @ -exacerbation Poses a threat to life or bodily function? How? (Chest pain, [place], CO, pneumonia, PE, COPD, DKA, ARF, appy, cholecystitis, CVA, Diverticulitis, Homicidal, Suicidal, threat to staff... and all critical care pts) @ -yes with significant arrhythmia Reevaluation #5: Differential Palpitations Ventricular arrhythmias, atrial arrhythmias, myocardial infarction, anemia, thyrotoxicosis, electrolyte imbalance, hypokalemia, pulmonary embolism, pulmonary disease, drugs, alcohol, anxiety, stress.... This is not meant to be an all-inclusive list. - Consultations Consultation #1: Spoke with admitting physicians who agreed to admit this patient EKG Findings - EKG Comments: EKG Findings:: EKG is A-fib with RVR 155 QRS 74 QTc 350 - EKG Results: EKG: interpreted by [facility] Medical Decision Making - Medical Decision Making 38 female with atrial fibrillation RVR patient will be admitted for cardiology evaluation and treatment - Lab Data Result diagrams: 11/28/23 06:50 11/28/23 06:50 Lab Results 11/27/23 11/27/23 11/27/23 Range/Units 10:05 10:05 10:05 WBC 9.6 (3.8-10.6) k/uL RBC 5.34 (3.80-5.40) m/uL Hgb 15.2 (11.4-16.0) gm/dL Hct 44.7 (34.0-46.0) % MCV 83.8 (80.0-100.0) fL MCH 28.4 (25.0-35.0) pg MCHC 33.9 (31.0-37.0) g/dL RDW 12.7 (11.5-15.5) % Plt Count 309 (150-450) k/uL MPV 8.9 Neutrophils % 61 % Lymphocytes % 27 % Monocytes % 6 % Eosinophils % 4 % Basophils % 1 % Neutrophils # 5.8 (1.3-7.7) k/uL Lymphocytes # 2.6 (1.0-4.8) k/uL Monocytes # 0.5 (0-1.0) k/uL Eosinophils # 0.3 (0-0.7) k/uL Basophils # 0.1 (0-0.2) k/uL PT 9.9 L (10.0-12.5) sec INR 0.9 (<1.2) APTT 25.5 (22.0-30.0) sec Sodium (137-145) mmol/L Potassium (3.5-5.1) mmol/L Chloride (98-107) mmol/L Carbon Dioxide (22-30) mmol/L Anion Gap mmol/L BUN (7-17) mg/dL Creatinine (0.52-1.04) mg/dL Est GFR (CKD-EPI)AfAm (>60 ml/min/1.73 sqM) Est GFR (CKD-EPI)NonAf (>60 ml/min/1.73 sqM) Glucose (74-99) mg/dL Calcium (8.4-10.2) mg/dL Magnesium (1.6-2.3) mg/dL Total Bilirubin (0.2-1.3) mg/dL AST (14-36) U/L ALT (4-34) U/L Alkaline Phosphatase (38-126) U/L Troponin I (0.000-0.034) ng/mL Total Protein (6.3-8.2) g/dL Albumin (3.5-5.0) g/dL TSH (0.465-4.680) mIU/L Urine Color Colorless Urine Appearance Clear (Clear) Urine pH 7.0 (5.0-8.0) Ur Specific [place] 1.012 (1.001-1.035) Urine Protein Negative (Negative) Urine Glucose (UA) Negative (Negative) Urine Ketones Negative (Negative) Urine Blood Moderate H (Negative) Urine Nitrite Negative (Negative) Urine Bilirubin Negative (Negative) Urine Urobilinogen <2.0 (<2.0) mg/dL Ur Leukocyte Esterase Negative (Negative) Urine RBC 22 H (0-5) /hpf Urine WBC 2 (0-5) /hpf Ur Squamous Epith Cells 2 (0-4) /hpf Amorphous Sediment Rare H (None) /hpf Urine Bacteria Occasional H (None) /hpf Urine Mucus Rare H (None) /hpf Urine Opiates Screen (NotDetected) Ur Oxycodone Screen (NotDetected) Urine Methadone Screen (NotDetected) Ur Barbiturates Screen (NotDetected) U Tricyclic Antidepress (NotDetected) Ur Phencyclidine Scrn (NotDetected) Ur Amphetamines Screen (NotDetected) U Methamphetamines Scrn (NotDetected) U Benzodiazepines Scrn (NotDetected) Urine Cocaine Screen (NotDetected) U Marijuana (THC) Screen (NotDetected) 11/27/23 11/27/23 11/27/23 Range/Units 10:05 10:05 10:05 WBC (3.8-10.6) k/uL RBC (3.80-5.40) m/uL Hgb (11.4-16.0) gm/dL Hct (34.0-46.0) % MCV (80.0-100.0) fL MCH (25.0-35.0) pg MCHC (31.0-37.0) g/dL RDW (11.5-15.5) % Plt Count (150-450) k/uL MPV Neutrophils % % Lymphocytes % % Monocytes % % Eosinophils % % Basophils % % Neutrophils # (1.3-7.7) k/uL Lymphocytes # (1.0-4.8) k/uL Monocytes # (0-1.0) k/uL Eosinophils # (0-0.7) k/uL Basophils # (0-0.2) k/uL PT (10.0-12.5) sec INR (<1.2) APTT (22.0-30.0) sec Sodium 140 (137-145) mmol/L Potassium 4.4 (3.5-5.1) mmol/L Chloride 111 H (98-107) mmol/L Carbon Dioxide 20 L (22-30) mmol/L Anion Gap 9 mmol/L BUN 16 (7-17) mg/dL Creatinine 0.69 (0.52-1.04) mg/dL Est GFR (CKD-EPI)AfAm >90 (>60 ml/min/1.73 sqM) Est GFR (CKD-EPI)NonAf >90 (>60 ml/min/1.73 sqM) Glucose 116 H (74-99) mg/dL Calcium 9.5 (8.4-10.2) mg/dL Magnesium 1.9 (1.6-2.3) mg/dL Total Bilirubin 0.6 (0.2-1.3) mg/dL AST 30 (14-36) U/L ALT 38 H (4-34) U/L Alkaline Phosphatase 66 (38-126) U/L Troponin I <0.012 (0.000-0.034) ng/mL Total Protein 7.7 (6.3-8.2) g/dL Albumin 4.6 (3.5-5.0) g/dL TSH 1.370 (0.465-4.680) mIU/L Urine Color Urine Appearance (Clear) Urine pH (5.0-8.0) Ur Specific [place] (1.001-1.035) Urine Protein (Negative) Urine Glucose (UA) (Negative) Urine Ketones (Negative) Urine Blood (Negative) Urine Nitrite (Negative) Urine Bilirubin (Negative) Urine Urobilinogen (<2.0) mg/dL Ur Leukocyte Esterase (Negative) Urine RBC (0-5) /hpf Urine WBC (0-5) /hpf Ur Squamous Epith Cells (0-4) /hpf Amorphous Sediment (None) /hpf Urine Bacteria (None) /hpf Urine Mucus (None) /hpf Urine Opiates Screen Not Detected (NotDetected) Ur Oxycodone Screen Not Detected (NotDetected) Urine Methadone Screen Not Detected (NotDetected) Ur Barbiturates Screen Not Detected (NotDetected) U Tricyclic Antidepress Not Detected (NotDetected) Ur Phencyclidine Scrn Not Detected (NotDetected) Ur Amphetamines Screen Not Detected (NotDetected) U Methamphetamines Scrn Not Detected (NotDetected) U Benzodiazepines Scrn Not Detected (NotDetected) Urine Cocaine Screen Not Detected (NotDetected) U Marijuana (THC) Screen Not Detected (NotDetected) - EKG Data -: EKG Interpreted by Me Critical Care Time Critical Care Time: Yes Total Critical Care Time: 31 Disposition Clinical Impression: Atrial fibrillation with rapid ventricular response, Palpitations Disposition: ADMITTED IP TO THIS HOSP Condition: Stable Is patient prescribed a controlled substance at d/c from ED?: No Time of Disposition: 11:40
[2023-11-27] MEDS: SODIUM CHLORIDE 0.9% 1,000 ML IV STA ×2 (10:10→11:07)
[2023-11-27 10:23] LABS: Basophils # (A) 0.1 k/uL (0-0.2); Basophils % (A) 1 %; Eosinophils # (A) 0.3 k/uL (0-0.7); Eosinophils % (A) 4 %; HCT 44.7 % (34.0-46.0); HGB 15.2 gm/dL (11.4-16.0); Lymphocytes # (A) 2.6 k/uL (1.0-4.8); Lymphocytes % (A) 27 %; MCH 28.4 pg (25.0-35.0); MCHC 33.9 g/dL (31.0-37.0); MCV 83.8 fL (80.0-100.0); Mean Platelet Volume 8.9; Monocytes # (A) 0.5 k/uL (0-1.0); Monocytes % (A) 6 %; Neutrophils # (A) 5.8 k/uL (1.3-7.7); Neutrophils % (A) 61 %; Platelet Count 309 k/uL (150-450); RBC 5.34 m/uL (3.80-5.40); RDW 12.7 % (11.5-15.5); WBC 9.6 k/uL (3.8-10.6)
[2023-11-27 10:40] LABS: ALT 38 U/L (4-34); AST 30 U/L (14-36); African American GFR (CKD) >90 (>60 ml/min/1.73 sqM); Albumin 4.6 g/dL (3.5-5.0); Alkaline Phosphatase 66 U/L (38-126); Anion Gap 9 mmol/L; Blood Urea Nitrogen 16 mg/dL (7-17); Calcium 9.5 mg/dL (8.4-10.2); Carbon Dioxide 20 mmol/L (22-30); Chloride 111 mmol/L (98-107); Glucose 116 mg/dL (74-99); Magnesium 1.9 mg/dL (1.6-2.3); Non-African American GFR(CKD) >90 (>60 ml/min/1.73 sqM); Potassium 4.4 mmol/L (3.5-5.1); Sodium 140 mmol/L (137-145); Total Bilirubin 0.6 mg/dL (0.2-1.3); Total Protein 7.7 g/dL (6.3-8.2)
[2023-11-27 10:46] LABS: INR 0.9 (<1.2); Partial Thromboplastin Time 25.5 sec (22.0-30.0); Prothrombin Time 9.9 sec (10.0-12.5)
[2023-11-27] MEDS: METOPROLOL TARTRATE 5 MG/5 ML VIAL IVP STA ×2 (11:08→11:14)
[2023-11-27] MEDS: MAGNESIUM SULFATE-D5W PMX 1 GM in DEXTROSE/WATER 1 100ML.BAG IVPB SCH (11:15)
[2023-11-27] MEDS: SODIUM CHLORIDE 0.9% 500 ML 500 ML IV STA (11:16)
[2023-11-27] MEDS ORDERED: MORPHINE SULFATE 4 MG/ML SYRINGE IV PRN (11:46)
[2023-11-27] MEDS ORDERED: ONDANSETRON 4 MG/2 ML VIAL IVP PRN (11:46)
[2023-11-27] MEDS ORDERED: NALOXONE 0.4 MG/ML 1 ML VIAL IV PRN (11:46)
[2023-11-27] MEDS: DILTIAZEM 5 MG/ML 5 ML VIAL IV STA (12:35)
[2023-11-27] MEDS: DILTIAZEM DRIP BOLUS FROM BAG 1 MG SOLN IV ONE (12:39)
[2023-11-27] MEDS: DILTIAZEM DRIP BOLUS FROM BAG 1 MG SOLN IV STA (12:49)
[2023-11-27] MEDS: APIXABAN 5 MG TAB PO SCH (13:06)
[2023-11-27] MEDS: DISOPYRAMIDE 100 MG PO SCH (13:07)
--- NOTE | 2023-11-27 13:15 | P.CRDCN ---
History of Present Illness Consult date: 11/27/23 Consult reason: atrial fibrillation History of present illness: HISTORY OF PRESENT ILLNESS: This is a 38-year-old female with a past medical history significant for hypertension, gestational diabetes, paroxysmal atrial fibrillation with ablation in 2017 and February 2023, obstructive sleep apnea on CPAP, and recent cardioversion on 04/19/2023. Patient follows in the office with Dr. Chandler. We have been asked to see the patient in consultation for A. fib with RVR. Patient examined at the bedside in the emergency room. The patient presented to the hospital with a chief complaint of palpitations onset around 530 or 6 this morning. She took an extra metoprolol which did not seem to relieve it. She states she has tried Multaq in the past but seems to have put her into atrial fibrillation in April. Patient is status post metoprolol IV push 5 mg x 2 and 1 and half liters of IV fluid. Blood pressure is 86/70 and telemetry is atrial fibrillation 124 bpm. She currently denies chest pain or pressure. She denies shortness of breath. Most recent cardioversion was May 08, [address] Chandler. Patient has been off Eliquis since her last ablation. Patient states that she thinks this episode of atrial fibrillation occurred because she is unable to use her CPAP. She is waiting for a part to be shipped to her which is expected today. EKG reveals A. fib with RVR CBC is unremarkable. INR 0.9. Sodium 140, potassium 4.4, BUN 16 creatinine 0.69. Blood sugar 116. Magnesium 1.9. ALT 38 otherwise liver function test are normal. Troponin negative x 1. TSH 1.37. Current home cardiac medications include magnesium 1 tablet daily, aspirin 81 mg daily, Lopressor 25 mg in the morning and 12 point 5 in the evening. Levothyroxine 50 mcg daily. Most recent echocardiogram obtained in April 2022 reveals ejection fraction 55- 60%, mild MR, mild TR REVIEW OF SYSTEMS: At the time of my exam: CONSTITUTIONAL: Denies fever or chills. HEENT: Denies blurred vision, vision changes, or eye pain. Denies hemoptysis CARDIOVASCULAR: Denies chest pain. Denies orthopnea. Denies PND. Reports palpitations RESPIRATORY: Denies shortness of breath. GASTROINTESTINAL: Denies abdominal pain. Denies nausea or vomiting. HEMATOLOGIC: Denies bleeding disorders. GENITOURINARY: Denies any blood in urine. SKIN: Denies pruitis. Denies rash. PHYSICAL EXAM: VITAL SIGNS: Reviewed. GENERAL: Well-developed in no acute distress. HEENT: Head is normocephalic. Pupils are equal, round. Sclerae anicteric. Mucous membranes of the mouth are moist. Neck supple. No JVD or thyromegaly LUNGS: Respirations even and unlabored. Lungs essentially clear to auscultation bilaterally. HEART: Tachycardic. Irregular rate and rhythm. S1 and S2 heard. ABDOMEN: Soft. Nondistended. Nontender. EXTREMITIES: Normal range of motion. No clubbing or cyanosis. Peripheral pulses intact. No lower extremity edema NEUROLOGIC: Awake and alert. Oriented x 3. ASSESSMENT: Paroxysmal atrial fibrillation with RVR Most recent cardioversion, 04/19/2023 History of A. fib ablation, 05/08/2023 Obstructive sleep apnea on CPAP Hypertension History of gestational diabetes History of loop recorder insertion PLAN: Resume home cardiac medications Start patient on Eliquis 5 mg twice daily Start patient on Norpace 100 mg every 6 hours oral Patient may undergo cardioversion with Dr. Chandler, to be determined. Further recommendations pending patient course Nurse practitioner note has been reviewed by physician. Signing provider agrees with the documented findings, assessment, and plan of care. Past Medical History Past Medical History: Atrial Fibrillation, Asthma, GERD/Reflux, Sleep Apnea /CPAP/BIPAP, Thyroid Disorder Additional Past Medical History / Comment(s): CPAP use History of Any Multi-Drug Resistant Organisms: None Reported Past Surgical History: Cardiac Ablation, Section, Cholecystectomy Additional Past Surgical History / Comment(s): Ablation in 07/2017, gallbladder 10/05. C-SEC X 2. Ablation in February 2023. Cardioversion 05/07 Past Anesthesia/Blood Transfusion Reactions: No Reported Reaction, Motion Sickness Past Psychological History: ADD/ADHD, Anxiety Smoking Status: Former smoker Past Alcohol Use History: Occasional Past Drug Use History: None Reported - Past Family History Father Family Medical History: CVA/TIA Additional Family Medical History / Comment(s): renal disease, heart failure, strokes ("alot") Mother Family Medical History: Cancer Additional Family Medical History / Comment(s): Breast cancer. Medications and Allergies Home Medications Medication Instructions Recorded Confirmed Type Levothyroxine Sodium [Synthroid] 50 mcg PO DAILY 05/03/22 11/27/23 History Ascorbic Acid [Vitamin C] 1,000 mg PO DAILY 10/17/22 11/27/23 History Aspirin EC [Ecotrin Low Dose] 81 mg PO DAILY 04/18/23 11/27/23 History Cholecalciferol [Vitamin D3 (25 25 mcg PO DAILY 04/18/23 11/27/23 History Mcg = 1000 Iu)] Metoprolol Tartrate [Lopressor] 25 mg PO DAILY 05/08/23 11/27/23 History Atomoxetine HCl [Strattera] 25 mg PO DAILY PRN 11/27/23 11/27/23 History L.acidoph,Paracasei, B.lactis 1 cap PO DAILY 11/27/23 11/27/23 History [Probiotic] Magnesium Gluconate 200mg 1 tab PO DAILY 11/27/23 11/27/23 History Metoprolol Tartrate [Lopressor] 12.5 mg PO HS 11/27/23 11/27/23 History Multivitamins, Thera [Multivitamin 1 tab PO DAILY 11/27/23 11/27/23 History (formulary)] Allergies Allergy/AdvReac Type Severity Reaction Status Date / Time No Known Allergies Allergy Verified 11/27/23 11:21 Physical Exam Vitals: Vital Signs Temp Pulse Pulse Resp BP Pulse Ox 11/27/23 11:35 129 H 97/50 11/27/23 11:13 136 H 16 115/73 11/27/23 11:00 128 H 18 94/77 11/27/23 10:13 160 H 11/27/23 10:07 161 H 16 96/84 11/27/23 09:38 97.2 F L 56 L 18 111/84 99 Intake and Output 11/26/23 11/27/23 11/27/23 22:59 06:59 14:59 Other: Weight 122.47 kg Results 11/27/23 10:05 11/27/23 10:05 Cardiac Enzymes 11/27/23 11/27/23 Range/Units 10:05 10:05 AST 30 (14-36) U/L Troponin I <0.012 (0.000-0.034) ng/mL Coagulation 11/27/23 Range/Units 10:05 PT 9.9 L (10.0-12.5) sec APTT 25.5 (22.0-30.0) sec CBC 11/27/23 Range/Units 10:05 WBC 9.6 (3.8-10.6) k/uL RBC 5.34 (3.80-5.40) m/uL Hgb 15.2 (11.4-16.0) gm/dL Hct 44.7 (34.0-46.0) % Plt Count 309 (150-450) k/uL Comprehensive Metabolic Panel 11/27/23 Range/Units 10:05 Sodium 140 (137-145) mmol/L Potassium 4.4 (3.5-5.1) mmol/L Chloride 111 H (98-107) mmol/L Carbon Dioxide 20 L (22-30) mmol/L BUN 16 (7-17) mg/dL Creatinine 0.69 (0.52-1.04) mg/dL Glucose 116 H (74-99) mg/dL Calcium 9.5 (8.4-10.2) mg/dL AST 30 (14-36) U/L ALT 38 H (4-34) U/L Alkaline Phosphatase 66 (38-126) U/L Total Protein 7.7 (6.3-8.2) g/dL Albumin 4.6 (3.5-5.0) g/dL Current Medications Generic Name Dose Route Start Last Admin Trade Name Freq PRN Reason Stop Dose Admin Magnesium Sulfate/Dextrose 1 100 mls @ 100 mls/hr 11/27/23 11:00 11/27/23 11:15 gm/ IV Solution IVPB 11/27/23 12:59 100 mls/hr Q1H NICKI Administration Sodium Chloride 1,000 mls @ 130 mls/hr 11/27/23 10:40 11/27/23 11:07 Saline 0.9% IV 11/27/23 18:21 130 mls/hr .[id number] STA Administration Diltiazem HCl 125 mg/ Sodium 125 mls @ 5 mls/hr 11/27/23 12:15 Chloride IV .Q24H NICKI 5 MG/HR Morphine Sulfate 4 mg 11/27/23 11:46 Morphine Sulfate 4 Mg/Ml Syringe IV Q4HR PRN Severe Pain (Scale 7 to 10) Naloxone HCl 0.2 mg 11/27/23 11:46 Naloxone 0.4 Mg/Ml 1 Ml Vial IV Q2M PRN Opioid Reversal Ondansetron HCl 4 mg 11/27/23 11:46 Ondansetron 4 Mg/2 Ml Vial IVP Q8HR PRN Nausea And Vomiting Intake and Output 11/26/23 11/27/23 11/27/23 22:59 06:59 14:59 Other: Weight 122.47 kg Patient Weight 11/28/23 06:59 Weight 122.47 kg 11/27/23 10:05 11/27/23 10:05
--- NOTE | 2023-11-27 15:55 | P.HPIM ---
History of Present Illness H&P Date: 11/27/23 Chief Complaint: Palpitations 30-year-old woman with a medical history of atrial fibrillation status post ablation and multiple cardioversions in the past presented for evaluation of palpitations. Patient says that she started having palpitations this morning at 530, however, had to go to work, but her palpitations did not go away. She noted that her heart rates were in the 160s and therefore presented to the emergency room for further evaluation. She reports some shortness of breath associated with this but no chest pain. She follows with Dr. Chandler for atrial fibrillation. She does have flecainide at home but she did not take this prior to presentation. She denies fevers, chills, nausea, vomiting. In the emergency room, patient was afebrile, 96/84, heart rate 161, 99% on room air. CBC was unremarkable. Basic metabolic panel showed CO2 of 20, chloride of 111, otherwise unremarkable. Liver function test show mild elevation of ALT at 38. Troponin was less than 0.012 then trended less than 0.012. TSH was 1.37. Coags were unremarkable. EKG showed atrial fibrillation with RVR and a rate of 155, normal axis, no evidence of ischemia. Cardiology was consulted and recommend electrophysiology evaluation. All Systems reviewed and pertinent positives and negatives noted in HPI, all other symptoms are negative Gen: In NAD, non-toxic HEENT: normocephalic, atraumatic, hearing acuity is intant, mucous membranes moist CVS: perfusing all extremities well, no pitting edema, no appreciable murmurs, overall quiet precordium Respiratory: symmetric chest expansion, no accessory muscle use, clear to auscultation bilaterally GI: soft, NTTP, ND, : no suprapubic tenderness, no CVA tenderness MSK/Derm: no rashes, cyanosis Neuro: CN II-XII intact, no motor weakness, Psych: cooperative, euthymic mood, judgment and insight is intact Labs and imaging as above Assessment/plan: Paroxysmal atrial fibrillation with RVR -Admit to inpatient with cardiology/electrophysiology consult -N.p.o. with anticipation of cardioversion -Counseled the patient on pill in pocket strategy with flecainide -Cardizem drip was discontinued and Norpace was started Continue apixaban- Patient is full code Past Medical History Past Medical History: Atrial Fibrillation, Asthma, GERD/Reflux, Sleep Apnea/CPAP/BIPAP, Thyroid Disorder Additional Past Medical History / Comment(s): CPAP use History of Any Multi-Drug Resistant Organisms: None Reported Past Surgical History: Cardiac Ablation, Section, Cholecystectomy Additional Past Surgical History / Comment(s): Ablation in 07/2017, gallbladder 10/05. C-SEC X 2. Ablation in February 2023. Cardioversion 05/07 Past Anesthesia/Blood Transfusion Reactions: No Reported Reaction, Motion Sickness Past Psychological History: ADD/ADHD, Anxiety Smoking Status: Former smoker Past Alcohol Use History: Occasional Past Drug Use History: None Reported - Past Family History Father Family Medical History: CVA/TIA Additional Family Medical History / Comment(s): renal disease, heart failure, strokes ("alot") Mother Family Medical History: Cancer Additional Family Medical History / Comment(s): Breast cancer. Medications and Allergies Home Medications Medication Instructions Recorded Confirmed Type Levothyroxine Sodium [Synthroid] 50 mcg PO DAILY 05/03/22 11/27/23 History Ascorbic Acid [Vitamin C] 1,000 mg PO DAILY 10/17/22 11/27/23 History Aspirin EC [Ecotrin Low Dose] 81 mg PO DAILY 04/18/23 11/27/23 History Cholecalciferol [Vitamin D3 (25 25 mcg PO DAILY 04/18/23 11/27/23 History Mcg = 1000 Iu)] Metoprolol Tartrate [Lopressor] 25 mg PO DAILY 05/08/23 11/27/23 History Atomoxetine HCl [Strattera] 25 mg PO DAILY PRN 11/27/23 11/27/23 History L.acidoph,Paracasei, B.lactis 1 cap PO DAILY 11/27/23 11/27/23 History [Probiotic] Magnesium Gluconate 200mg 1 tab PO DAILY 11/27/23 11/27/23 History Metoprolol Tartrate [Lopressor] 12.5 mg PO HS 11/27/23 11/27/23 History Multivitamins, Thera [Multivitamin 1 tab PO DAILY 11/27/23 11/27/23 History (formulary)] Allergies Allergy/AdvReac Type Severity Reaction Status Date / Time No Known Allergies Allergy Verified 11/27/23 11:21 Physical Exam Osteopathic Statement: *. No significant issues noted on an osteopathic structural exam other than those noted in the History and Physical/Consult. Vitals: Vital Signs Temp Pulse Pulse Resp BP Pulse Ox 11/27/23 13:38 137 H 18 116/87 97 11/27/23 12:45 106 H 18 98/65 11/27/23 12:34 128 H 87/70 11/27/23 11:35 129 H 97/50 11/27/23 11:13 136 H 16 115/73 11/27/23 11:00 128 H 18 94/77 11/27/23 10:13 160 H 11/27/23 10:07 161 H 16 96/84 11/27/23 09:38 97.2 F L 56 L 18 111/84 99 Intake and Output 11/27/23 11/27/23 11/27/23 06:59 14:59 22:59 Other: Weight 122.47 kg Results CBC & Chem 7: 11/27/23 10:05 11/27/23 10:05 Labs: Abnormal Lab Results - Last 24 Hours (Table) 11/27/23 11/27/23 Range/Units 10:05 10:05 PT 9.9 L (10.0-12.5) sec Chloride 111 H (98-107) mmol/L Carbon Dioxide 20 L (22-30) mmol/L Glucose 116 H (74-99) mg/dL ALT 38 H (4-34) U/L
[2023-11-27] MEDS: DILTIAZEM 125 MG in SODIUM CHLORIDE 0.9% 100 ML IV SCH (16:09)
[2023-11-27] MEDS: METOPROLOL TARTRATE 25 MG TAB PO SCH (23:14)
[2023-11-28 00:35] LABS: Amorphous Sediment,Urine Rare /hpf; Appearance,Urine Clear (Clear); Bacteria,Urine Occasional /hpf; Bilirubin,Urine Negative (Negative); Blood,Urine Moderate (Negative); Color,Urine Colorless; Glucose,Urine (UA) Negative (Negative); Ketones,Urine Negative (Negative); Leukocyte Esterase,Urine Negative (Negative); Mucus,Urine Rare /hpf; Nitrite,Urine Negative (Negative); Protein,Urine Negative (Negative); RBC,Urine 22 /hpf (0-5); Specific Gravity,Urine 1.012 (1.001-1.035); Squamous Epithelial Cell,Urine 2 /hpf (0-4); Urobilinogen,Urine <2.0 mg/dL (<2.0); WBC,Urine 2 /hpf (0-5)
[2023-11-28 00:51] LABS: Amphetamine Screen,Urine Not Detected (NotDetected); Barbiturate Screen,Urine Not Detected (NotDetected); Benzodiazepines Screen,Urine Not Detected (NotDetected); Cocaine Screen,Urine Not Detected (NotDetected); Methadone Screen, Urine Not Detected (NotDetected); Opiate Screen,Urine Not Detected (NotDetected); Oxycodone Screen, Urine Not Detected (NotDetected); Phencyclidine Screen,Urine Not Detected (NotDetected); Tricyclic Antidepressant,Urine Not Detected (NotDetected); Urn Cannabinoid Scrn Not Detected (NotDetected)
[2023-11-28] MEDS: MELATONIN 5 MG TABLET PO PRN (01:54)
[2023-11-28 04:58] VITALS: RESP 14
[2023-11-28 07:30] LABS: Basophils % (A) 1 %; Eosinophils # (A) 0.3 k/uL (0-0.7); Eosinophils % (A) 4 %; HCT 44.1 % (34.0-46.0); HGB 14.8 gm/dL (11.4-16.0); Lymphocytes # (A) 2.6 k/uL (1.0-4.8); Lymphocytes % (A) 35 %; MCH 28.6 pg (25.0-35.0); MCHC 33.5 g/dL (31.0-37.0); MCV 85.4 fL (80.0-100.0); Mean Platelet Volume 8.9; Monocytes # (A) 0.4 k/uL (0-1.0); Monocytes % (A) 6 %; Neutrophils # (A) 3.7 k/uL (1.3-7.7); Neutrophils % (A) 51 %; Platelet Count 250 k/uL (150-450); RBC 5.17 m/uL (3.80-5.40); RDW 12.8 % (11.5-15.5); WBC 7.2 k/uL (3.8-10.6)
[2023-11-28 07:58] LABS: ALT 40 U/L (4-34); AST 29 U/L (14-36); African American GFR (CKD) 88 (>60 ml/min/1.73 sqM); Albumin 4.2 g/dL (3.5-5.0); Alkaline Phosphatase 64 U/L (38-126); Anion Gap 7 mmol/L; Blood Urea Nitrogen 13 mg/dL (7-17); Calcium 9.3 mg/dL (8.4-10.2); Carbon Dioxide 25 mmol/L (22-30); Chloride 108 mmol/L (98-107); Glucose 109 mg/dL (74-99); Non-African American GFR(CKD) 77 (>60 ml/min/1.73 sqM); Sodium 140 mmol/L (137-145); Total Bilirubin 0.5 mg/dL (0.2-1.3)
[2023-11-28] MEDS: MULTIVITAMINS, THERA 1 EACH TAB PO SCH (09:20)
[2023-11-28] MEDS: METOPROLOL TARTRATE 25 MG TAB PO SCH (09:20)
[2023-11-28] MEDS: ASPIRIN 81 MG PO SCH (09:20)
--- NOTE | 2023-11-28 10:54 | P.PN ---
Subjective Progress Note Date: 11/28/23 Consult reason: atrial fibrillation History of present illness: HISTORY OF PRESENT ILLNESS: This is a 38-year-old female with a past medical history significant for hypertension, gestational diabetes, paroxysmal atrial fibrillation with ablation in 2017 and February 2023, obstructive sleep apnea on CPAP, and recent cardioversion on 04/19/2023. Patient follows in the office with Dr. Chandler. We have been asked to see the patient in consultation for A. fib with RVR. Patient examined at the bedside in the emergency room. The patient presented to the hospital with a chief complaint of palpitations onset around 530 or 6 this morning. She took an extra metoprolol which did not seem to relieve it. She states she has tried Multaq in the past but seems to have put her into atrial fibrillation in April. Patient is status post metoprolol IV push 5 mg x 2 and 1 and half liters of IV fluid. Blood pressure is 86/70 and telemetry is atrial fibrillation 124 bpm. She currently denies chest pain or pressure. She denies shortness of breath. Most recent cardioversion was May 08, [address] Chandler. Patient has been off Eliquis since her last ablation. Patient states that she thinks this episode of atrial fibrillation occurred because she is unable to use her CPAP. She is waiting for a part to be shipped to her which is expected today. EKG reveals A. fib with RVR CBC is unremarkable. INR 0.9. Sodium 140, potassium 4.4, BUN 16 creatinine 0.69. Blood sugar 116. Magnesium 1.9. ALT 38 otherwise liver function test a re normal. Troponin negative x 1. TSH 1.37. Current home cardiac medications include magnesium 1 tablet daily, aspirin 81 mg daily, Lopressor 25 mg in the morning and 12 point 5 in the evening. Lev othyroxine 50 mcg daily. Most recent echocardiogram obtained in April 2022 reveals ejection fraction 55- 60%, mild MR, mild TR 11/28 Patient is seen today in follow-up on the cardiac stepdown unit. Patient remains in atrial fibrillation through the night and initially evaluated this morning was 131 bpm. Patient fortunately converted to sinus rhythm. No plan for cardioversion today. Yesterday, patient was started on Norpace 100 mg every 6 hours which will be planned for discharge. Blood pressure 108/71. Repeat blood work reveals sodium 140, potassium 5, BUN 13 creatinine 0.95, blood sugar 109. PHYSICAL EXAM: VITAL SIGNS: Reviewed. GENERAL: Well-developed in no acute distress. HEENT: Head is normocephalic. Pupils are equal, round. Sclerae anicteric. Mucous membranes of the mouth are moist. Neck supple. No JVD or thyromegaly LUNGS: Respirations even and unlabored. Lungs essentially clear to auscultation bilaterally. HEART: Tachycardic. Irregular rate and rhythm. S1 and S2 heard. ABDOMEN: Soft. Nondistended. Nontender. EXTREMITIES: Normal range of motion. No clubbing or cyanosis. Peripheral pulses intact. No lower extremity edema NEUROLOGIC: Awake and alert. Oriented x 3. ASSESSMENT: Paroxysmal atrial fibrillation with RVR, converted to sinus rhythm Most recent cardioversion, 04/19/2023 History of A. fib ablation, 05/08/2023 Obstructive sleep apnea on CPAP Hypertension History of gestational diabetes History of loop recorder insertion PLAN: Continue home cardiac medications Continue patient on Norpace 100 mg every 8 hours oral Continue Eliquis 5 mg twice daily Patient will follow-up with Dr. Chandler in 1 week. Patient is cleared from cardiology for discharge home. Nurse practitioner note has been reviewed by physician. Signing provider agrees with the documented findings, assessment, and plan of care. Objective - Vital Signs Vital signs: Vital Signs Temp 97.9 F 11/27/23 23:16 Pulse 136 H 11/28/23 04:48 Resp 14 11/28/23 04:48 BP 108/71 11/28/23 04:48 Pulse Ox 99 11/28/23 04:48 FiO2 Intake & Output 11/27/23 11/28/23 11/28/23 18:59 06:59 18:59 Output Total 300 Balance -300 Weight 122.47 kg 122.47 kg Output: Urine 300 Other: Voiding Method Toilet - Labs CBC & Chem 7: 11/28/23 06:50 11/28/23 06:50 Labs: Abnormal Lab Results - Last 24 Hours (Table) 11/27/23 11/27/23 11/27/23 Range/Units 10:05 10:05 10:05 PT 9.9 L (10.0-12.5) sec Chloride 111 H (98-107) mmol/L Carbon Dioxide 20 L (22-30) mmol/L Glucose 116 H (74-99) mg/dL ALT 38 H (4-34) U/L Urine Blood Moderate H (Negative) Urine RBC 22 H (0-5) /hpf Amorphous Sediment Rare H (None) /hpf Urine Bacteria Occasional H (None) /hpf Urine Mucus Rare H (None) /hpf 11/28/23 Range/Units 06:50 PT (10.0-12.5) sec Chloride 108 H (98-107) mmol/L Carbon Dioxide (22-30) mmol/L Glucose 109 H (74-99) mg/dL ALT 40 H (4-34) U/L Urine Blood (Negative) Urine RBC (0-5) /hpf Amorphous Sediment (None) /hpf Urine Bacteria (None) /hpf Urine Mucus (None) /hpf
--- NOTE | 2023-11-28 11:14 | P.DS ---
Providers Date of admission: 11/27/23 11:47 Expected date of discharge: 11/28/23 Attending physician: Yvette Pham MD Consults: 11/27/23 11:46 Consult Physician Routine Consulting Provider: Carla Ayala Consult Reason/Comments: afibrVRy Do you want consulting provider notified?: Yes Primary care physician: Robert Jefferson MD Hospital Course: Discharge Diagnosis: Paroxysmal atrial fibrillation with RVR GENIA on CPAP Hypertension Hypothyroidism Morbid obesity Hospital Course: 38-year-old woman with history of atrial fibrillation status post ablation and multiple cardioversions presented with palpitations. In the emergency room, patient was afebrile, 96/84, heart rate 161, 99% on room air. CBC was unremarkable. Basic metabolic panel showed CO2 of 20, chloride of 111, otherwise unremarkable. Liver function test show mild elevation of ALT at 38. Troponin was less than 0.012. TSH was 1.37. Coags were unremarkable. EKG showed atrial fibrillation with RVR and a rate of 155, normal axis, no evidence of ischemia. Cardiology was consulted. Patient spontaneously converted back to sinus rhythm. Being discharged home with close follow-up with cardiology. Patient seen and examined at bedside. Vital signs reviewed and stable. General: Nontoxic, no distress, appears at stated age, morbidly obese Derm: Warm, dry Head: Atraumatic, normocephalic, symmetric Eyes: EOMI, no lid lag, anicteric sclera Mouth: No lip lesion, mucus membranes moist Cardiovascular: S1S2 reg, no murmur Lungs: CTA bilateral, no rhonchi, no rales, no accessory muscle use Abdominal: Soft, nontender to palpation, no guarding, no appreciable organomegaly Ext: No gross muscle atrophy, no edema, no contractures Neuro: CN II-XI grossly intact, no focal neuro deficits Psych: Alert, oriented, appropriate affect A total of 33 minutes of time were spent preparing this complex discharge summary. Patient was discharged on 11/28/2023 at 11: 10. Patient Condition at Discharge: Stable Plan - Discharge Summary New Discharge Prescriptions: New Disopyramide [Norpace] 100 mg PO Q8HR #90 cap Apixaban [Eliquis] 5 mg PO BID #60 tab Continue Levothyroxine Sodium [Synthroid] 50 mcg PO DAILY Cholecalciferol [Vitamin D3 (25 Mcg = 1000 Iu)] 25 mcg PO DAILY Metoprolol Tartrate [Lopressor] 25 mg PO DAILY L.acidoph,Paracasei, B.lactis [Probiotic] 1 cap PO DAILY Ascorbic Acid [Vitamin C] 1,000 mg PO DAILY Aspirin EC [Ecotrin Low Dose] 81 mg PO DAILY Magnesium Gluconate 200mg 1 tab PO DAILY Atomoxetine HCl [Strattera] 25 mg PO DAILY PRN PRN Reason: adhd Metoprolol Tartrate [Lopressor] 12.5 mg PO HS Multivitamins, Thera [Multivitamin (formulary)] 1 tab PO DAILY Discharge Medication List Levothyroxine Sodium [Synthroid] 50 mcg PO DAILY 05/03/22 [History] Ascorbic Acid [Vitamin C] 1,000 mg PO DAILY 10/17/22 [History] Aspirin EC [Ecotrin Low Dose] 81 mg PO DAILY 04/18/23 [History] Cholecalciferol [Vitamin D3 (25 Mcg = 1000 Iu)] 25 mcg PO DAILY 04/18/23 [History] Metoprolol Tartrate [Lopressor] 25 mg PO DAILY 05/08/23 [History] Atomoxetine HCl [Strattera] 25 mg PO DAILY PRN 11/27/23 [History] L.acidoph,Paracasei, B.lactis [Probiotic] 1 cap PO DAILY 11/27/23 [History] Magnesium Gluconate 200mg 1 tab PO DAILY 11/27/23 [History] Metoprolol Tartrate [Lopressor] 12.5 mg PO HS 11/27/23 [History] Multivitamins, Thera [Multivitamin (formulary)] 1 tab PO DAILY 11/27/23 [History] Apixaban [Eliquis] 5 mg PO BID #60 tab 11/28/23 [Rx] Disopyramide [Norpace] 100 mg PO Q8HR #90 cap 11/28/23 [Rx] Follow up Appointment(s)/Referral(s): Magnus Chandler MD [STAFF PHYSICIAN] - 1 Week Robert Jefferson MD [Primary Care Provider] - 1-2 days Patient Instructions/Handouts: A-fib (Atrial Fibrillation) (DC) Activity/Diet/Wound Care/Special Instructions: Please see cardiology. Discharge Disposition: HOME SELF-CARE
[2023-11-28 11:36] VITALS: TEMP 97
[2023-11-28 14:04] VITALS: BP 121/87; PULSE 70
--- NOTE | 2023-11-29 10:09 | CA ---
Transthoracic Echo Report Name: Cyndy Landers Age: 38 Gender: F : 1985 Exam Date: 11/28/2023 13:45 Exam Location: [place] [facility] Ht (in): 68 Wt (lb): 270 Ordering Physician: Morelia Upton Attending/Referring Phys: [id number], Alexsandra Assembly Machine Operator Anson Krishnamurthy RDCS Procedure CPT: Indications: LVF Cardiac Hx: Technical Quality: Fair Contrast 1: Total Dose (mL): Contrast 2: Total Dose (mL): MEASUREMENTS (Male / Female) Normal Values 2D ECHO LV Diastolic Diameter PLAX 5.0 cm 4.2 - 5.9 / 3.9 - 5.3 cm LV Systolic Diameter PLAX 4.2 cm IVS Diastolic Thickness 1.0 cm 0.6 - 1.0 / 0.6 - 0.9 cm LVPW Diastolic Thickness 1.0 cm 0.6 - 1.0 / 0.6 - 0.9 cm LV Relative Wall Thickness 0.4 Aortic Root Diameter 3.6 cm LA Systolic Diameter LX 4.4 cm 3.0 - 4.0 / 2.7 - 3.8 cm DOPPLER AV Peak Velocity 99.1 cm/s AV Peak Gradient 3.9 mmHg AV Mean Velocity 70.0 cm/s AV Mean Gradient 2.2 mmHg AV Velocity Time Integral 19.7 cm LVOT Peak Velocity 70.7 cm/s LVOT Peak Gradient 2.0 mmHg LVOT Velocity Time Integral 13.7 cm Mitral E Point Velocity 80.5 cm/s Mitral A Point Velocity 40.8 cm/s Mitral E to A Ratio 2.0 MV Deceleration Time 240.2 ms MV E' Velocity 11.5 cm/s Mitral E to MV E' Ratio 7.0 TR Peak Velocity 173.7 cm/s TR Peak Gradient 12.1 mmHg PV Peak Velocity 74.3 cm/s PV Peak Gradient 2.2 mmHg FINDINGS Left Ventricle Mildly increased septal wall thickness. Left ventricular ejection fraction is estimated at 55-60 %. Right Ventricle Right ventricle not well visualized. Right Atrium Right atrium not well visualized. Left Atrium Moderately increased left atrial diameter. Mitral Valve Trace mitral regurgitation. Aortic Valve Aortic valve not well visualized. Tricuspid Valve Mild tricuspid regurgitation. Pulmonic Valve Trace pulmonic regurgitation. Pericardium Normal pericardium. Aorta Aortic root and proximal ascending aorta not well visualized. CONCLUSIONS Mildly increased left ventricular wall thickness Left ventricular ejection fraction 55-60% Moderately dilated left atrium Mild tricuspid regurgitation No pericardial effusion Previewed by: Dr. Triston Rivero DO (Electronically Signed) Final Date: 29 November 2023 10:09
== END 2023-11-28 14:40 | disposition home or self-care (01) | DRG 309 ==
LOC: EC 09:33 → 3SCARD 11:47
PROVIDERS: ADMIT Internal Medicine; ATTEND Internal Medicine
DX: I48.0 Paroxysmal atrial fibrillation (principal); Z68.41 Body mass index [BMI] 40.0-44.9, adult; E66.01 Morbid (severe) obesity due to excess calories; E03.9 Hypothyroidism, unspecified; I10 Essential (primary) hypertension; J45.909 Unspecified asthma, uncomplicated; G47.33 Obstructive sleep apnea (adult) (pediatric); K21.9 Gastro-esophageal reflux disease without esophagitis; F41.9 Anxiety disorder, unspecified; F90.9 Attention-deficit hyperactivity disorder, unspecified type; Z79.82 Long term (current) use of aspirin; Z79.890 Hormone replacement therapy; Z79.899 Other long term (current) drug therapy; Z86.32 Personal history of gestational diabetes; Z87.891 Personal history of nicotine dependence; Z82.49 Family history of ischemic heart disease and other diseases of the circulatory system
CPT/HCPCS: 36415; 80053; 80306; 81001; 83735; 84443; 84484; 85025; 85610; 85730; 93005; 93306; 96361; 96365; 96366; 96375; 96376; 99291

== ENCOUNTER → 2023-12-27 | Outpatient (CLI) | payer BC ==
--- NOTE | 2024-01-04 13:40 | MM ---
Reason for Exam: Screening (asymptomatic). Last mammogram was performed 5 year(s) and 10 month(s) ago. Patient History: Menarche at age 13. First Full-Term at age 36. Late child-bearing (after 30). Patient has history of breast feeding. Maternal grandmother had breast cancer. Mother had breast cancer, age 43. Mother had breast cancer, age 71. Last menstrual period: 12/26/2023 Risk Values: Ramila 5 year model risk: 0.9%. NCI Lifetime model risk: 19.4%. Prior Study Comparison: 02/13/2018 Bilateral Diagnostic Mammogram, [facility]. 09/21/2021 Right Diagnostic Ultrasound, [facility]. Tissue Density: The breasts are heterogeneously dense, which may obscure small masses. Findings: Analyzed By CAD. There is no suspicious group of microcalcifications or new suspicious mass in either breast. Benign-appearing calcifications. Overall Assessment: Benign, BI-RAD 2 Management: Screening Mammogram of both breasts in 1 year. . Patient should continue monthly self-breast exams. A clinical breast exam by your physician is recommended on an annual basis. This exam should not preclude additional follow-up of suspicious palpable abnormalities. Note on Ramila scores and lifetime risk: 1. A Ramila score greater than 3% is considered moderate risk. If this is the case, consider specialist referral to assess eligibility for a risk reducing agent. 2. If overall lifetime risk for the development of breast cancer is 20% or higher, the patient may qualify for future screening with alternating mammogram and breast MRI. Electronically signed and approved by: Yosvany Valdes M.D. Radiologis
== END | disposition home or self-care (01) ==
LOC: RADMAMWWP 12:59
PROVIDERS: ATTEND Family Medicine
DX: Z12.31 Encounter for screening mammogram for malignant neoplasm of breast (principal); Z80.3 Family history of malignant neoplasm of breast
CPT/HCPCS: 77063; 77067

== ENCOUNTER 2024-03-29 19:15 | Emergency (ER) | payer BC ==
--- NOTE | 2024-03-29 19:56 | ED ---
General Adult HPI - General Source: patient, RN notes reviewed Mode of arrival: ambulatory Limitations: no limitations <Rochelle Nicole - Last Filed: 03/29/24 19:53> <Alexandre Mortensen - Last Filed: 03/30/24 03:24> - General Source: RN notes reviewed, old records reviewed Mode of arrival: ambulatory Limitations: no limitations - History of Present Illness -: days(s) Location: abdomen Radiation: abdomen Severity scale (1-10): 10 Quality: aching Consistency: constant Improves with: none Worsens with: none Associated Symptoms: loss of appetite, nausea/vomiting, weakness Treatments Prior to Arrival: none <Victoriano Bowen - Last Filed: 04/09/24 00:42> - General Chief complaint: Abdominal Pain Stated complaint: ABD pain, sent by Time Seen by Provider: 03/29/24 19:45 - History of Present Illness Initial comments: Quick note: 39-year-old female presents to the emergency department for evaluation of lower abdominal pain. Patient was seen at urgent care and was sent to the emergency department. Patient states that this started last night. She notes that it is in her lower abdomen bilaterally. She states that it is improved with Tylenol and Motrin. She denies fever, chills, urinary symptoms. She does state that she had a normal UA at urgent care. (Rochelle Nicole) This is a 39-year-old female with severe abdominal pain right lower quadrant abdominal pain suprapubic abdominal pain severe no fevers mild nausea no vomiting no travel history or sick contacts no diarrhea. Pain is severe here in the ER with no history of abdominal surgery. (Victoriano Bowen) - Related Data Home Medications Medication Instructions Recorded Confirmed Levothyroxine Sodium [Synthroid] 50 mcg PO DAILY 05/03/22 11/27/23 Ascorbic Acid [Vitamin C] 1,000 mg PO DAILY 10/17/22 11/27/23 Aspirin EC [Ecotrin Low Dose] 81 mg PO DAILY 04/18/23 11/27/23 Cholecalciferol [Vitamin D3 (25 25 mcg PO DAILY 04/18/23 11/27/23 Mcg = 1000 Iu)] Metoprolol Tartrate [Lopressor] 25 mg PO DAILY 05/08/23 11/27/23 Atomoxetine HCl [Strattera] 25 mg PO DAILY PRN 11/27/23 11/27/23 L.acidoph,Paracasei, B.lactis 1 cap PO DAILY 11/27/23 11/27/23 [Probiotic] Magnesium Gluconate 200mg 1 tab PO DAILY 11/27/23 11/27/23 Metoprolol Tartrate [Lopressor] 12.5 mg PO HS 11/27/23 11/27/23 Multivitamins, Thera [Multivitamin 1 tab PO DAILY 11/27/23 11/27/23 (formulary)] Previous Rx's Medication Instructions Recorded Apixaban [Eliquis] 5 mg PO BID #60 tab 11/28/23 Disopyramide [Norpace] 100 mg PO Q8HR #90 cap 11/28/23 Allergies Allergy/AdvReac Type Severity Reaction Status Date / Time No Known Allergies Allergy Verified 03/29/24 19:44 Review of Systems ROS Other: All systems not noted in ROS Statement are negative. <Rochelle Nicole - Last Filed: 03/29/24 19:53> ROS Other: All systems not noted in ROS Statement are negative. <Alexandre Mortensen - Last Filed: 03/30/24 03:24> ROS Other: All systems not noted in ROS Statement are negative. <Victoriano Bowen - Last Filed: 04/09/24 00:42> ROS Statement: Those systems with pertinent positive or pertinent negative responses have been documented in the HPI. Past Medical History Past Medical History: Atrial Fibrillation, Asthma, GERD/Reflux, Sleep Apnea/CPAP/BIPAP, Thyroid Disorder Additional Past Medical History / Comment(s): CPAP use History of Any Multi-Drug Resistant Organisms: None Reported Past Surgical History: Cardiac Ablation, Section, Cholecystectomy Additional Past Surgical History / Comment(s): Ablation in 07/2017, gallbladder 10/05. C-SEC X 2. Ablation in February 2023. Cardioversion 05/07 Past Anesthesia/Blood Transfusion Reactions: No Reported Reaction, Motion Sickness Past Psychological History: ADD/ADHD, Anxiety Smoking Status: Former smoker Past Alcohol Use History: Occasional Past Drug Use History: None Reported - Past Family History Father Family Medical History: CVA/TIA Additional Family Medical History / Comment(s): renal disease, heart failure, strokes ("alot") Mother Family Medical History: Cancer Additional Family Medical History / Comment(s): Breast cancer. <Rochelle Nicole - Last Filed: 03/29/24 19:53> General Exam Limitations: no limitations <Rochelle Nicole - Last Filed: 03/29/24 19:53> General appearance: alert, in no apparent distress Head exam: Present: atraumatic, normocephalic, normal inspection Eye exam: Present: normal appearance, PERRL, EOMI. Absent: scleral icterus, conjunctival injection, periorbital swelling ENT exam: Present: normal exam, mucous membranes moist Neck exam: Present: normal inspection. Absent: tenderness, meningismus, lymphadenopathy Respiratory exam: Present: normal lung sounds bilaterally. Absent: respiratory distress, wheezes, rales, rhonchi, stridor Cardiovascular Exam: Present: regular rate, normal rhythm, normal heart sounds. Absent: systolic murmur, diastolic murmur, rubs, gallop, clicks GI/Abdominal exam: Present: soft, normal bowel sounds. Absent: distended, tenderness, guarding, rebound, rigid Extremities exam: Present: normal inspection, full ROM, normal capillary refill. Absent: tenderness, pedal edema, joint swelling, calf tenderness Back exam: Present: normal inspection Neurological exam: Present: alert, oriented X3, CN II-XII intact Psychiatric exam: Present: normal affect, normal mood Skin exam: Present: warm, dry, intact, normal color. Absent: rash <Victoriano Bowen - Last Filed: 04/09/24 00:42> - General Exam Comments Initial Comments: Visual Physical Exam Vital signs reviewed General: Well-appearing, nontoxic, no acute distress. Head: Normocephalic, atraumatic Eyes: PERRLA, EOMI ENT: Airway patent Chest: Nonlabored breathing Skin: No visual rash, normal skin tone Neuro: Alert and oriented 3 Musculoskeletal: No gross abnormalities (Rochelle Nicole) Course <Victoriano Bowen - Last Filed: 04/09/24 00:42> Vital Signs 03/29/24 03/30/24 19:38 03:49 Temperature 98.4 F 97.9 F Pulse Rate 92 82 Respiratory 22 18 Rate Blood Pressure 154/102 122/76 O2 Sat by Pulse 99 Oximetry - Reevaluation(s) Reevaluation #1: 03/29/24 23:07 Medical records reviewed (Victoriano Bowen) Reevaluation #2: 03/29/24 23:07 Patient symptoms unchanged (Victoriano Bowen) Reevaluation #3: 03/29/24 23:08 Patient informed of results and questions answered (Victoriano Bowen) Reevaluation #4: Was pt. sent in by a medical professional or institution (, [facility], [facility], urgent care, hospital, or skilled nursing...) When possible be specific @ -no Did you speak to anyone other than the patient for history (EMS, parent, family, police, friend...)? What history was obtained from this source @ -no Did you review nursing and triage notes (agree or disagree)? Why? @ -agree Are old charts reviewed (outside hosp., previous admission, EMS record, old EKG, old radiological studies, urgent care reports/EKG's, skilled nursing records)? Report findings @ -yes Differential Diagnosis (chest pain, altered mental status, abdominal pain women, abdominal pain men, vaginal bleeding, weakness, fever, dyspnea, syncope, headache, dizziness, GI bleed, back pain, seizure, CVA, palpatations, mental health, musculoskeletal)? @ -prior EKG interpreted by me (3pts min.). @ -no X-rays interpreted by me (1pt min.). @ -no CT interpreted by me (1pt min.). @ -Yes negative for acute disease U/S interpreted by me (1pt. min.). @ -yes Negative for acute disease What testing was considered but not performed or refused? (CT, X-rays, U/S, labs)? Why? @ -none What meds were considered but not given or refused? Why? @ -none Did you discuss the management of the patient with other professionals (professionals i.e. [facility], [facility], lab, RT, psych nurse, social media marketing manager, cable assembler, teacher, parole or probation officer, correctional case manager)? Give summary @ -no Was smoking cessation discussed for >3mins.? @ -no Was critical care preformed (if so, how long)? @ -no Were there social determinants of health that impacted care today? How? (Homelessness, low income, unemployed, alcoholism, drug addiction, transportation, low edu. Level, literacy, decrease access to med. care, fci, rehab)? @ -none Was there de-escalation of care discussed even if they declined (Discuss DNR or withdrawal of care, Hospice)? DNR status @ -no What co-morbidities impacted this encounter? (DM, HTN, Smoking, COPD, CAD, Cancer, CVA, ARF, Chemo, Hep., AIDS, mental health diagnosis, sleep apnea, morbid obesity)? @ -none Was patient admitted / discharged? Hospital course, mention meds given and route, prescriptions, significant lab abnormalities, going to OR and other per tinent info. @ - 39 to the ER with abdominal pain today. No acute cause of abdominal pain found patient can be discharged home Admitted Undiagnosed new problem with uncertain prognosis? @ -no Drug Therapy requiring intensive monitoring for toxicity (Heparin, Nitro, Insulin, Cardizem)? @ -no Were any procedures done? @ -no Diagnosis/symptom? @ -No pain NOS Acute, or Chronic, or Acute on Chronic? @ -Acute Uncomplicated (without systemic symptoms) or Complicated (systemic symptoms)? @ -Complicated Side effects of treatment? @ -no Exacerbation, Progression, or Severe Exacerbation? @ -exacerbation Poses a threat to life or bodily function? How? (Chest pain, [place], [place], pneumonia, PE, COPD, DKA, ARF, appy, cholecystitis, CVA, Diverticulitis, Homicidal, Suicidal, threat to staff... and all critical care pts) @ -no (Victoriano Bowen) Reevaluation #5: Differential Abdominal Pain Women: Appendicitis, Cholecystitis, diverticulosis, ischemic bowel, pancreatitis, hepatitis, UTI, gastroenteritis, AAA, incarcerated hernia, bowel obstruction, constipation, inflammatory bowel, hepatitis, peptic ulcer disease, splenic infarction, perforated viscus, vulvitis, ovarian torsion, PID, kidney stone, placenta abruption, this is not meant to be an all-inclusive list (Victoriano Bowen) Medical Decision Making <Rochelle Nicole - Last Filed: 03/29/24 19:53> - Lab Data Result diagrams: 03/29/24 20:47 03/29/24 20:47 <Alexandre Mortensen - Last Filed: 03/30/24 03:24> - Lab Data Result diagrams: 03/29/24 20:47 03/29/24 20:47 - Radiology Data Radiology results: report reviewed (US Sound abdomen pelvis CT abdomen pelvis negative for acute disease), image reviewed <Victoriano Bowen - Last Filed: 04/09/24 00:42> - Medical Decision Making Quick note preformed and electronically signed by Rochelle Nicole PA-C (Rochelle Nicole) 39 to the ER with abdominal pain today. No acute cause of abdominal pain found patient can be discharged home (Victoriano Bowen) - Lab Data Lab Results 03/29/24 03/29/24 03/29/24 Range/Units 20:47 20:47 20:47 WBC 6.8 (3.8-10.6) k/uL RBC 4.83 (3.80-5.40) m/uL Hgb 13.7 (11.4-16.0) gm/dL Hct 41.0 (34.0-46.0) % MCV 84.9 (80.0-100.0) fL MCH 28.4 (25.0-35.0) pg MCHC 33.5 (31.0-37.0) g/dL RDW 12.8 (11.5-15.5) % Plt Count 209 (150-450) k/uL MPV 9.3 Neutrophils % 74 % Lymphocytes % 13 % Monocytes % 8 % Eosinophils % 3 % Basophils % 1 % Neutrophils # 5.0 (1.3-7.7) k/uL Lymphocytes # 0.9 L (1.0-4.8) k/uL Monocytes # 0.5 (0-1.0) k/uL Eosinophils # 0.2 (0-0.7) k/uL Basophils # 0.0 (0-0.2) k/uL Sodium 138 (137-145) mmol/L Potassium 4.0 (3.5-5.1) mmol/L Chloride 107 (98-107) mmol/L Carbon Dioxide 23 (22-30) mmol/L Anion Gap 8 mmol/L BUN 15 (7-17) mg/dL Creatinine 0.84 (0.52-1.04) mg/dL Est GFR (CKD-EPI)AfAm >90 (>60 ml/min/1.73 sqM) Est GFR (CKD-EPI)NonAf 88 (>60 ml/min/1.73 sqM) Glucose 104 H (74-99) mg/dL Calcium 9.4 (8.4-10.2) mg/dL Total Bilirubin 0.5 (0.2-1.3) mg/dL AST 28 (14-36) U/L ALT 40 H (4-34) U/L Alkaline Phosphatase 89 (38-126) U/L Total Protein 6.8 (6.3-8.2) g/dL Albumin 4.4 (3.5-5.0) g/dL Amylase 62 (30-110) U/L Lipase 221 (23-300) U/L Urine Color Colorless Urine Appearance Clear (Clear) Urine pH 6.0 (5.0-8.0) Ur Specific [place] 1.013 (1.001-1.035) Urine Protein Negative (Negative) Urine Glucose (UA) Negative (Negative) Urine Ketones Negative (Negative) Urine Blood Negative (Negative) Urine Nitrite Negative (Negative) Urine Bilirubin Negative (Negative) Urine Urobilinogen <2.0 (<2.0) mg/dL Ur Leukocyte Esterase Negative (Negative) Disposition <Rochelle Nicole - Last Filed: 03/29/24 19:53> Is patient prescribed a controlled substance at d/c from ED?: No <Alexandre Mortensen - Last Filed: 03/30/24 03:24> <Victoriano Bowen - Last Filed: 04/09/24 00:42> Clinical Impression: Abdominal pain Disposition: HOME SELF-CARE Condition: Good Instructions (If sedation given, give patient instructions): Abdominal Pain (ED) Referrals: Robert Jefferson MD [Primary Care Provider] - 1-2 days
[2024-03-29 21:01] LABS: Basophils % (A) 1 %; Eosinophils # (A) 0.2 k/uL (0-0.7); Eosinophils % (A) 3 %; HGB 13.7 gm/dL (11.4-16.0); Lymphocytes # (A) 0.9 k/uL (1.0-4.8); Lymphocytes % (A) 13 %; MCH 28.4 pg (25.0-35.0); MCHC 33.5 g/dL (31.0-37.0); MCV 84.9 fL (80.0-100.0); Mean Platelet Volume 9.3; Monocytes # (A) 0.5 k/uL (0-1.0); Monocytes % (A) 8 %; Neutrophils % (A) 74 %; Platelet Count 209 k/uL (150-450); RBC 4.83 m/uL (3.80-5.40); RDW 12.8 % (11.5-15.5); WBC 6.8 k/uL (3.8-10.6)
[2024-03-29 21:04] LABS: Appearance,Urine Clear (Clear); Bilirubin,Urine Negative (Negative); Blood,Urine Negative (Negative); Color,Urine Colorless; Glucose,Urine (UA) Negative (Negative); Ketones,Urine Negative (Negative); Leukocyte Esterase,Urine Negative (Negative); Nitrite,Urine Negative (Negative); Protein,Urine Negative (Negative); Specific Gravity,Urine 1.013 (1.001-1.035); Urobilinogen,Urine <2.0 mg/dL (<2.0)
--- NOTE | 2024-03-29 21:32 | US ---
EXAMINATION TYPE: US transvaginal DATE OF EXAM: 03/29/2024 COMPARISON: 03/18/2021 CLINICAL INDICATION: Female, 39 years old with history of pain; patient having ovulation pain, , 2 c-sections TECHNIQUE: TA/TV. Transabdominal sonographic images of the pelvis were acquired. Transvaginal sono graphic images were medically necessary to better assess the following anatomy: right ovary Date of LMP: 03/14/2024 EXAM MEASUREMENTS: Uterus: 10.1 x 6.0 x 5.5 cm Endometrial Stripe: 1.1 cm Right Ovary: 2.6 x 2.6 x 2.1 cm Left Ovary: 2.8 x 2.1 x 2.5 cm 1. Uterus: Anteverted wnl 2. Endometrium: wnl 3. Right Ovary: wnl - only seen transabdominally 4. Left Ovary: wnl Spectral, color and waveform doppler imaging shows good arterial and venous flow within the ovaries ; there is no evidence for ovarian torsion. 5. Bilateral Adnexa: wnl 6. Posterior cul-de-sac: wnl IMPRESSION: No acute process identified. Endometrium measures 1.1 cm correlate with phase of menstrua l cycle.
[2024-03-29 21:36] LABS: ALT 40 U/L (4-34); AST 28 U/L (14-36); African American GFR (CKD) >90 (>60 ml/min/1.73 sqM); Albumin 4.4 g/dL (3.5-5.0); Alkaline Phosphatase 89 U/L (38-126); Amylase 62 U/L (30-110); Anion Gap 8 mmol/L; Blood Urea Nitrogen 15 mg/dL (7-17); Calcium 9.4 mg/dL (8.4-10.2); Carbon Dioxide 23 mmol/L (22-30); Chloride 107 mmol/L (98-107); Glucose 104 mg/dL (74-99); Lipase 221 U/L (23-300); Non-African American GFR(CKD) 88 (>60 ml/min/1.73 sqM); Sodium 138 mmol/L (137-145); Total Bilirubin 0.5 mg/dL (0.2-1.3); Total Protein 6.8 g/dL (6.3-8.2)
[2024-03-29] MEDS: KETOROLAC 15 MG/ML 1 ML VIAL IVP STA (22:19)
[2024-03-29] MEDS: ACETAMINOPHEN IV (For NPO) 1,000 MG in EMPTY BAG 1 BAG IVPB STA (22:21)
[2024-03-29] MEDS: ONDANSETRON 4 MG/2 ML VIAL IVP STA (22:23)
[2024-03-29] MEDS: HYDROmorphone 1 MG/ML 1 ML SYRINGE IVP STA (23:30)
--- NOTE | 2024-03-30 00:08 | CT ---
EXAM: CT Abdomen and Pelvis With Intravenous Contrast CLINICAL HISTORY: ITS.REASON CT Reason: pain TECHNIQUE: Axial computed tomography images of the abdomen and pelvis with intravenous contrast. CTDI is 41.6 mGy and DLP is 2106.8 mGy-cm. This CT exam was performed using one or more of the following dose reduction techniques: automated exposure control, adjustment of the mA and/or kV according to patient size, and/or use of iterative reconstruction technique. COMPARISON: No relevant prior studies available. FINDINGS: Lung bases: Unremarkable. No mass. No consolidation. ABDOMEN: Liver: Hepatic steatosis. Gallbladder and bile ducts: Cholecystectomy. No ductal dilation. Pancreas: Unremarkable. No mass. No ductal dilation. Spleen: Unremarkable. No splenomegaly. Adrenals: Unremarkable. No mass. Kidneys and ureters: Nonobstructing left-sided renal stones measuring approximately 2-3 mm in size. No obstructive uropathy. Stomach and bowel: Unremarkable. No obstruction. No mucosal thickening. PELVIS: Appendix: No findings to suggest acute appendicitis. Bladder: Unremarkable. No mass. Reproductive: Unremarkable as visualized. ABDOMEN and PELVIS: Intraperitoneal space: Unremarkable. No free air. No significant fluid collection. Bones/joints: No acute fracture. No dislocation. Soft tissues: Unremarkable. Vasculature: Unremarkable. No abdominal aortic aneurysm. Lymph nodes: Unremarkable. No enlarged lymph nodes. IMPRESSION: Nonobstructing left-sided renal stones measuring approximately 2-3 mm in size. No obstructive uropathy.
[2024-03-30 03:51] VITALS: BP 122/76; PULSE 82; RESP 18; TEMP 97.9
== END 2024-03-30 03:51 | disposition home or self-care (01) ==
LOC: EC 19:15
DX: R10.31 Right lower quadrant pain (principal); Z87.891 Personal history of nicotine dependence; Z90.49 Acquired absence of other specified parts of digestive tract
CPT/HCPCS: 36415; 80053; 82150; 83690; 85025; 81003; 93975; 76856; 76830; 74177; 99285; 96365; 96375 ×2; J1170; J0131; J1885; Q9967